=== PATIENT | female | born 1955 | race Caucasian/White ===

== ENCOUNTER 2017-05-15 15:29 | Emergency (ER) | payer BC, OTHER ==
[~2017-05-15] VITALS: Ht 160 cm; Wt 54.2 kg
[~2017-05-15 15:29] MED LIST: NAPR-1169
[2017-05-15 15:35] VITALS: TEMP 37.2; Ht 160 cm; Wt 54.2 kg
[2017-05-15] MEDS ORDERED: ONDANSETRON INJ 2 MG/ML 2 ML VIAL IV STA (15:54)
--- NOTE | 2017-05-15 16:17 | EMERGENCY ROOM VISIT NOTE ---
History Report prepared by Yusra: Raghavendra Tovar Under the Supervision of: Dr. Celso Agarwal M.D. First contact with patient: 15:47 Chief Complaint: ABDOMINAL PAIN Stated Complaint: STOMACH CRAMPS History of Present Illness The patient is a 61 year old female who presents to the Emergency Room with complaints of intermittent diffuse abdominal pain beginning a week ago. She describes her pain as a "cramping" sensation. She rates her pain as a 4/10 at worst when present. The patient has not noticed a correlation between her pain and eating. She denies any vaginal bleeding, urinary symptoms, diarrhea, vomiting, fevers, or chills. The patient was seen by her PCP today for her symptoms, and was found to have an elevated WBC count. She was referred to the ED for an abdominal CT. She notes that she had some mild RLQ pain to palpation in the office. The patient has no previous history of similar symptoms. She is scheduled for a colonoscopy next week. Source of History: patient Onset: A week ago Position: abdomen (diffuse) Symptom Intensity: 4/10 Quality: cramping Timing: intermittent Associated Symptoms: No fevers, No chills, No vomiting, No diarrhea, No urinary symptoms Note: The patient denies vaginal bleeding. Review of Systems See HPI for pertinent positives & negatives. A total of 10 systems reviewed and were otherwise negative. Past Medical & Surgical Medical Problems: (1) No Known Active Medical Problems (2) Pneumonia Surgical Problems: (1) Previous section Family History No pertinent family history stated. Social History Smoking Status: Current Every Day Smoker Marital Status: Housing Status: lives with family Current/Historical Medications Scheduled Amoxicillin & Pot Clavulanate (Augmentin 875-125 mg), 875 MG PO BID Allergies Coded Allergies: Caffeine (Verified Adverse Reaction, Intermediate, TACHYCARDIA, PALPITATIONS, 05/15/17) Uncoded Allergies: COLD MEDICATIONS (Allergy, Mild, rash, 05/15/17) Physical Exam Vital Signs Date Time Temp Pulse Resp B/P (MAP) Pulse Ox O2 Delivery O2 Flow Rate FiO2 05/15/17 19:02 75 20 120/64 95 Room Air 05/15/17 18:00 77 20 108/72 94 Room Air 05/15/17 17:30 68 20 142/77 97 Room Air 05/15/17 16:42 75 05/15/17 16:30 80 20 129/72 97 Room Air 05/15/17 15:35 37.2 93 20 137/91 98 Room Air Physical Exam GENERAL: Patient is in no acute distress. HEENT: No acute trauma, normocephalic atraumatic, mucous membranes moist, no nasal congestion, no scleral icterus. NECK: No stridor, no adenopathy, no meningismus, trachea is midline. LUNGS: Decreased breath sounds bilaterally, especially on the right. No wheezing or rhonchi. HEART: Without murmurs gallops or rubs, regular rate and rhythm. ABDOMEN: Soft, nontender, bowel sounds positive, no hernias, no peritonitis. EXTREMITIES: No cyanosis or edema, full range of motion of all the joints without pain or difficulty, no signs for acute trauma. NEUROLOGIC: Oriented x 3, no acute motor or sensory deficits, no focal weakness. SKIN: No rash, no jaundice, no diaphoresis. Medical Decision & Procedures ER Provider Diagnostic Interpretation: Radiology results as stated below per my review and radiologist interpretation: CT ABD/PELVIS IV AND ORAL CONT FINDINGS: Lower chest: There are by basilar atelectatic changes. Liver: The contrast-enhanced liver is normal in size, contour, and attenuation. There is no intrahepatic biliary ductal dilatation. The hepatic veins and portal veins are patent. Gallbladder: Contracted Spleen: Normal in size and attenuation. Pancreas: Unremarkable. Adrenal glands: Unremarkable. Kidneys: No solid renal masses are visualized. There is mild prominence of each renal pelvis. This remains unchanged 2007 is not felt to be of acute clinical significance Bowel: There are no transition zones indicate bowel obstruction. There is a thick walled dilated appendix with marked periappendiceal stranding. The findings are indicative of acute appendicitis. Given the extent of inflammatory changes, a gangrenous appendix cannot be excluded. There are no fluid collections to indicate a drainable abscess. There is no free intraperitoneal air. Peritoneum: There is no intraperitoneal free air or abdominal ascites. Vasculature: The abdominal aorta is normal in course and caliber. Adenopathy: None. Pelvic viscera: There is mild bladder wall thickening. This may in part be secondary to a nondistended bladder Skeletal structures: No destructive osseous lesions are seen. IMPRESSION: Thick-walled appendix with marked periappendiceal inflammatory change. The findings are indicative of acute appendicitis. Surgical consultation is recommended. Electronically signed by: Rodolfo Burrell M.D. 05/15/2017 7:03 PM CHEST ONE VIEW PORTABLE FINDINGS: Mild interstitial thickening at the lung bases. The upper lung zones are clear. No pleural effusions. No pneumothorax. The heart is normal in size. IMPRESSION: Mild interstitial thickening at the lung bases which is likely chronic. No acute process within the chest. Electronically signed by: Wallace Marte M.D. 05/15/2017 4:54 PM Laboratory Results 05/15/17 16:15 Red Blood Count 4.25, Mean Corpuscular Volume 87.1, Mean Corpuscular Hemoglobin 29.4, Mean Corpuscular Hemoglobin Concent 33.8, Mean Platelet Volume 9.6, Neutrophils (%) (Auto) 69.2, Lymphocytes (%) (Auto) 20.0, Monocytes (%) (Auto) 9.0, Eosinophils (%) (Auto) 1.1, Basophils (%) (Auto) 0.4, Neutrophils # (Auto) 6.74, Lymphocytes # (Auto) 1.95, Monocytes # (Auto) 0.88, Eosinophils # (Auto) 0.11, Basophils # (Auto) 0.04 05/15/17 16:15 Test 05/15/17 16:15 05/15/17 16:25 White Blood Count 9.75 K/uL (4.8-10.8) Red Blood Count 4.25 M/uL (4.2-5.4) Hemoglobin 12.5 g/dL (12.0-16.0) Hematocrit 37.0 % (37-47) Mean Corpuscular Volume 87.1 fL (80-100) Mean Corpuscular Hemoglobin 29.4 pg (25-34) Mean Corpuscular Hemoglobin Concent 33.8 g/dl (32-36) Platelet Count 333 K/uL (130-400) Mean Platelet Volume 9.6 fL (7.4-10.4) Neutrophils (%) (Auto) 69.2 % Lymphocytes (%) (Auto) 20.0 % Monocytes (%) (Auto) 9.0 % Eosinophils (%) (Auto) 1.1 % Basophils (%) (Auto) 0.4 % Neutrophils # (Auto) 6.74 K/uL (1.4-6.5) Lymphocytes # (Auto) 1.95 K/uL (1.2-3.4) Monocytes # (Auto) 0.88 K/uL (0.11-0.59) Eosinophils # (Auto) 0.11 K/uL (0-0.5) Basophils # (Auto) 0.04 K/uL (0-0.2) RDW Standard Deviation 42.3 fL (36.4-46.3) RDW Coefficient of Variation 13.2 % (11.5-14.5) Immature Granulocyte % (Auto) 0.3 % Immature Granulocyte # (Auto) 0.03 K/uL (0.00-0.02) Anion Gap 4.0 mmol/L (3-11) Est Creatinine Clear Calc Drug Dose 61.1 ml/min Estimated GFR () 93.0 Estimated GFR (Non- 80.2 BUN/Creatinine Ratio 18.1 (10-20) Calcium Level 9.1 mg/dl (8.5-10.1) Total Bilirubin 0.7 mg/dl (0.2-1) Aspartate Amino Transf (AST/SGOT) 10 U/L (15-37) Alanine Aminotransferase (ALT/SGPT) 14 U/L (12-78) Alkaline Phosphatase 78 U/L (45-117) Total Protein 8.8 gm/dl (6.4-8.2) Albumin 3.2 gm/dl (3.4-5.0) Globulin 5.6 gm/dl (2.5-4.0) Albumin/Globulin Ratio 0.6 (0.9-2) Lipase 193 U/L (73-393) Urine Color YELLOW Urine Appearance CLEAR (CLEAR) Urine pH 6.0 (4.5-7.5) Urine Specific [place] 1.019 (1.000-1.030) Urine Protein NEG (NEG) Urine Glucose (UA) NEG (NEG) Urine Ketones NEG (NEG) Urine Occult Blood NEG (NEG) Urine Nitrite NEG (NEG) Urine Bilirubin NEG (NEG) Urine Urobilinogen NEG (NEG) Urine Leukocyte Esterase TRACE (NEG) Urine WBC (Auto) 1-5 /hpf (0-5) Urine RBC (Auto) 0-4 /hpf (0-4) Urine Hyaline Casts (Auto) 1-5 /lpf (0-5) Urine Epithelial Cells (Auto) >30 /lpf (0-5) Urine Bacteria (Auto) NEG (NEG) Laboratory results reviewed by me. Medications Administered Medications (Trade) Dose Ordered Sig/López Route Start Time Stop Time Status Last Admin Dose Admin Ondansetron HCl (Zofran Inj) 4 mg NOW STAT IV 05/15/17 15:54 05/15/17 15:56 DC 05/15/17 16:23 4 MG ED Course 1548: The patient was evaluated in room B3B. A complete history and physical exam was performed. 1553: Ordered Zofran Inj 4 mg IV. 1914: I reassessed the patient. She has no pain to palpation of the abdomen. 1925: Reevaluated the patient. Medical Decision The patient is a 61 year old female who presents to the ED with complaints of intermittent abdominal cramping. Differential diagnoses considered include appendicitis, diverticulitis, intestinal colic, constipation, UTI, viral illness , dehydration, and anemia. There is no leukocytosis or concerning anemia. No significant electrolyte abnormality, kidney failure, hepatitis or pancreatitis. Urinalysis does not show evidence for infection. Chest x-ray does not show pneumonia, free air or CHF. Abdominal and pelvis CT suggests acute appendicitis, no free air. No bowel obstruction. The patient was given IV Zofran for nausea. She is doing well. She states that she has no pain. I talked with the surgeon on-call about the findings on CT. As the patient has no fever or white count, as the patient has no actual pain right now, the surgeon felt the patient could likely be discharged on antibiotics. Patient was given a dose of IV Unasyn. The patient will be seen by surgery, the plan for now is likely discharge, an overnight hospital stay for observation was also a possibility. Please see the surgical notes for further information. Medication Reconcilliation Current Medication List: was personally reviewed by me Blood Pressure Screening Patient's blood pressure: Normal blood pressure Blood pressure disposition: Did not require urgent referral Consults Time Called: 1915 Consulting Physician: Dr. Duarte -General Surgery Returned Call: 1920 Discussed the patient's case. Dr. Duarte recommends discharge on antibiotics with close outpatient follow-up. He does not feel that the patient is a surgical candidate due to lack of a white count and no pain. Impression Primary Impression: Appendicitis Scribe Attestation The scribe's documentation has been prepared under my direction and personally reviewed by me in its entirety. I confirm that the note above accurately reflects all work, treatment, procedures, and medical decision making performed by me. Departure Information Dispostion Still a Patient Prescriptions Amoxicillin & Pot Clavulanate (Augmentin 875-125 mg) 1 Tab Tab 875 MG PO BID for 7 Days, #14 TAB Prov: Celso Agarwal M.D. 05/15/17 Referrals No Doctor, Assigned (PCP) Forms Call Back Authorization, HOME CARE DOCUMENTATION FORM, IMPORTANT VISIT INFORMATION Patient Instructions My [facility] Additional Instructions augmentin 2x per day for 1 week return if worsening or if have more pain, or if have fever or vomiting see theresa md next week for a recheck bland diet for next 2 days you have appendicitis by CT scan but since you were feeling better, surgery felt you could go home on antibiotics to return if worsening Problem Qualifiers Primary Impression: Appendicitis Appendicitis type: acute appendicitis Acute appendicitis type: unspecified acute appendicitis type Qualified Codes: K35.80 - Unspecified acute appendicitis
[2017-05-15 16:30] LABS: BASO % 0.4 %; BASO ABS # 0.04 K/uL (0-0.2); COMPLETE YES; EOS % 1.1 %; IG% 0.3 %; LYMPH ABS # 1.95 K/uL (1.2-3.4); MEAN CELL VOLUME 87.1 fL (80-100); MEAN CORPUSCULAR HEMOGLOBIN 29.4 pg (25-34); MEAN CORPUSCULAR HGB CONC 33.8 g/dl (32-36); MEAN PLATELET VOLUME 9.6 fL (7.4-10.4); NEUT % 69.2 %; PLATELET COUNT 333 K/uL (130-400); RED BLOOD COUNT 4.25 M/uL (4.2-5.4); WHITE BLOOD COUNT 9.75 K/uL (4.8-10.8)
[2017-05-15 16:49] LABS: URINE APPEARANCE CLEAR (CLEAR); URINE BILIRUBIN NEG (NEG); URINE COLOR YELLOW; URINE EPITHELIAL CELL AUTO >30 /lpf (0-5); URINE NITRITE NEG (NEG); URINE SPECIFIC GRAVITY 1.019 (1.000-1.030); UROBILINOGEN NEG (NEG); ZZUR CULT IF INDIC CLEAN CATCH NO
[2017-05-15 16:50] LABS: MANUAL MICROSCOPIC REQUIRED? NO; REVIEW REQ? NO
[2017-05-15 16:52] LABS: BUN/CREATININE RATIO 18.1 (10-20); CALCIUM 9.1 mg/dl (8.5-10.1); CREATININE 0.79 mg/dl (0.60-1.20); POTASSIUM 3.4 mmol/L (3.5-5.1)
[2017-05-15 16:54] LABS: ALB/GLOB RATIO 0.6 (0.9-2)
--- NOTE | 2017-05-15 16:55 | DIAGNOSTIC IMAGING REPORT ---
CHEST ONE VIEW PORTABLE HISTORY: Generalized abdominal pain. COMPARISON: None. FINDINGS: Mild interstitial thickening at the lung bases. The upper lung zones are clear. No pleural effusions. No pneumothorax. The heart is normal in size. IMPRESSION: Mild interstitial thickening at the lung bases which is likely chronic. No acute process within the chest. Electronically signed by: Wallace Marte M.D. 05/15/2017 4:54 PM Dictated Date/Time: 05/15/2017 4:53 PM
[2017-05-15] MEDS ORDERED: OPTIRAY 320 IV PRN (19:00)
--- NOTE | 2017-05-15 19:04 | DIAGNOSTIC IMAGING REPORT ---
CT ABD/PELVIS IV AND ORAL CONT CLINICAL HISTORY: Abdominal pain. Possible acute appendicitis. COMPARISON STUDY: 08/01/2006 TECHNIQUE: Following the IV administration of 116 mL of Optiray-320, CT scan of the abdomen and pelvis was performed from the lung bases to the proximal femurs. Images are reviewed in the axial, sagittal, and coronal planes. IV contrast was administered without complication. A dose lowering technique was utilized adhering to the principles of ALARA. CT DOSE: 268.83 mGy.cm FINDINGS: Lower chest: There are by basilar atelectatic changes. Liver: The contrast-enhanced liver is normal in size, contour, and attenuation. There is no intrahepatic biliary ductal dilatation. The hepatic veins and portal veins are patent. Gallbladder: Contracted Spleen: Normal in size and attenuation. Pancreas: Unremarkable. Adrenal glands: Unremarkable. Kidneys: No solid renal masses are visualized. There is mild prominence of each renal pelvis. This remains unchanged 2007 is not felt to be of acute clinical significance Bowel: There are no transition zones indicate bowel obstruction. There is a thick walled dilated appendix with marked periappendiceal stranding. The findings are indicative of acute appendicitis. Given the extent of inflammatory changes, a gangrenous appendix cannot be excluded. There are no fluid collections to indicate a drainable abscess. There is no free intraperitoneal air. Peritoneum: There is no intraperitoneal free air or abdominal ascites. Vasculature: The abdominal aorta is normal in course and caliber. Adenopathy: None. Pelvic viscera: There is mild bladder wall thickening. This may in part be secondary to a nondistended bladder Skeletal structures: No destructive osseous lesions are seen. IMPRESSION: Thick-walled appendix with marked periappendiceal inflammatory change. The findings are indicative of acute appendicitis. Surgical consultation is recommended. Electronically signed by: Rodolfo Burrell M.D. 05/15/2017 7:03 PM Dictated Date/Time: 05/15/2017 6:59 PM
[2017-05-15] MEDS ORDERED: AMPICILLIN/SULBACTAM SOD INJ 3,000 MG in SODIUM CHLORIDE 0.9% 100ML 100 ML IV ONE (19:30)
[2017-05-15] MEDS ORDERED: AMOX875T PO (19:35)
--- NOTE | 2017-05-15 20:59 | EMERGENCY ROOM VISIT NOTE ---
ED Visit Note First contact with patient: 15:47 The patient was seen by surgery. The decision has been made to send the patient home, she has agreed to return if worsening.
[2017-05-15 21:01] VITALS: BP 132/78; PULSE 87; O2SAT 98
--- NOTE | 2017-05-15 21:11 | Medical Consult ---
Consultation Date of Consultation: May 15, 2017. Attending Physician: Reason for Consultation: Appendicitis History of Present Illness Patient presented to the ED this evening with a 1 week history of intermittent diffuse abdominal pain. She was seen by her PCP earlier today who noticed some RLQ tenderness on exam along with an elevated white count. Her PCP instructed her to go to the ED with these findings. She rates her pain at a 4/10 when she has these bouts of pain and denies any other areas of pain. Denies nausea, vomiting, fever or chills. She has been moving her bowels and urinating without trouble. She does not believe her symptoms are due to any foods she has been eating recently. Denies any past abdominal surgeries. Denies any similar symptoms in the past. At present she states she feels fine and would prefer not to stay the night. She is scheduled to have a colonoscopy this coming due to blood in her stool found on a cologuard test back in March. Past Medical/Surgical History Medical Problems: (1) Appendicitis Status: Acute Social History Smoking Status: Current Every Day Smoker Marital Status: Housing Status: lives with family Allergies Coded Allergies: Caffeine (Verified Adverse Reaction, Intermediate, TACHYCARDIA, PALPITATIONS, 05/15/17) Uncoded Allergies: COLD MEDICATIONS (Allergy, Mild, rash, 05/15/17) Current Inpatient Medications Current Inpatient Medications Medications (Trade) Dose Ordered Sig/López Route Start Time Stop Time Status Last Admin Dose Admin Ioversol (Optiray 320) 111 ml UD PRN IV 05/15/17 19:00 05/19/17 18:59 Review of Systems Constitutional: No fever, No chills, No sweats, No weakness Respiratory: No shortness of breath Cardiovascular: No chest pain Abdomen: + pain (None at present), No nausea, No vomiting, No diarrhea, No constipation Genitourinary - Female: No dysuria Integumentary: No rash, No color change Physical Exam Date Time Temp Pulse Resp B/P (MAP) Pulse Ox O2 Delivery O2 Flow Rate FiO2 05/15/17 20:14 75 20 136/78 95 Room Air 05/15/17 19:02 75 20 120/64 95 Room Air 05/15/17 18:00 77 20 108/72 94 Room Air 05/15/17 17:30 68 20 142/77 97 Room Air 05/15/17 16:42 75 05/15/17 16:30 80 20 129/72 97 Room Air 05/15/17 15:35 37.2 93 20 137/91 98 Room Air General Appearance: WD/WN, no apparent distress Head: normocephalic, atraumatic Eyes: sclerae normal Neck: trachea midline Respiratory/Chest: no respiratory distress, no accessory muscle use Abdomen/GI: normal bowel sounds, soft, no organomegaly, no pulsatile mass, + tenderness (Mild TTP RLQ), + pertinent finding ((-) psoas sign, (-) Obturator sign) Neurologic/Psych: alert, oriented x 3 Skin: normal color, warm/dry Laboratory Results Last 24 Hours Test 05/15/17 16:15 05/15/17 16:25 White Blood Count 9.75 K/uL Red Blood Count 4.25 M/uL Hemoglobin 12.5 g/dL Hematocrit 37.0 % Mean Corpuscular Volume 87.1 fL Mean Corpuscular Hemoglobin 29.4 pg Mean Corpuscular Hemoglobin Concent 33.8 g/dl Platelet Count 333 K/uL Mean Platelet Volume 9.6 fL Neutrophils (%) (Auto) 69.2 % Lymphocytes (%) (Auto) 20.0 % Monocytes (%) (Auto) 9.0 % Eosinophils (%) (Auto) 1.1 % Basophils (%) (Auto) 0.4 % Neutrophils # (Auto) 6.74 K/uL Lymphocytes # (Auto) 1.95 K/uL Monocytes # (Auto) 0.88 K/uL Eosinophils # (Auto) 0.11 K/uL Basophils # (Auto) 0.04 K/uL RDW Standard Deviation 42.3 fL RDW Coefficient of Variation 13.2 % Immature Granulocyte % (Auto) 0.3 % Immature Granulocyte # (Auto) 0.03 K/uL Sodium Level 132 mmol/L Potassium Level 3.4 mmol/L Chloride Level 102 mmol/L Carbon Dioxide Level 26 mmol/L Anion Gap 4.0 mmol/L Blood Urea Nitrogen 14 mg/dl Creatinine 0.79 mg/dl Est Creatinine Clear Calc Drug Dose 61.1 ml/min Estimated GFR () 93.0 Estimated GFR (Non- 80.2 BUN/Creatinine Ratio 18.1 Random Glucose 97 mg/dl Calcium Level 9.1 mg/dl Total Bilirubin 0.7 mg/dl Aspartate Amino Transf (AST/SGOT) 10 U/L Alanine Aminotransferase (ALT/SGPT) 14 U/L Alkaline Phosphatase 78 U/L Total Protein 8.8 gm/dl Albumin 3.2 gm/dl Globulin 5.6 gm/dl Albumin/Globulin Ratio 0.6 Lipase 193 U/L Urine Color YELLOW Urine Appearance CLEAR Urine pH 6.0 Urine Specific [place] 1.019 Urine Protein NEG Urine Glucose (UA) NEG Urine Ketones NEG Urine Occult Blood NEG Urine Nitrite NEG Urine Bilirubin NEG Urine Urobilinogen NEG Urine Leukocyte Esterase TRACE Urine WBC (Auto) 1-5 /hpf Urine RBC (Auto) 0-4 /hpf Urine Hyaline Casts (Auto) 1-5 /lpf Urine Epithelial Cells (Auto) >30 /lpf Urine Bacteria (Auto) NEG Assessment & Plan Abdominal pain - acute appendicitis on CT abd/pelvis 05/15/17 Patient seen and examined with Dr. Duarte. Minimal RLQ TTP on deep palpation, mild left shift, exam otherwise benign, feeling well. No Surgical intervention indicated at this time. Patient will be discharged from the ED on PO Antibiotics - instructed to return to the ED if her symptoms persist or worsen. Colonoscopy currently scheduled for with Dr. Lipscomb at [facility] due to blood in stool on cologuard test - will contact GI in the AM to discuss findings. Please contact with questions or concerns.
== END 2017-05-15 21:02 | disposition home or self-care (01) ==
LOC: C.EDB 15:30
DX: K37 Unspecified appendicitis (principal); F17.200 Nicotine dependence, unspecified, uncomplicated; Z91.018 Allergy to other foods

== ENCOUNTER 2017-06-05 05:15 | Observation (INO) | payer BC ==
[~2017-06-05] VITALS: Ht 160 cm; Wt 53.6 kg
[2017-06-05] VITALS (8 sets, daily range): BP systolic 132–148; BP diastolic 75–87; PULSE 54–74; TEMP 36.7–37.1; O2SAT 93–100; Ht 160 cm; Wt 53.6 kg
[2017-06-05] MEDS ORDERED: LACTATED RINGER'S 1000ML 1,000 ML IV SCH (06:00)
[2017-06-05] MEDS ORDERED: CEFOXITIN IV 2,000 MG in DEXTROSE 5% 50ML 50 ML IV SCH (06:00)
[2017-06-05] MEDS ORDERED: ONDANSETRON INJ 2 MG/ML 2 ML VIAL ONE (06:41)
[2017-06-05] MEDS ORDERED: ROCURONIUM BROMIDE 10 MG/ML 5 ML VIAL IV ONE (06:41)
[2017-06-05] MEDS ORDERED: DEXAMETHASONE SOD INJ 4 MG/ML VIAL ONE (06:41)
[2017-06-05] MEDS ORDERED: LIDOCAINE HCL 2% 2 ML VIAL (20MG/ML) ONE (06:41)
[2017-06-05] MEDS ORDERED: GLYCOPYRROLATE INJ 0.2 MG/ML VIAL ONE ×2 (06:41→08:06)
[2017-06-05] MEDS ORDERED: NEOSTIGMINE METHYLSULFATE 5 MG/5 ML SYR ONE (06:41)
[2017-06-05] MEDS ORDERED: MIDAZOLAM HCL 1 MG/ML 2ML VIAL ONE (06:41)
[2017-06-05] MEDS ORDERED: PROPOFOL IV EMULSION 10 MG/ML 20 ML VIAL IV ONE ×2 (06:41→07:58)
[2017-06-05] MEDS ORDERED: FENTANYL CITRATE INJ 50 MCG/1 ML 2 ML VIAL ONE ×2 (06:41→07:43)
[2017-06-05] MEDS ORDERED: LIDOCAINE HCL 1% 20 ML VIAL ONE (06:46)
[2017-06-05] MEDS ORDERED: BUPIVACAINE 0.5 % 5 MG/1 ML MPF 30ML VIAL ONE (06:47)
[2017-06-05] MEDS ORDERED: BACITRACIN OINT 15 GM TUBE ONE (06:47)
[2017-06-05] MEDS ORDERED: CEFOXITIN SOD 2 GM VIAL IV STA (07:12)
--- NOTE | 2017-06-05 07:12 | History & Physical Bridge Note ---
H&P Re-Evaluation Bridge Note: I have examined the patient, reviewed the History & Physical and in the interval since the performance of the History & Physical I have noted the following changes of clinical significance: No changes noted
[2017-06-05] MEDS ORDERED: KETOROLAC TROMETHAMINE 30 MG/ML VIAL ONE (07:54)
[2017-06-05] MEDS ORDERED: HYDROmorphone INJ 2 MG/ML SYR/VIAL IV PRN (08:00)
[2017-06-05] MEDS ORDERED: EpHEDrine SULFATE INJ 50 MG/ML AMP IV PRN (08:00)
[2017-06-05] MEDS ORDERED: PHENYLEPHRINE 100MCG/ML 5ML SYR IV PRN (08:00)
[2017-06-05] MEDS ORDERED: ONDANSETRON INJ 2 MG/ML 2 ML VIAL IV PRN ×2 (08:00→08:30)
[2017-06-05] MEDS ORDERED: ATROPINE SULFATE 0.1 MG/ML 5ML SYR IV PRN (08:00)
--- NOTE | 2017-06-05 08:27 | [facility] Post Operative Brief Note ---
Immediate Operative Summary Operative Date Jun 05, 2017. Pre-Operative Diagnosis Chronic Appendicitis Post-Operative Diagnosis Chronic Appendicitis Procedure(s) Performed Laparoscopi Appendectomy Surgeon Dr. Matamoros Card Feeder Surgeon(s) none Estimated Blood Loss 5 cc Findings chronic appendicitis Specimens A: appendix Drains none Anesthesia general Complication(s) None Disposition Recovery Room / PACU
[2017-06-05] MEDS ORDERED: HYDROmorphone INJ 1 MG/ML SYR IV PRN (08:30)
[2017-06-05] MEDS ORDERED: OXYCODONE/ACETAMINOPHEN 5-325 TAB PO PRN (08:30)
[2017-06-05] MEDS ORDERED: ACETAMINOPHEN 325 MG TAB PO PRN (08:30)
--- NOTE | 2017-06-05 08:59 | Anesthesiology Progress Note ---
Anesthesia Post Op Note Date & Time Jun 05, 2017 at 08:59 Vital Signs Pain Intensity: 0 Vital Signs Past 12 Hours Date Time Temp Pulse Resp B/P (MAP) Pulse Ox O2 Delivery O2 Flow Rate FiO2 06/05/17 08:55 136/73 06/05/17 08:52 56 13 06/05/17 08:52 56 13 99 06/05/17 08:51 128/67 06/05/17 08:47 61 18 99 06/05/17 08:47 59 18 06/05/17 08:46 56 17 100 06/05/17 08:46 56 17 06/05/17 08:45 137/71 06/05/17 08:41 57 21 06/05/17 08:41 57 21 100 06/05/17 08:40 125/70 06/05/17 08:37 128/69 06/05/17 08:36 59 14 06/05/17 08:36 59 14 73/64 99 06/05/17 08:31 60 11 06/05/17 08:31 36.6 60 16 122/75 (84) 99 Oxymask 10 06/05/17 08:31 60 11 122/75 97 06/05/17 05:43 37.1 74 20 132/75 (94) 98 Room Air Notes Mental Status: alert / awake / arousable, participated in evaluation Pt Amnestic to Procedure: Yes Nausea / Vomiting: adequately controlled Pain: adequately controlled Airway Patency, RR, SpO2: stable & adequate BP & HR: stable & adequate Hydration State: stable & adequate Anesthetic Complications: no major complications apparent
[2017-06-05] MEDS ORDERED: IV FLUIDS COMPLETED PRN (09:00)
--- NOTE | 2017-06-05 09:15 | OPERATIVE REPORT ---
DATE OF OPERATION: 06/05/2017 PREOPERATIVE DIAGNOSIS: Chronic appendicitis. POSTOPERATIVE DIAGNOSIS: Same. PROCEDURE: Laparoscopic appendectomy. SURGEON: Jose De Jesus Matamoros MD. ANESTHESIA: General. ESTIMATED BLOOD LOSS: About 5 mL. FINDINGS: Chronic appendicitis. COMPLICATIONS: None. INDICATIONS FOR THE PROCEDURE: This is a 61-year-old female who presented with right lower quadrant pain 2 weeks ago. The patient was diagnosed with acute appendicitis 2 weeks ago and patient had conservative treatment and patient still has some right inguinal pain. The patient will require to do laparoscopic appendectomy, possible open. I did talk to the patient about the benefit and risk, alternate procedure. I indicated the risks may include but not limited such as bleeding, infection, abscess, injury to the bowel. The patient understands. She signed informed consent and I answered all questions. DETAILS OF PROCEDURE: We brought the patient to the OR, put the patient in the supine position. The patient received SCD on bilateral legs to prevent DVT. Also, patient received 2 gram cefoxitin IV for prophylactic antibiotic. The patient received general anesthesia without difficulty. The abdomen was prepped and draped in routine sterile fashion. After a timeout, I injected local anesthesia by using 1% lidocaine mixed with 0.5% Marcaine just above the umbilicus. Then I made a small incision just above umbilicus, opened fascia and opened peritoneum under direct vision. I put a Fermin trocar in, connected to CO2 to create pneumoperitoneum. Flow rate at 6 liter per minute. Pressure not more than 14 mmHg. Once we got a nice pneumoperitoneum and then we put a camera in to look around the abdomen showing normal findings in the stomach, small bowel, large bowel and the liver; however, the appendix surely is enlarged, inflammation, confirmed chronic appendicitis. Then, we put another two 5 mm trocar on the left lower quadrant area. Then we mobilized the appendix, used harmonic to take down the appendiceal, rechecked, no active bleeding. Then we used the Endo-NAS staple for transection on the base of the appendix, rechecked no active bleeding, no leak. Then we removed the appendix through the catcher bag and then we reinserted Fermin trocar in, connected to CO2 to create pneumoperitoneum again, looked around the abdomen showing no active bleeding, no leak from bowel, no injury to the bowel. Then we removed all trocar under direct vision. No active bleeding from trocar sites. The pneumoperitoneum was released. Then I closed the umbilical incision and fascial layer by using #1 Vicryl [id number] x2, closed subcutaneous layer by using 2-0 Vicryl continuous running, closed the skin by using 4-0 Vicryl continuous running. Then we closed another two 5 mm trocar site skin only by using 4-0 Vicryl. We put the dressing on. The patient tolerated the procedure well and before the procedure, the patient had a Delvalle catheter inserted. After the procedure, we removed Delvalle catheter insertion. The patient transferred to recovery room in stable condition. After the procedure, I did talk to the patient's family member about the OR finding and procedure we did. The patient's understands. I attest to the content of the Intraoperative Record and any orders documented therein. Any exceptions are noted below. SHARMILA
[2017-06-05] MEDS ORDERED: D5W AND 1/2NSS + 20MEQ KCL 1,000 ML IV SCH (10:15)
--- NOTE | 2017-06-05 14:37 | Discharge Instructions ---
Discharge Instructions Date of Service Jun 05, 2017. Admission Reason for Admission: Appendicitis Discharge Discharge Diagnosis / Problem: same Discharge Goals Goal(s): Decrease discomfort, Improve function Activity Recommendations Activity Limitations: as noted below No heavy lifting over 20 pounds for 3-4 weeks No strenuous activity until cleared by surgeon No submerging incisions underwater for 2 weeks (no bathing, swimming, or hot tubs) No driving while taking narcotic pain medication or until you are pain free . Instructions / Follow-Up Instructions / Follow-Up You may shower in 4 days and then remove outer dressings and replace. You may wash hair and sponge bath in the meantime. Leave steri strips on incisions for 7 days and then remove. They may fall off on their own that is okay. Walking and light activity is encouraged to prevent blood clots from forming in your legs You will be given prescription for narcotic pain medication. Take this medication as prescribed only for moderate to severe pain. This medication may make you drowsy. You may take extra strength Tylenol or Ibuprofen as needed for mild pain. Follow-up in surgical office in 1-2 weeks, please call office at [phone] if you do not already have a follow up appointment made. Current Hospital Diet Patient's current hospital diet: Clear Liquid Diet Discharge Diet Recommended Diet: Regular Diet Procedures Procedures Performed: Laparoscopi Appendectomy Pending Studies Studies pending at discharge: yes List of pending studies: Appendix pathology will be reviewed at follow up visit Medical Emergencies . Who to Call and When: Medical Emergencies: If at any time you feel your situation is an emergency, please call 911 immediately. . Non-Emergent Contact Non-Emergency issues call your: Primary Care Provider, Surgeon Call Non-Emergent contact if: you have a fever, temperature is above 101, your pain is not controlled, your pain is worsening, your pain is unusual for you, wound has increased drainage, wound has increased redness, wound has increased pain . "Provider Documentation" section prepared by Maria Isabel Carroll. . VTE Core Measure Inpt VTE Proph given/why not?: SCD's [place] Drug Monitoring Program Search Results: patient reviewed within database, no issues identified
[2017-06-05] MEDS ORDERED: OXYC-57 PO (14:46)
--- NOTE | 2017-06-05 16:53 | Progress Note ---
Progress Note Date of Service Jun 05, 2017. Progress Note Patient evaluated at 4:30 pm Tolerated clear liquids, minimal pain has not had any pain medication since surgery urinating without difficulty ready to go home Plan: Discharge home this evening discharge instructions reviewed Rx for Percocet will be given as needed for pain F/u office as scheduled
[2017-06-05] MEDS ORDERED: CEFTRIAXONE SOD INJ 1 GM in DEXTROSE 5% ADD-VANTAGE 50ML 50 ML IV SCH (19:00)
--- NOTE | 2017-06-08 12:44 | DISCHARGE SUMMARY ---
ADMITTING DIAGNOSIS: Chronic appendicitis. DISCHARGE DIAGNOSIS: Same. OPERATION: Laparoscopic appendectomy. SURGEON: Jose De Jesus Matamoros MD DETAILS OF DISCHARGE SUMMARY: This is a 61 years old female who presented with right lower quadrant pain for 2 weeks. The patient had CT scan diagnosis with acute appendicitis. The patient tolerated the procedure well. After the procedure, the patient transported to regular floor and the patient is doing fine. PHYSICAL EXAMINATION: VITAL SIGNS: Temperature is 36.7, heart rate is 65, respiratory rate is 16, and blood pressure 128/65mmhg. HEENT: Within normal limitation. NECK: No JVD. CHEST: Bilateral lung sounds clear. HEART: Normal S1 and S2. No murmur. ABDOMEN: soft, No distend, slight tenderness at incision site, all dressing are intact Ext: no edema, Plan , pt wants to go home today. I gave pt post-op carea instruction, F/U 1 week, . MTDD
== END 2017-06-05 17:33 | disposition home or self-care (01) ==
LOC: C.ACU 05:15 → C.MSN 08:31 → ENRESERV 08:57
PROVIDERS: ADMIT Surgery; ATTEND Surgery
DX: K36 Other appendicitis (principal); F17.200 Nicotine dependence, unspecified, uncomplicated

== ENCOUNTER 2024-07-04 13:57 | Inpatient (IN) ==
[2024-07-04] MEDS: HYDROCODONE/ACETAMOPHEN 5/325MG TAB PO STA (14:36)
--- NOTE | 2024-07-04 14:37 | Emergency Department Note ---
Impression & Plan Pneumothorax on right, Rib pain on right side, Primary squamous cell carcinoma of supraglottis, Fall, Right rib fracture ED Provider Note NAME: ANAM ROLDAN AGE: 68 SEX: Female INFORMANT: Patient and ED PROVIDER(S): Michael Miranda MD CHIEF COMPLAINT: Rib pain PLAN: Disposition: Admitted Outpatient prescription management: none Referral: None MEDICAL DECISION MAKING: Patient presented because of a fall. She had pain and tenderness in the right ribs. Obtained her laboratory testing from the [facility] outpatient clinic. CT imaging was ordered after the patient received a dose of Ashley for pain control. Did discuss pain control with patient and . Patient was still having some discomfort on reassessment. CT imaging revealed the presence of a right ninth rib fracture. Patient also has a small pneumothorax. Her outpatient laboratory testing did not reveal any issues with her CBC or chemistry panel. Patient will benefit from admission for pain control, pulmonary toilet and monitoring. I did discuss her pneumothorax with Dr. Jarrett of pulmonary and he noted no pulmonary intervention was necessary unless she deteriorates. Consultation was made with the [facility] hospitalist service. Patient was evaluated in the ER and admitted for further management. I did order IV Dilaudid for additional symptom control. 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 Vital Signs: reviewed and remarkable for no significant abnormalities Additional History obtained from: Patient's regarding her outpatient treatment. Chronic Medical/Social Conditions affecting care: Throat cancer, chemotherapy/radiation therapy status Prior/ Outside/ External records reviewed: Outpatient laboratory testing from today reviewed as noted above. Differential Diagnosis: Fracture, subluxation, dislocation, contusion, pulmonary contusion, pneumothorax, intra-abdominal injury, as well as other pathologies. Diagnostics, independently interpreted by me: ECG: none Cardiac Monitoring: none Medical decision rules: none Imaging studies: HPI: 68 year old Female arrives for evaluation of right-sided rib pain. This started 2 days ago and is from an accidental fall. The patient also notes the following associated symptoms, pain with inspiration on the right side. Patient is undergoing treatment for throat cancer. She follows with [facility]. She notes having blood work done today. She was sent to the ER due to the rib pain and difficulty sleeping secondary to the pain. The patient has tried tramadol unsuccessfully for relieving factors. Current pain is rated as 8/10. Pt denies LOC, headache, visual changes, neck pain, left chest pain, breathing difficulties, nausea, vomiting, abdominal pain, back pain, extremity pain, numbness, weakness, open wounds, active bleeding, or other complaints. PAST MEDICAL HISTORY: See Below, throat cancer PAST SURGICAL HISTORY: See Below, Mediport SOCIAL HISTORY: See Below, HOME MEDICATIONS: See Below ALLERGIES: See Below VITALS: See Below PHYSICAL EXAMINATION: GENERAL: Awake, alert, caa-zsyrdlkybkf-yuhzdcloc, in no distress HENT: Normocephalic, atraumatic. Oropharynx unremarkable. Hoarse voice. EYES: Normal conjunctiva. Sclera non-icteric. NECK: Inspection normal. Non-tender. Supple. No nuchal rigidity. FROM. No masses. RESPIRATORY: Clear to auscultation. No wheezes. No rales. Normal respiratory effort. CARDIAC: Normal rate. Normal rhythm. No murmurs. No rubs. Extremities warm and well perfused. Pulses equal. No JVD. GI: Soft, non-distended. No tenderness to palpation. No rebound or guarding. No masses. RECTAL: Deferred. MUSCULOSKELETAL: Atraumatic. Chest examination reveals right lateral rib no tenderness. No joint edema. LOWER EXTREMITIES: Calves are equal size bilaterally and non-tender. No edema. No discoloration. NEURO: Normal sensorium. No sensory or motor deficits noted. SKIN: No rash or jaundice noted. PROCEDURES: none CRITICAL CARE: none OBSERVATION NOTE: none Past Med/Surg History Problem List (Updated 07/05/24 @ 00:51 by Michael Miranda MD) Cancer of right breast Hypoxia Dysphagia Pericardial effusion Pneumothorax on right (Acute) Severe malnutrition Aspiration pneumonitis Right rib fracture (Acute) Fall (Acute) Rib pain on right side (Acute) Cough Primary squamous cell carcinoma of supraglottis (Chronic) Malignant neoplasm of lower-outer quadrant of right breast of female, estrogen receptor negative (Chronic 03/21/24) History of appendectomy Appendicitis Medical History Laryngeal cancer Port-A-Cath in place Diverticulosis Surgical History Previous section History of cataract surgery Bilateral History of esophagogastroduodenoscopy History of laryngoscopy with biopsy by Dr. Klein on 03/04/24 Hx of colonoscopy Family History Mother No problems noted. Father , 82yo Fall Sister Breast cancer Thyroid disease Sister No problems noted. Son Twin Son Twin Daughter Lupus (systemic lupus erythematosus) Daughter No problems noted. 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 How many Children do You have: 4 Feels Safe at Home: Yes Safety Concerns: Feels Safe At This Time Diet: regular caffeine: No during the past year weight has: decreased > 10 lbs Assistive Devices: Glasses and Hearing Aid - Bilateral Allergies Allergies Allergy/AdvReac Type Severity Reaction Status Date / Time caffeine AdvReac Intermediate TACHYCARDIA Verified 06/20/24 11:09 ,PALPITATIO NS Unclassified Drugs Allergy Unknown ANY COLD Uncoded 06/20/24 11:09 REMEDY - RASH Percocet AdvReac Mild Flushing Uncoded 06/20/24 11:09 Home Meds Home Medications Medication Instructions Recorded Confirmed alendronate 70 mg tablet (Fosamax) 70 mg PO WK 04/05/24 07/04/24 famotidine 20 mg tablet (Pepcid) 20 mg PO BID 04/05/24 07/04/24 qnzrkvan-nbz-vszplp 5 mg-zeaxanth 1 cap PO DAILY 04/05/24 07/04/24 1 mg-bilberry 7.5 mg-herbal capsule ([employer] Formula) fluconazole 100 mg tablet 100 mg PO DAILY 07/04/24 07/04/24 fluoride (sodium) 1.1 % dental 1 applic dental DAILY 07/04/24 07/04/24 paste levothyroxine 88 mcg tablet 88 mcg PO QAM 07/04/24 07/04/24 lidocaine HCl 2 % mucosal solution 15 ml PO Q6H 07/04/24 07/04/24 (Lidocaine Viscous) potassium chloride 20 mEq 40 meq PO QAM 07/04/24 07/04/24 tablet,extended release(part/cryst) Previous Rx's Medication Instructions Recorded sucralfate 1 gram tablet (Carafate) 1 g PO Q6H #120 tabs 06/20/24 Results & Data (ED) Vital Signs Vital Signs - 24 hr 07/04/24 14:01 07/04/24 17:03 Temperature 36.8 C Temperature Source Temporal Artery Scan Pulse Rate 92 H Respiratory Rate 18 Respiratory Effort / Characteristics Non-Labored Spontaneous Respiratory Depth Normal Respiratory Pattern Regular Blood Pressure 125/66 Blood Pressure Mean 85 Pulse Oximetry 93 87 L Oxygen Delivery Method Room Air Nasal Cannula Oxygen Flow Rate 0 Sepsis Recent Fever Within 48 Hours No Sepsis New/Unexplained Change in Mental Status N/A Sepsis Action Taken by Nursing No Action Required Oxygen Flow Rate - Titration 2 Pulse Oximetry Post Tiitration 96 Administered Medications Famotidine (Famotidine 20 Mg Tab) 20 mg PO BID [facility] Stop: 08/03/24 20:59 Last Admin: 07/04/24 20:32 Dose: 20 mg Documented By: TEODORA Piperacillin Sod/Tazobactam Sod (Zosyn) 4.5 gm in 100 mls @ 200 mls/hr IV Q8H [facility]; Protocol Stop: 07/09/24 21:29 Last Infusion: 07/04/24 21:02 Dose: Infused Documented By: Admin: 07/04/24 20:32 Dose: 200 mls/hr Documented By: TEODORA Lidocaine (Lidocaine 5% 1 Patch) 1 patch TD QAM [facility] Stop: 08/03/24 18:59 Last Admin: 07/04/24 20:32 Dose: 1 patch Documented By: TEODORA Lidocaine HCl (Lidocaine Viscous 2% 15 Ml Udc) 15 ml PO Q6 [facility] Stop: 08/03/24 19:09 Last Admin: 07/05/24 00:27 Dose: 15 ml Documented By: Admin: 07/04/24 20:32 Dose: 15 ml Documented By: TEODORA Miscellaneous (Remove Lidoderm Patch) 1 each N/A DAILY@2100 [facility] Stop: 08/03/24 22:59 Last Admin: 07/04/24 20:32 Dose: 1 each Documented By: TEODORA Sucralfate (Sucralfate 1 Gm Tab) 1 gm PO Q6 [facility] Stop: 08/03/24 18:59 Last Admin: 07/05/24 00:27 Dose: 1 gm Documented By: Admin: 07/04/24 20:32 Dose: 1 gm Documented By: TEODORA Discontinued Medications Hydrocodone Bitart/Acetaminophen (Hydrocodone/Acetamophen 5/325mg Tab) 0.5 tab PO NOW STA Stop: 07/04/24 14:21 Last Admin: 07/04/24 14:36 Dose: 0.5 tab Documented By: CRISTIAN Piperacillin Sod/Tazobactam Sod (Zosyn) 4.5 gm in 100 mls @ 200 mls/hr IV NOW STA; Protocol Stop: 07/04/24 17:57 Last Infusion: 07/04/24 18:42 Dose: Infused Documented By: Admin: 07/04/24 17:53 Dose: 200 mls/hr Documented By: Ondansetron HCl (Ondansetron Inj 2 Mg/Ml 2 Ml Vial) 4 mg IV NOW STA Stop: 07/04/24 16:01 Last Admin: 07/04/24 16:23 Dose: 4 mg Documented By: CHANCE Imaging Data Radiologist's Impression: Chest CT 07/04/24 14:18 CT chest diagnostic wo con CT DOSE: 221.88 mGy.cm CLINICAL HISTORY: 68 years-old Female with fall,right lateral rib pain. Acute right-sided rib pain status post fall TECHNIQUE: Multiaxial CT images of the chest were performed without contrast. A dose lowering technique was utilized adhering to the principles of ALARA. COMPARISON: CT radiation of the neck 04/26/2024. FINDINGS: No thyroid nodule identified. Left subclavian catheter. Moderate sized cardiomegaly. There is a small pericardial effusion measuring 1.3 cm. No thoracic aortic aneurysm. Borderline enlarged mediastinal and hilar lymph nodes. Small right and trace left pleural effusions. There is a small right apical pneumothorax with pleural separation of approximately 1.5 cm. 10 mm pleural separation at the right lung base centrally. Mild to moderate pulmonary emphysema with bronchial wall thickening and mucous plugging. Left apical irregular consolidation measuring 4.4 x 3.2 cm is new from the prior study. Additional linear subpleural consolidation of the right lung apex measures up to 2.4 cm, also new from prior. Patchy reticulonodular densities are seen within the right lung base with prominent mucous plugging. No definitively suspicious pulmonary nodules. No acute upper abdominal abnormality. Soft tissues are within normal limits. Acute minimally displaced fracture of the lateral right ninth rib.. Small amount of air noted within the lateral intercostal space between the lateral seventh and eighth ribs. IMPRESSION: 1. Small right-sided pneumothorax. 2. Biapical irregular consolidative opacities are new from the 04/26/2024 radiation therapy scan and may be on a postradiation basis. Attention on follow- up recommended. 3. Right basilar predominant mucous plugging with tree-in-bud nodules and patchy opacities suspicious for aspiration pneumonitis. 4. Small right pleural effusion. 5. Pulmonary emphysema. 6. Acute and slightly displaced fracture of the lateral right ninth rib. ACT 112: Negative or not required by law. Electronically signed by: Donald Rodriguez M.D. 07/04/2024 3:23 PM Chest X-Ray 07/04/24 16:00 EXAM: Radiograph of the Chest 1 View INDICATION: Pneumothorax. Right rib fracture. TECHNIQUE: Frontal view of the chest. COMPARISON: 05/31/2024 FINDINGS: Lungs and pleural spaces: There is a small right apical pneumothorax measuring maximal thickness of 1.3 cm. Shallow inspiration with generalized increased interstitial markings with superimposed groundglass infiltrate in the medial right lower lung. Heart: Shape and configuration within normal limits allowing for technique. Mediastinum: Normal contour. Bones/joints: There is an acute anterolateral right ninth rib fracture. Soft tissues: No abnormality noted. No radiopaque foreign body noted. Tubes, lines and devices: Left subclavian central venous port catheter terminates in the mid SVC. Upper abdomen: No abnormality noted. IMPRESSION: 1. There is an acute anterolateral right ninth rib fracture. 2. Small right apical pneumothorax. 3. Increased interstitial markings and groundglass opacity in the right lung base. Consider aspiration or infectious pneumonitis. ACT 112: Negative or not required by law. Electronically signed by Michell Mueller 07-04-2024 4:41 PM Discharge Plan Visit Data Chief Complaint: Rib Injury/Pain Stated Complaint: RT RIB INJURY ED Provider: Michael Miranda Discharge Problem: Pneumothorax on right, Rib pain on right side, Primary squamous cell carcinoma of supraglottis, Fall, Right rib fracture Patient Disposition: Admitted As Inpatient Discharge Instructions Interventions: ED Discharge Assessment Last Done: 07/04/24 18:17 Discharge Problem: Fall Qualifiers: Encounter type: initial encounter Qualified Code(s): W19.XXXA - Unspecified fall, initial encounter
--- NOTE | 2024-07-04 15:24 | CT Scan Report ---
CT chest diagnostic wo con CT DOSE: 221.88 mGy.cm CLINICAL HISTORY: 68 years-old Female with fall,right lateral rib pain. Acute right-sided rib pain s tatus post fall TECHNIQUE: Multiaxial CT images of the chest were performed without contrast. A dose lowering techni que was utilized adhering to the principles of ALARA. COMPARISON: CT radiation of the neck 04/26/2024. FINDINGS: No thyroid nodule identified. Left subclavian catheter. Moderate sized cardiomegaly. There is a small pericardial effusion measuring 1.3 cm. No thoracic aortic aneurysm. Borderline enlarged me diastinal and hilar lymph nodes. Small right and trace left pleural effusions. There is a small right apical pneumothorax with pleural separation of approximately 1.5 cm. 10 mm pleural separation at the right lung base centrally. Mild to moderate pulmonary emphysema with bronchial wall thickening and m ucous plugging. Left apical irregular consolidation measuring 4.4 x 3.2 cm is new from the prior stud y. Additional linear subpleural consolidation of the right lung apex measures up to 2.4 cm, also new from prior. Patchy reticulonodular densities are seen within the right lung base with prominent mucou s plugging. No definitively suspicious pulmonary nodules. No acute upper abdominal abnormality. Soft tissues are within normal limits. Acute minimally displace d fracture of the lateral right ninth rib.. Small amount of air noted within the lateral intercostal space between the lateral seventh and eighth ribs. IMPRESSION: 1. Small right-sided pneumothorax. 2. Biapical irregular consolidative opacities are new from the 04/26/2024 radiation therapy scan and m ay be on a postradiation basis. Attention on follow-up recommended. 3. Right basilar predominant mucous plugging with tree-in-bud nodules and patchy opacities suspicious for aspiration pneumonitis. 4. Small right pleural effusion. 5. Pulmonary emphysema. 6. Acute and slightly displaced fracture of the lateral right ninth rib. ACT 112: Negative or not required by law. Electronically signed by: Donald Rodriguez M.D. 07/04/2024 3:23 PM
[2024-07-04] MEDS ORDERED: HYDROmorphone INJ 0.5 MG/0.5 ML SYR IV PRN (16:00)
[2024-07-04] MEDS: ONDANSETRON INJ 2 MG/ML 2 ML VIAL IV STA (16:23)
--- NOTE | 2024-07-04 16:36 | History & Physical Report ---
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 Right 9th Rib Fracture S/P Recent Fall ISO Age-Related Osteoporosis: CXR and chest CT notable for an acute anterolateral right 9th rib fracture s/p fall 2 days ago. Continue pain control with PRN IV morphine, topical lidocaine patches and ice/heat application PRN. Bowel regimen. Fall precautions. Right Pneumothorax: CXR and chest CT also reveal a small right apical pneumothorax. ED provider spoke with on-call ticker installer, Dr. Jarrett. No acute intervention required at this time, continue to observe. Repeat CXR tomorrow AM. Formal pulmonology consult. Avoid ISP and flutter valve. Pericardial Effusion: Chest CT notable for a small pericardial effusion measuring 1.3cm. Will check resting echocardiogram for further evaluation. Patient currently without any cardiac complaints. Check routine EKG. 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 Geronimo of [facility]. Most recently had visit with Dr. Geronimo on 06/29/24. She is currently only on Keytruda therapy; chemotherapy is on hold. Currently undergoing treatment with Keytruda for laryngeal squamous call carcinoma which was diagnosed in February 2024. Patient also previously diagnosed with triple-negative right breast cancer in December 2023. Staging PET scan done on 02/22/24 which revealed metabolic inferolateral right breast nodule with mildly metabolic right axillary lymph nodes consistent with known breast cancer with lymph node metastasis, right medial supraclavicular hypermetabolic lymph node favors metastatic disease, hypermetabolic laryngeal mass suspicious for primary malignancy or metastasis. FNA from the right supraclavicular lymph node was positive for metastatic adenocarcinoma consistent with metastatic adenocarcinoma of mammary origin. Patient has so far completed 4 cycles of combination treatment including combination of Keytruda plus carboplatin and Taxol. She also completed radiation therapy to the laryngeal cancer. Follow-up ultrasound of the breast and the axillary area showed good response. Ultrasound of the head and neck revealed prominent right supraclavicular lymph node and few additional prominent bilateral cervical lymph nodes which could represent reactive versus metastasis. Patient is scheduled for repeat PET scan on 08/08/24. Chest CT noted biapical irregular consolidative opacities which are new from her 05/13/24 radiation therapy scan. May be on a postradiation basis. Attention on follow-up recommended. Severe Malnutrition & Dysphagia ISO Laryngeal Cancer: BMI 16, weight 41kg on admission. Patient notably cachectic-appearing on exam. Previous documented weight was 41.8kg on 06/29/24. Appetite has been poor overall for many months since receiving treatment for her laryngeal cancer. Patient endorses difficulties with swallowing over the past 6 months. Notes she has been aspiration/choking whilst eating food during this time. Dietitian consult. Speech therapy consult. Will proceed with clear liquid diet for now until seen by speech therapy. Aspiration precautions. Acute Hypoxia ISO Aspiration Pneumonitis: Chest CT notable for right basilar predominant mucous plugging with tree-in-bud nodules and patchy opacities suspicious for infectious vs aspiration pneumonitis. Strong suspicion for aspiration 2/2 dysphagia issues for the past 6 months ISO laryngeal cancer as per above. Starting IV Zosyn. Check Respiratory BioFire panel. O2 sat down to 87% on RA whilst at rest in ED prior to admitting evaluation. Currently on 2L NC and saturating well. Wean O2 as tolerated. Tobacco Use Disorder: Smokes about 1/2 ppd x 26 years. Encourage smoking cessation. Patient denies need for nicotine patch at this time. Other Chronic Medical Conditions: Hypothyroidism - Continue levothyroxine, check TSH/T4 in AM. GERD - Continue Pepcid. DVT Prophylaxis: SCDs/TEDs for now ISO anemia. Code Status: DNR/DNI - As per direct discussion with the patient at bedside in the ED. PCP: Waldemar Borden, Disposition: Admit to PCU/Telemetry for further inpatient evaluation and management. Attempted to call the patient's , Tam, twice but unfortunately got his VM both times. I tried both phone numbers provided in the chart which are the [phone] and [phone]. Patient seen in collaboration with Dr. Go. Please see addendum. I spent a total of 60 minutes coordinating, documenting, and providing care for this patient excluding time spent in the performance of separately billed services or time spent by another provider/QHP. This included personally reviewing all current laboratories and imaging studies, medical reconciliation, outpatient chart review and discussion with specialists. This chart was completed in part utilizing Speech Voice Recognition Software. Grammatical errors, random word insertions, pronoun errors, and incomplete sentences are an occasional consequence of this system due to software limitations, ambient noise, and hardware issues. Any formal questions or concerns about the content, text, or information contained within the body of this dictation should be directly addressed to the provider for clarification. 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 History obtained from the patient and associated chart review. Patient seen at bedside with Dr. Go. Sustained a fall 2 days ago where she hit her right side against the toilet. Has been experiencing right-sided rib pain since the fall that has made it very difficult for her to sleep and perform ADLs. Denies any SOB or chest pain. 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 Follows with [facility] radiation oncology and Dr. Geronimo of [facility] hematology/oncology at [facility]. Patient was also previously diagnosed with triple-negative right breast cancer in December 2023. She had a staging PET scan done on 02/22/24 which revealed metabolic inferolateral right breast nodule with mildly metabolic right axillary lymph nodes consistent with known breast cancer with lymph node metastasis, right medial supraclavicular hypermetabolic lymph node favors metastatic disease, hypermetabolic laryngeal mass suspicious for primary malignancy or metastasis. FNA from the right supraclavicular lymph node was positive for metastatic adenocarcinoma consistent with metastatic adenocarcinoma of mammary origin. Patient has so far completed 4 cycles of combination treatment including combination of Keytruda plus carboplatin and Taxol. She also completed radiation therapy to the laryngeal cancer. Follow-up ultrasound of the breast and the axillary area showed good response. Ultrasound of the head and neck revealed prominent right supraclavicular lymph node and few additional prominent bilateral cervical lymph nodes which could represent reactive versus metastasis. Patient is scheduled for repeat PET scan on 08/08/24. Most recently had visit with Dr. Geronimo on 06/29/24. She is currently only on Keytruda therapy; chemotherapy is on hold. Imaging including CXR and chest CT in the ED were notable an acute anterolateral right ninth rib fracture. Imaging was also notable for the following: * Small right apical pneumothorax. * Increased interstitial markings and groundglass opacity in the right lung base c/f aspiration vs infectious pneumonitis. * Small pericardial effusion measuring 1.3cm. * Biapical irregular consolidative opacities which are new from her 05/13/24 radiation therapy scan. May be on a postradiation basis. Attention on follow- up recommended. * Small right and trace left pleural effusions. Mild to moderate pulmonary emphysema with bronchial wall thickening and mucous plugging. She endorses difficulties with swallowing over the past 6 months. Notes she has been aspiration/choking whilst eating food during this time. Appetite has been poor overall for many months since receiving treatment for her laryngeal cancer. Denies any recent fevers. Also denies any abdominal pain, diarrhea or urinary issues. Smokes about 1/2 ppd x 26 years. No recent alcohol use, last drink was approximately 3 months ago. No recreational drug use. O2 sat down to 87% on RA whilst in the ED. Currently on 2L NC and saturating around 97% SpO2 at rest. Otherwise VSS in the ED. Had lab work done earlier today available in her [facility] records - copies of these labs are provided in the "Laboratory Results" section of this note. Patient refused to have labs drawn in the ED. Allergies Allergy/AdvReac Type Severity Reaction Status Date / Time caffeine AdvReac Intermediate TACHYCARDIA Verified 06/20/24 11:09 ,PALPITATIO NS Unclassified Drugs Allergy Unknown ANY COLD Uncoded 06/20/24 11:09 REMEDY - RASH Percocet AdvReac Mild Flushing Uncoded 06/20/24 11:09 Home Medications Medication Instructions Recorded Confirmed Type alendronate 70 mg tablet (Fosamax) 70 mg PO WK 04/05/24 07/04/24 History famotidine 20 mg tablet (Pepcid) 20 mg PO BID 04/05/24 07/04/24 History apphplse-dkm-yvmwtd 5 mg-zeaxanth 1 cap PO DAILY 04/05/24 07/04/24 History 1 mg-bilberry 7.5 mg-herbal capsule ([employer] Formula) sucralfate 1 gram tablet (Carafate) 1 g PO Q6H #120 tabs 06/20/24 07/04/24 Rx fluconazole 100 mg tablet 100 mg PO DAILY 07/04/24 07/04/24 History fluoride (sodium) 1.1 % dental 1 applic dental DAILY 07/04/24 07/04/24 History paste levothyroxine 88 mcg tablet 88 mcg PO QAM 07/04/24 07/04/24 History lidocaine HCl 2 % mucosal solution 15 ml PO Q6H 07/04/24 07/04/24 History (Lidocaine Viscous) potassium chloride 20 mEq 40 meq PO QAM 07/04/24 07/04/24 History tablet,extended release(part/cryst) Past Med/Surg History Problem List (Updated 07/04/24 @ 18:52 by Kristyn Beaver PA-C) Cancer of right breast Hypoxia Dysphagia Pericardial effusion Pneumothorax on right Severe malnutrition Aspiration pneumonitis Right rib fracture Fall (Acute) Rib pain on right side (Acute) Cough Primary squamous cell carcinoma of supraglottis (Chronic) Malignant neoplasm of lower-outer quadrant of right breast of female, estrogen receptor negative (Chronic 03/21/24) History of appendectomy Appendicitis Medical History Laryngeal cancer Port-A-Cath in place Diverticulosis Surgical History Previous section History of cataract surgery Bilateral History of esophagogastroduodenoscopy History of laryngoscopy with biopsy by Dr. Klein on 03/04/24 Hx of colonoscopy Family History Mother No problems noted. Father , 82yo Fall Sister Breast cancer Thyroid disease Sister No problems noted. Son Twin Son Twin Daughter Lupus (systemic lupus erythematosus) Daughter No problems noted. 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 Physical Exam 2 Physical Exam: Please refer to Dr. Go's addendum for physical examination findings. Results & Data Results & Data Vital Signs (Past 12 Hours) Vital Signs Temp Pulse Resp BP Pulse Ox O2 Del Method 07/04/24 14:01 36.8 C 92 H 18 125/66 93 Room Air Laboratory Results Diagnostic Findings Chest CT 07/04/24 14:18 CT chest diagnostic wo con CT DOSE: 221.88 mGy.cm CLINICAL HISTORY: 68 years-old Female with fall,right lateral rib pain. Acute right-sided rib pain status post fall TECHNIQUE: Multiaxial CT images of the chest were performed without contrast. A dose lowering technique was utilized adhering to the principles of ALARA. COMPARISON: CT radiation of the neck 04/26/2024. FINDINGS: No thyroid nodule identified. Left subclavian catheter. Moderate sized cardiomegaly. There is a small pericardial effusion measuring 1.3 cm. No thoracic aortic aneurysm. Borderline enlarged mediastinal and hilar lymph nodes. Small right and trace left pleural effusions. There is a small right apical pneumothorax with pleural separation of approximately 1.5 cm. 10 mm pleural separation at the right lung base centrally. Mild to moderate pulmonary emphysema with bronchial wall thickening and mucous plugging. Left apical irregular consolidation measuring 4.4 x 3.2 cm is new from the prior study. Additional linear subpleural consolidation of the right lung apex measures up to 2.4 cm, also new from prior. Patchy reticulonodular densities are seen within the right lung base with prominent mucous plugging. No definitively suspicious pulmonary nodules. No acute upper abdominal abnormality. Soft tissues are within normal limits. Acute minimally displaced fracture of the lateral right ninth rib.. Small amount of air noted within the lateral intercostal space between the lateral seventh and eighth ribs. IMPRESSION: 1. Small right-sided pneumothorax. 2. Biapical irregular consolidative opacities are new from the 04/26/2024 radiation therapy scan and may be on a postradiation basis. Attention on follow- up recommended. 3. Right basilar predominant mucous plugging with tree-in-bud nodules and patchy opacities suspicious for aspiration pneumonitis. 4. Small right pleural effusion. 5. Pulmonary emphysema. 6. Acute and slightly displaced fracture of the lateral right ninth rib. ACT 112: Negative or not required by law. Electronically signed by: Donald Rodriguez M.D. 07/04/2024 3:23 PM Medications Administered Discontinued Medications Hydrocodone Bitart/Acetaminophen (Hydrocodone/Acetamophen 5/325mg Tab) 0.5 tab PO NOW STA Stop: 07/04/24 14:21 Last Admin: 07/04/24 14:36 Dose: 0.5 tab Documented By: CRISTIAN Ondansetron HCl (Ondansetron Inj 2 Mg/Ml 2 Ml Vial) 4 mg IV NOW STA Stop: 07/04/24 16:01 Last Admin: 07/04/24 16:23 Dose: 4 mg Documented By: CHANCE Code Status & VTE Plan Code Status DNR/DNI - No Resuscitation Supervising Physician Co-Signing Physician Notes 68y/o F with PMH of hypothyroidism due to Blayne's thyroiditis, COPD, pulmonary emphysema, laryngeal cancer, atherosclerosis of aorta, internal hemorrhoids, diverticulosis, age-related osteoporosis, cervical DDD, sensorineural hearing loss of both ears, 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 Curt Klein ] and tobacco use disorder presented w/ ongoing rt sided chest pain. She fell 2 days ago sustaining injury to right side. Pt reports aspirating/choking while eating food for about six months. She denies fever/chest pain/belly pain/pain or burn while passing urine. Reports appetite poor in general. Labs reviewed, CBC fairly wnl. RFT fairly wnl. LFT nl. TSH elevated w/ fT4 nl. UA neg for uti. Flu screen neg. CT Chest w/ small right pneumothorax, concern for right basilar pna, right night rib #. Rt pneumothorax: ER was in touch w/ pulm, continue to observe. CXR in AM to f/u on ptx. Pulm consult. AVOID incentive spirometer or flutter valve. Likely aspiration pna: zosyn, speech consult, clear diet until evaled by speech Severe malnutrition: pt cachectic iso 2 cancers. see above. acute dialysis nurse consult. Abnormal TFT: likely due to acute illness. c/w home levothyroxine, repeat TFT in 6 weeks. Rt 9th rib #: lidocaine patch, pain mx, c/w bowel regimen. On exam: GENERAL: Alert and oriented x3. NAD, on 2L NC O2. Appears ill/frail/weak/cachectic. HEENT: No pallor, no icterus. Pupils equal, round and reactive to light. Oral mucosa dry. NECK: No JVD, no neck masses. HEART: S1 and S2 heard. Regular rate and rhythm. No murmur, no gallop. Rt lower chest tender to palpate, no bruise noted. RESPIRATORY SYSTEM: Normal AP diameter. No accessory muscle use. No wheezing, rll crackles. ABDOMEN: Soft, bowel sounds present, nontender, no distention. scaphoid appearance. CENTRAL NERVOUS SYSTEM: No facial droop. Speech is clear/soft. Obeys simple commands. Moves extremities. EXTREMITIES: No edema, no erythema seen. I have seen and examined the patient and have discussed the case with the provider above. I agree with the assessment and plan as stated. Time spent: 30 min. (1) Fall Encounter type: initial encounter Qualified Code(s): W19.XXXA - Unspecified fall, initial encounter (2) Right rib fracture Encounter type: initial encounter Fracture type: closed Rib fracture type: s jody rib Qualified Code(s): S22.31XA - Fracture of one rib, right side, initial encounter for closed fracture (6) Cancer of right breast Breast location: unspecified site of breast Estrogen receptor status: u nspecified Patient sex: female Qualified Code(s): C50.911 - Malignant neoplasm of unspecified site of right female breast (8) Dysphagia Dysphagia type: unspecified Qualified Code(s): R13.10 - Dysphagia, unspecified
--- NOTE | 2024-07-04 16:42 | XRay Report ---
EXAM: Radiograph of the Chest 1 View INDICATION: Pneumothorax. Right rib fracture. TECHNIQUE: Frontal view of the chest. COMPARISON: 05/31/2024 FINDINGS: Lungs and pleural spaces: There is a small right apical pneumothorax measuring maximal thickness of 1.3 cm. Shallow inspiration with generalized increased interstitial markings with superimposed groundglass infiltrate in the medial right lower lung. Heart: Shape and configuration within normal limits allowing for technique. Mediastinum: Normal contour. Bones/joints: There is an acute anterolateral right ninth rib fracture. Soft tissues: No abnormality noted. No radiopaque foreign body noted. Tubes, lines and devices: Left subclavian central venous port catheter terminates in the mid SVC. Upper abdomen: No abnormality noted. IMPRESSION: 1. There is an acute anterolateral right ninth rib fracture. 2. Small right apical pneumothorax. 3. Increased interstitial markings and groundglass opacity in the right lung base. Consider aspiration or infectious pneumonitis. ACT 112: Negative or not required by law. Electronically signed by Michell Mueller 07-04-2024 4:41 PM
[2024-07-04] MEDS ORDERED: PIPERACILLIN/TAZOBACTAM 4.5 GM/100 ML BAG IV SCH ×2 (17:30)
[2024-07-04] MEDS: PIPERACILLIN/TAZOBACTAM 4.5 GM/100 ML BAG IV STA (17:53)
[2024-07-04 18:48] LABS: Adenovirus PCR Not Detected (NotDetected); Bordetella parapertussis PCR Not Detected (NotDetected); Bordetella pertussis PCR Not Detected (NotDetected); Chlamydia pneumoniae PCR Not Detected (NotDetected); Coronavirus 229E PCR Not Detected (NotDetected); Coronavirus CoV-2 (COVID19)PCR Not Detected (NotDetected); Coronavirus HKU1 PCR Not Detected (NotDetected); Coronavirus NL63 PCR Not Detected (NotDetected); Coronavirus OC43PCR Not Detected (NotDetected); Human Metapneumovirus PCR Not Detected (NotDetected); Influenza A PCR Not Detected (NotDetected); Influenza B PCR Not Detected (NotDetected); Mycoplasma pneumoniae PCR Not Detected (NotDetected); Parainfluenza Virus 1 PCR Not Detected (NotDetected); Parainfluenza Virus 2 PCR Not Detected (NotDetected); Parainfluenza Virus 3 PCR Not Detected (NotDetected); Parainfluenza Virus 4 PCR Not Detected (NotDetected); Respiratory Syncytial VirusPCR Not Detected (NotDetected); Rhinovirus/Enterovirus PCR Not Detected (NotDetected)
[2024-07-04] MEDS ORDERED: MAGNESIUM HYDROXIDE SUSP 30 ML UDC PO PRN (18:48)
[2024-07-04] MEDS ORDERED: ONDANSETRON INJ 2 MG/ML 2 ML VIAL IV PRN (18:48)
[2024-07-04] MEDS ORDERED: ALUMINUM/MAGNESIUM SUSP 30 ML UDC PO PRN (18:48)
[2024-07-04] MEDS ORDERED: POLYETHYLENE (MIRALAX) 17 GM PACK PO PRN (18:48)
[2024-07-04] MEDS: SUCRALFATE 1 GM TAB PO SCH (20:32)
[2024-07-04] MEDS: FAMOTIDINE 20 MG TAB PO SCH (20:32)
[2024-07-04] MEDS: PIPERACILLIN/TAZOBACTAM 4.5 GM/100 ML BAG IV SCH (20:32)
[2024-07-04] MEDS: LIDOCAINE 5% 1 PATCH TD SCH (20:32)
[2024-07-04] MEDS: LIDOCAINE VISCOUS 2% 15 ML UDC PO SCH (20:32)
--- OUTSIDE RECORDS SUMMARY | 2024-07-05 01:57 | External Medical Summary | Summary of Care ---
Author Name Unknown Organization [facility] Address [address] [place] [address] Phone [phone] Care Team Providers Care Wardrobe Technician Name Role Phone Waldemar Borden DO Primary Care Provider Reason for Visit * Reason Comments Chemotherapy Hold will/Cytoxan * Episode Based Medications (Routine) - Authorized Specialty Diagnoses / Procedures Referred By Roman bauer Referred To Contact Diagnoses Encounter for antineoplastic chemotherapy Malignant neoplasm of right breast in female, estrogen receptor negative, unspecified site of breast (HCC) Prevention of chemotherapy-induced neutropenia Regional lymph node staging category N1 (HCC) Procedures UT DOXORUBIC HCL 10 MG VL CHEMO UT PALONOSETRON HCL UT CARBOPLATIN INJECTION UT FOSAPREPITANT INJECTION UT INJ PEMBROLIZUMAB UT PACLITAXEL INJECTION UT INJ, CYCLOPHOSPHAMIDE, NOS UT INJ CYCLOPHOSPHAMD AUROMEDIC UT INJECTION, Myla Gonzalez MD Hematology/Oncology Treatment, [address] [place] [address] Phone: tel: fax: Referral ID Status Reason Start Date Expiration Date V isits Requested Visits Authorized [id number] Authorized 02/09/2024 08/09/2024 [id number] Encounter Details Date Type Department Care Team (Latest Contact Info) Description 06/29/2024 9:00 AM EST Hem/Onc Treatment Hematology/Oncolog y Treatment, [address] [place] [address] Maria Elena, Chair 6 Hem Onc [address] [place] [address] Encounter for antineoplastic chemotherapy*; Malignant neoplasm of right breast in female, estrogen receptor negative, unspecified site of breast (HCC); Prevention of chemotherapy-induced neutropenia; Regional lymph node staging category N1 ([facility]) Allergies Active Allergy Reactions Criticality Noted Date Comments Caffeine Other (Please comment) Medium 05/12/2017 Irregular heart rhythm Oxycodone-Acetamino phen Flushing Low 06/18/2017 06/05/2017 - after appendectomy documented as of this encounter (statuses as of 06/30/2024) Medications Multivitamins Oral Capsule Take 1 Capsule by mouth at bedtime. Active Calcium 500+D 500-200 MG-UNIT Oral Tablet (Calcium Carb-Cholecalcifer ol) Take by mouth at bedtime. Active Ventolin HFA 108 (90 Base) MCG/ACT Inhalation Aerosol SolutionIndication s:Acute bronchitis, antibiotics not indicated Inhale 2 Puffs by mouth 4 times a day as needed for Wheezing. 18 g 1 02/29/20 23 Active Additional Information Patient not taking.Informant: Patient, Reported on 03/04/2024 Fluticasone Propionate 50 MCG/ACT Nasal Suspension (Flonase)Indicatio ns:Nasal congestion Administer 1 [place] into each nostril in the morning and 1 [place] before bedtime. 15.8 mL 4 11/23/19 24 Active Additional Information Patient not taking.Informant: Patient, Reported on 03/04/2024 Famotidine 20 MG Oral Tablet (Pepcid)Indication s:Gastroesophageal reflux disease, unspecified whether esophagitis present Take 1 Tablet by mouth in the morning and 1 Tablet before bedtime. 60 Tablet 11 12/29/19 24 Active Additional Information Patient not taking.Informant: Patient, Reported on 06/29/2024 Tiotropium [place]kiff Monohydrate 2.5 MCG/ACT Inhalation Aerosol Solution (Spiriva Respimat)Indicatio ns:COPD, severity to be determined ([facility]) Inhale 2 Puffs by mouth in the morning. 4 g 3 12/29/19 24 Active Additional Information Patient not taking.Informant: Patient, Reported on 03/04/2024 Macular Health Formula Oral Capsule Take by mouth. 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 on an empty stomach.. 90 Tablet 3 01/28/20 24 Active Additional Information Patient taking differently: 88 mcgOral Daily(AM), on an empty stomach., Informant: Patient, Reported on 03/28/2024 Lidocaine-Prilocai ne 2.5-2.5 % External Cream (Emla)Indications: Malignant neoplasm of right breast in female, estrogen receptor negative, unspecified site of breast (HCC) APPLY TO SKIN OVER MEDIPORT & COVER 1HR PRIOR TO ACCESSING. 30 g 1 02/09/20 24 Active Additional Information Patient not taking.Informant: Patient, Reported on 03/04/2024 Prochlorperazine Maleate 10 MG Oral Tablet (Compazine)Indicat ions:Encounter for antineoplastic chemotherapy,Abdullahi cameron neoplasm of right breast in female, estrogen receptor negative, unspecified site of breast (HCC),Prevention of chemotherapy-induc ed neutropenia,Region al lymph node staging category N1 (HCC) Take 1 Tablet by mouth every 6 hours as needed for Nausea. 30 Tablet 5 02/10/20 24 Active Additional Information Patient not taking.Informant: Patient, Reported on 03/04/2024 OLANZapine 10 MG Oral Tablet (zyPREXA) Take 1 Tablet by mouth at bedtime. Active Alendronate Sodium 70 MG Oral Tablet (Fosamax) TAKE 1 TABLET BY MOUTH ONE TIME PER WEEK 12 Tablet 1 04/15/20 24 Active dexAMETHasone 4 MG Oral Tablet (Decadron)Indicati ons:Malignant neoplasm of right breast in female, estrogen receptor negative, unspecified site of breast (HCC) Take 2 Tablets by mouth in the morning for 3 days. With food on days 2, 3, and 4 of chemo and as directed 24 Tablet 1 04/19/20 24 Active levoFLOXacin 500 MG Oral Tablet (Levaquin)Indicati ons:Malignant neoplasm of right breast in female, estrogen receptor negative, unspecified site of breast (HCC) TAKE 1/2 TABLET BY MOUTH IN THE MORNING 14 Tablet 05/13/20 24 Active Additional Information Patient not taking.Reported on 06/29/2024 Klor-Con M20 20 MEQ Oral Tablet Extended Release (Potassium Chloride ER)Indications:Enc ounter for antineoplastic chemotherapy,Hypok alemia TAKE 2 TABLETS BY MOUTH EVERY MORNING 60 Tablet 1 05/16/20 Active Additional Information Patient not taking.Reported on 06/29/2024 documented as of this encounter (statuses as of 06/30/2024) Active Problems Problem Noted Date Diagnosed Date Laryngeal cancer 02/29/2024 Triple negative breast cancer 02/04/2024 Cancer Staging:Clinical stage from 01/20/2024:Stage IIIC(cT1, cN3(f), cM0, G3, ER-, UT-, HER2-) - Signed by Myla Ortega MD on 04/26/2024 Malignant neoplasm of right breast, estrogen receptor negative 02/04/2024 Regional lymph node staging category N1 02/04/20 Encounter for antineoplastic chemotherapy 2023 Prevention of chemotherapy-induced neutropenia 0 02/04/2024 Diverticulosis of large intestine without hemorr ana 06/04/2023 Internal hemorrhoids 06/04/2023 Atherosclerosis of aorta 06/04/2023 Pulmonary nodule 06/04/2023 Pulmonary emphysema 06/04/2023 DDD (degenerative disc disease), cervical 2023 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 Sensorineural hearing loss (SNHL) of both ears 1 06/25/2022 Age-related osteoporosis wit hout current pathological fracture 05/06/2021 COPD, mild 07/26/2019 Tobacco use disorder 10/19/2007 documented as of this encounter (statuses as of 06/30/2024) Resolved Problems Problem Noted Date Diagnosed Date Resolved Date COPD exacerbation 06/01/2019 12/16/2019 Hypothyroidism due to acquir ed atrophy of thyroid 06/01/2019 01/28/2024 Well adult exam 04/20/2018 12/16/2019 Viral URI 04/20/2018 04/25/2019 Tobacco use 10/02/2015 03/25/2017 Brachial neuritis 06/18/2010 12/16/2019 External hemorrhoids with other complication 0 12/16/2019 Need for prophylactic vaccin ation against single diseases 10/12/2007 12/16/2019 documented as of this encounter (statuses as of 06/30/2024) Immunizations Name Administration Dates Next Due COVID-19 mRNA, LNP-s, No Pre serve, 2-Dose Series (Zipnosis) 05/14/2021,09/06/2020,08/16/2020 COVID-19, MRNA-LNP, 24-25, P R, 30MCG/0.3ML, IM, 12YRS AND ABOVE ([facility]) 02/11/2024 COVID-19, MRNA-LNP, PF, 30 M CG/0.3 mL, 12 YRS AND ABOVE, IM ([employer] [employer]) 04/22/2023 Covid-19, Mrna, Lnp-s, Pf, B ivalent, 30 Mcg, IM, 12 yrs and above (Zipnosis) 03/06/2022 Pneumococcal Conjugate Vacc, 13 Valent (Prevnar) 12/16/2019 Pneumococcal Conjugate Vacci ne, 20-valent ([id number]) 01/28/2024 Pneumococcal Polysaccharide PPV23 (Pneumovax) 01/06/2012 Seasonal Influenza Vac., MDV , IM, 0.5 mL (Fluzone) 03/05/2015,02/08/2013,02/16/2010 Seasonal Influenza, High Dos e, Trivalent, PF, IM (Fluzone HD) 01/28/2024 Seasonal Influenza, PF, 6 M & above, IM , (FluLaval or Fluzone) 02/21/2020,03/28/2019,02/19/2018 Seasonal Influenza, Quadriva lent Hd (Fluzone Hd) 02/11/2023,02/24/2022,02/08/2021 Seasonal Influenza, Quadriva lent, No Preserve, IM 02/11/2017 TDAP (age 10 and older)(Boostrix) 03/25/2017 TDAP, Age 7 and older, IM (Adacel) 10/12/2007 Varicella Zoster Vaccine (Adult) 12/18/2014 Zoster Vaccine Recombinant (Shingrix) 08/01/2021 ,05/30/2021 documented as of this encounter Social History Tobacco Use Types Packs/Day Years Used Date Smoking Tobacco: Every Day Cigarettes 0.8 43 Smokeless Tobacco: Never Comments:started age 16 Alcohol Use Standard Drinks/Week Comments Yes 20 (1 standard drink = 0.6 oz pu re alcohol) 3 beer/day PHQ-2 Answer Date Recorded PHQ Adult Total Score 0 07/16/2023 Hunger Vital Sign Answer Date Recorded Worried About Running Out of Food in the Last Ye ar Never true 04/25/2019 Ran Out of Food in the Last Year Never true 04/25/2019 Comments No Sex and Gender Information Value Date Recorded Sex Assigned at Not on file Legal Sex Female 7:12 AM EST Gender Identity Not on file Sexual Orientation Not on file 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 Possible barriers to meeting goals: ambulating with IV pole Stability of the patient: Moderately stable - low risk of patient condition declining or worsening Summary regarding today's goals: Met: pt remained free of harm today Patient tolerated treatment well without any acute issues or problems. Patient left facility in stable condition and denied any further needs. * Deborah Ragsdale RN - 06/29/2024 4:02 PM EST Chair 4. Patient saw Dr. Geronimo today - see OV note for details. Patient will not receive Will or Cytoxan today - only Keytruda and will receive 1L NSS as well as 30 meq of Potassium today IV. Patient will have labs rechecked on Thursday to reassess. Will take PO Potassium starting today. Will reassess ability to receive chemo in 3 weeks. Chemotherapy/Immunotherapy agents: KEYTRUDA Consent for chemotherapy drug treatment complete, dated, and signed? yes, date - 02/04/2024 Treatment lab parameters met? Yes Has treatment weight changed > than 10%? No Treatment preauthorized? Yes VITALS There were no vitals filed for this visit. BP Readings from Last 2 Encounters: 06/29/24 127/76 05/30/24 121/76 Pulse Readings from Last 2 Encounters: 06/29/24 80 05/30/24 98 Resp Readings from Last 2 Encounters: 05/23/24 18 05/16/24 18 SpO2 Readings from Last 2 Encounters: 06/29/24 94% 05/30/24 89% Temp Readings from Last 2 Encounters: 06/29/24 36.9 C (98.5 F) (Tympanic) 05/30/24 37.5 C (99.5 F) (Tympanic) Urine protein: N/A Patient education completed for treatment? Yes Blood transfusion consent signed and complete? NA Return appointment scheduled? Yes Patient had provider visit today? Yes - Ok to release order and treat per provider Functional Status: Functional status at today's visit: Restricted in physically strenuous activity but ambulatory and able to carry out work on a light orsedentary nature, e.g. light house work, office work The drug name, dose, infusion volume, rate and route of administration, expiration date and time, appearance and physical integrity of the drug and rate set on the pump and sequencing of drug administration (as applicable) were verified by me and second sign-in RN. Patient was assessed for symptoms or adverse side effects during treatment. Patient Education: Patient instructed on use of heat and massage functions where applicable. Patient shown how to operate the heat function of the chair and to alert nursing staff if the chair feels too warm. Patient instructed on the risk of potential hathaway while using the heat function. Safety and Risk for Injury Patient will remain free from injury. Ensure appropriate safety devices are available. Provide and maintain safe environment. documented in this encounter Plan of Treatment Upcoming Encounters Date Type Department Care Team (Late st Contact Info) Description 07/04/2024 7:00 AM EST Laboratory Laboratory [address] [place] [phone] [place], Lab [facility] [address] [facility] [place] [address] 07/04/2024 8:00 AM EST Hem/Onc Treatment Hematology/Oncology Treatment, [place] [address] [facility] [place] [phone] Maria Elena, Chair 1 Hem Onc [facility] [address] [facility] [place] [address] 07/20/2024 10:50 AM EST Laboratory Laboratory [facility] [address] [place] [phone] Maria Elena, Lab [address] [facility] [place] [address] 07/20/2024 11:30 AM EST Office Visit Hematology/Oncology [facility] [place] [address] [place] [phone] Dorie Dietz [facility] [address] [facility] [address] 07/20/2024 12:00 PM EST Hem/Onc Treatment Hematology/Oncology Treatment, [place] [address] [place] [address] Maria Elena, Chair 7 Hem Onc [address] [place] [address] 08/08/2024 11:45 AM EDT Imaging Radiology [facility] [address] [place] [phone] 08/23/2024 1:30 PM EDT Office Visit Otolaryngology/Head & Neck/Facial Plastic Surgery [address] [place] [facility] [place] [address] Curt Klein MD [address] [place] [address] 10/06/2024 10:00 AM EDT Office Visit Rheumatology [facility] [address] [place] [phone] Robbie Hernandez CRNP [address] [facility] [place], [place] [address] 11/21/2024 9:00 AM EDT Office Visit Family Practice [facility] [address] [place] [address] Waldemar Borden, [address] [place] [address] 12/01/2024 8:20 AM EDT Office Visit Family Practice [facility] [address] [place] [address] Waldemar Borden, [address] [place] [address] Scheduled Procedures Name Priority Associated Diagnoses Date/Ti me COLONOSCOPY FLEXIBLE PROXIMAL DIAGNOSTIC Recall Hx of colonic polyps Health Maintenance Due Date Last Done Comments DISCUSS TOBACCO CESSATION (REFER TO SMARTSET #2853) 1955 Sigmoidoscopy 12/11/1999 Fecal Occult Blood Test 10/14/2015 10/13/2014 Cologuard 04/21/2020 04/21/2017 COVID-19 Vaccine ( season) 2024 02/11/2024, 04/22/2023, 03/06/2022, Additional history exists Adult Wellness Visit 06/04/2024 06/04/2023, 12/04/19 21 DXA Scan 06/04/2024 06/04/2022, 05/25, 05/23/2020 Depression Screening 07/16/2024 07/16/2023 O2 ASSESSMENT COMPLETED IN PAST YEAR FOR COPD 03/04/2025 03/04/2024 Mammogram 06/22/2025 06/22/2024, 12/24, 01/20/2024, Additional history exists TSH 06/29/2025 06/29/2024, 10/2024, 05/23/2024, Additional history exists Colonoscopy 11/13/2025 11/13/2020, 10/24, 07/21/2017, Additional history exists Colorectal Cancer Screening 11/13/2025 DTap/Tdap Vaccines (3 - Td or Tdap) 03/25/2027 03/25/2017, 10/12/2007 RETIRED - COLONOSCOPY-EVERY 5 YRS AGES 18-100 Discontinued 11/13/2020, 11/13/2020, 07/21/2017, Additional history exists Zoster Vaccines Completed 08/01/2021, 10/2021, 12/18/2014 Alpha-1 Antitrypsin Completed 05/12/2022 VITAMIN D LEVEL ONCE IN A LIFETIME-USE SMARTSET# [id number] Completed 06/23/2023, 09/20/2021, 08/01/2020 Influenza Vaccine (FLU shot) Completed 01/28/2024, 02/11/2023, 02/24/2022, Additional history exists Pneumococcal Vaccine: 50+ Years Completed 01/28/2024, 12/16/2019, 01/06/2012 HPV (Gardasil) Vaccine Aged Out No lo nger eligible based on patient's age to complete this topic Hepatitis B Vaccine Aged Out No longe r eligible based on patient's age to complete this topic MENINGOCOCCAL (MENACTRA/MENVEO) Aged Out No longer eligible based on patient's age to complete this topic documented as of this encounter Medical Devices Implanted Type Area Aircraft Powertrain Repairer Device Identifier Shelf Expiration Date Model / Serial / Lot Lens Li61ao 13.00mm 24.50 - [id number] - [id number] Implanted:Qty: 1 on 08/04/2023 by Juan Carlos Barba MD at OR [facility] Left: Eye [employer] 11/22/2027 [id number] / [id number] / [id number] Lens Li61ao 13.00mm 25.00 - [id number] - [id number] Implanted:Qty: 1 on 08/18/2023 by Juan Carlos Barba MD at OR [facility] Right: Eye [employer] 11/22/2027 [id number] / [id number] / [id number] Port Power Mri W8fr Cath - [id number] Implanted:Qty: 1 on 02/16/2024 by Dread Lackey MD at OR [facility] CR BARD : PERIPHERAL VASCULAR 08/22/2025 [id number] / / [id number] documented as of this encounter Visit Diagnoses Diagnosis Encounter for antineoplastic chemotherapy- Primary Malignant neoplasm of right breast in female, estrogen receptor negative, unspecified site of breast (HCC) Prevention of chemotherapy-induced neutropenia Regional lymph node staging category N1 (HCC) documented in this encounter Administered Medications Inactive Administered Medications - up to 3 most recent administrations Medication Order MAR Action Action Date Dose Rate Site NSS infusion Intravenous, at 50 mL/hr, PRN, Starting on Thu06/29/24 at 1115, Until Thu06/29/24 at 2014, Maintenance lineIndications:Encounter for antineoplastic chemotherapy,Malignant neoplasm of right breast in female, estrogen receptor negative, unspecified site of breast (HCC),Prevention of chemotherapy-induced neutropenia,Regional lymph node staging category N1 (HCC) Start Infusion 06/29/2024 10:21 AM EST 50 mL/hr NSS infusion 1,000 mL, Intravenous, at 500 mL/hr, CONTINUOUS, Starting on Thu06/29/24 at 1115, Until Thu06/29/24 at 1314Indications:Encounter for antineoplastic chemotherapy,Malignant neoplasm of right breast in female, estrogen receptor negative, unspecified site of breast (HCC),Prevention of chemotherapy-induced neutropenia,Regional lymph node staging category N1 (HCC) Start Infusion 06/29/2024 10:18 AM EST 1,000 mL 500 mL/hr Pembrolizumab (Keytruda) 200 mg in NSS 100 mL infusion 200 mg, IV Piggyback, ONCE, 1 dose, On Thu06/29/24 at 1145, Administer over 30 Minutes, Infuse through 0.2 micron filter.Indications:Encounte r for antineoplastic chemotherapy,Malignant neoplasm of right breast in female, estrogen receptor negative, unspecified site of breast (HCC),Prevention of chemotherapy-induced neutropenia,Regional lymph node staging category N1 (HCC) Start Infusion 06/29/2024 10:27 AM EST 200 mg 226 mL/hr potassium chloride 10 mEq in 100 mL ivpb LOCKED DOSE 10 mEq, Central IV, ONCE, 1 dose, On Thu06/29/24 at 1130, Administer over 30 Minutes, Standard infusion duration is 60 minutes.Indications:Encount er for antineoplastic chemotherapy,Malignant neoplasm of right breast in female, estrogen receptor negative, unspecified site of breast (HCC),Prevention of chemotherapy-induced neutropenia,Regional lymph node staging category N1 (HCC) Start Infusion 06/29/2024 12:34 PM EST 10 mEq 200 mL/hr potassium chloride 20 mEq in 50 mL ivpb LOCKED DOSE 20 mEq, Central IV, ONCE, 1 dose, On Thu06/29/24 at 1130, Administer over 60 Minutes, Standard infusion duration is 60 minutes.Indications:Encount er for antineoplastic chemotherapy,Malignant neoplasm of right breast in female, estrogen receptor negative, unspecified site of breast (HCC),Prevention of chemotherapy-induced neutropenia,Regional lymph node staging category N1 (HCC) Start Infusion 06/29/2024 11:30 AM EST 20 mEq 50 mL/hr sodium chloride 0.9 % flush/inj 20 mL 20 mL, IV Push, PRN IV Flush and Lock, Starting on Thu06/29/24 at 1011, Until Thu06/29/24 at 2014, Do not flush if lock, PICC, or central line not in place; IV infusing or unable to flush. For midlines and central lines. For IV Flush and Lock, IVAD is flushed with a total of 20 mL Normal Saline, 10 mL of Normal Saline Flush with 10 mL of Normal Saline acting as IV LOCK.Indications:Encounter for antineoplastic chemotherapy,Malignant neoplasm of right breast in female, estrogen receptor negative, unspecified site of breast (HCC),Prevention of chemotherapy-induced neutropenia,Regional lymph node staging category N1 (HCC) Given 06/29/2024 1:14 PM EST 20 mL documented in this encounter Advance Directives * Full Code (Latest Code Status on File) Date Activated Date Inactivated Comments 02/16/2024 7:33 AM 02/16/2024 1:54 PM This order r eflects the patients wishes and were consensually agreed upon. Question Answer Comments Discussion of Advance Directives occurred with: Patient * Full Code Date Activated Date Inactivated Comments 08/18/2023 8:59 AM 08/18/2023 2:52 PM This order r eflects the patients wishes and were consensually agreed upon. Question Answer Comments Discussion of Advance Directives occurred with: Patient Does the patient have a Living Will? No Does the patient have Health Care Power of Attor raffi? No * Full Code Date Activated Date Inactivated Comments 08/04/2023 10:23 AM 08/04/2023 4:15 PM This order reflects the patients wishes and were consensually agreed upon. Question Answer Comments Discussion of Advance Directives occurred with: Patient Does the patient have a Living Will? No Does the patient have Health Care Power of Attor raffi? No Care Teams Wardrobe Technician Relationship Specialty Start Date End Date Waldemar Borden DO [address] [place] [address] PCP - General Family Medicine 04/20/18 documented as of this encounter
--- OUTSIDE RECORDS SUMMARY | 2024-07-05 01:57 | External Medical Summary ---
Author Name Unknown Address Unknown Organization [id number]:[facility] [place] [address] Laboratory Report Ordering Provider Test Date Status MOUNIKA GO 07/04/2024 13:33:52 Final Observation Date Value Abnormality Reference (Units ) Status WBC, Total 07/04/2024 13:33:52 7.67 4.00-10.8 0 (K/uL) Final RBC 07/04/2024 13:33:52 3.30 3.85-5.15 (M/uL) Final Hemoglobin 07/04/2024 13:33:52 9.1 Below low normal 12 .0-15.3 (g/dL) Final HCT 07/04/2024 13:33:52 31.5 Below low normal 36. 0-45.2 (%) Final MCV 07/04/2024 13:33:52 95.5 81.5-97.5 (fL) Final MCH 07/04/2024 13:33:52 27.6 27.0-34.0 (pg) Final MCHC 07/04/2024 13:33:52 28.9 32.0-36.0 (g/dL) Final RDW 07/04/2024 13:33:52 16.4 11.5-15.5 (%) Final Platelets 07/04/2024 13:33:52 322 140-400 (K /uL) Final MPV 07/04/2024 13:33:52 9.1 6.6-11.1 ( fL) Final Performing Location [facility] [place] [address]
--- OUTSIDE RECORDS SUMMARY | 2024-07-05 01:57 | External Medical Summary ---
Author Name Unknown Address Unknown Organization [id number]:[facility] [place] [address] Laboratory Report Ordering Provider Test Date Status MOUNIKA GO 07/04/2024 13:33:52 Final Observation Date Value Abnormality Reference (Units ) Status SYNC LEUKOCYTES IN BLOOD BY AUTOMATED COUNT 07/04/2024 13:33:52 7.67 4.00-10.80 (K/uL) Final Segs 07/04/2024 13:33:52 73.5 40.0-75.0 (%) Final Lymphs % 07/04/2024 13:33:52 13.4 Below low normal 18.0-42.0 (%) Final Monos 07/04/2024 13:33:52 11.5 Above high normal 1.0-11.0 (%) Final Eosinophils 07/04/2024 13:33:52 1.2 0.0-6.0 (%) Final Basos 07/04/2024 13:33:52 0.4 0.0-2.0 (%) Final Absolute Segs 07/04/2024 13:33:52 5.64 1.80-7.70 (K/uL) Final Lymphs, absolute 07/04/2024 13:33:52 1.03 1.00-4.80 (K/ul) Final Monos, Abs 07/04/2024 13:33:52 0.88 0.00-1.10 (K/uL) Final Eos, Abs 07/04/2024 13:33:52 0.09 0.00-0.70 (K/uL) Final Basos, Abs 07/04/2024 13:33:52 0.03 0.00-0.20 (K/uL) Final Performing Location [facility] [place] [place] [address]
--- OUTSIDE RECORDS SUMMARY | 2024-07-05 01:57 | External Medical Summary | Summary of Care ---
Author Name Unknown Organization [facility] Address [address] [facility] [place] [address] Phone [phone] Care Team Providers Care Stationary Equipment Mechanic Name Role Phone Waldemar Borden DO Primary Care Provider Reason for Visit * Reason Comments Chemotherapy Chemo/recheck Encounter Details Date Type Department Care Team (Late st Contact Info) Description 06/29/2024 8:30 AM EST Office Visit Hematology/Oncology [facility] [place] [address] [place] [place] [phone] Yas Ribera MD [address] [facility] [place] [address] Laryngeal cancer (HCC)*; Triple negative breast cancer (HCC) Allergies Active Allergy Reactions Criticality Noted Date Comments Caffeine Other (Please comment) Medium 05/12/2017 Irregular heart rhythm Oxycodone-Acetamino phen Flushing Low 06/18/2017 06/05/2017 - after appendectomy documented as of this encounter (statuses as of 06/29/2024) Medications Multivitamins Oral Capsule Take 1 Capsule [...] Nasal Suspension (Flonase)Indicatio ns:Nasal congestion Administer 1 Arboles into each nostril in the morning and 1 Arboles before bedtime. 15.8 mL 4 11/23/19 24 Active Additional Information Patient not taking.Informant: Patient, Reported on 03/04/2024 Famotidine 20 MG Oral Tablet (Pepcid)Indication s:Gastroesophageal reflux disease, unspecified whether esophagitis present Take 1 Tablet by mouth in the morning and 1 Tablet before bedtime. 60 Tablet 11 12/29/19 24 Active Additional Information Patient not taking.Informant: Patient, Reported on 06/29/2024 Tiotropium Bethel Monohydrate 2.5 MCG/ACT Inhalation Aerosol Solution (Spiriva Respimat)Indicatio ns:COPD, severity to be determined (HCC) Inhale 2 Puffs by mouth in the [...] MOUTH EVERY MORNING 60 Tablet 1 05/16/20 24 Active Additional Information Patient not taking.Reported on 06/29/2024 Sucralfate 1 GM Oral Tablet (Carafate) Take 1 Tablet by mouth in the morning and 1 Tablet at noon and 1 Tablet in the evening and 1 Tablet before bedtime. Active Magic Swizzle (Lidocaine-Benadry l-Maalox) oral solution Swish and spit 15 mL in the morning and 15 mL before bedtime. Active documented as of this encounter (statuses as of 06/29/2024) Active Problems Problem Noted Date Diagnosed Date Laryngeal cancer 02/29/2024 Triple negative breast cancer 02/04/2024 Cancer Staging:Clinical stage from 01/20/2024:Stage IIIC(cT1, cN3(f), cM0, G3, ER-, IL-, HER2-) - Signed by Myla Ortega MD [...] as of this encounter (statuses as of 06/29/2024) Resolved Problems Problem Noted Date Diagnosed Date [...] as of this encounter (statuses as of 06/29/2024) Immunizations Name Administration Dates Next Due COVID-19 mRNA, LNP-s, No Pre serve, 2-Dose Series ([employer]) 05/14/2021,09/06/2020,08/16/2020 COVID-19, MRNA-LNP, 24-25, P R, 30MCG/0.3ML, IM, 12YRS AND ABOVE ([employer]) 02/11/2024 COVID-19, MRNA-LNP, PF, 30 M CG/0.3 mL, 12 YRS AND ABOVE, IM ([employer]) 04/22/2023 Covid-19, Mrna, Lnp-s, Pf, B ivalent, 30 Mcg, IM, 12 yrs and above ([employer]) 03/06/2022 Pneumococcal Conjugate Vacc, 13 Valent (Prevnar) 12/16/2019 Pneumococcal Conjugate Vacci ne, 20-valent ([id number]) 01/28/2024 Pneumococcal Polysaccharide PPV23 (Pneumovax) 01/06/2012 Seasonal [...] 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 Not on file Not on file Not on file documented as of this encounter Last Filed Vital Signs Vital Sign Reading Time Taken Comments Blood Pressure 127/76 06/29/2024 8:20 AM EST Pulse 80 06/29/2024 8:20 AM EST Temperature 36.9 C (98.5 F) 06/29/2024 8:20 AM ES T Respiratory Rate - - Oxygen Saturation 94% 06/29/2024 8:20 AM EST Inhaled Oxygen Concentration - - Weight 41.8 kg (92 lb 3.2 oz) 06/29/2024 8:20 AM EST Height - - Body Mass Index 16.86 03/04/2024 8:29 AM EDT documented in this encounter Progress Notes * Yas Ribera MD - 06/29/2024 8:36 AM EST Outpatient Consult Note Data Source: Patient, Epic record. Data Source: Patient, Epic record. 06/29/2024 8:36 AM Leslie Mickie [id number] 68 year old Patient Encounter: HEMATOLOGY/ONCOLOGY [facility] Cancer Diagnosis: Patient transfer from Dr. 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 -IL: Negative. -HER-2 oncoprotein expression: Negative. Biopsy of the right supraclavicular lymph node was performed by [facility] 03/03/2024 and showed metastatic adenocarcinoma of mammary origin, CK7+, OSBALDO 3+. Stage IIIC (cT1, cN3(f) Moderately differentiated laryngeal squamous cell carcinoma 03/04/24 Current Treatment: 03/07/2024: Started chemotherapy with Pembrolizumab + Carbo AUC 2 + Taxol 80 mg/m2 D 1,8,15 Q 21 C 1-4 to be followed by Pembrolizumab + AC Q 21 days C 5-8. 05/05/2024: Started radiation therapy for the laryngeal carcinoma. She completed radiation therapy on 06/24/2024 Previous Treatment: As above Oncologic History : 68-year-old female with a locally advanced triple negative breast cancer and laryngeal carcinoma which was found as incidental finding. She initially presented with a palpable lump in the right breast. Subsequently she had ultrasound and mammogram done which revealed 19 x 7 x 9 mm lobulated hypoechoic mass with hyperechoic foci suggestive of punctate microcalcifications at 7 o'clock 7 cm from nipple, Ultrasound of the right axilla demonstrates a lymph node with No definitive fatty hilum and cortex measuring up to 6 mm thick . She underwent ultrasound-guided biopsy and pathology was consistent with a high- grade triple negative invasive ductal carcinoma with ER/IL and HER2 Bethanie negative. See from the lymph node is also positive for metastatic breast cancer triple negative. She had a staging PET scan done on 02/22/2024 which revealed metabolic inferolateral right breast nodule with mildly metabolic right axillary lymph nodes consistent with known breast cancer with lymph node metastasis, right medial supraclavicular hypermetabolic lymph node favors metastatic disease, hypermetabolic laryngeal mass suspicious for primary malignancy or metastasis. FNA from the right supraclavicular lymph node was positive for metastatic adenocarcinoma consistentwith metastatic adenocarcinoma of mammary origin. Patient was also seen by Otolaryngology Dr. Klein and had biopsy from the laryngeal mass was done and it was consistent with moderately differentiated squamous cell carcinoma. Final Diagnosis Laryngeal surface of epiglottis, biopsy, moderately differentiated squamous cell carcinoma FINAL DIAGNOSIS "Lymph node", right supraclavicular region (fine needle aspiration): - Metastatic adenocarcinoma consistent with metastatic adenocarcinoma of mammary origin is seen. The malignant cells are negative for CK20, but they are diffusely and strongly positive for CK7 and GATA3. They are negative for mammoglobin. Thus, this patient has a metastatic adenocarcinoma at this site and it is clearly consistent with metastatic adenocarcinoma of mammary origin Final Diagnosis A. Breast, Right, 7:00 7 cm fn, core biopsy: - Invasive carcinoma, no special type (ductal), grade 3. B. Lymph Node, Right Axillary, core biopsy: - Positive for carcinoma with similar morphological features to specimen A. Estrogen Receptor (ER) protein expression is NEGATIVE Progesterone Receptor (IL) protein expression is NEGATIVE HER2 oncoprotein expression is NEGATIVE Patient was diagnosed of 2 malignancies including aggressive triple negative breast cancer and laryngeal carcinoma. Currently patient receiving chemotherapy including combination of pembrolizumab plus carboplatin and Taxol followed by pembrolizumab plus AC for the breast cancer and radiation therapy for the laryngeal carcinoma. Interval History: She is complaining of generalized weakness, fatigue and difficulty in swallowing. Her appetite is poor. She had lost about 15 lb since the start of the chemotherapy. LABS/IMAGING: Results for orders placed or performed in visit on 06/29/24 CBC Result Value Ref Range WBC 9.99 4.00 - 10.80 K/uL RBC 3.10 3.85 - 5.15 M/uL HGB 8.8 (L) 12.0 - 15.3 g/dL HCT 29.9 (L) 36.0 - 45.2 % MCV 96.5 81.5 - 97.5 fL MCH 28.4 27.0 - 34.0 pg MCHC 29.4 32.0 - 36.0 g/dL RDW 17.1 11.5 - 15.5 % PLT 281 140 - 400 K/uL MPV 8.5 6.6 - 11.1 fL DIFFERENTIAL, AUTOMATED Result Value Ref Range WBC 9.99 4.00 - 10.80 K/uL Neutrophils % 76.4 (H) 40.0 - 75.0 % Lymphocytes % 11.7 (L) 18.0 - 42.0 % Monocytes % 10.5 1.0 - 11.0 % Eosinophils % 1.2 0.0 - 6.0 % Basophils % 0.2 0.0 - 2.0 % Absolute Neutrophils 7.63 1.80 - 7.70 K/uL Absolute Lymphocytes 1.17 1.00 - 4.80 K/ul Absolute Monocytes 1.05 0.00 - 1.10 K/uL Absolute Eosinophils 0.12 0.00 - 0.70 K/uL Absolute Basophils 0.02 0.00 - 0.20 K/uL Potassium is 2.9 and the albumin level is 3.3 with the rest of the electrolytes and LFTs within acceptable range. REVIEW OF SYSTEMS: General: No Fever, chills, night sweats, she lost about 15 lb since the start chemotherapy in the radiation therapy. HEENT: No change in visual acuity, blurred or double vision. No epistaxis, facial pain, nasal discharge or change in hearing. Complaint of dysphagia, no muscosal ulceration, or sores noted. Cardiovascular: No chest pain, ZARAGOZA, or palpitations Respiratory: No shortness of breath, cough, hemoptysis, or pleuritic chest pain Gastrointestinal: No abdominal pain, nausea, vomiting, diarrhea, rectal pain or bleeding Genitourinary: Denies Hematuria or dysuria Musculoskeletal: No bone pain Psychiatric: No vegetative signs of depression Endocrine: No symptoms of hypothyroidism or hyperglycemia Hematologic: No bleeding or lymph nodes noted As mentioned above, all of the systems were reviewed in full and are unremarkable. Past Medical History: Diagnosis Date Tobacco use disorder 10/19/2007 Current Outpatient Medications Medication Sig Dispense Refill Sucralfate 1 GM Oral Tablet (Carafate) Take 1 Tablet by mouth in the morning and 1 Tablet at noon and 1 Tablet in the evening and 1 Tablet before bedtime. Magic Swizzle (Uhorsqang-Blhqhzio-Dwwqzd) oral solution Swish and spit 15 mL in the morning and 15 mL before bedtime. Multivitamins Oral Capsule Take 1 Capsule by mouth at bedtime. (Patient not taking: Reported on 02/16/2024) Calcium 500+D 500-200 MG-UNIT Oral Tablet (Calcium Carb-Cholecalciferol) Take by mouth at bedtime. Ventolin HFA 108 (90 Base) MCG/ACT Inhalation Aerosol Solution Inhale 2 Puffs by mouth 4 times a day as needed for Wheezing. (Patient not taking: Reported on 02/09/2024) 18 g 1 Fluticasone Propionate 50 MCG/ACT Nasal Suspension (Flonase) Administer 1 Arboles into each nostril in the morning and 1 Arboles before bedtime. (Patient not taking: Reported on 02/09/2024) 15.8 mL 4 Famotidine 20 MG Oral Tablet (Pepcid) Take 1 Tablet by mouth in the morning and 1 Tablet before bedtime. (Patient not taking: Reported on 06/29/2024) 60 Tablet 11 Tiotropium Bethel Monohydrate 2.5 MCG/ACT Inhalation Aerosol Solution (Spiriva Respimat) Inhale 2 Puffs by mouth in the morning. (Patient not taking: Reported on 02/09/2024) 4 g 3 Macular Health Formula Oral Capsule Take by mouth. Levothyroxine Sodium 100 MCG Oral Tablet (Levoxyl) Take 1 Tablet by mouth in the morning. on an empty stomach.. (Patient taking differently: Take 88 mcg by mouth in the morning. on an empty stomach..) 90 Tablet 3 Lidocaine-Prilocaine 2.5-2.5 % External Cream (Emla) APPLY TO SKIN OVER MEDIPORT & COVER 1HR PRIOR TO ACCESSING. (Patient not taking: Reported on 02/09/2024) 30 g 1 Prochlorperazine Maleate 10 MG Oral Tablet (Compazine) Take 1 Tablet by mouth every 6 hours as needed for Nausea. (Patient not taking: Reported on 02/16/2024) 30 Tablet 5 COVID-19 mRNA Vac-Sheryl([employer]) 30 MCG/0.3ML Intramuscular Suspension Prefilled Syringe (NowForce) Inject into a large muscle. 0.3 mL 0 OLANZapine 10 MG Oral Tablet (zyPREXA) Take 1 Tablet by mouth at bedtime. Alendronate Sodium 70 MG Oral Tablet (Fosamax) TAKE 1 TABLET BY MOUTH ONE TIME PER WEEK 12 Tablet 1 dexAMETHasone 4 MG Oral Tablet (Decadron) Take 2 Tablets by mouth in the morning for 3 days. With food on days 2, 3, and 4 of chemo and as directed 24 Tablet 1 levoFLOXacin 500 MG Oral Tablet (Levaquin) TAKE 1/2 TABLET BY MOUTH IN THE MORNING (Patient not taking: Reported on 06/29/2024) 14 Tablet 0 Klor-Con M20 20 MEQ Oral Tablet Extended Release (Potassium Chloride ER) TAKE 2 TABLETS BY MOUTH EVERY MORNING (Patient not taking: Reported on 06/29/2024) 60 Tablet 1 No current facility-administered medications for this visit. Social History Tobacco Use Smoking status: Every Day Current packs/day: 0.75 Average packs/day: 0.8 packs/day for 43.0 years (32.3 ttl pk-yrs) Types: Cigarettes Smokeless tobacco: Never Tobacco comments: started age 16 Vaping Use Vaping status: Never Used Substance Use Topics Alcohol use: Yes Alcohol/week: 20.0 standard drinks of alcohol Types: 24 12 oz of beer per week Comment: 3 beer/day Drug use: No Review of patient's allergies indicates: Allergen Reactions Caffeine Other (Please comment) Irregular heart rhythm Percocet [Oxycodone-Acetaminophen] Flushing 06/05/2017 - after appendectomy PHYSICAL EXAMINATION: General Appearance: Weak appearing patient in no acute distress BP 127/76 (BP Site: Left Arm, BP Position: Sitting, BP Cuff Size: Pediatric) | Pulse 80 | Temp 36.9C (98.5 F) (Tympanic) | Wt 41.8 kg (92 lb 3.2 oz) | SpO2 94% | BMI 16.86 kg/m | BSA 1.35 m Vitals reviewed. HEENT: No oral or pharyngeal masses, ulceration or thrush noted, no sinus tenderness. Neck is supple with no thyromegaly or JVD noted. Lymph Nodes: No lymphadenopathy noted in the occipital, pre and post auricular, cervical, supra andinfraclavicular, axillary, epitrochlear, inguinal, and popliteal region. Lungs/Thorax: Clear to auscultation, no accessory muscles of respiration being used. Heart: Regular rate and rhythm, normal S1, S2 Abdomen: Soft, nontender, bowel sounds present, no appreciable hepatosplenomegaly, no palpable masses Extremeties: Good pulses bilaterally, no peripheral edema. ASSESSMENT: 68-year-old female with a locally advanced triple negative breast cancer and laryngeal carcinoma which was found as incidental finding. Baseline PET scan done on 02/22/2024 revealed metabolically inferior lateral right breast nodule with a mildly metabolic right axillary lymph node consistent with the breast cancer with a lymph node metastasis and right medial supraclavicular hypermetabolic lymphnode and there was finding of hypermetabolic laryngeal mass. Patient had biopsy from the breast, right axillary lymph node and supraclavicular lymph node all were positive for metastatic breast cancer. ER/IL and HER2 Bethanie were negative. Biopsy from the laryngeal mass was positive for squamous cell carcinoma of the larynx. Patient has so far completed 4 cycles of combination treatment including combination of Keytruda plus carboplatin and Taxol. She also completed the radiation therapy to the laryngeal cancer. She is complaining of generalized weakness, fatigue and difficulty in swallowing. She had lost about 15 lb since the start of the chemotherapy. Follow-up ultrasound of the breast and the axillary area showed good response. Ultrasound of the head and neck revealed prominent right supraclavicular lymph node and few additional prominent bilateral cervical lymph nodes which could represent reactive versus metastasis. Patient is scheduled for the repeat PET scan on 08/08/2024. This is a complicated situation. At this point the best option is continue hold the chemotherapy and treat her only with single agent Keytruda. She also has low potassium. She will receive IV hydration with 30 mEq KCL today. I will re- evaluate her in 3 weeks to decide about continuation of the treatment. Discussed with the patient and in detail about diagnosis and reviewed all the available blood tests, pathology, PET scan, ultrasound and blood tests finding with them. After detailed discussion they agreed with the plan. PLAN: As above. Proceed with Keytruda single agent only. We will continue to hold the chemotherapy. She will also receive the IV hydration with KCl. She will return clinic for follow-up in 3 weeks for re-evaluation. The patient voiced understanding of all of the above. All questions and concerns were addressed in an apparently satisfactory manner. Yas Ribera MD (This note was completed using the dictation program Fluency Direct. As such, there may be misspellings, word substitutions, or other variations that should not change the essence of the clinical content of this encounter note. If there is need for further clarification, please direct questions to me.) documented in this encounter Nursing Notes * Maria Victoria Wilde CMA - 06/29/2024 8:27 AM EST Patient identifed by name and birthdate Do you have any concerns about pain management for today's visit? No Living Will or Advance Directive for Health Care as noted on the problem list. [facility] is a way you can talk to your provider on line through e-mail. Would you like to sign up? I can activate it for you? NO Filed Vitals: 06/29/24 0820 BP: 127/76 Pulse: 80 Temp: 36.9 C (98.5 F) TempSrc: Tympanic SpO2: 94% Weight: 41.8 kg (92 lb 3.2 oz) Patient was instructed to not get up on the exam table/exam chair until directed and assisted by their provider; patient is to remain seated in the chair/ wheelchair/ exam table/ exam chair for fall prevention and safety reasons. Patient is aware to have assistance to step down off exam table/exam chair with personnel. Patient voiced full comprehension of instructions. documented in this encounter Miscellaneous Notes * Addendum Note - Yas Ribera MD - 06/29/2024 10:01 AM ESTAddended by: YAS RIBERA on: 06/29/2024 10:01 AM Modules accepted: Orders documented in this encounter Plan of Treatment Upcoming Encounters Date Type Department Care Team (Late st Contact Info) Description 07/04/2024 7:00 AM EST Laboratory [facility] [place] [address] [place] [phone] Maria Elena, Lab Scenery [address] [facility] [place] [address] 07/04/2024 8:00 AM EST Hem/Onc Treatment Hematology/Oncology Treatment, [place] [address] [place], [place] [phone] Maria Elena, Chair 1 Hem Onc Scenery [address] [place] [address] 07/20/2024 10:50 AM EST Laboratory Laboratory [facility] Maria Elena [place] [address] [place] [phone] Maria Elena, Lab Scenery [address] [facility] [place] [address] 07/20/2024 11:30 AM EST Office Visit Hematology/Oncology [facility] [place] [address] [place] [phone] Dorie Dietz, [place] [address] [place] [address] 07/20/2024 12:00 PM EST Hem/Onc Treatment [facility]ology[facility] [place] [address] [facility] [phone] Maria Elena, Chair 7 Hem Onc Scenery [address] [place] [address] 08/08/2024 11:45 AM EDT Imaging [facility], [place] [address] [place] [phone] 08/23/2024 1:30 PM EDT Office Visit Otolaryngology/Head & Neck/Facial Plastic Surgery [address] [place] [address] Curt Klein MD [address] [facility] [place] [address] 10/06/2024 10:00 AM EDT Office Visit Rheumatology [facility] [address] [place] [phone] Robbie Hernandez CRNP [address] [place] [address] [place], [place] [address] 11/21/2024 9:00 AM EDT Office Visit Family Practice [facility] [address] [place] [address] Waldemar Borden, DO [address] [place] [address] 12/01/2024 8:20 AM EDT Office Visit [facility] [address] [place] [address] Waldemar Borden, DO [address] [place] [address] Scheduled Procedures Name Priority Associated Diagnoses Date/Ti me COLONOSCOPY FLEXIBLE PROXIMAL DIAGNOSTIC Recall Hx of colonic polyps Health Maintenance Due Date Last Done Comments DISCUSS TOBACCO CESSATION (REFER TO SMARTSET #5481) 1955 Sigmoidoscopy 12/11/1999 Fecal Occult Blood Test 10/14/2015 10/13/2014 Cologuard 04/21/2020 04/21/2017 COVID-19 Vaccine ( season) 2024 02/11/2024, 04/22/2023, 03/06/2022, Additional history exists Adult Wellness Visit 06/04/2024 06/04/2023, 12/04/19 21 DXA Scan 06/04/2024 06/04/2022, 05/25, 05/23/2020 Depression Screening 07/16/2024 07/16/2023 O2 ASSESSMENT COMPLETED IN PAST YEAR FOR COPD 03/04/2025 03/04/2024 TSH 05/30/2025 05/30/2024, 04/26, 05/16/2024, Additional history exists Mammogram 06/22/2025 06/22/2024, 12/24, 01/20/2024, Additional history exists Colonoscopy 11/13/2025 11/13/2020, 10/24, 07/21/2017, Additional history exists Colorectal Cancer Screening 11/13/2025 DTap/Tdap Vaccines (3 - Td or Tdap) 03/25/2027 03/25/2017, 10/12/2007 RETIRED - COLONOSCOPY-EVERY 5 YRS AGES 18-100 Discontinued 11/13/2020, 11/13/2020, 07/21/2017, Additional history exists Zoster Vaccines Completed 08/01/2021, 10/2021, 12/18/2014 Alpha-1 Antitrypsin Completed 05/12/2022 VITAMIN D LEVEL ONCE IN A LIFETIME-USE SMARTSET# 26701 Completed 06/23/2023, 09/20/2021, 08/01/2020 Influenza Vaccine (FLU [...] this encounter Medical Devices Implanted Type Area Hooker On Device Identifier Shelf Expiration Date Model / Serial / Lot Lens Li61ao 13.00mm 24.50 - [id number] - [id number] Implanted:Qty: 1 on 08/04/2023 by Juan Carlos Barba MD at OR [facility] Left: Eye [employer] 11/22/2027 [id number] / [id number] / [id number] Lens Li61ao 13.00mm 25.00 - [id number] - [id number] Implanted:Qty: 1 on 08/18/2023 by Juan Carlso Barba MD at OR [facility] Right: Eye [employer] 11/22/2027 [id number] / [id number] / [id number] Port Power Mri W8fr Cath - [id number] Implanted:Qty: 1 on 02/16/2024 by Dread Lackey MD at OR [facility] BARD : PERIPHERAL VASCULAR 08/22/2025 [id number] / / [id number] documented as of this encounter Visit Diagnoses Diagnosis Laryngeal cancer (HCC)- Primary Malignant neoplasm of larynx, unspecified site Triple negative breast cancer (HCC) documented in this encounter Advance Directives * [...] Power of Attor raffi? No Care Teams Stationary Equipment Mechanic Relationship Specialty Start Date End Date Waldemar Borden DO [address] [facility] [place] [address] PCP - General Family Medicine 04/20/18 documented as of this encounter
--- OUTSIDE RECORDS SUMMARY | 2024-07-05 01:57 | External Medical Summary | Summary of Care ---
Author Name Unknown Organization [facility] Address [address] [place] [address] Phone [phone] Care Team Providers Care Accident Examiner Name Role Phone Michi Waldemar De La Cruzadal Primary Care Provider Reason for Visit * Reason Onset Date Comments Advice 07/01/2024 Encounter Details Date Type Department Care Team (Late st Contact Info) Description 07/01/2024 Telephone Hematology/Oncology [facility] [address] [place] [address] Services, Scheduling [address] [place] [address] Advice Allergies Active Allergy Reactions Criticality Noted Date Comments Caffeine Other (Please comment) Medium 05/12/2017 Irregular heart rhythm Oxycodone-Acetamino phen Flushing Low 06/18/2017 06/05/2017 - after appendectomy documented as of this encounter (statuses as of 07/01/2024) Medications Multivitamins Oral Capsule Take 1 Capsule [...] Nasal Suspension (Flonase)Indicatio ns:Nasal congestion Administer 1 [place] into each nostril in the morning and 1 [place] before bedtime. 15.8 mL 4 11/23/19 24 Active Additional Information Patient not taking.Informant: Patient, Reported on 03/04/2024 Famotidine 20 MG Oral Tablet (Pepcid)Indication s:Gastroesophageal reflux disease, unspecified whether esophagitis present Take 1 Tablet by mouth in the morning and 1 Tablet before bedtime. 60 Tablet 11 12/29/19 24 Active Additional Information Patient not taking.Informant: Patient, Reported on 06/29/2024 Tiotropium [place] Monohydrate 2.5 MCG/ACT Inhalation Aerosol Solution (Spiriva Respimat)Indicatio ns:COPD, severity to be determined ([facility]) Inhale 2 Puffs by mouth in the [...] MOUTH IN THE MORNING 14 Tablet 05/13/20 Active Additional Information Patient not taking.Reported on [...] as of this encounter (statuses as of 07/01/2024) Active Problems Problem Noted Date Diagnosed Date Laryngeal cancer 02/29/2024 Triple negative breast cancer 02/04/2024 Cancer Staging:Clinical stage from 01/20/2024:Stage IIIC(cT1, cN3(f), cM0, G3, ER-, [place]-, HER2-) - Signed by Myla Ortega MD [...] as of this encounter (statuses as of 07/01/2024) Resolved Problems Problem Noted Date Diagnosed Date [...] as of this encounter (statuses as of 07/01/2024) Immunizations Name Administration Dates Next Due COVID-19 mRNA, LNP-s, No Pre serve, 2-Dose Series ([employer]) 05/14/2021,09/06/2020,08/16/2020 COVID-19, MRNA-LNP, 24-25, P R, 30MCG/0.3ML, IM, 12YRS AND ABOVE ([employer]-ComirnatPressBaby) 02/11/2024 COVID-19, MRNA-LNP, PF, 30 M CG/0.3 mL, 12 YRS AND ABOVE, IM (JoinMe@-Comirnaty) 04/22/2023 Covid-19, Mrna, Lnp-s, Pf, B ivalent, 30 Mcg, IM, 12 yrs and above (Pfizer) 03/06/2022 Pneumococcal Conjugate Vacc, 13 Valent (Prevnar) 12/16/2019 Pneumococcal Conjugate Vacci ne, 20-valent ([id number]) 01/28/2024 Pneumococcal Polysaccharide PPV23 (Pneumovax) 01/06/2012 Seasonal [...] 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 Called pt and changed to labs at 130 tx at 245 they are aware * Telephone Encounter - Diana Christian OSA - 07/01/2024 10:40 AM EST Ke of Silvina Penn [phone] needing to push the time back for her appointments on Thursday or even another day as he will not have a vehicle that early in the morning. documented in this encounter Plan of Treatment Upcoming Encounters Date Type Department Care Team (Late st Contact Info) Description 07/04/2024 1:30 PM EST Laboratory Laboratory [facility] [address] [place] [phone] [place] [address] [place] [address] 07/04/2024 2:45 PM EST Hem/Onc Treatment Hematology/Oncology Treatment, [place] [facility] [address] Maria Elena, Chair 4 Hem Onc Scenery [facility] [place] [address] 07/20/2024 10:50 AM EST Laboratory Laboratory [facility] [address] [place] [address] Maria Elena, Lab Scenery [address] [place], [place] [address] 07/20/2024 11:30 AM EST Office Visit Hematology/Oncology [facility] [address] [place] [phone] Dorie Dietz CRNP [address] [facility] [place] [phone] 07/20/2024 12:00 PM EST Hem/Onc Treatment Hematology/Oncology Treatment, [place] [facility] [address] Maria Elena, Chair 7 Hem Onc Scenery [address] [place] [address] 08/08/2024 11:45 AM EDT Imaging Radiology [facility] 1st [facility] [address] [place] [phone] 08/23/2024 1:30 PM EDT Office Visit Otolaryngology/Head & Neck/Facial Plastic Surgery [address] [place] [address] Curt Klein MD [address] [place] [address] 10/06/2024 10:00 AM EDT Office Visit Rheumatology [facility] [address] [place] [phone] Robbie Hernandez CRNP [facility] [place] [address] 11/21/2024 9:00 AM EDT Office Visit Family Practice [facility] [address] [place] [address] Waldemar Borden, [address] [place] [address] 12/01/2024 8:20 AM EDT Office Visit [facility] [address] [place] [address] Waldemar Borden, [address] [facility] [place] [address] Scheduled Procedures Name Priority Associated Diagnoses Date/Ti me COLONOSCOPY FLEXIBLE PROXIMAL DIAGNOSTIC Recall Hx of colonic polyps Health Maintenance Due Date Last Done Comments DISCUSS TOBACCO CESSATION (REFER TO SMARTSET #6926) 1955 Sigmoidoscopy 12/11/1999 Fecal Occult Blood Test [...] D LEVEL ONCE IN A LIFETIME-USE SMARTSET# 72307 Completed 06/23/2023, 09/20/2021, 08/01/2020 Influenza Vaccine (FLU [...] this encounter Medical Devices Implanted Type Area Dioramist Device Identifier Shelf Expiration Date Model / Serial / Lot Lens Li61ao 13.00mm 24.50 - [id number] - [id number] Implanted:Qty: 1 on 08/04/2023 by Juan [place] Barba MD at OR [facility] Left: Eye BAUSCH & LOMB 11/22/2027 [id number] / [id number] / [id number] Lens Li61ao 13.00mm 25.00 - [id number] - [id number] Implanted:Qty: 1 on 08/18/2023 by Juan [place] Barba MD at OR [facility] Right: Eye BAUSCH & LOMB 11/22/2027 [id number] / [id number] / [id number] Port Power Mri W8fr Cath - [id number] Implanted:Qty: 1 on 02/16/2024 by Dread Lackey MD at OR [facility] CR BARD : PERIPHERAL VASCULAR 08/22/2025 [id number] / / [id number] documented as of this encounter Advance Directives * Full Code [...] Power of Attor raffi? No Care Teams Accident Examiner Relationship Specialty Start Date End Date Waldemar Borden DO [address] [place] [address] PCP - General Family Medicine 04/20/18 documented as of this encounter
--- OUTSIDE RECORDS SUMMARY | 2024-07-05 01:57 | External Medical Summary | Summary of Care ---
Author Name Unknown Organization [facility] Address [address] [facility] [place] [address] Phone [phone] Care Team Providers Care Window Cleaner Name Role Phone Waldemar Bordenadal Primary Care Provider Encounter Details Date Type Department Care Team (Late st Contact Info) Description 06/29/2024 Orders Only Hematology/Oncology Phillip Arredondo [place] 200 [facility] [place] [address] Yas Geronimo MD [address] [place] [address] Allergies Active Allergy Reactions Criticality Noted Date [...] Nasal Suspension (Flonase)Indicatio ns:Nasal congestion Administer 1 [place] into each nostril in the morning and 1 [place] before bedtime. 15.8 mL 4 11/23/19 24 Active Additional Information Patient not taking.Informant: Patient, Reported on 03/04/2024 Famotidine 20 MG Oral Tablet (Pepcid)Indication s:Gastroesophageal reflux disease, unspecified whether esophagitis present Take 1 Tablet by mouth in the morning and 1 Tablet before bedtime. 60 Tablet 11 12/29/19 24 Active Additional Information Patient not taking.Informant: Patient, Reported on 06/29/2024 Tiotropium [place] Monohydrate 2.5 MCG/ACT Inhalation Aerosol Solution (Spiriva Respimat)Indicatio ns:COPD, severity to be determined (HCC) Inhale 2 Puffs by mouth in the morning. 4 g 3 12/29/19 24 Active Additional Information Patient not taking.Informant: Patient, Reported on 03/04/2024 Restorando Health Formula Oral Capsule Take by mouth. [...] from 01/20/2024:Stage IIIC(cT1, cN3(f), cM0, G3, ER-, [place]-, HER2-) - Signed by Myla Ortega MD [...] mRNA, LNP-s, No Pre serve, 2-Dose Series ([employer]) 05/14/2021,09/06/2020,08/16/2020 COVID-19, MRNA-LNP, 24-25, P R, 30MCG/0.3ML, IM, 12YRS AND ABOVE ([employer]-ComirnatiConnect CRM) 02/11/2024 COVID-19, MRNA-LNP, PF, 30 M CG/0.3 mL, 12 YRS AND ABOVE, IM ([address]-AzadiirnatiConnect CRM) 04/22/2023 Covid-19, Mrna, Lnp-s, Pf, B ivalent, 30 Mcg, IM, 12 yrs and above ([employer]) 03/06/2022 Pneumococcal Conjugate Vacc, 13 Valent (Prevnar) 12/16/2019 Pneumococcal Conjugate Vacci ne, 20-valent ([id number]) 01/28/2024 Pneumococcal Polysaccharide PPV23 (Pneumovax) 01/06/2012 Seasonal [...] 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 Not on file Not on file documented as of this encounter Plan of Treatment Upcoming Encounters Date Type Department Care Team (Late st Contact Info) Description 07/04/2024 7:00 AM EST Laboratory Laboratory Scenery Maria Elena [place] [address] [place] [phone] [place], Lab Scenery [address] [place], [place] [address] 07/04/2024 8:00 AM EST Hem/Onc Treatment Hematology/Oncology Treatment, [place] 200 [facility] [place], [place] [phone] Maria Elena, Chair 1 Hem Onc Scenery [address] [place] [address] 07/20/2024 10:50 AM EST Laboratory Laboratory [facility] [place] [address] [place] [phone] Maria Elena, Lab Scenery [address] [place], [place] [address] 07/20/2024 11:30 AM EST Office Visit Hematology/Oncology [facility] [place] [address] [place] [phone] Dorie Dietz CRNP [address] [place] [address] 07/20/2024 12:00 PM EST [facility] 200 [facility] Jennifer [place], [place] [phone] Maria Elena, Chair 7 Hem Onc Scenery 200 [facility] [place], [place] [address] 08/08/2024 11:45 AM EDT Imaging Radiology [facility] 1st [facility] [address] [place] [phone] 08/23/2024 1:30 PM EDT Office Visit Otolaryngology/Head & Neck/Facial Plastic [facility] [address] [facility] [address] Curt Klein MD 100 [address] [facility] [place] [address] 10/06/2024 10:00 AM EDT Office Visit Rheumatology [facility] [address] [place] [phone] Robbie Hernandez CRNP [address] [facility] [place] [address] 11/21/2024 9:00 AM EDT Office Visit [facility] [address] [place] [address] Waldemar Borden, DO [address] [place] [address] 12/01/2024 8:20 AM EDT Office Visit [facility] [address] [place] [address] Waldemar Borden, DO [address] [place] [address] Scheduled Procedures Name Priority Associated Diagnoses Date/Ti me COLONOSCOPY FLEXIBLE PROXIMAL DIAGNOSTIC Recall Hx of colonic polyps Health Maintenance Due Date Last Done Comments DISCUSS TOBACCO CESSATION (REFER TO SMARTSET #3291) 1955 Sigmoidoscopy 12/11/1999 Fecal Occult Blood Test [...] D LEVEL ONCE IN A LIFETIME-USE SMARTSET# 46853 Completed 06/23/2023, 09/20/2021, 08/01/2020 Influenza Vaccine (FLU [...] this encounter Medical Devices Implanted Type Area Commutator V Ring Assembler Device Identifier Shelf Expiration Date Model / Serial / Lot Lens Li61ao 13.00mm 24.50 - [id number] - [id number] Implanted:Qty: 1 on 08/04/2023 by Juan [place] Barba MD at OR [facility] Left: Eye BAUSCH & LOMB 11/22/2027 [id number] / [id number] / [id number] Lens Li61ao 13.00mm 25.00 - [id number] - [id number] Implanted:Qty: 1 on 08/18/2023 by Juan [place] Barba MD at OR [facility] Right: Eye BAUSCH & LOMB 11/22/2027 [id number] / [id number] / [id number] Port Power Mri W8fr Cath - [id number] Implanted:Qty: 1 on 02/16/2024 by Dread Lackey MD at OR [facility] BARD : PERIPHERAL VASCULAR 08/22/2025 [id number] / / [id number] documented as of this encounter Advance Directives [...] Power of Attor raffi? No Care Teams Window Cleaner Relationship Specialty Start Date End Date Waldemar Borden DO [address] [place] [address] PCP - General Family Medicine 04/20/18 documented as of this encounter
--- OUTSIDE RECORDS SUMMARY | 2024-07-05 01:58 | External Medical Summary ---
Author Name Unknown Address Unknown Organization K01:LABORATORY [facility] - [address] [place] [address] Laboratory Report Ordering Provider Test Date Status MOUNIKA GO 06/29/2024 08:08:15 Final Observation Date Value Abnormality Reference (Units ) Status T4, Free 06/29/2024 08:08:15 1.0 0.9-1.7 (n g/dL) Final Performing Location [facility] - [address] [place] [address]
--- OUTSIDE RECORDS SUMMARY | 2024-07-05 01:58 | External Medical Summary ---
Author Name Unknown Address Unknown Organization K01:LABORATORY [facility] - [address] [place] [address] Laboratory Report Ordering Provider Test Date Status MOUNIKA GO 06/29/2024 08:08:15 Final Observation Date Value Abnormality Reference (Units ) Status TSH 06/29/2024 08:08:15 10.50 Above high normal 0. 27-4.20 (uIU/mL) Final Performing Location LABORATORY [facility] - [address] [place] [address]
--- OUTSIDE RECORDS SUMMARY | 2024-07-05 01:58 | External Medical Summary | Summary of Care ---
Author Name Unknown Organization [facility] Address [address] [place] [address] Phone [phone] Care Team Providers Care Dry End Operator Name Role Phone Borden Waldemar De La Cruzadal Primary Care Provider Reason for Visit * Reason Onset Date Comments Referral 03/09/2024 Encounter Details Date Type Department Care Team ([facility] st Contact Info) Description 03/09/2024 Telephone Radiation Oncology, [facility] [address] [place], [place] [id number] Services, Scheduling [address] [place] [address] Referral Allergies Active Allergy Reactions Criticality Noted Date Comments Caffeine Other (Please comment) Medium 05/12/2017 Irregular heart rhythm Oxycodone-Acetamino phen Fl[place] Low 06/18/2017 06/05/2017 - after appendectomy documented as of this encounter (statuses as of 06/08/2024) Medications Multivitamins Oral Capsule Take 1 Capsule by mouth at bedtime. Active Calcium 500+D 500-200 MG-UNIT Oral Tablet (Calcium Carb-Cholecalcife rol) Take by mouth at bedtime. Active Ventolin HFA 108 (90 Base) MCG/ACT Inhalation Aerosol SolutionIndicatio ns:Acute bronchitis, antibiotics not indicated Inhale 2 Puffs by mouth 4 times a day as needed for Wheezing. 18 g 1 023 Active Additional Information Patient not taking.Informant: Patient, Reported on 03/04/2024 Fluticasone Propionate 50 MCG/ACT Nasal Suspension (Flonase)Indicati ons:Nasal congestion Administer 1 [place] into each nostril in the morning and 1 [place] before bedtime. 15.8 mL 4 024 Active Additional Information Patient not taking.Informant: Patient, Reported on 03/04/2024 Famotidine 20 MG Oral Tablet (Pepcid)Indicatio ns:Gastroesophage al reflux disease, unspecified whether esophagitis present Take 1 Tablet by mouth in the morning and 1 Tablet before bedtime. 60 Tablet 11 Active Tiotropium [place] Monohydrate 2.5 MCG/ACT Inhalation Aerosol Solution (Spiriva Respimat)Indicati ons:COPD, severity to be determined ([facility]) Inhale 2 Puffs by mouth in the morning. 4 g 3 024 Active Additional Information Patient not taking.Informant: Patient, Reported on 03/04/2024 Pyrolia Health Formula Oral Capsule Take by mouth. 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 on an empty stomach.. 90 Tablet 3 Active Additional Information Patient taking differently: 88 mcgOral Daily(AM), on an empty stomach., Informant: Patient, Reported on 03/28/2024 Lidocaine-Priloca ine 2.5-2.5 % External Cream (Emla)Indications :Malignant neoplasm of right breast in female, estrogen receptor negative, unspecified site of breast (HCC) APPLY TO SKIN OVER MEDIPORT & COVER 1HR PRIOR TO ACCESSING. 30 g 1 024 Active Additional Information Patient not taking.Informant: Patient, Reported on 03/04/2024 Prochlorperazine Maleate 10 MG Oral Tablet (Compazine)Indica tions:Encounter for antineoplastic chemotherapy,Adenike gnant neoplasm of right breast in female, estrogen receptor negative, unspecified site of breast (HCC),Prevention of chemotherapy-felisha padmini neutropenia,Regio nal lymph node staging category N1 (HCC) Take 1 Tablet by mouth every 6 hours as needed for Nausea. 30 Tablet 5 024 Active Additional Information Patient not taking.Informant: Patient, Reported on 03/04/2024 Alendronate Sodium 70 MG Oral Tablet (Fosamax) Take 1 Tablet by mouth once a week. 12 Tablet 3 023 2023 Discontinued levoFLOXacin 500 MG Oral TabletIndications :Malignant neoplasm of right breast in female, estrogen receptor negative, unspecified site of breast (HCC) Take 0.5 Tablets by mouth in the morning. 14 Tablet 024 2023 Discontinued documented as of this encounter (statuses as of 06/08/2024) Active Problems Problem Noted Date Diagnosed Date Laryngeal cancer 02/29/2024 Triple negative breast cancer 02/04/2024 Cancer Staging:Clinical stage from 01/20/2024:Stage IIIC(cT1, cN3(f), cM0, G3, ER-, [place]-, HER2-) - Signed by Myla Ortega MD [...] as of this encounter (statuses as of 06/08/2024) Resolved Problems Problem Noted Date Diagnosed Date [...] as of this encounter (statuses as of 06/08/2024) Immunizations Name Administration Dates Next Due COVID-19 mRNA, LNP-s, No Pre serve, 2-Dose Series ([employer]) 05/14/2021,09/06/2020,08/16/2020 COVID-19, MRNA-LNP, 24-25, P R, 30MCG/0.3ML, IM, 12YRS AND ABOVE (CellworksirPiCloud) 02/11/2024 COVID-19, MRNA-LNP, PF, 30 M CG/0.3 mL, 12 YRS AND ABOVE, IM (Swyft) 04/22/2023 Covid-19, Mrna, Lnp-s, Pf, B ivalent, 30 Mcg, IM, 12 yrs and above ([employer]) 03/06/2022 Pneumococcal Conjugate Vacc, 13 Valent (Prevnar) 12/16/2019 Pneumococcal Conjugate Vacci ne, 20-valent (Eljhgko10) 01/28/2024 Pneumococcal Polysaccharide PPV23 (Pneumovax) 01/06/2012 Seasonal [...] 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 I did reach out to her to schedule this appointment but our [email or web address] offices were at too much of adistance for her. She did ask for this referral to be sent to [facility] in [place] since their office is much closer. Please send this referral to [facility] at your earliest convenience. Thank you! documented in this encounter Plan of Treatment Upcoming Encounters Date Type Department Care Team (Late st Contact Info) Description 06/22/2024 12:00 PM EST Imaging Radiology [facility] [address] [place] [address] 06/22/2024 1:00 PM EST Imaging Radiology [facility] [address] [place] [address] 06/29/2024 8:00 AM EST Laboratory Laboratory [facility] [place] [address] [place] [address] Maria Elena, Lab Scenery [address] [facility] [place] [address] 06/29/2024 8:30 AM EST Office Visit Hematology/Oncology [facility] [address] [place], [place] [phone] Yas Geronimo MD [address] [place], [place] [address] 06/29/2024 9:00 AM EST Hem/Onc Treatment Hematology/Oncology Treatment, [place] [address] [place], [place] [phone] Maria Elena, Chair 2 Hem Onc Scenery [address] [place], [place] [address] 07/12/2024 10:00 AM EST Office Visit Hematology/Oncology [facility] [address] [place], [place] [phone] Yas Geronimo MD [address] [place], [place] [address] 08/08/2024 11:45 AM EDT Imaging [facility] [address] [place] [phone] 10/06/2024 10:00 AM EDT Office Visit Rheumatology [facility] [address] [place] [phone] Robbie Hernandez CRNP [address] [place] [address] [place], [place] [address] 11/21/2024 9:00 AM EDT Office Visit Family Practice [facility] [address] [place] [address] Waldemar Borden DO [address] [place] [address] 12/01/2024 8:20 AM EDT Office Visit [facility] [address] [place] [address] Waldemar Borden, [address] [place] [address] Scheduled Procedures Name Priority Associated Diagnoses Date/Ti me COLONOSCOPY FLEXIBLE PROXIMAL DIAGNOSTIC Recall Hx of colonic polyps Health Maintenance Due Date Last Done Comments DISCUSS TOBACCO CESSATION (REFER TO SMARTSET #9111) 1955 Sigmoidoscopy 12/11/1999 Fecal Occult Blood Test 10/14/2015 10/13/2014 Cologuard 04/21/2020 04/21/2017 COVID-19 Vaccine ( season) 2024 02/11/2024, 04/22/2023, 03/06/2022, Additional history exists Adult Wellness Visit 06/04/2024 06/04/2023, 12/04/19 21 DXA Scan 06/04/2024 06/04/2022, 05/25, 05/23/2020 Depression Screening 07/16/2024 07/16/2023 Mammogram 01/19/2025 01/20/2024, 12/24, 01/18/2024, Additional history exists O2 ASSESSMENT COMPLETED IN PAST YEAR FOR COPD 03/04/2025 03/04/2024 TSH 05/30/2025 05/30/2024, 04/26, 05/16/2024, Additional history exists Colonoscopy 11/13/2025 11/13/2020, 10/24, 07/21/2017, Additional history exists Colorectal Cancer Screening 11/13/2025 DTap/Tdap Vaccines (3 - Td or Tdap) 03/25/2027 03/25/2017, 10/12/2007 RETIRED - COLONOSCOPY-EVERY 5 YRS AGES 18-100 Discontinued 11/13/2020, 11/13/2020, 07/21/2017, Additional history exists Zoster Vaccines Completed 08/01/2021, 10/2021, 12/18/2014 Alpha-1 Antitrypsin Completed 05/12/2022 VITAMIN D LEVEL ONCE IN A LIFETIME-USE SMARTSET# 81942 Completed 06/23/2023, 09/20/2021, 08/01/2020 Influenza Vaccine (FLU [...] this encounter Medical Devices Implanted Type Area Computer Operations Technician Device Identifier Shelf Expiration Date Model / Serial / Lot Lens Li61ao 13.00mm 24.50 - [id number] - [id number] Implanted:Qty: 1 on 08/04/2023 by Juan Carlos Barba MD at OR [facility] Left: Eye BAUSCH & LOMB 11/22/2027 [id number] / [id number] / [id number] Lens Li61ao 13.00mm 25.00 - [id number] - [id number] Implanted:Qty: 1 on 08/18/2023 by Juan Carlos Barba MD at OR [facility] Right: Eye BAUSCH & LOMB 11/22/2027 [id number] / [id number] / [id number] Port Power Mri W8fr Cath - [id number] Implanted:Qty: 1 on 02/16/2024 by Dread Lackey MD at OR [facility] CR BARD : PERIPHERAL VASCULAR 08/22/2025 [id number] / / [id number] documented as of this encounter Advance Directives [...] Power of Attor raffi? No Care Teams Dry End Operator Relationship Specialty Start Date End Date Waldemar Borden DO [address] [place] [address] PCP - General Family Medicine 04/20/18 documented as of this encounter
--- OUTSIDE RECORDS SUMMARY | 2024-07-05 01:58 | External Medical Summary | Summary of Care ---
Author Name Unknown Organization [facility] Address [address] [facility] [place] [address] Phone [phone] Care Team Providers Care Natural Gas Treating Unit Operator Name Role Phone Waldemar Borden DO Primary Care Provider Reason for Visit * Reason Comments Chemotherapy Chemo/recheck Encounter Details Date Type Department Care Team (Late st Contact Info) Description 06/29/2024 8:30 AM EST Office Visit Hematology/Oncology Phillip Arredondo [place] [address] [place] [phone] Yas Ribera MD [address] [facility] [place] [address] Laryngeal cancer (HCC)*; Triple negative breast cancer [...] Nasal Suspension (Flonase)Indicatio ns:Nasal congestion Administer 1 [place] into each nostril in the morning and 1 [place] before bedtime. 15.8 mL 4 11/23/19 24 Active Additional Information Patient not taking.Informant: Patient, Reported on 03/04/2024 Famotidine 20 MG Oral Tablet (Pepcid)Indication s:Gastroesophageal reflux disease, unspecified whether esophagitis present Take 1 Tablet by mouth in the morning and 1 Tablet before bedtime. 60 Tablet 11 12/29/19 24 Active Additional Information Patient not taking.Informant: Patient, Reported on 06/29/2024 Tiotropium Lib[place] Monohydrate 2.5 MCG/ACT Inhalation Aerosol Solution (Spiriva [...] from 01/20/2024:Stage IIIC(cT1, cN3(f), cM0, G3, ER-, NV-, HER2-) - Signed by Myla Ortega MD [...] mRNA, LNP-s, No Pre serve, 2-Dose Series ([employer]) 05/14/2021,09/06/2020,08/16/2020 COVID-19, MRNA-LNP, 24-25, P R, 30MCG/0.3ML, IM, 12YRS AND ABOVE (cinvolveirManicube) 02/11/2024 COVID-19, MRNA-LNP, PF, 30 M CG/0.3 mL, 12 YRS AND ABOVE, IM (WiOfferirnatVibrant Corporation) 04/22/2023 Covid-19, Mrna, Lnp-s, Pf, B ivalent, 30 Mcg, IM, 12 yrs and above ([facility] [facility]) 03/06/2022 Pneumococcal Conjugate Vacc, 13 Valent (Prevnar) 12/16/2019 Pneumococcal Conjugate Vacci ne, 20-valent ([id number]) 01/28/2024 Pneumococcal Polysaccharide PPV23 (Pneumovax) 01/06/2012 Seasonal [...] 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 06/29/2024 8:36 AM Leslie Mickie [id number] 68 year old Patient Encounter: HEMATOLOGY/ONCOLOGY [facility] Cancer Diagnosis: Patient transfer from Dr. 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 -NV: Negative. -HER-2 oncoprotein expression: Negative. Biopsy of the right supraclavicular lymph node was performed by [facility] IR 03/03/2024 and showed metastatic adenocarcinoma of [...] grade triple negative invasive ductal carcinoma with ER/NV and HER2 Bethanie negative. See from the [...] (ER) protein expression is NEGATIVE Progesterone Receptor (NV) protein expression is NEGATIVE HER2 oncoprotein expression [...] and 1 Tablet before bedtime. Magic Swizzle (Eptyuanwi-Wvjijnlo-Ifovvb) oral solution Swish and spit 15 mL [...] 50 MCG/ACT Nasal Suspension (Flonase) Administer 1 [place] into each nostril in the morning and 1 [place] before bedtime. (Patient not taking: Reported on 02/09/2024) 15.8 mL 4 Famotidine 20 MG Oral Tablet (Pepcid) Take 1 Tablet by mouth in the morning and 1 Tablet before bedtime. (Patient not taking: Reported on 06/29/2024) 60 Tablet 11 Tiotropium Libby Monohydrate 2.5 MCG/ACT Inhalation Aerosol Solution (Spiriva [...] on 02/16/2024) 30 Tablet 5 COVID-19 mRNA Vac-Sheryl([facility]) 30 MCG/0.3ML Intramuscular Suspension Prefilled Syringe ([employer]) Inject into a large muscle. 0.3 mL [...] all were positive for metastatic breast cancer. ER/NV and HER2 Bethanie were negative. Biopsy from [...] Description 07/04/2024 7:00 AM EST Laboratory Laboratory [facility] Ar[place] [address] [place] [phone] Maria Elena, Lab Scenery [address] [facility] [place] [address] 07/04/2024 8:00 AM EST Hem/Onc Treatment Hematology/Oncology Treatment, [place] [address] [place], [place] [phone] Maria Elena, Chair 1 Hem Onc Scen[address] [place] [address] 07/20/2024 10:50 AM EST Laboratory Laboratory [facility] Maria Elena [place] [address] [place] [phone] Maria Elena, Lab Scenery [address] [facility] [place] [address] 07/20/2024 11:30 AM EST Office Visit Hematology/Oncology [facility] She[facility]on [place] [address] [place] [phone] Dorie Dietz, [place] [address] [place] [address] 07/20/2024 12:00 PM EST Hem/Onc Treatment [facility]ology[facility] [place] [address] [facility] [phone] Maria Elena, Chair 7 Hem Onc [place]en[place] [address] [place] [address] 08/08/2024 11:45 AM EDT Imaging Radiology [facility] 1st [facility], [place] [address] [place] [phone] 08/23/2024 1:30 PM EDT Office Visit Otolaryngology/Head & Neck/Facial Plastic Surgery [address] [place] [address] Curt Klein MD [address] [place] [facility] [place] [address] 10/06/2024 10:00 AM EDT Office Visit Rheumatology [facility] [address] [place] [phone] Robbie Hernandez CRNP [address] [place] [address] [place], [place] [address] 11/21/2024 9:00 AM EDT Office Visit Family Practice [facility] [address] [place] [address] Waldemar Borden, DO [address] [place] [address] 12/01/2024 8:20 AM EDT [facility] Visit [facility] [address] [place] [address] Waldemar Borden, DO [address] [place] [address] Scheduled Procedures Name Priority Associated Diagnoses Date/Ti me COLONOSCOPY FLEXIBLE PROXIMAL DIAGNOSTIC Recall Hx of colonic polyps Health Maintenance Due Date Last Done Comments DISCUSS TOBACCO CESSATION (REFER TO SMARTSET #5281) 1955 Sigmoidoscopy 12/11/1999 Fecal Occult Blood Test [...] D LEVEL ONCE IN A LIFETIME-USE SMARTSET# 65478 Completed 06/23/2023, 09/20/2021, 08/01/2020 Influenza Vaccine (FLU [...] this encounter Medical Devices Implanted Type Area Form Worker Device Identifier Shelf Expiration Date Model / Serial / Lot Lens Li61ao 13.00mm 24.50 - [id number] - [id number] Implanted:Qty: 1 on 08/04/2023 by Juan Carlos Barba MD at OR [facility] Left: Eye BAUSCH & LOMB 11/22/2027 [id number] / [id number] / [id number] Lens Li61ao 13.00mm 25.00 - [id number] - [id number] Implanted:Qty: 1 on 08/18/2023 by Juan Carlos Barba MD at OR [facility] Right: Eye BAUSCH & LOMB 11/22/2027 [id number] / [id number] / [id number] Port Power Mri W8fr Cath - [id number] Implanted:Qty: 1 on 02/16/2024 by Dread Lackey MD at OR [facility] BARD : PERIPHERAL VASCULAR 08/22/2025 [id number] / / [id number] documented as of this encounter Visit Diagnoses [...] Power of Attor raffi? No Care Teams Natural Gas Treating Unit Operator Relationship Specialty Start Date End Date Waldemar Borden DO [address] [facility] [place] [address] PCP - General Family Medicine 04/20/18 documented as of this encounter
--- OUTSIDE RECORDS SUMMARY | 2024-07-05 01:58 | External Medical Summary | Summary of Care ---
Author Name Unknown Organization [facility] Address 100 [facility] [place] [address] Phone [phone] Care Team Providers Care Pediatric Dental Hygienist Name Role Phone Borden Waldemar De La Cruzadal DO Primary Care Provider Reason for Visit * Reason Onset Date Comments Advice 06/13/2024 Plan of care. Encounter Details Date Type Department Care Team (Late st Contact Info) Description 06/13/2024 Telephone Hematology/Oncology [facility] Maria Elena [place] [address] [place] [phone] Yas Geronimo MD [address] [place] [address] Advice (Plan of care. ) Allergies Active Allergy Reactions Criticality Noted Date Comments Caffeine Other (Please comment) Medium 05/12/2017 Irregular heart rhythm Oxycodone-Acetamino phen Flushing Low 06/18/2017 06/05/2017 - after appendectomy documented as of this encounter (statuses as of 06/13/2024) Medications Multivitamins Oral Capsule Take 1 Capsule [...] Nasal Suspension (Flonase)Indicatio ns:Nasal congestion Administer 1 [place] into each nostril in the morning and 1 [place] before bedtime. 15.8 mL 4 11/23/19 24 Active Additional Information Patient not taking.Informant: Patient, Reported on 03/04/2024 Famotidine 20 MG Oral Tablet (Pepcid)Indication s:Gastroesophageal reflux disease, unspecified whether esophagitis present Take 1 Tablet by mouth in the morning and 1 Tablet before bedtime. 60 Tablet 11 12/29/19 24 Active Tiotropium [place] Monohydrate 2.5 MCG/ACT Inhalation Aerosol Solution (Spiriva [...] THE MORNING 14 Tablet 05/13/20 24 Active Klor-Con M20 20 MEQ Oral Tablet Extended Release (Potassium Chloride ER)Indications:Enc ounter for antineoplastic chemotherapy,Hypok alemia TAKE 2 TABLETS BY MOUTH EVERY MORNING 60 Tablet 1 05/16/20 24 Active documented as of this encounter (statuses as of 06/13/2024) Active Problems Problem Noted Date Diagnosed Date Laryngeal cancer 02/29/2024 Triple negative breast cancer 02/04/2024 Cancer Staging:Clinical stage from 01/20/2024:Stage IIIC(cT1, cN3(f), cM0, G3, ER-, [place]-, HER2-) - Signed by Myla Ortega MD on 04/26/2024 Malignant neoplasm of right breast, estrogen receptor negative 02/04/2024 Regional lymph node staging category N1 02/04/20 24 Encounter for antineoplastic chemotherapy 2023 Prevention of [...] as of this encounter (statuses as of 06/13/2024) Resolved Problems Problem Noted Date Diagnosed Date [...] as of this encounter (statuses as of 06/13/2024) Immunizations Name Administration Dates Next Due COVID-19 mRNA, LNP-s, No Pre serve, 2-Dose Series ([employer]) 05/14/2021,09/06/2020,08/16/2020 COVID-19, MRNA-LNP, 24-25, P R, 30MCG/0.3ML, IM, 12YRS AND ABOVE ([employer]ort GemsirRobotronica) 02/11/2024 COVID-19, MRNA-LNP, PF, 30 M CG/0.3 mL, 12 YRS AND ABOVE, IM (Picooc TechnologyirnatBergey's) 04/22/2023 Covid-19, Mrna, Lnp-s, Pf, B ivalent, 30 Mcg, IM, 12 yrs and above ([employer]) 03/06/2022 Pneumococcal Conjugate Vacc, 13 Valent (Prevnar) 12/16/2019 Pneumococcal Conjugate Vacci ne, 20-valent ([id number]) 01/28/2024 Pneumococcal Polysaccharide PPV23 (Pneumovax) 01/06/2012 Seasonal [...] 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 I called patients back. Spoke with him regarding the plan and upcoming appointments scheduled on 06/29 and lab work. He verbalized understanding and appreciated the phone call back. Scheduling- please cancel the follow up scheduled on 07/[address] Geronimo as patient is being seen by him on 06/29. Thank you. * Telephone Encounter - Wallace Osei RN - 06/13/2024 1:27 PM EST Received TT from [facility] Rad Onc requesting our office to call patients to discuss what plan of care is at this time. Per Rad Onc - patient is expected to complete treatment on 06/24. Per BROOKE Roche last office note " Reviewed case with Dr. Humphrey Hopkins: will hold AC until completion of radiation therapy which is tentatively 06/24/24. " Called patients , [employer]. No answer, LMOM with return #. documented in this encounter Plan of Treatment Upcoming Encounters Date Type Department Care Team (Late st Contact Info) Description 06/22/2024 12:00 PM EST Imaging Radiology [facility] [address] [place] [address] 06/22/2024 1:00 PM EST Imaging Radiology [facility] [address] [place] [address] 06/29/2024 8:00 AM EST Laboratory Laboratory [facility] [place] [address] [facility] [place] [phone] Maria Elena, Lab Scenery [address] [facility] [place] [address] 06/29/2024 8:30 AM EST Office Visit Hematology/Oncology [facility] [place] [address] [facility] [place] [phone] Yas Geronimo MD 200 [facility] [place] [address] 06/29/2024 9:00 AM EST Hem/Onc Treatment Hematology/Oncology Treatment, [place] [address] [place] [phone] Maria Elena, Chair 2 Hem Onc [facility] [address] [facility] [place] [address] 07/12/2024 10:00 AM EST Office Visit Hematology/Oncology [facility] [place] [address] [place] [address] Yas Geronimo MD [address] [place], [place] [address] 08/08/2024 11:45 AM EDT Imaging Radiology [facility] 1st [facility], [place] [address] [place] [phone] 10/06/2024 10:00 AM EDT Office Visit Rheumatology [facility] [address] [place] [phone] Robbie Hernandez CRNP [address] [place] [address] [place] [address] 11/21/2024 9:00 AM EDT Office Visit Family Practice [facility] 132 [facility] [place] [address] Waldemar Borden, DO [address] [place] [address] 12/01/2024 8:20 AM EDT [facility] [place] [address] Waldemar Borden, DO [address] [place] [address] Scheduled Procedures Name Priority Associated Diagnoses Date/Ti [...] D LEVEL ONCE IN A LIFETIME-USE SMARTSET# 28481 Completed 06/23/2023, 09/20/2021, 08/01/2020 Influenza Vaccine (FLU [...] this encounter Medical Devices Implanted Type Area Shader And Toner Device Identifier Shelf Expiration Date Model / Serial / Lot Lens Li61ao 13.00mm 24.50 - [id number] - [id number] Implanted:Qty: 1 on 08/04/2023 by Juan Carlos Barba MD at OR [facility] Left: Eye BAUSCH & LOMB 11/22/2027 [id number] / [id number] / [id number] Lens Li61ao 13.00mm 25.00 - [id number] - [id number] Implanted:Qty: 1 on 08/18/2023 by Juan Carlos Barba MD at OR [facility] Right: Eye BAUSCH & LOMB 11/22/2027 [id number] / [id number] / [id number] Port Power Mri W8fr Cath - [id number] Implanted:Qty: 1 on 02/16/2024 by Dread Lackey MD at OR [facility] CR BARD : PERIPHERAL VASCULAR 08/22/2025 [id number] / / [id number] documented as of this encounter Advance Directives [...] Power of Attor raffi? No Care Teams Pediatric Dental Hygienist Relationship Specialty Start Date End Date Waldemar Borden DO [address] [place] [address] PCP - General Family Medicine 04/20/18 documented as of this encounter
--- OUTSIDE RECORDS SUMMARY | 2024-07-05 01:58 | External Medical Summary | Summary of Care ---
Author Name Unknown Organization [facility] Address [address] [facility] [place] [address] Phone [phone] Care Team Providers Care Water Quality Technician Name Role Phone Waldemar Borden DO Primary Care Provider Reason for Visit * Reason Comments Outpatient Testing Encounter Details Date Type Department Care Team (Late st Contact Info) Description 06/29/2024 8:00 AM EST Laboratory Laboratory [facility] [place] [address] [place] [address] [facility] Lab Scenery [address] [place] [address] Malignant neoplasm of right breast in female, estrogen receptor negative, unspecified site of breast (HCC) Allergies Active Allergy Reactions Criticality Noted [...] Nasal Suspension (Flonase)Indicatio ns:Nasal congestion Administer 1 [place] into each nostril in the morning and 1 [place] before bedtime. 15.8 mL 4 11/23/19 24 Active Additional Information Patient not taking.Informant: Patient, Reported on 03/04/2024 Famotidine 20 MG Oral Tablet (Pepcid)Indication s:Gastroesophageal reflux disease, unspecified whether esophagitis present Take 1 Tablet by mouth in the morning and 1 Tablet before bedtime. 60 Tablet 11 12/29/19 24 Active Tiotropium [place] Monohydrate 2.5 MCG/ACT Inhalation Aerosol Solution (Spiriva [...] from 01/20/2024:Stage IIIC(cT1, cN3(f), cM0, G3, ER-, [place]-, HER2-) - Signed by Myla Ortega MD [...] mRNA, LNP-s, No Pre serve, 2-Dose Series ([employer]) 05/14/2021,09/06/2020,08/16/2020 COVID-19, MRNA-LNP, 24-25, P R, 30MCG/0.3ML, IM, 12YRS AND ABOVE (Twitter-DropShipirnatCertona) 02/11/2024 COVID-19, MRNA-LNP, PF, 30 M CG/0.3 mL, 12 YRS AND ABOVE, IM (MODASolutions CorporationirnatCertona) 04/22/2023 Covid-19, Mrna, Lnp-s, Pf, B ivalent, 30 Mcg, IM, 12 yrs and above (Twitter) 03/06/2022 Pneumococcal Conjugate Vacc, 13 Valent (Prevnar) 12/16/2019 Pneumococcal Conjugate Vacci ne, 20-valent ([id number]) 01/28/2024 Pneumococcal Polysaccharide PPV23 (Pneumovax) 01/06/2012 Seasonal [...] 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 Not on file Not on file documented as of this encounter Plan of Treatment Upcoming Encounters Date Type Department Care Team (Late st Contact Info) Description 08/08/2024 11:45 AM EDT Imaging Radiology [address] [place] [address] 08/23/2024 1:30 PM EDT Office Visit Otolaryngology/Head & Neck/Facial Plastic Surgery [address] [place] [address] Curt Klein MD [address] [place] [address] 10/06/2024 10:00 AM EDT Office Visit Rheumatology [facility] [address] [place] [phone] Robbie Hernandez, [place] [address] [facility] [place], [place] [address] 11/21/2024 9:00 AM EDT Office Visit [facility] [address] [place] [address] Waldemar Borden, DO [address] [place] [address] 12/01/2024 8:20 AM EDT Office Visit [facility] [address] [place] [address] Waldemar Borden, DO [address] [place] [address] Pending Results Name Type Priority Associated Diagnoses Date /Time TSH WITH FREE T4 IF INDICATED Lab STAT Malignant neoplasm of right breast in female, estrogen receptor negative, unspecified site of breast (HCC) 06/29/2024 8:08 AM EST Scheduled Procedures Name Priority Associated Diagnoses Date/Ti me COLONOSCOPY FLEXIBLE PROXIMAL DIAGNOSTIC Recall Hx of colonic polyps Health Maintenance Due Date Last Done Comments DISCUSS TOBACCO CESSATION (REFER TO SMARTSET #1145) 1955 Sigmoidoscopy 12/11/1999 Fecal Occult Blood Test [...] D LEVEL ONCE IN A LIFETIME-USE SMARTSET# 41377 Completed 06/23/2023, 09/20/2021, 08/01/2020 Influenza Vaccine (FLU [...] this encounter Medical Devices Implanted Type Area Securities Compliance Examiner Device Identifier Shelf Expiration Date Model / Serial / Lot Lens Li61ao 13.00mm 24.50 - [id number] - [id number] Implanted:Qty: 1 on 08/04/2023 by Juan Carlos Barba MD at OR [facility] Left: Eye BAUSCH & LOMB 11/22/2027 [id number] / [id number] / [id number] Lens Li61ao 13.00mm 25.00 - [id number] - [id number] Implanted:Qty: 1 on 08/18/2023 by Juan Carlos Barba MD at OR [facility] Right: Eye BAUSCH & LOMB 11/22/2027 [id number] / [id number] / [id number] Port Power Mri W8fr Cath - [id number] Implanted:Qty: 1 on 02/16/2024 by Dread Lackey MD at OR [facility] CR BARD : PERIPHERAL VASCULAR 08/22/2025 [id number] / / [id number] documented as of this encounter Procedures Procedure Name Priority Date/Time Associated Diagnosis Comments DIFFERENTIAL, AUTOMATED STAT 06/29/2024 8:08 AM EST Malignant neoplasm of right breast in female, estrogen receptor negative, unspecified site of breast (HCC) COMPREHENSIVE METABOLIC PANEL STAT 06/29/2024 8:08 AM EST Malignant neoplasm of right breast in female, estrogen receptor negative, unspecified site of breast (HCC) CBC STAT 06/29/2024 8:08 AM EST Malignant neoplasm of right breast in female, estrogen receptor negative, unspecified site of breast (HCC) CBC STAT 06/29/2024 8:08 AM EST Malignant neoplasm of right breast in female, estrogen receptor negative, unspecified site of breast (HCC) documented in this encounter Results * (ABNORMAL) DIFFERENTIAL, AUTOMATED (06/29/2024 8:08 AM EST) WBC 9.99 4.00 - 10.80 K/uL 06/29/2024 8:15 AM EST [facility] [place] 56-02 Neutrophils % 76.4(H) 40.0 - 75.0 % 06/29/2024 8:15 AM EST [facility] 56-02 Lymphocytes % 11.7(L) 18.0 - 42.0 % 06/29/2024 8:15 AM EST [facility] 56-02 Monocytes % 10.5 1.0 - 11.0 % 06/29/2024 8:15 AM EST [facility] 56-02 Eosinophils % 1.2 0.0 - 6.0 % 06/29/2024 8:15 AM EST [facility] [place] 56-02 Basophils % 0.2 0.0 - 2.0 % 06/29/2024 8:15 AM [facility] 56- Absolute Neutrophils 7.63 1.80 - 7.70 K/uL 06/29/2024 8:15 AM [facility] 56- Absolute Lymphocytes 1.17 1.00 - 4.80 K/ul 06/29/2024 8:15 AM [facility] 56- Absolute Monocytes 1.05 0.00 - 1.10 K/uL 06/29/2024 8:15 AM [facility] 56- Absolute Eosinophils 0.12 0.00 - 0.70 K/uL 06/29/2024 8:15 AM [facility] 56- Absolute Basophils 0.02 0.00 - 0.20 K/uL 06/29/2024 8:15 AM [facility] 56 Blood Venous blood specimen / Unknown Venipuncture / Unknown 06/29/2024 8:08 AM EST 06/29/2024 8:08 AM [facility] Yas Geronimo MD LAB BLOOD ORDERABLES Fin al Result [facility] [address]- [address] [place] [address] * (ABNORMAL) CBC (06/29/2024 8:08 AM [facility]) WBC 9.99 4.00 - 10.80 K/uL 06/29/2024 8:15 AM [facility] 56 RBC 3.10 3.85 - 5.15 M/uL 06/29/2024 8:15 AM [facility] 56 HGB 8.8(L) 12.0 - 15.3 g/dL 06/29/2024 8:15 AM [facility] 56 HCT 29.9(L) 36.0 - 45.2 % 06/29/2024 8:15 AM [facility] 56 MCV 96.5 81.5 - 97.5 fL 06/29/2024 8:15 AM [facility] 56 MCH 28.4 27.0 - 34.0 pg 06/29/2024 8:15 AM [facility] 56 MCHC 29.4 32.0 - 36.0 g/dL 06/29/2024 8:15 AM [facility] 56 RDW 17.1 11.5 - 15.5 % 06/29/2024 8:15 AM [facility] 56 PLT 281 140 - 400 K/uL 06/29/2024 8:15 AM [facility] 56 MPV 8.5 6.6 - 11.1 fL 06/29/2024 8:15 AM [facility] 56 Blood Venous blood specimen / Unknown Venipuncture / Unknown 06/29/2024 8:08 AM EST 06/29/2024 8:08 AM EST Yas Geronimo MD LAB BLOOD ORDERABLES Fin al Result [facility] [address] [place] [address] * (ABNORMAL) COMPREHENSIVE METABOLIC PANEL (06/29/2024 8:08 AM EST) BUN 16 6 - 20 mg/dL 06/29/2024 8:42 AM [facility] 56 CREATININE 1.0 0.5 - 1.0 mg/dL 06/29/2024 8:42 AM [facility] 56 EGFR 64 >=60 mL/min 06/29/2024 8:42 AM [facility] 56 Comment:eGFR is calculated b ased on the CKD-EPI 2020 equation. SODIUM 141 135 - 146 mmol/L 06/29/2024 8:42 AM [facility] 56 POTASSIUM 2.9(L) 3.5 - 5.1 mmol/L 06/29/2024 8:42 AM [facility] 56 CHLORIDE 108(H) 98 - 107 mmol/L 06/29/2024 8:42 AM [facility] 56 CO2 21(L) 22 - 32 mmol/L 06/29/2024 8:42 AM [facility] 56 ANION GAP 12 7 - 15 mmol/L 06/29/2024 8:42 AM [facility] 56- GLUCOSE 100 70 - 120 mg/dL 06/29/2024 8:42 AM [facility] 56- Albumin 3.3(L) 3.8 - 5.0 g/dL 06/29/2024 8:42 AM [facility] 56- AST 15 10 - 35 U/L 06/29/2024 8:42 AM [facility] 56- Alkaline Phosphatase 93 35 - 130 U/L 06/29/2024 8:42 AM [facility] 56- Bilirubin, Total 0.3 <=1.2 mg/dL 06/29/2024 8:42 AM [facility] 56- CALCIUM 9.0 8.4 - 10.2 mg/dL 06/29/2024 8:42 AM [facility] 56- Protein 7.3 6.0 - 8.3 g/dL 06/29/2024 8:42 AM [facility] 56- ALT 11 10 - 35 U/L 06/29/2024 8:42 AM [facility] 56- Blood Venous blood specimen / Unknown Venipuncture / Unknown 06/29/2024 8:08 AM EST 06/29/2024 8:08 AM EST Yas Geronimo MD LAB BLOOD ORDERABLES Fin al Result [facility] [address]- [address] [place] [address] documented in this encounter Visit Diagnoses Diagnosis Malignant neoplasm of right breast in female, estrogen receptor negative, unspecified site of breast (HCC) documented in this encounter Advance Directives [...] Power of Attor raffi? No Care Teams Water Quality Technician Relationship Specialty Start Date End Date Waldemar Borden DO [address] [place] [address] PCP - General Family Medicine 04/20/18 documented as of this encounter
--- OUTSIDE RECORDS SUMMARY | 2024-07-05 01:58 | External Medical Summary | Summary of Care ---
Author Name Unknown Organization [facility] Address [address] [facility] [place] [address] Phone [phone] Care Team Providers Care Iron Erector Name Role Phone Borden Waldemar De La Cruzadal DO Primary Care Provider Reason for Visit * Reason Onset Date Comments Advice 06/13/2024 Plan of care. Encounter Details Date Type Department Care Team (Late st Contact Info) Description 06/13/2024 Telephone Hematology/Oncology [facility] [place] [address] [place] [phone] Yas Geronimo MD [address] [place] [address] Advice (Plan of care. ) Allergies Active [...] Nasal Suspension (Flonase)Indicatio ns:Nasal congestion Administer 1 [place] into each nostril in the morning and 1 [place] before bedtime. 15.8 mL 4 11/23/19 24 Active Additional Information Patient not taking.Informant: Patient, Reported on 03/04/2024 Famotidine 20 MG Oral Tablet (Pepcid)Indication s:Gastroesophageal reflux disease, unspecified whether esophagitis present Take 1 Tablet by mouth in the morning and 1 Tablet before bedtime. 60 Tablet 11 12/29/19 24 Active Tiotropium [place] Monohydrate 2.5 MCG/ACT Inhalation Aerosol Solution (Spiriva [...] from 01/20/2024:Stage IIIC(cT1, cN3(f), cM0, G3, ER-, [place]-, HER2-) - Signed by Myla Ortega MD [...] mRNA, LNP-s, No Pre serve, 2-Dose Series (dotHIV) 05/14/2021,09/06/2020,08/16/2020 COVID-19, MRNA-LNP, 24-25, P R, 30MCG/0.3ML, IM, 12YRS AND ABOVE (PoseirMagiq) 02/11/2024 COVID-19, MRNA-LNP, PF, 30 M CG/0.3 mL, 12 YRS AND ABOVE, IM (QuizFortuneirnatThingWorx) 04/22/2023 Covid-19, Mrna, Lnp-s, Pf, B ivalent, 30 Mcg, IM, 12 yrs and above (dotHIV) 03/06/2022 Pneumococcal Conjugate Vacc, 13 Valent (Prevnar) 12/16/2019 Pneumococcal Conjugate Vacci ne, 20-valent ([id number]) 01/28/2024 Pneumococcal Polysaccharide PPV23 (Pneumovax) 01/06/2012 Seasonal [...] 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 Not on file Not on file Not on file documented as of this encounter Miscellaneous Notes * Telephone Encounter - Wallace Osei RN - 06/13/2024 1:27 PM EST Received TT from [facility] Rad Onc requesting our office to call [...] Description 06/22/2024 12:00 PM EST Imaging Radiology [facility] [address] [place] [address] 06/22/2024 1:00 PM EST Imaging Radiology [facility] [address] [place] [address] 06/29/2024 8:00 AM EST Laboratory Laboratory [facility] [place] [address] [place] [phone] Maria Elena, Lab Scenery [address] [facility] [place] [address] 06/29/2024 8:30 AM EST Office Visit Hematology/Oncology [facility] [place] [address] [place] [phone] Yas Geronimo MD [address] [place] [address] 06/29/2024 9:00 AM EST Hem[facility] [address] [place], [place] [phone] Maria Elena, Chair 2 Hem Onc [facility] [address] [place] [address] 07/12/2024 10:00 AM EST Office Visit Hematology/Oncology [facility] [place] [address] [place] [phone] Yas Geronimo MD [address] [place] [address] 08/08/2024 11:45 AM EDT Imaging [facility] [address] [place] [address] 10/06/2024 10:00 AM EDT Office Visit Rheumatology [facility] [address] [place] [address] Robbie Hernandez CRNP [address] [place] [address] 11/21/2024 9:00 AM EDT Office Visit [facility] [address] [place] [address] Waldemar Borden, DO [address] [place] [address] 12/01/2024 8:20 AM EDT Office Visit [facility] [address] [place] [address] Waldemar Borden, DO [address] [place] [address] Scheduled Procedures Name Priority Associated Diagnoses Date/Ti [...] D LEVEL ONCE IN A LIFETIME-USE SMARTSET# 96766 Completed 06/23/2023, 09/20/2021, 08/01/2020 Influenza Vaccine (FLU [...] this encounter Medical Devices Implanted Type Area In Flight Refueling Operator Device Identifier Shelf Expiration Date Model / Serial / Lot Lens Li61ao 13.00mm 24.50 - [id number] - [id number] Implanted:Qty: 1 on 08/04/2023 by Juan [place] Barba MD at OR [facility] Left: Eye [employer]OMB 11/22/2027 [id number] / [id number] / [id number] Lens Li61ao 13.00mm 25.00 - [id number] - [id number] Implanted:Qty: 1 on 08/18/2023 by Juan [place] Barba MD at OR [facility] Right: Eye BAUSCH [employer] LOMB 11/22/2027 [id number] / [id number] / [id number] Port Power Mri W8fr Cath - [id number] Implanted:Qty: 1 on 02/16/2024 by Dread Lackey MD at OR [facility] BARD : PERIPHERAL VASCULAR 08/22/2025 [id number] / / [id number] documented as of this encounter Advance Directives [...] Power of Attor raffi? No Care Teams Iron Erector Relationship Specialty Start Date End Date Waldemar Borden DO [address] [place] [address] PCP - General Family Medicine 04/20/18 documented as of this encounter
--- OUTSIDE RECORDS SUMMARY | 2024-07-05 01:58 | External Medical Summary ---
Author Name Unknown Address Unknown Organization K09:[facility] [address] [place] [address] Laboratory Report Ordering Provider Test Date Status MOUNIKA GO 06/29/2024 08:08:15 Final Observation Date Value Abnormality Reference (Units ) Status BUN 06/29/2024 08:08:15 16 6-20 (mg/dL) Final Creatinine 06/29/2024 08:08:15 1.0 0.5-1.0 (mg/dL) Final Glomerular filtration rate/1.73 sq M.predicted [Volume Rate/Area] in Serum, Plasma or Blood by Creatinine-based formula (CKD-EPI) 06/29/2024 08:08:15 64 >=60 (mL/min) Final eGFR is calculated based on the CKD-EPI 2020 equation. Sodium 06/29/2024 08:08:15 141 135-146 (m mol/L) Final Potassium 06/29/2024 08:08:15 2.9 Below low normal 3.5 -5.1 (mmol/L) Final Cl 06/29/2024 08:08:15 108 Above high normal 98 -107 (mmol/L) Final CO2 06/29/2024 08:08:15 21 Below low normal 22- 32 (mmol/L) Final Anion gap 06/29/2024 08:08:15 12 7-15 (mmol /L) Final Glucose 06/29/2024 08:08:15 100 70-120 (mg /dL) Final Albumin 06/29/2024 08:08:15 3.3 Below low normal 3.8 -5.0 (g/dL) Final AST (Aspartate aminotransferase) 06/29/2024 08:08:15 15 10-35 (U/L) Fin al Alk Phos 06/29/2024 08:08:15 93 35-130 (U/ L) Final Bilirubin, Total 06/29/2024 08:08:15 0.3 <=1 .2 (mg/dL) Final Calcium 06/29/2024 08:08:15 9.0 8.4-10.2 ( mg/dL) Final Protein 06/29/2024 08:08:15 7.3 6.0-8.3 (g /dL) Final ALT (Alanine aminotransferase) 06/29/2024 08:08:15 11 10-35 (U/L) Ilia dexter Performing Location [facility] [address] [place] [address]
--- OUTSIDE RECORDS SUMMARY | 2024-07-05 01:58 | External Medical Summary ---
Author Name Unknown Address Unknown Organization K[facility] [place] [address] Laboratory Report Ordering Provider Test Date Status MOUNIKA GO 06/29/2024 08:08:15 Final Observation Date Value Abnormality Reference (Units ) Status WBC, Total 06/29/2024 08:08:15 9.99 4.00-10.8 0 (K/uL) Final RBC 06/29/2024 08:08:15 3.10 3.85-5.15 (M/uL) Final Hemoglobin 06/29/2024 08:08:15 8.8 Below low normal 12 .0-15.3 (g/dL) Final HCT 06/29/2024 08:08:15 29.9 Below low normal 36. 0-45.2 (%) Final MCV 06/29/2024 08:08:15 96.5 81.5-97.5 (fL) Final MCH 06/29/2024 08:08:15 28.4 27.0-34.0 (pg) Final MCHC 06/29/2024 08:08:15 29.4 32.0-36.0 (g/dL) Final RDW 06/29/2024 08:08:15 17.1 11.5-15.5 (%) Final Platelets 06/29/2024 08:08:15 281 140-400 (K /uL) Final MPV 06/29/2024 08:08:15 8.5 6.6-11.1 ( fL) Final Performing Location [facility] [place] [address]
--- OUTSIDE RECORDS SUMMARY | 2024-07-05 01:58 | External Medical Summary | Summary of Care ---
Author Name Unknown Organization [facility] Address [address] [facility] [place] [address] Phone [phone] Care Team Providers Care Wrap Knitting Machine Operator Name Role Phone Waldemar Borden DO Primary Care Provider Reason for Visit * Reason Onset Date Comments Appointment 05/31/2024 Encounter Details Date Type Department Care Team (Late st Contact Info) Description 05/31/2024 Telephone Hematology/Oncology [facility] [place] [address] [place] [address] Lia Ramírez CRNP [address] [facility] [place] [address] Appointment Allergies Active Allergy Reactions Criticality Noted Date Comments Caffeine Other (Please comment) Medium 05/12/2017 Irregular heart rhythm Oxycodone-Acetamino phen [place] Low 06/18/2017 06/05/2017 - after appendectomy documented as of this encounter (statuses as of 06/14/2024) Medications Multivitamins Oral Capsule Take 1 Capsule [...] Nasal Suspension (Flonase)Indicatio ns:Nasal congestion Administer 1 [place] into each nostril in the morning and 1 [place] before bedtime. 15.8 mL 4 11/23/19 24 Active Additional Information Patient not taking.Informant: Patient, Reported on 03/04/2024 Famotidine 20 MG Oral Tablet (Pepcid)Indication s:Gastroesophageal reflux disease, unspecified whether esophagitis present Take 1 Tablet by mouth in the morning and 1 Tablet before bedtime. 60 Tablet 11 12/29/19 24 Active Tiotropium [place] Monohydrate 2.5 MCG/ACT Inhalation Aerosol Solution (Spiriva Respimat)Indicatio ns:COPD, severity to be determined ([facility]) Inhale 2 Puffs by mouth [...] as of this encounter (statuses as of 06/14/2024) Active Problems Problem Noted Date Diagnosed Date Laryngeal cancer 02/29/2024 Triple negative breast cancer 02/04/2024 Cancer Staging:Clinical stage from 01/20/2024:Stage IIIC(cT1, cN3(f), cM0, G3, ER-, [place]-, HER2-) - Signed by Myla Ortega MD on 04/26/2024 Malignant neoplasm of right breast, estrogen receptor negative 02/04/2024 Regional lymph node staging category N1 02/04/20 24 Encounter for antineoplastic chemotherapy 2023 Prevention of chemotherapy-induced neutropenia 0 02/04/2024 Diverticulosis of large intestine without hemorr aan 06/04/2023 Internal hemorrhoids 06/04/2023 Atherosclerosis of aorta 06/04/2023 Pulmonary nodule 06/04/2023 Pulmonary emphysema 06/04/2023 DDD (degenerative disc disease), cervical 2023 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 Sensorineural hearing loss (SNHL) of both ears 1 06/25/2022 Age-related osteoporosis wit hout current pathological fracture 05/06/2021 COPD, mild 07/26/2019 Tobacco use disorder 10/19/2007 documented as of this encounter (statuses as of 06/14/2024) Resolved Problems Problem Noted Date Diagnosed Date [...] as of this encounter (statuses as of 06/14/2024) Immunizations Name Administration Dates Next Due COVID-19 mRNA, LNP-s, No Pre serve, 2-Dose Series (Autonet Mobile) 05/14/2021,09/06/2020,08/16/2020 COVID-19, MRNA-LNP, 24-25, P R, 30MCG/0.3ML, IM, 12YRS AND ABOVE (Plaxica) 02/11/2024 COVID-19, MRNA-LNP, PF, 30 M CG/0.3 mL, 12 YRS AND ABOVE, IM (Understory) 04/22/2023 Covid-19, Mrna, Lnp-s, Pf, B ivalent, 30 Mcg, IM, 12 yrs and above (Autonet Mobile) 03/06/2022 Pneumococcal Conjugate Vacc, 13 Valent (Prevnar) 12/16/2019 Pneumococcal Conjugate Vacci ne, 20-valent ([id number]) 01/28/2024 Pneumococcal Polysaccharide PPV23 (Pneumovax) 01/06/2012 Seasonal [...] 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 Called patient to assist with scheduling a follow-up appointment/2nd opinion with Dr. Bliss. No answer, left voicemail to return call. Zeynep Medina PhD RN water quality manager Otolaryngology * Telephone Encounter - Johny Dominguez OSA - 06/01/2024 12:17 PM EST PET Scan moved and US scheduled as requested * Telephone Encounter - Kevin Borrero OSA - 06/01/2024 12:07 PM EST Patient Armani returned call Wr tsfr to Johny * Telephone Encounter - Johny Dominguez OSA - 06/01/2024 9:23 AM EST Left message to assist with scheduling * Telephone Encounter - Zeynep Medina RN - 05/31/2024 4:43 PM EST Will call patient and tomorrow to arrange an appointment with Dr. Bliss. Zeynep Medina PhD RN water quality manager Otolaryngology * Telephone Encounter - Lia Ramírez CRNP - 05/31/2024 3:55 PM EST Reviewed patient's case with Dr. Humphrey Hopkins. Unlikely patient can tolerate any further systemic chemotherapy. Would like to get repeat breast/axillary ultrasound including right supraclavicular node to evaluate disease response prior to f/u visit with Dr. Geronimo scheduled for 06/29/24. Would consider moving directly to surgery. Order placed. Please assist patient with scheduling. Also need to move out PET/CT currently scheduled for 07/04/24 to six weeks after completion of laryngeal radiation therapy which is tentatively 06/24/24. Patient will need f/u with ENT scheduled for after completion of PET/CT. Please assist patient withscheduling. Patient would prefer second opinion from different ENT provider. Previously seen by . Reviewed above with patient's . Verbalized understanding and agreeable to plan. documented in this encounter Plan of Treatment Upcoming Encounters Date Type Department Care Team (Nita Contact Info) Description 06/22/2024 12:00 PM EST Imaging Radiology [facility] [address] [place] [address] 06/22/2024 1:00 PM EST Imaging Radiology [facility] [address] [place] [address] 06/29/2024 8:00 AM EST Laboratory Laboratory [facility] [address] [place] [phone] Maria Elena, Lab Scenery [address] [facility] [place] [address] 06/29/2024 8:30 AM EST Office Visit Hematology/Oncology [facility] [address] [place] [phone] Yas Geronimo MD [address] [place] [address] 06/29/2024 9:00 AM EST Hem[facility] [address] [place] [phone] Maria Elena, Chair 2 Hem [facility]c [facility] [address] [place] [address] 08/08/2024 11:45 AM EDT Imaging Radiology [facility] 1st Floor, [place] [address] [place] [address] 10/06/2024 10:00 AM EDT Office Visit Rheumatology [facility] [address] [place] [address] Robbie Hernandez CRNP [address] [place] [address] [place] [address] 11/21/2024 9:00 AM EDT Office Visit Family Practice [facility] [address] [place] [address] Waldemar Borden, DO [address] [place] [address] 12/01/2024 8:20 AM EDT Office Visit Family [facility] [address] [place] [address] Waldemar Borden, DO [address] [place] [address] Scheduled Orders Name Type Priority Associated Diagnoses Orde r Schedule US BREAST AXILLA RIGHT Medical Imaging Routine Malignant neoplasm of right breast in female, estrogen receptor negative, unspecified site of breast (HCC) Regional lymph node staging category N1 (HCC) Expected: 06/20/2024 (Approximate), Expires: 11/28/2024 US HEAD AND NECK Medical Imaging Routine Malignant neoplasm of right breast in female, estrogen receptor negative, unspecified site of breast (HCC) Regional lymph node staging category N1 (HCC) Expected: 06/20/2024 (Approximate), Expires: 11/28/2024 Scheduled Procedures Name Priority Associated Diagnoses Date/Ti me COLONOSCOPY FLEXIBLE PROXIMAL DIAGNOSTIC Recall Hx of colonic polyps Health Maintenance Due Date Last Done Comments DISCUSS TOBACCO CESSATION (REFER TO SMARTSET #2025) 1955 Sigmoidoscopy 12/11/1999 Fecal Occult Blood Test 10/14/2015 10/13/2014 Cologuard 04/21/2020 04/21/2017 COVID-19 Vaccine ( season) 2024 02/11/2024, 04/22/2023, 03/06/2022, Additional history exists Adult Wellness Visit 06/04/2024 06/04/2023, 12/04/19 DXA Scan 06/04/2024 06/04/2022, 05/25, 05/23/2020 Depression [...] D LEVEL ONCE IN A LIFETIME-USE SMARTSET# 63072 Completed 06/23/2023, 09/20/2021, 08/01/2020 Influenza Vaccine (FLU [...] this encounter Medical Devices Implanted Type Area Slurry Tank Tender Device Identifier Shelf Expiration Date Model / Serial / Lot Lens Li61ao 13.00mm 24.50 - [id number] - [id number] Implanted:Qty: 1 on 08/04/2023 by Juan [place] Barba MD at OR [facility] Left: Eye BAUSCH [employer] LOMB 11/22/2027 [id number] / [id number] / [id number] Lens Li61ao 13.00mm 25.00 - [id number] - [id number] Implanted:Qty: 1 on 08/18/2023 by Juan [place] Barba MD at [facility] Right: Eye BAUSCH [employer] LOMB 11/22/2027 [id number] / [id number] / [id number] Port Power Mri W8fr Cath - [id number] Implanted:Qty: 1 on 02/16/2024 by Dread Lackey MD at [facility] CR BARD : PERIPHERAL VASCULAR 08/22/2025 [id number] / / [id number] documented as of this encounter Visit Diagnoses Diagnosis Malignant neoplasm of right breast in female, estrogen receptor negative, unspecified site of breast (HCC)- Primary Regional lymph node staging category N1 (HCC) documented in this encounter Advance Directives [...] Power of Attor raffi? No Care Teams Wrap Knitting Machine Operator Relationship Specialty Start Date End Date Waldemar Borden DO [address] [place] [address] PCP - General Family Medicine 04/20/18 documented as of this encounter
--- OUTSIDE RECORDS SUMMARY | 2024-07-05 01:58 | External Medical Summary | Summary of Care ---
Author Name Unknown Organization [facility] Address 100 [facility] [place] [address] Phone [phone] Care Team Providers Care Adult High School Instructor Name Role Phone Waldemar Borden Primary Care Provider Encounter Details Date Type Department Care Team (Late st Contact Info) Description 06/13/2024 Population Health External Data Unspecified Department Allergies Active Allergy Reactions Criticality Noted Date [...] Nasal Suspension (Flonase)Indicatio ns:Nasal congestion Administer 1 [place] into each nostril in the morning and 1 [place] before bedtime. 15.8 mL 4 11/23/19 24 Active Additional Information Patient not taking.Informant: Patient, Reported on 03/04/2024 Famotidine 20 MG Oral Tablet (Pepcid)Indication s:Gastroesophageal reflux disease, unspecified whether esophagitis present Take 1 Tablet by mouth in the morning and 1 Tablet before bedtime. 60 Tablet 11 12/29/19 24 Active Tiotropium [place] Monohydrate 2.5 MCG/ACT Inhalation Aerosol Solution (Spiriva Respimat)Indicatio ns:COPD, severity to be determined ([facility]) Inhale 2 Puffs by mouth [...] and as directed 24 Tablet 1 04/19/20 Active levoFLOXacin 500 MG Oral Tablet (Levaquin)Indicati ons:Malignant neoplasm of right breast in female, estrogen receptor negative, unspecified site of breast (HCC) TAKE 1/2 TABLET BY MOUTH IN THE MORNING 14 Tablet 05/13/20 Active Klor-Con M20 20 MEQ Oral Tablet [...] from 01/20/2024:Stage IIIC(cT1, cN3(f), cM0, G3, ER-, [place]-, HER2-) - Signed by Myla Ortega MD [...] mRNA, LNP-s, No Pre serve, 2-Dose Series (MedEncentive) 05/14/2021,09/06/2020,08/16/2020 COVID-19, MRNA-LNP, 24-25, P R, 30MCG/0.3ML, IM, 12YRS AND ABOVE (LifeBond Ltd.GuestDriven) 02/11/2024 COVID-19, MRNA-LNP, PF, 30 M CG/0.3 mL, 12 YRS AND ABOVE, IM (Growl Media) 04/22/2023 Covid-19, Mrna, Lnp-s, Pf, B ivalent, 30 Mcg, IM, 12 yrs and above (MedEncentive) 03/06/2022 Pneumococcal Conjugate Vacc, 13 Valent (Prevnar) 12/16/2019 Pneumococcal Conjugate Vacci ne, 20-valent ([id number]) 01/28/2024 Pneumococcal Polysaccharide PPV23 (Pneumovax) 01/06/2012 Seasonal [...] 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 Not on file Not on file documented as of this encounter Plan of Treatment Upcoming Encounters Date Type Department Care Team (Late st Contact Info) Description 06/22/2024 12:00 PM EST Imaging Radiology [facility] [address] [place] [address] 06/22/2024 1:00 PM EST Imaging Radiology [facility] [address] [place] [address] 06/29/2024 8:00 AM EST Laboratory Laboratory [facility] [place] [address] [place] [phone] Maria Elena Lab [facility] [address] [place] [address] 06/29/2024 8:30 AM EST Office Visit Hematology/Oncology [facility] [address] [place] [address] [phone] Yas Geronimo MD [address] [place] [address] 06/29/2024 9:00 AM EST Hem/Onc Treatment Hematology/Oncology Treatment, [place] [address] [place] [phone] [place], Chair 2 Hem Onc [place] [address] [place] [address] 07/12/2024 10:00 AM EST Office Visit Hematology/Oncology [facility] [place] [address] [place] [phone] Yas Geronimo MD [address] [place] [address] 08/08/2024 11:45 AM EDT Imaging Radiology [facility] 1st [facility] [address] [place] [address] 10/06/2024 10:00 AM EDT Office Visit Rheumatology [facility] [address] [place] [phone] Robbie Hernandez CRNP [address] [place] [address] [place] [address] 11/21/2024 9:00 AM EDT Office Visit Family Practice [facility] [address] [place] [address] Waldemar Borden, [address] [place] [address] 12/01/2024 8:20 AM EDT Office Visit Family Practice [facility] [address] [place] [address] Waldemar Borden, [address] [place] [address] Scheduled Procedures Name Priority Associated Diagnoses Date/Ti me COLONOSCOPY FLEXIBLE PROXIMAL DIAGNOSTIC Recall Hx of colonic polyps Health Maintenance Due Date Last Done Comments DISCUSS TOBACCO CESSATION (REFER TO SMARTSET #5420) 1954 Sigmoidoscopy 12/11/1999 Fecal Occult Blood Test [...] D LEVEL ONCE IN A LIFETIME-USE SMARTSET# 01965 Completed 06/23/2023, 09/20/2021, 08/01/2020 Influenza Vaccine (FLU [...] this encounter Medical Devices Implanted Type Area Administrative Asst Device Identifier Shelf Expiration Date Model / Serial / Lot Lens Li61ao 13.00mm 24.50 - [id number] - [id number] Implanted:Qty: 1 on 08/04/2023 by Juan [place] Barba MD at OR [facility] Left: Eye BAUSCH [employer] LOMB 11/22/2027 [id number] / [id number] / [id number] Lens Li61ao 13.00mm 25.00 - [id number] - [id number] Implanted:Qty: 1 on 08/18/2023 by Juan [place] Barba MD at OR [facility] Right: Eye BAUSCH & LOMB 11/22/2027 [id number] / [id number] / [id number] Port Power Mri W8fr Cath - [id number] Implanted:Qty: 1 on 02/16/2024 by Dread Lackey MD at OR [facility] CR BARD : PERIPHERAL VASCULAR 08/22/2025 [id number] / / [id number] documented as of this encounter Advance Directives [...] Power of Attor raffi? No Care Teams Adult High School Instructor Relationship Specialty Start Date End Date Waldemar Borden DO [address] [place] [address] PCP - General Family Medicine 04/20/18 documented as of this encounter
--- OUTSIDE RECORDS SUMMARY | 2024-07-05 01:58 | External Medical Summary ---
Author Name Unknown Address Unknown Organization K[facility] [place] [address] Laboratory Report Ordering Provider Test Date Status MOUNIKA GO 06/29/2024 08:08:15 Final Observation Date Value Abnormality Reference (Units ) Status SYNC LEUKOCYTES IN BLOOD BY AUTOMATED COUNT 06/29/2024 08:08:15 9.99 4.00-10.80 (K/uL) Final Segs 06/29/2024 08:08:15 76.4 Above high normal 40.0-75.0 (%) Final Lymphs % 06/29/2024 08:08:15 11.7 Below low normal 18.0-42.0 (%) Final Monos 06/29/2024 08:08:15 10.5 1.0-11.0 (%) Final Eosinophils 06/29/2024 08:08:15 1.2 0.0-6.0 (%) Final Basos 06/29/2024 08:08:15 0.2 0.0-2.0 (%) Final Absolute Segs 06/29/2024 08:08:15 7.63 1.80-7.70 (K/uL) Final Lymphs, absolute 06/29/2024 08:08:15 1.17 1.00-4.80 (K/ul) Final Monos, Abs 06/29/2024 08:08:15 1.05 0.00-1.10 (K/uL) Final Eos, Abs 06/29/2024 08:08:15 0.12 0.00-0.70 (K/uL) Final Basos, Abs 06/29/2024 08:08:15 0.02 0.00-0.20 (K/uL) Final Performing Location [facility] [place] [address]
--- OUTSIDE RECORDS SUMMARY | 2024-07-05 01:58 | External Medical Summary | Summary of Care ---
Author Name Unknown Organization [facility] Address [address] [place] [address] Phone [phone] Care Team Providers Care Invertebrate Paleontologist Name Role Phone Waldemar Borden DO Primary Care Provider Encounter Details Date Type Department Care Team (Late st Contact Info) Description 06/26/2024 Orders Only Hematology/Oncology, [facility] [address] [facility] [place] [address] Yas Geronimo MD [address] [place] [address] Allergies Active Allergy Reactions Criticality Noted Date Comments Caffeine Other (Please comment) Medium 05/12/2017 Irregular heart rhythm Oxycodone-Acetamino phen Flushing Low 06/18/2017 06/05/2017 - after appendectomy documented as of this encounter (statuses as of 06/26/2024) Medications Multivitamins Oral Capsule Take 1 Capsule [...] Nasal Suspension (Flonase)Indicatio ns:Nasal congestion Administer 1 [place] into each nostril in the morning and 1 [place] before bedtime. 15.8 mL 4 11/23/19 24 Active Additional Information Patient not taking.Informant: Patient, Reported on 03/04/2024 Famotidine 20 MG Oral Tablet (Pepcid)Indication s:Gastroesophageal reflux disease, unspecified whether esophagitis present Take 1 Tablet by mouth in the morning and 1 Tablet before bedtime. 60 Tablet 11 12/29/19 24 Active Tiotropium [place] Monohydrate 2.5 MCG/ACT Inhalation Aerosol Solution (Spiriva Respimat)Indicatio ns:COPD, severity to be determined ([facility]) Inhale 2 Puffs by mouth [...] Oral Tablet (Compazine)Indicat ions:Encounter for antineoplastic chemotherapy,Abdullahi camerno neoplasm of right breast in female, estrogen [...] as of this encounter (statuses as of 06/26/2024) Active Problems Problem Noted Date Diagnosed Date Laryngeal cancer 02/29/2024 Triple negative breast cancer 02/04/2024 Cancer Staging:Clinical stage from 01/20/2024:Stage IIIC(cT1, cN3(f), cM0, G3, ER-, DE-, HER2-) - Signed by Myla Ortega MD [...] as of this encounter (statuses as of 06/26/2024) Resolved Problems Problem Noted Date Diagnosed Date [...] as of this encounter (statuses as of 06/26/2024) Immunizations Name Administration Dates Next Due COVID-19 mRNA, LNP-s, No Pre serve, 2-Dose Series ([employer]) 05/14/2021,09/06/2020,08/16/2020 COVID-19, MRNA-LNP, 24-25, P R, 30MCG/0.3ML, IM, 12YRS AND ABOVE ([employer]-ComirnatIncentient) 02/11/2024 COVID-19, MRNA-LNP, PF, 30 M CG/0.3 mL, 12 YRS AND ABOVE, IM ([employer]-MyTimeirnatIncentient) 04/22/2023 Covid-19, Mrna, Lnp-s, Pf, B ivalent, 30 Mcg, IM, 12 yrs and above ([employer]) 03/06/2022 Pneumococcal Conjugate Vacc, 13 Valent (Prevnar) 12/16/2019 Pneumococcal Conjugate Vacci ne, 20-valent ([id number]) 01/28/2024 Pneumococcal Polysaccharide PPV23 (Pneumovax) 01/06/2012 Seasonal [...] 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 file Not on file Not on file documented as of this encounter Plan of Treatment Upcoming Encounters Date Type Department Care Team (Late st Contact Info) Description 06/29/2024 8:00 AM EST Laboratory Laboratory [facility] [place] [address] [place] [phone] [address] [facility] [place] [address] 06/29/2024 8:30 AM EST Office Visit Hematology/Oncology [facility] [place] [address] [phone] Yas Geronimo MD [address] [place] [address] 06/29/2024 9:00 AM EST Hem/Onc Treatment Hematology/Oncology Treatment, [place] [address] [place] [phone] Park, Chair 6 Hem Onc Scenery [address] [place] [address] 08/08/2024 11:45 AM EDT Imaging Radiology [facility] 1st [facility] [address] [place] [phone] 08/23/2024 1:30 PM EDT Office Visit Otolaryngology/Head & Neck/Facial Plastic Surgery [address] [place] [facility] [place] [address] Curt Klein MD [address] [place] [address] 10/06/2024 10:00 AM EDT Office Visit Rheumatology [facility] [address] [place] [phone] Robbie Hernandez CRNP [address] [place] [address] [place] [address] 11/21/2024 9:00 AM EDT Office Visit Family Practice [facility] [address] [place] [address] Waldemar Borden, [address] [place] [address] 12/01/2024 8:20 AM EDT Office Visit Family Practice [facility] [address] [place] [address] Waldemar Borden DO [address] [place] [address] Scheduled Procedures Name Priority Associated Diagnoses Date/Ti me COLONOSCOPY FLEXIBLE PROXIMAL DIAGNOSTIC Recall Hx of colonic polyps Health Maintenance Due Date Last Done Comments DISCUSS TOBACCO CESSATION (REFER TO SMARTSET #8842) 1955 Sigmoidoscopy 12/11/1999 Fecal Occult Blood Test [...] D LEVEL ONCE IN A LIFETIME-USE SMARTSET# 21461 Completed 06/23/2023, 09/20/2021, 08/01/2020 Influenza Vaccine (FLU [...] this encounter Medical Devices Implanted Type Area Special Officer Device Identifier Shelf Expiration Date Model / Serial / Lot Lens Li61ao 13.00mm 24.50 - [id number] - [id number] Implanted:Qty: 1 on 08/04/2023 by Juan Carlos Barba MD at OR [facility] Left: Eye [employer]OM[employer] 11/22/2027 [id number] / [id number] / [id number] Lens Li61ao 13.00mm 25.00 - [id number] - [id number] Implanted:Qty: 1 on 08/18/2023 by Juan Carlos Barba MD at OR [facility] Right: Eye [employer]CH [employer] LOMB 11/22/2027 [id number] / [id number] / [id number] Port Power Mri W8fr Cath - [id number] Implanted:Qty: 1 on 02/16/2024 by Dread Lackey MD at OR [facility] CR BARD : PERIPHERAL VASCULAR 08/22/2025 [id number] / / [id number] documented as of this encounter Advance Directives [...] Power of Attor raffi? No Care Teams Invertebrate Paleontologist Relationship Specialty Start Date End Date Waldemar Borden DO [address] [place] [address] PCP - General Family Medicine 04/20/18 documented as of this encounter
--- OUTSIDE RECORDS SUMMARY | 2024-07-05 01:59 | External Medical Summary | Summary of Care ---
Author Name Unknown Organization [facility] Address [address] [place] [address] Phone [phone] Care Team Providers Care Outpatient Dietitian Name Role Phone Waldemar Borden DO Primary Care Provider Reason for Visit * Reason Comments Chemotherapy C4 D1 Keytruda, Taxo l and Carbo * Episode Based Medications (Routine) - Authorized Specialty Diagnoses / Procedures Referred By Roman bauer Referred To Contact Diagnoses Encounter for antineoplastic chemotherapy Malignant neoplasm of right breast in female, estrogen receptor negative, unspecified site of breast (HCC) Prevention of chemotherapy-induced neutropenia Regional lymph node staging category N1 (HCC) Procedures DC DOXORUBIC HCL 10 MG VL CHEMO DC PALONOSETRON HCL DC CARBOPLATIN INJECTION DC FOSAPREPITANT INJECTION DC INJ PEMBROLIZUMAB DC PACLITAXEL INJECTION DC INJ, CYCLOPHOSPHAMIDE, NOS DC INJ CYCLOPHOSPHAMD AUROMEDIC DC INJECTION, JAQUILA Myla Ortega MD Hematology/Oncology Treatment, [address] [address] Phone: tel: fax: Referral ID Status Reason Start Date Expiration Date V isits Requested Visits Authorized [id number] Authorized 02/09/2024 08/09/2024 [id number] Encounter Details Date Type Department Care Team (Latest Contact Info) Description 05/09/2024 10:00 AM EST Hem/Onc Treatment Hematology/Oncolog y Treatment, [address] [place] [address] Maria Elena, Chair [address] On[address] [place] [address] Encounter for antineoplastic chemotherapy*; Malignant neoplasm of right breast in female, estrogen receptor negative, unspecified site of breast (HCC); Prevention of chemotherapy-induced neutropenia; Regional lymph node staging category N1 (HCC) Allergies Active Allergy Reactions Criticality Noted Date Comments Caffeine Other (Please comment) Medium 05/12/2017 Irregular heart rhythm Oxycodone-Acetamino phen Flushing Low 06/18/2017 06/05/2017 - after appendectomy documented as of this encounter (statuses as of 06/03/2024) Medications Multivitamins Oral Capsule Take 1 Capsule [...] Nasal Suspension (Flonase)Indicati ons:Nasal congestion Administer 1 [place] into each nostril in the morning and 1 [place] before bedtime. 15.8 mL 4 024 Active Additional Information Patient not taking.Informant: Patient, Reported on 03/04/2024 Famotidine 20 MG Oral Tablet (Pepcid)Indicatio ns:Gastroesophage al reflux disease, unspecified whether esophagitis present Take 1 Tablet by mouth in the morning and 1 Tablet before bedtime. 60 Tablet 11 024 Active Tiotropium [place] Monohydrate 2.5 MCG/ACT Inhalation Aerosol Solution (Spiriva Respimat)Indicati ons:COPD, severity to be determined ([facility]) Inhale 2 Puffs by mouth in the morning. 4 g 3 024 Active Additional Information Patient not taking.Informant: Patient, Reported on 03/04/2024 Macular Health Formula Oral Capsule Take by mouth. 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 on an empty stomach.. 90 Tablet 3 024 Active Additional Information Patient taking differently: 88 [...] ONE TIME PER WEEK 12 Tablet 1 024 Active dexAMETHasone 4 MG Oral Tablet (Decadron)Indicat ions:Malignant neoplasm of right breast in female, estrogen receptor negative, unspecified site of breast (HCC) Take 2 Tablets by mouth in the morning for 3 days. With food on days 2, 3, and 4 of chemo and as directed 24 Tablet 1 024 Active levoFLOXacin 500 MG Oral TabletIndications :Malignant neoplasm of right breast in female, estrogen receptor negative, unspecified site of breast (HCC) Take 0.5 Tablets by mouth in the morning. 14 Tablet 024 2023 Discontinued Potassium Chloride Kathy ER 20 MEQ Oral Tablet Extended ReleaseIndication s:Encounter for antineoplastic chemotherapy,Hypo kalemia Take 2 Tablets by mouth in the morning. 60 Tablet 1 024 2023 Discontinued documented as of this encounter (statuses as of 06/03/2024) Active Problems Problem Noted Date Diagnosed Date Laryngeal cancer 02/29/2024 Triple negative breast cancer 02/04/2024 Cancer Staging:Clinical stage from 01/20/2024:Stage IIIC(cT1, cN3(f), cM0, G3, ER-, DC-, HER2-) - Signed by Myla Ortega MD [...] as of this encounter (statuses as of 06/03/2024) Resolved Problems Problem Noted Date Diagnosed Date [...] as of this encounter (statuses as of 06/03/2024) Immunizations Name Administration Dates Next Due COVID-19 mRNA, LNP-s, No Pre serve, 2-Dose Series ([employer]) 05/14/2021,09/06/2020,08/16/2020 COVID-19, MRNA-LNP, 24-25, P R, 30MCG/0.3ML, IM, 12YRS AND ABOVE ([facility]) 02/11/2024 COVID-19, MRNA-LNP, PF, 30 M CG/0.3 mL, 12 YRS AND ABOVE, IM ([employer]-Comirnaty) 04/22/2023 Covid-19, Mrna, Lnp-s, Pf, B ivalent, 30 Mcg, IM, 12 yrs and above (Pfizer) 03/06/2022 Pneumococcal Conjugate Vacc, 13 Valent (Prevnar) 12/16/2019 Pneumococcal Conjugate Vacci ne, 20-valent ([id number]) 01/28/2024 Pneumococcal Polysaccharide PPV23 (Pneumovax) 01/06/2012 Seasonal [...] in the Last Year Never true 04/25/2019 Utilities Answer Date Recorded Do you have trouble paying y our heating, water, or electric bill? (Adult - for ages 18 years and over) Not on file 11/10/2023 Is your family able to pay t he heat, water, or electric bill? (Household - for ages 0-17 years) Not on file 11/10/2023 Does your family have access to good internet? (Household - for ages 0-17 years) Not on file 11/10/2023 Social Connections Answer Date Recorded How often do you feel lonely or isolated from those around you? 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 VAD flushed with 10 ml NSS and Heparin 5 ml (100 units/ml). Paris needle removed intact. Goals: Patient will remain free from injury Possible barriers to meeting goals: Ambulating with IV pole Stability of the patient: Moderately stable - low risk of patient condition declining or worsening Summary regarding today's goals: Met: Patient remained free from harm. .dc * Jennifer Spencer RN - 05/09/2024 12:28 PM EST Chair 9 Patient here for treatment after appt with Dr. Rodriguez Patient denies complaints. Port accessed with brisk blood return Chemotherapy/Immunotherapy agents: CARBOPLATIN, KEYTRUDA, and TAXOL Consent for chemotherapy drug treatment complete, dated, and signed? yes, date - 02/04/24 Treatment lab parameters met? Yes Has treatment weight changed > than 10%? No Treatment preauthorized? Yes VITALS Filed Vitals: BP Readings from Last 2 Encounters: 05/09/24 124/76 05/02/24 105/74 Pulse Readings from Last 2 Encounters: 05/09/24 83 05/02/24 80 Resp Readings from Last 2 Encounters: 05/02/24 16 04/25/24 16 SpO2 Readings from Last 2 Encounters: 05/09/24 96% 05/02/24 93% Temp Readings from Last 2 Encounters: 05/09/24 36.8 C (98.3 F) (Tympanic) 05/02/24 36.8 C (98.2 F) Urine protein: N/A Patient education completed for treatment? Yes Blood transfusion consent signed and complete? NA Return appointment scheduled? Yes Patient had provider visit today? Yes - Ok to release order and treat per provider Functional Status: Functional status at today's visit: Fully active, able to carry on all pre-disease performance without restriction The drug name, dose, infusion volume, rate [...] Description 06/22/2024 12:00 PM EST Imaging Radiology [facility] [address] [facility] [place] [address] 06/22/2024 1:00 PM EST [facility] [address] [place] [address] 06/29/2024 8:00 AM EST Laboratory Laboratory [facility] [place] [facility] [phone] Maria Elena, Lab Scenery [address] [place], [place] [address] 06/29/2024 8:30 AM EST Office Visit Hematology/Oncology [facility] [address] [place] [phone] Yas Geronimo MD [address] [place] [address] 06/29/2024 9:00 AM EST Hem/Onc Treatment Hematology/Oncology Treatment, [place] [address] [place], [place] [phone] Maria Elena, Chair 2 Hem Onc [facility] [address] [place] [address] 07/12/2024 10:00 AM EST Office Visit Hematology/Oncology [facility] [address] [place], [place] [phone] Yas Geronimo MD [address] [place], [place] [address] 08/08/2024 11:45 AM EDT Imaging Radiology [facility] 1st [facility] [address] [facility] [place] [address] 10/06/2024 10:00 AM EDT Office Visit Rheumatology [facility] [address] [facility] [place] [phone] Robbie Hernandez CRNP [address] [facility] [place], [place] [address] 11/21/2024 9:00 AM EDT Office Visit Family Practice [facility] [address] [place] [address] Waldemar Borden DO [address] [place] [address] 12/01/2024 8:20 AM EDT Office Visit [facility] [address] [place] [address] Waldemar Borden, [address] [place] [address] Scheduled Procedures Name Priority Associated Diagnoses Date/Ti me COLONOSCOPY FLEXIBLE PROXIMAL DIAGNOSTIC Recall Hx of colonic polyps Health Maintenance Due Date Last Done Comments DISCUSS TOBACCO CESSATION (REFER TO SMARTSET #1520) 1955 Sigmoidoscopy 12/11/1999 Fecal Occult Blood Test [...] D LEVEL ONCE IN A LIFETIME-USE SMARTSET# 71558 Completed 06/23/2023, 09/20/2021, 08/01/2020 Influenza Vaccine (FLU [...] this encounter Medical Devices Implanted Type Area Leather Lacer Device Identifier Shelf Expiration Date Model / Serial / Lot Lens Li61ao 13.00mm 24.50 - [id number] - [id number] Implanted:Qty: 1 on 08/04/2023 by Juan Carlos Barba MD at OR [facility] Left: Eye [employer]OMB 11/22/2027 [id number] / [id number] / [id number] Lens Li61ao 13.00mm 25.00 - [id number] - [id number] Implanted:Qty: 1 on 08/18/2023 by Juan Carlos Barba MD at OR [facility] Right: Eye BA[employer]CH [employer] LOMB 11/22/2027 [id number] / [id number] / [id number] Port Power Mri W8fr Cath - [id number] Implanted:Qty: 1 on 02/16/2024 by Dread Lackey MD at OR [facility] CR BARD : PERIPHERAL VASCULAR 08/22/2025 [id number] / / [id number] documented as of this encounter Visit Diagnoses [...] MAR Action Action Date Dose Rate Site CARBOplatin (Paraplatin) 105 mg in D5W 250 mL infusion 105 mg (rounded from 105.3 mg, Target AUC = 1.5), IV Piggyback, at 510 mL/hr Administer over 30 Minutes, PROTECT FROM LIGHT, ONCE, 1 dose, On Thu05/09/24 at 1330Indications:Encounter for antineoplastic chemotherapy,Malignant neoplasm of right breast in female, estrogen receptor negative, unspecified site of breast (HCC),Prevention of chemotherapy-induced neutropenia,Regional lymph node staging category N1 (HCC) Start Infusion 05/09/2024 12:38 PM EST 105 mg 510 mL/hr dexAMETHasone (Decadron) tab 12 mg 12 mg, Oral, ONCE, On Thu05/09/24 at 1100, For 1 doseIndications:Encounter for antineoplastic chemotherapy,Malignant neoplasm of right breast in female, estrogen receptor negative, unspecified site of breast (HCC),Prevention of chemotherapy-induced neutropenia,Regional lymph node staging category N1 (HCC) Given 05/09/2024 10:46 AM EST 12 mg diphenhydrAMINE (Benadryl) inj 25 mg 25 mg, IV Push, ONCE, On Thu05/09/24 at 1100, For 1 doseIndications:Encounter for antineoplastic chemotherapy,Malignant neoplasm of right breast in female, estrogen receptor negative, unspecified site of breast (HCC),Prevention of chemotherapy-induced neutropenia,Regional lymph node staging category N1 (HCC) Given 05/09/2024 10:48 AM EST 25 mg Famotidine (Pepcid) tab 20 mg 20 mg, Oral, ONCE, On Thu05/09/24 at 1130, For 1 doseIndications:Encounter for antineoplastic chemotherapy,Malignant neoplasm of right breast in female, estrogen receptor negative, unspecified site of breast (HCC),Prevention of chemotherapy-induced neutropenia,Regional lymph node staging category N1 (HCC) Given 05/09/2024 10:46 AM EST 20 mg hEParin 100 UNIT/ML Lock Flush inj 500 Units 500 Units (5 mL), IV Lock, PRN Other, IV Flush, Starting on Thu05/09/24 at 1026, Until Thu05/09/24 at 1745, For 24 hours, Do not flush if lock, PICC, or central line not in place; IV infusing or unable to flush.Indications:Encounter for antineoplastic chemotherapy,Malignant neoplasm of right breast in female, estrogen receptor negative, unspecified site of breast (HCC),Prevention of chemotherapy-induced neutropenia,Regional lymph node staging category N1 (HCC) Given 05/09/2024 1:13 PM EST 500 Units NSS infusion Intravenous, at 50 mL/hr, PRN, Starting on Thu05/09/24 at 1130, Until Thu05/09/24 at 1745, Maintenance lineIndications:Encounter for antineoplastic chemotherapy,Malignant neoplasm of right breast in female, estrogen receptor negative, unspecified site of breast (HCC),Prevention of chemotherapy-induced neutropenia,Regional lymph node staging category N1 (HCC) Start Infusion 05/09/2024 10:45 AM EST 50 mL/hr PACLitaxel (Taxol) 88 mg in NSS 250 mL infusion 88 mg (rounded from 88.2 mg = 60 mg/m2 1.47 m2 Treatment Plan BSA from Recorded weight), IV Piggyback, ONCE, 1 dose, On Thu05/09/24 at 1230, Administer over 60 Minutes, Administer through 0.22 micron low protein binding filter!Indications:Encounte r for antineoplastic chemotherapy,Malignant neoplasm of right breast in female, estrogen receptor negative, unspecified site of breast (HCC),Prevention of chemotherapy-induced neutropenia,Regional lymph node staging category N1 (HCC) Start Infusion 05/09/2024 11:33 AM EST 88 mg 255 mL/hr Palonosetron (Aloxi) inj SOLN 0.25 mg 0.25 mg, IV Push, ONCE, On Thu05/09/24 at 1100, For 1 dose, Restricted per [facility] antiemetic guidelinesIndications:Encou nter for antineoplastic chemotherapy,Malignant neoplasm of right breast in female, estrogen receptor negative, unspecified site of breast (HCC),Prevention of chemotherapy-induced neutropenia,Regional lymph node staging category N1 (HCC) Given 05/09/2024 10:47 AM EST 0.25 mg Pembrolizumab (Keytruda) 200 mg in NSS 100 mL infusion 200 mg, IV Piggyback, ONCE, 1 dose, On Thu05/09/24 at 1200, Administer over 30 Minutes, Infuse through 0.2 micron filter.Indications:Encounte r for antineoplastic chemotherapy,Malignant neoplasm of right breast in female, estrogen receptor negative, unspecified site of breast (HCC),Prevention of chemotherapy-induced neutropenia,Regional lymph node staging category N1 (HCC) Start Infusion 05/09/2024 10:51 AM EST 200 mg 226 mL/hr sodium chloride 0.9 % flush central line 10 mL 10 mL, IV Push, PRN Other, IV Flush, Starting on Thu05/09/24 at 1026, Until Thu05/09/24 at 1745, For 24 hours, Do not flush if lock, PICC, or central line not in place; IV infusing or unable to flush.Indications:Encounter for antineoplastic chemotherapy,Malignant neoplasm of right breast in female, estrogen receptor negative, unspecified site of breast (HCC),Prevention of chemotherapy-induced neutropenia,Regional lymph node staging category N1 (HCC) Given 05/09/2024 1:13 PM EST 10 mL documented in this encounter Advance Directives [...] Power of Attor raffi? No Care Teams Outpatient Dietitian Relationship Specialty Start Date End Date Waldemar Borden DO [address] [place] [address] PCP - General Family Medicine 04/20/18 documented as of this encounter
--- OUTSIDE RECORDS SUMMARY | 2024-07-05 01:59 | External Medical Summary | Summary of Care ---
Author Name Unknown Organization [facility] Address [address] [place] [address] Phone [phone] Care Team Providers Care Morale Officer Name Role Phone Waldemar Borden DO Primary Care Provider Reason for Visit * Reason Comments Chemotherapy C4 D8 Taxol, Carbo * Episode Based Medications (Routine) - Authorized Specialty Diagnoses / Procedures Referred By Roman bauer Referred To Contact Diagnoses Encounter for antineoplastic chemotherapy Malignant neoplasm of right breast in female, estrogen receptor negative, unspecified site of breast (HCC) Prevention of chemotherapy-induced neutropenia Regional lymph node staging category N1 (HCC) Procedures WV DOXORUBIC HCL 10 MG VL CHEMO WV PALONOSETRON HCL WV CARBOPLATIN INJECTION WV FOSAPREPITANT INJECTION WV INJ PEMBROLIZUMAB WV PACLITAXEL INJECTION WV INJ, CYCLOPHOSPHAMIDE, NOS WV INJ CYCLOPHOSPHAMD AUROMEDIC WV INJECTION, Myla Gonzalez MD Hematology/Oncology Treatment, [address] [place] [address] Phone: tel: fax: Referral ID Status Reason Start Date Expiration Date V isits Requested Visits Authorized [id number] Authorized 02/09/2024 08/09/2024 [id number] Encounter Details Date Type Department Care Team (Latest Contact Info) Description 05/16/2024 9:45 AM EST Hem/Onc Treatment Hematology/Oncolog y Treatment, [address] [place] [address] Maria Elena, Chair 7 Hem Onc [address] [place] [address] Encounter for antineoplastic chemotherapy*; Malignant neoplasm [...] as of this encounter (statuses as of 06/01/2024) Medications Multivitamins Oral Capsule Take 1 Capsule [...] Nasal Suspension (Flonase)Indicati ons:Nasal congestion Administer 1 [place] into each nostril in the morning and 1 [place] before bedtime. 15.8 mL 4 024 Active Additional Information Patient not taking.Informant: Patient, Reported on 03/04/2024 Famotidine 20 MG Oral Tablet (Pepcid)Indicatio ns:Gastroesophage al reflux disease, unspecified whether esophagitis present Take 1 Tablet by mouth in the morning and 1 Tablet before bedtime. 60 Tablet 11 024 Active Tiotropium [place] Monohydrate 2.5 MCG/ACT Inhalation Aerosol Solution (Spiriva Respimat)Indicati ons:COPD, severity to be determined ([facility]) Inhale 2 Puffs by mouth in the [...] 1 024 Active levoFLOXacin 500 MG Oral Tablet (Levaquin)Indicat ions:Malignant neoplasm of right breast in female, estrogen receptor negative, unspecified site of breast (HCC) TAKE 1/2 TABLET BY MOUTH IN THE MORNING 14 Tablet 024 Active Potassium Chloride Kathy ER 20 MEQ Oral Tablet Extended ReleaseIndication s:Encounter for antineoplastic chemotherapy,Hypo kalemia Take 2 Tablets by mouth in the morning. 60 Tablet 1 024 2023 Discontinued documented as of this encounter (statuses as of 06/01/2024) Active Problems Problem Noted Date Diagnosed Date [...] as of this encounter (statuses as of 06/01/2024) Resolved Problems Problem Noted Date Diagnosed Date [...] as of this encounter (statuses as of 06/01/2024) Immunizations Name Administration Dates Next Due COVID-19 mRNA, LNP-s, No Pre serve, 2-Dose Series ([employer]) 05/14/2021,09/06/2020,08/16/2020 COVID-19, MRNA-LNP, 24-25, P R, 30MCG/0.3ML, IM, 12YRS AND ABOVE ([employer]-Comirnat) 02/11/2024 COVID-19, MRNA-LNP, PF, 30 M CG/0.3 mL, 12 YRS AND ABOVE, IM (PFIZER-Comirnaty) 04/22/2023 Covid-19, Mrna, Lnp-s, Pf, B ivalent, 30 Mcg, IM, 12 yrs and above (Pfizer) 03/06/2022 Pneumococcal Conjugate Vacc, 13 Valent (Prevnar) 12/16/2019 Pneumococcal Conjugate Vacci ne, 20-valent ([id number]) 01/28/2024 Pneumococcal Polysaccharide PPV23 (Pneumovax) 01/06/2012 Seasonal [...] 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 file Not on file Not on file documented as of this encounter Last Filed Vital Signs Vital Sign Reading Time Taken Comments Blood Pressure 108/69 05/16/2024 9:35 AM EST Pulse 76 05/16/2024 9:35 AM EST Temperature 37.1 C (98.8 F) 05/16/2024 9:35 AM ES T Respiratory Rate 18 05/16/2024 9:35 AM EST Oxygen Saturation 98% 05/16/2024 9:35 AM EST Inhaled Oxygen Concentration - - Weight 44.2 kg (97 lb 6.4 oz) 05/16/2024 9:35 AM EST Height - - Body Mass Index 17.81 03/04/2024 8:29 AM EDT documented in this encounter Nursing Notes * Jennifer Spencer, MORENA - 05/16/2024 12:58 PM EST Patient tolerated treatment without issue. VAD flushed with 10 ml NSS and Heparin 5 ml (100 units/ml). Paris needle removed intact. Goals: Patient will remain free from injury. Possible barriers to meeting goals: Ambulating with IV pole Stability of the patient: Moderately stable - low risk of patient condition declining or worsening Summary regarding today's goals: Met: Patient remained free from harm. Pt discharged in stable condition. * Jennifer Spencer, RN - 05/16/2024 10:14 AM EST Chair 7 Patient here for treatment. Port accessed with brisk blood return. Chemotherapy/Immunotherapy agents: CARBOPLATIN and TAXOL Consent for chemotherapy drug treatment complete, dated, and signed? yes, date - 02/04/24 Treatment lab parameters met? Yes Has treatment weight changed > than 10%? No Treatment preauthorized? Yes VITALS Filed Vitals: 05/16/24 0935 BP: 108/69 Pulse: 76 Resp: 18 Temp: 37.1 C (98.8 F) SpO2: 98% Weight: 44.2 kg (97 lb 6.4 oz) BP Readings from Last 2 Encounters: 05/16/24 108/69 05/09/24 124/76 Pulse Readings from Last 2 Encounters: 05/16/24 76 05/09/24 83 Resp Readings from Last 2 Encounters: 05/16/24 18 05/02/24 16 SpO2 Readings from Last 2 Encounters: 05/16/24 98% 05/09/24 96% Temp Readings from Last 2 Encounters: 05/16/24 37.1 C (98.8 F) 05/09/24 36.8 C (98.3 F) (Tympanic) Urine protein: N/A Patient education completed for treatment? Yes Blood transfusion consent signed and complete? NA Return appointment scheduled? Yes Patient had provider visit today? No - If no provider visit must complete Pretreatment Assessment Functional Status: Functional status at today's visit: [...] of potential hathaway while using the heat function.' PRE-TREATMENT ASSESSMENT: NEURO: denies symptoms CV/RESP: denies symptoms GI/: diarrhea: Patient stated she is having 2-3 bouts of diarrhea daily. She states she is taking immodium. OTHER: denies any additional symptoms PAIN: 0 Safety and Risk for Injury Patient will remain free from injury. Ensure appropriate safety devices are available. Provide and maintain safe environment. documented in this encounter Plan of Treatment Upcoming Encounters Date Type Department Care Team (Late st Contact Info) Description 06/22/2024 12:00 PM EST Imaging Radiology [facility] [address] [facility] [place] [address] 06/22/2024 1:00 PM EST Imaging Radiology [facility] [address] [facility] [place] [address] 06/29/2024 8:00 AM EST Laboratory Laboratory [facility] [address] [place] [phone] Maria Elena, Lab [facility] [address] [facility] [place] [address] 06/29/2024 8:30 AM EST Office Visit Hematology/Oncology [facility] [place] [address] [place] [phone] Yas Geronimo MD [address] [place] [address] 06/29/2024 9:00 AM EST Hem/Onc Treatment Hematology/Oncology Treatment, [place] [address] [place] [phone] Maria Elena, Chair 2 Hem Onc [facility] [address] [place] [address] 07/12/2024 10:00 AM EST Office Visit Hematology/Oncology [facility] [place] [address] [place] [phone] Yas Geronimo MD [address] [place] [address] 08/08/2024 11:45 AM EDT Imaging Radiology [address] [place] [address] 10/06/2024 10:00 AM EDT Office Visit Rheumatology [facility] [address] [facility] [place] [address] Robbie Hernandez CRNP [address] [facility] [place] [address] 11/21/2024 9:00 AM EDT Office Visit Family [facility] [address] [place] [address] Waldemar Borden, DO [address] [place] [address] 12/01/2024 8:20 AM EDT Office Visit Family [facility] [address] [place] [address] Waldemar Borden, DO [address] [place] [address] Scheduled Procedures Name Priority Associated Diagnoses Date/Ti [...] D LEVEL ONCE IN A LIFETIME-USE SMARTSET# 87459 Completed 06/23/2023, 09/20/2021, 08/01/2020 Influenza Vaccine (FLU [...] this encounter Medical Devices Implanted Type Area Supervisor Stone Device Identifier Shelf Expiration Date Model / Serial / Lot Lens Li61ao 13.00mm 24.50 - [id number] - [id number] Implanted:Qty: 1 on 08/04/2023 by Juan Carlos Barba MD at OR [facility] Left: Eye [employer] 11/22/2027 [id number] / [id number] / [id number] Lens Li61ao 13.00mm 25.00 - [id number] - [id number] Implanted:Qty: 1 on 08/18/2023 by Juan Carlos Barba MD at OR [facility] Right: Eye [employer]OMB 11/22/2027 [id number] / [id number] / [id number] Port Power Mri W8fr Cath - [id number] Implanted:Qty: 1 on 02/16/2024 by Dread Lackey MD at OR [facility] CR BARD : PERIPHERAL VASCULAR 08/22/2025 [id number] / / [id number] documented as of this encounter Visit Diagnoses [...] Action Date Dose Rate Site CARBOplatin (Paraplatin) 99 mg in D5W 250 mL infusion 99 mg (rounded from 98.55 mg, Target AUC = 1.5), IV Piggyback, at 510 mL/hr Administer over 30 Minutes, PROTECT FROM LIGHT, ONCE, 1 dose, On Thu05/16/24 at 1200Indications:Encounter for antineoplastic chemotherapy,Malignant neoplasm of right breast in female, estrogen receptor negative, unspecified site of breast (HCC),Prevention of chemotherapy-induced neutropenia,Regional lymph node staging category N1 (HCC) Start Infusion 05/16/2024 11:57 AM EST 99 mg 510 mL/hr dexAMETHasone (Decadron) tab 12 mg 12 mg, Oral, ONCE, On Thu05/16/24 at 1000, For 1 doseIndications:Encounter for antineoplastic chemotherapy,Malignant neoplasm of right breast in female, estrogen receptor negative, unspecified site of breast (HCC),Prevention of chemotherapy-induced neutropenia,Regional lymph node staging category N1 (HCC) Given 05/16/2024 10:02 AM EST 12 mg diphenhydrAMINE (Benadryl) inj 25 mg 25 mg, IV Push, ONCE, On Thu05/16/24 at 1000, For 1 doseIndications:Encounter for antineoplastic chemotherapy,Malignant neoplasm of right breast in female, estrogen receptor negative, unspecified site of breast (HCC),Prevention of chemotherapy-induced neutropenia,Regional lymph node staging category N1 (HCC) Given 05/16/2024 10:03 AM EST 25 mg Famotidine (Pepcid) tab 20 mg 20 mg, Oral, ONCE, On Thu05/16/24 at 1000, For 1 doseIndications:Encounter for antineoplastic chemotherapy,Malignant neoplasm of right breast in female, estrogen receptor negative, unspecified site of breast (HCC),Prevention of chemotherapy-induced neutropenia,Regional lymph node staging category N1 (HCC) Given 05/16/2024 10:02 AM EST 20 mg hEParin 100 UNIT/ML Lock Flush inj 500 Units 500 Units (5 mL), IV Lock, PRN Other, IV Flush, Starting on Thu05/16/24 at 0946, Until Thu05/16/24 at 1702, For 24 hours, Do not flush if lock, PICC, or central line not in place; IV infusing or unable to flush.Indications:Encounter for antineoplastic chemotherapy,Malignant neoplasm of right breast in female, estrogen receptor negative, unspecified site of breast (HCC),Prevention of chemotherapy-induced neutropenia,Regional lymph node staging category N1 (HCC) Given 05/16/2024 12:31 PM EST 500 Units NSS infusion Intravenous, at 50 mL/hr, PRN, Starting on Thu05/16/24 at 1100, Until Thu05/16/24 at 1702, Maintenance lineIndications:Encounter for antineoplastic chemotherapy,Malignant neoplasm of right breast in female, estrogen receptor negative, unspecified site of breast (HCC),Prevention of chemotherapy-induced neutropenia,Regional lymph node staging category N1 (HCC) Start Infusion 05/16/2024 9:58 AM EST 50 mL/hr PACLitaxel (Taxol) 88 mg in NSS 250 mL infusion 88 mg (rounded from 88.2 mg = 60 mg/m2 1.47 m2 Treatment Plan BSA from Recorded weight), IV Piggyback, ONCE, 1 dose, On Thu05/16/24 at 1130, Administer over 60 Minutes, Administer through 0.22 micron low protein binding filter!Indications:Encounte r for antineoplastic chemotherapy,Malignant neoplasm of right breast in female, estrogen receptor negative, unspecified site of breast (HCC),Prevention of chemotherapy-induced neutropenia,Regional lymph node staging category N1 (HCC) Start Infusion 05/16/2024 10:28 AM EST 88 mg 255 mL/hr Palonosetron (Aloxi) inj SOLN 0.25 mg 0.25 mg, IV Push, ONCE, On Thu05/16/24 at 1000, For 1 dose, Restricted per S antiemetic guidelinesIndications:Encou nter for antineoplastic chemotherapy,Malignant neoplasm of right breast in female, estrogen receptor negative, unspecified site of breast (HCC),Prevention of chemotherapy-induced neutropenia,Regional lymph node staging category N1 (HCC) Given 05/16/2024 10:05 AM EST 0.25 mg sodium chloride 0.9 % flush central line 10 mL 10 mL, IV Push, PRN Other, IV Flush, Starting on Thu05/16/24 at 0946, Until Thu05/16/24 at 1702, For 24 hours, Do not flush if lock, PICC, or central line not in place; IV infusing or unable to flush.Indications:Encounter for antineoplastic chemotherapy,Malignant neoplasm of right breast in female, estrogen receptor negative, unspecified site of breast (HCC),Prevention of chemotherapy-induced neutropenia,Regional lymph node staging category N1 (HCC) Given 05/16/2024 12:31 PM EST 10 mL documented in this [...] Power of Attor raffi? No Care Teams Morale Officer Relationship Specialty Start Date End Date Waldemar Borden DO [address] [place] [address] PCP - General Family Medicine 04/20/18 documented as of this encounter
--- OUTSIDE RECORDS SUMMARY | 2024-07-05 01:59 | External Medical Summary | Summary of Care ---
Author Name Unknown Organization [facility] Address [address] [place] [address] Phone [phone] Care Team Providers Care Greenhouse Superintendent Name Role Phone Waldemar Borden DO Primary [...] lymph node staging category N1 (HCC) Procedures MD DOXORUBIC HCL 10 MG VL CHEMO MD PALONOSETRON HCL MD CARBOPLATIN INJECTION MD FOSAPREPITANT INJECTION MD INJ PEMBROLIZUMAB MD PACLITAXEL INJECTION MD INJ, CYCLOPHOSPHAMIDE, NOS MD INJ CYCLOPHOSPHAMD AUROMEDIC MD INJECTION, JAQUILA Myla Ortega MD Hematology/Oncology Treatment, [address] [address] Phone: tel: fax: Referral ID Status Reason Start Date Expiration Date V isits Requested Visits Authorized [id number] Authorized 02/09/2024 08/09/2024 [id number] Encounter Details Date Type Department Care Team (Latest Contact Info) Description 05/09/2024 10:00 AM EST Hem/Onc Treatment Hematology/Oncolog y Treatment, [address] [place] [address] Maria Elena, Chair 3 Hem Onc [address] [place] [address] Encounter for antineoplastic chemotherapy*; Malignant neoplasm [...] Nasal Suspension (Flonase)Indicati ons:Nasal congestion Administer 1 [place] into each nostril in the morning and 1 [place] before bedtime. 15.8 mL 4 024 Active Additional Information Patient not taking.Informant: Patient, Reported on 03/04/2024 Famotidine 20 MG Oral Tablet (Pepcid)Indicatio ns:Gastroesophage al reflux disease, unspecified whether esophagitis present Take 1 Tablet by mouth in the morning and 1 Tablet before bedtime. 60 Tablet 11 024 Active Tiotropium [place] Monohydrate 2.5 MCG/ACT Inhalation Aerosol Solution (Spiriva Respimat)Indicati ons:COPD, severity to be determined ([facility]) Inhale 2 Puffs by mouth in [...] from 01/20/2024:Stage IIIC(cT1, cN3(f), cM0, G3, ER-, MD-, HER2-) - Signed by Myla Ortega MD [...] mRNA, LNP-s, No Pre serve, 2-Dose Series ([facility]) 05/14/2021,09/06/2020,08/16/2020 COVID-19, MRNA-LNP, 24-25, P R, 30MCG/0.3ML, IM, 12YRS AND ABOVE ([facility]) 02/11/2024 COVID-19, MRNA-LNP, PF, 30 M CG/0.3 mL, 12 YRS AND ABOVE, IM (PFIZER-Comirnaty) 04/22/2023 Covid-19, Mrna, Lnp-s, Pf, B ivalent, 30 Mcg, IM, 12 yrs and above (Pfizer) 03/06/2022 Pneumococcal Conjugate Vacc, 13 Valent (Prevnar) 12/16/2019 Pneumococcal Conjugate Vacci ne, 20-valent ([id number]) 01/28/2024 Pneumococcal Polysaccharide PPV23 (Pneumovax) 01/06/2012 Seasonal [...] 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 on file Not [...] Description 06/22/2024 12:00 PM EST Imaging Radiology [facility] [address] [facility] [place] [address] 06/22/2024 1:00 PM EST Imaging Radiology [facility] [address] [place] [address] 06/29/2024 8:00 AM EST Laboratory Laboratory [facility] [place] [facility] [phone] Maria Elena, Lab [address] [place], [place] [address] 06/29/2024 8:30 AM EST Office Visit Hematology/Oncology [facility] [address] [place] [phone] Yas Geronimo MD [address] [place] [address] 06/29/2024 9:00 AM EST Hem/Onc Treatment Hematology/Oncology Treatment, [place] [address] [place], [place] [phone] Maria Elena, Chair 2 Hem [facility] [address] [place] [address] 07/12/2024 10:00 AM EST Office Visit Hematology/Oncology [facility] [address] [place], [place] [phone] Yas Geronimo MD [address] [place], [place] [address] 08/08/2024 11:45 AM EDT Imaging Radiology [facility]st [facility] [address] [facility] [place] [address] 10/06/2024 10:00 AM EDT Office Visit Rheumatology [facility] [address] [facility] [place] [phone] Robbie Hernandez CRNP [address] [facility] [place], [place] [address] 11/21/2024 9:00 AM EDT Office Visit Family Practice [facility] [address] [place] [address] Waldemar Borden DO [address] [place] [address] 12/01/2024 8:20 AM EDT Office Visit Family [facility] [address] [place] [address] Waldemar Borden, [address] [place] [address] Scheduled Procedures Name Priority Associated Diagnoses Date/Ti me COLONOSCOPY FLEXIBLE PROXIMAL DIAGNOSTIC Recall Hx of colonic polyps Health Maintenance Due Date Last Done Comments DISCUSS TOBACCO CESSATION (REFER TO SMARTSET #7289) 1955 Sigmoidoscopy 12/11/1999 Fecal Occult Blood Test [...] D LEVEL ONCE IN A LIFETIME-USE SMARTSET# 90442 Completed 06/23/2023, 09/20/2021, 08/01/2020 Influenza Vaccine (FLU [...] this encounter Medical Devices Implanted Type Area Forest Technology Professor Device Identifier Shelf Expiration Date Model / Serial / Lot Lens Li61ao 13.00mm 24.50 - [id number] - [id number] Implanted:Qty: 1 on 08/04/2023 by Juan Carlos Babra MD at OR [facility] Left: Eye [employer] 11/22/2027 [id number] / [id number] / [id number] Lens Li61ao 13.00mm 25.00 - [id number] - [id number] Implanted:Qty: 1 on 08/18/2023 by Juan Carlos Barba MD at OR [facility] Right: Eye [employer]OMB 11/22/2027 [id number] / [id number] / [id number] Port Power Mri W8fr Cath - [id number] Implanted:Qty: 1 on 02/16/2024 by Dread Lackey MD at OR [facility] CR BARD : PERIPHERAL VASCULAR 08/22/2025 [id number] / / [id number] documented as of this encounter Visit Diagnoses [...] at 1100, For 1 dose, Restricted per [facility] antiemetic guidelinesIndications:Encou nter for antineoplastic [...] Power of Attor raffi? No Care Teams Greenhouse Superintendent Relationship Specialty Start Date End Date Waldemar Borden DO [address] [place] [address] PCP - General Family Medicine 04/20/18 documented as of this encounter
--- OUTSIDE RECORDS SUMMARY | 2024-07-05 01:59 | External Medical Summary | Summary of Care ---
Author Name Unknown Organization [facility] Address [address] [place] [address] Phone [phone] Care Team Providers Care Mill Laborer Name Role Phone Waldemar Borden DO Primary [...] lymph node staging category N1 (HCC) Procedures CA DOXORUBIC HCL 10 MG VL CHEMO CA PALONOSETRON HCL CA CARBOPLATIN INJECTION CA FOSAPREPITANT INJECTION CA INJ PEMBROLIZUMAB CA PACLITAXEL INJECTION CA INJ, CYCLOPHOSPHAMIDE, NOS CA INJ CYCLOPHOSPHAMD AUROMEDIC CA INJECTION, Myla Gonzalez MD Hematology/Oncology Treatment, [address] [place] [address] Phone: tel: fax: Referral ID Status Reason Start Date Expiration Date V isits Requested Visits Authorized [id number] Authorized 02/09/2024 08/09/2024 [id number] Encounter Details Date Type Department Care Team (Latest Contact Info) Description 05/16/2024 9:45 AM EST Hem/Onc Treatment Hematology/Oncolog y Treatment, [address] [place] [address] Maria Elena, Chair [address] Hem [place] [place] [address] Encounter for antineoplastic chemotherapy*; Malignant neoplasm [...] Nasal Suspension (Flonase)Indicati ons:Nasal congestion Administer 1 [place] into each nostril in the morning and 1 [place] before bedtime. 15.8 mL 4 024 Active Additional Information Patient not taking.Informant: Patient, Reported on 03/04/2024 Famotidine 20 MG Oral Tablet (Pepcid)Indicatio ns:Gastroesophage al reflux disease, unspecified whether esophagitis present Take 1 Tablet by mouth in the morning and 1 Tablet before bedtime. 60 Tablet 11 024 Active Tiotropium [place] Monohydrate 2.5 MCG/ACT Inhalation Aerosol Solution (Spiriva Respimat)Indicati ons:COPD, severity to be determined ([facility]) Inhale 2 Puffs by [...] mRNA, LNP-s, No Pre serve, 2-Dose Series ([employer]) 05/14/2021,09/06/2020,08/16/2020 COVID-19, MRNA-LNP, 24-25, P R, 30MCG/0.3ML, IM, 12YRS AND ABOVE ([employer]-Comirnat) 02/11/2024 COVID-19, MRNA-LNP, PF, 30 M CG/0.3 mL, 12 YRS AND ABOVE, IM (PFIZER-Comirnaty) 04/22/2023 Covid-19, Mrna, Lnp-s, Pf, B ivalent, 30 Mcg, IM, 12 yrs and above (Pfizer) 03/06/2022 Pneumococcal Conjugate Vacc, 13 Valent (Prevnar) 12/16/2019 Pneumococcal Conjugate Vacci ne, 20-valent ([id number]) 01/28/2024 Pneumococcal Polysaccharide PPV23 (Pneumovax) 01/06/2012 Seasonal [...] 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 Not on file Not [...] Description 06/22/2024 12:00 PM EST Imaging Radiology [facility] [address] [facility] [place] [address] 06/22/2024 1:00 PM EST Imaging Radiology [facility] [place] [address] 06/29/2024 8:00 AM EST Laboratory Laboratory [facility] [address] [place] [phone] Maria Elena, Lab [facility] [address] [facility] [place] [address] 06/29/2024 8:30 AM EST Office Visit Hematology/Oncology [facility] [place] [address] [place] [phone] Yas Geronimo MD [address] [place] [address] 06/29/2024 9:00 AM EST Hem/Onc Treatment Hematology/Oncology Treatment, [place] [address] [place] [phone] Maria Elena, Chair 2 Hem Onc [facility] [address] [place] [address] 07/12/2024 10:00 AM EST Office Visit Hematology/Oncology [facility] [place] [address] [place] [phone] Yas Geronimo MD [address] [place] [address] 08/08/2024 11:45 AM EDT Imaging Radiology [address] [place] [address] 10/06/2024 10:00 AM EDT Office Visit Rheumatology [facility] [address] [facility] [place] [address] Robbie Hernandez CRNP [address] [facility] [place] [address] 11/21/2024 9:00 AM EDT Office Visit Family [facility] [address] [place] [address] Waldemar Borden, DO [address] [place] [address] 12/01/2024 8:20 AM EDT Office Visit Family [facility] [address] [place] [address] Waldemar Borden, DO [address] [place] [address] Scheduled Procedures Name Priority Associated Diagnoses Date/Ti [...] D LEVEL ONCE IN A LIFETIME-USE SMARTSET# 90652 Completed 06/23/2023, 09/20/2021, 08/01/2020 Influenza Vaccine (FLU [...] this encounter Medical Devices Implanted Type Area Certified Dental Assistant Device Identifier Shelf Expiration Date Model / Serial / Lot Lens Li61ao 13.00mm 24.50 - [id number] - [id number] Implanted:Qty: 1 on 08/04/2023 by Juan Carlos Barba MD at OR [facility] Left: Eye [employer]OM[employer] 11/22/2027 [id number] / [id number] / [id number] Lens Li61ao 13.00mm 25.00 - [id number] - [id number] Implanted:Qty: 1 on 08/18/2023 by Juan Carlos Barba MD at OR [facility] Right: Eye [employer]CH [employer] LOMB 11/22/2027 [id number] / [id number] / [id number] Port Power Mri W8fr Cath - [id number] Implanted:Qty: 1 on 02/16/2024 by Dread Lackey MD at OR [facility] CR BARD : PERIPHERAL VASCULAR 08/22/2025 [id number] / / [id number] documented as of this encounter Visit Diagnoses [...] Power of Attor raffi? No Care Teams Mill Laborer Relationship Specialty Start Date End Date Waldemar Borden DO [address] [place] [address] PCP - General Family Medicine 04/20/18 documented as of this encounter
--- OUTSIDE RECORDS SUMMARY | 2024-07-05 01:59 | External Medical Summary | Summary of Care ---
Author Name Unknown Organization [facility] Address [address] [place] [address] Phone [phone] Care Team Providers Care Licensed Certified Orthotist Name Role Phone Waldemar Borden DO Primary [...] lymph node staging category N1 (HCC) Procedures [place] DOXORUBIC HCL 10 MG VL CHEMO [place] PALONOSETRON HCL NH CARBOPLATIN INJECTION NH FOSAPREPITANT INJECTION NH INJ PEMBROLIZUMAB NH PACLITAXEL INJECTION NH INJ, CYCLOPHOSPHAMIDE, NOS [place] INJ CYCLOPHOSPHAMD AUROMEDIC [place] INJECTION, Myla Gonzalez MD Hematology/Oncology Treatment, [address] [place] [address] Phone: tel: fax: Referral ID Status Reason Start Date Expiration Date V isits Requested Visits Authorized [id number] Authorized 02/09/2024 08/09/2024 [id number] Encounter Details Date Type Department Care Team (Latest Contact Info) Description 05/16/2024 9:45 AM EST Hem/Onc Treatment Hematology/Oncolog y Treatment, [address] [place] [address] Maria Elena, Chair [address] [place] [address] Encounter for antineoplastic chemotherapy*; [...] Nasal Suspension (Flonase)Indicati ons:Nasal congestion Administer 1 [place] into each nostril in the morning and 1 [place] before bedtime. 15.8 mL 4 024 Active Additional Information Patient not taking.Informant: Patient, Reported on 03/04/2024 Famotidine 20 MG Oral Tablet (Pepcid)Indicatio ns:Gastroesophage al reflux disease, unspecified whether esophagitis present Take 1 Tablet by mouth in the morning and 1 Tablet before bedtime. 60 Tablet 11 024 Active Tiotropium [place] Monohydrate 2.5 MCG/ACT Inhalation Aerosol Solution (Spiriva Respimat)Indicati ons:COPD, severity to be determined ([facility]) Inhale 2 Puffs by mouth in [...] from 01/20/2024:Stage IIIC(cT1, cN3(f), cM0, G3, ER-, [place]-, HER2-) - Signed by Myla Ortega MD [...] mRNA, LNP-s, No Pre serve, 2-Dose Series ([employer] 05/14/2021,09/06/2020,08/16/2020 COVID-19, MRNA-LNP, 24-25, P R, 30MCG/0.3ML, IM, 12YRS AND ABOVE ([employer]Comirnat) 02/11/2024 COVID-19, MRNA-LNP, PF, 30 M CG/0.3 mL, 12 YRS AND ABOVE, IM (PFIZER-Comirnaty) 04/22/2023 Covid-19, Mrna, Lnp-s, Pf, B ivalent, 30 Mcg, IM, 12 yrs and above (Pfizer) 03/06/2022 Pneumococcal Conjugate Vacc, 13 Valent (Prevnar) 12/16/2019 Pneumococcal Conjugate Vacci ne, 20-valent ([id number]) 01/28/2024 Pneumococcal Polysaccharide PPV23 (Pneumovax) 01/06/2012 Seasonal [...] 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 file Not on file Not [...] Description 06/22/2024 12:00 PM EST Imaging Radiology [facility] [address] [facility] [place] [address] 06/22/2024 1:00 PM EST Imaging Radiology [facility] [address] [facility] [place] [address] 06/29/2024 8:00 AM EST Laboratory Laboratory [facility] [address] [place] [phone] Maria Elena, Lab [facility] 200 [facility] [place] [address] 06/29/2024 8:30 AM EST Office Visit Hematology/Oncology [facility] [place] [address] [place] [phone] Yas Geronimo MD [address] [place] [address] 06/29/2024 9:00 AM EST Hem/Onc Treatment Hematology/Oncology Treatment, [place] [address] [place] [phone] Maria Elena, Chair 2 Hem Onc [facility] [address] [place] [address] 07/12/2024 10:00 AM EST Office Visit Hematology/Oncology [facility] [place] [address] [place] [phone] Yas Geronimo MD [address] [place] [address] 08/08/2024 11:45 AM EDT Imaging Radiology [address] [place] [address] 10/06/2024 10:00 AM EDT Office Visit Rheumatology [facility] [address] [facility] [place] [address] Robbie Hernandez CRNP [address] [facility] [place] [address] 11/21/2024 9:00 AM EDT Office Visit Family [facility] [address] [place] [address] Waldemar Borden, DO [address] [place] [address] 12/01/2024 8:20 AM EDT Office Visit Family [facility] [address] [place] [address] Waldemar Borden, DO [address] [place] [address] Scheduled Procedures Name Priority Associated Diagnoses Date/Ti [...] D LEVEL ONCE IN A LIFETIME-USE SMARTSET# 74786 Completed 06/23/2023, 09/20/2021, 08/01/2020 Influenza Vaccine (FLU [...] this encounter Medical Devices Implanted Type Area Heat Treater Head Device Identifier Shelf Expiration Date Model / Serial / Lot Lens Li61ao 13.00mm 24.50 - [id number] - [id number] Implanted:Qty: 1 on 08/04/2023 by Juan Carlos Barba MD at OR [facility] Left: Eye [employer]OMB 11/22/2027 [id number] / [id number] / [id number] Lens Li61ao 13.00mm 25.00 - [id number] - [id number] Implanted:Qty: 1 on 08/18/2023 by Juan Carlos Barba MD at OR [facility] Right: Eye [employer]CH [employer] LOMB 11/22/2027 [id number] / [id number] / [id number] Port Power Mri W8fr Cath - [id number] Implanted:Qty: 1 on 02/16/2024 by Dread Lackey MD at OR [facility] CR BARD : PERIPHERAL VASCULAR 08/22/2025 [id number] / / [id number] documented as of this encounter Visit Diagnoses [...] Power of Attor raffi? No Care Teams Licensed Certified Orthotist Relationship Specialty Start Date End Date Waldemar Borden DO [address] [place] [address] PCP - General Family Medicine 04/20/18 documented as of this encounter
--- OUTSIDE RECORDS SUMMARY | 2024-07-05 02:00 | External Medical Summary | Summary of Care ---
Author Name Unknown Organization [facility] Address [address] [facility] [place] [address] Phone [phone] Care Team Providers Care Nurse Clinical Name Role Phone Waldemar Borden DO Primary Care Provider Reason for Visit * Reason Onset Date Comments Appointment 05/31/2024 Encounter Details Date Type Department Care Team (Late st Contact Info) Description 05/31/2024 Telephone Hematology/Oncology [facility] [place] [address] [place] [address] Lia Ramírez CRNP [address] [facility] [place] [address] Appointment Allergies Active [...] Nasal Suspension (Flonase)Indicatio ns:Nasal congestion Administer 1 [place] into each nostril in the morning and 1 [place] before bedtime. 15.8 mL 4 11/23/19 24 Active Additional Information Patient not taking.Informant: Patient, Reported on 03/04/2024 Famotidine 20 MG Oral Tablet (Pepcid)Indication s:Gastroesophageal reflux disease, unspecified whether esophagitis present Take 1 Tablet by mouth in the morning and 1 Tablet before bedtime. 60 Tablet 11 12/29/19 24 Active Tiotropium [place] Monohydrate 2.5 MCG/ACT Inhalation Aerosol Solution (Spiriva Respimat)Indicatio ns:COPD, severity to be determined ([facility]) Inhale 2 Puffs by mouth in the [...] from 01/20/2024:Stage IIIC(cT1, cN3(f), cM0, G3, ER-, [place]-, HER2-) - Signed by Myla Ortega MD [...] mRNA, LNP-s, No Pre serve, 2-Dose Series ([employer]) 05/14/2021,09/06/2020,08/16/2020 COVID-19, MRNA-LNP, 24-25, P R, 30MCG/0.3ML, IM, 12YRS AND ABOVE ([employer]) 02/11/2024 COVID-19, MRNA-LNP, PF, 30 M CG/0.3 mL, 12 YRS AND ABOVE, IM ([employer]) 04/22/2023 Covid-19, Mrna, Lnp-s, Pf, B ivalent, 30 Mcg, IM, 12 yrs and above ([employer]) 03/06/2022 Pneumococcal Conjugate Vacc, 13 Valent (Prevnar) 12/16/2019 Pneumococcal Conjugate Vacci ne, 20-valent ([id number]) 01/28/2024 Pneumococcal Polysaccharide PPV23 (Pneumovax) 01/06/2012 Seasonal [...] 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 Bliss. Zeynep Medina PhD RN [facility] Otol[facility] * Telephone Encounter - Lia Ramírez [...] Description 06/22/2024 12:00 PM EST Imaging Radiology [address] [place] [address] 06/22/2024 1:00 PM EST Imaging Radiology [address] [place] [address] 06/29/2024 8:00 AM EST Laboratory Laboratory [facility] [place] [address] [place] [phone] Maria Elena, Lab [address] [place] [address] 06/29/2024 8:30 AM EST Office Visit Hematology/Oncology [facility] [place] [address] [place] [phone] Yas Geronimo MD [address] [place] [address] 06/29/2024 9:00 AM EST Hem/Onc Treatment Hematology/Oncology Treatment, [place] [address] [place] [phone] Maria Elena, Chair 2 Hem Onc [facility] [address] [place] [address] 07/12/2024 10:00 AM EST Office Visit Hematology/Oncology [facility] [place] [address] [place] [phone] Yas Geronimo MD [address] [place] [address] 08/08/2024 11:45 AM EDT Imaging Rad[facility] [address] [place] [address] 10/06/2024 10:00 AM EDT Office Visit Rheumatology [address] [place] [address] Robbie Hernandez, PASSPORT SUPPORT ASSOCIATE 25[address] [facility] [place], [place] [address] 11/21/2024 9:00 AM EDT Office Visit [facility] [address] [facility] [place] [address] Waldemar Borden, DO [address] [facility] [place] [address] 12/01/2024 8:20 AM EDT Office Visit [facility] [address] [place] [address] Waldemar Borden, DO [address] [facility] [place] [address] Scheduled Orders Name Type Priority Associated Diagnoses [...] Comments DISCUSS TOBACCO CESSATION (REFER TO SMARTSET #6467) 1955 Sigmoidoscopy 12/11/1999 Fecal Occult Blood Test [...] D LEVEL ONCE IN A LIFETIME-USE SMARTSET# 70054 Completed 06/23/2023, 09/20/2021, 08/01/2020 Influenza Vaccine (FLU [...] this encounter Medical Devices Implanted Type Area Executive Compensation Analyst Device Identifier Shelf Expiration Date Model / Serial / Lot Lens Li61ao 13.00mm 24.50 - [id number] - [id number] Implanted:Qty: 1 on 08/04/2023 by Juan Carlos Barba MD at OR [facility] Left: Eye [employer]OM[employer] 11/22/2027 [id number] / [id number] / [id number] Lens Li61ao 13.00mm 25.00 - [id number] - [id number] Implanted:Qty: 1 on 08/18/2023 by Juan Carlos Barba MD at OR [facility] Right: Eye [employer] LOMB 11/22/2027 [id number] / [id number] / [id number] Port Power Mri W8fr Cath - [id number] Implanted:Qty: 1 on 02/16/2024 by Dread Lackey MD at OR [facility] CR BARD : PERIPHERAL VASCULAR 08/22/2025 [id number] / / [id number] documented as of this encounter Visit Diagnoses [...] Power of Attor raffi? No Care Teams Nurse Clinical Relationship Specialty Start Date End Date Waldemar Borden DO [address] [place] [address] PCP - General Family Medicine 04/20/18 documented as of this encounter
--- OUTSIDE RECORDS SUMMARY | 2024-07-05 02:00 | External Medical Summary | Summary of Care ---
Author Name Unknown Organization [facility] Address [address] [place] [address] Phone [phone] Care Team Providers Care Maintenance Mechanic Name Role Phone Waldemar Borden DO [...] lymph node staging category N1 (HCC) Procedures CT DOXORUBIC HCL [address]ONOS[address] HCL [address] CARBOPLATIN INJECTION CT FOSAPREPITANT INJECTION CT INJ PEMBROLIZUMAB CT PACLITAXEL INJECTION CT INJ, CYCLOPHOSPHAMIDE, NOS CT INJ CYCLOPHOSPHAMD AUROMEDIC CT INJECTION, Myla Gonzalez MD Hematology/Oncology Treatment, [address] [place] [address] Phone: tel: fax: Referral ID Status Reason Start Date Expiration Date V isits Requested Visits Authorized [id number] Authorized 02/09/2024 08/09/2024 [id number] Encounter Details Date Type Department Care Team (Latest Contact Info) Description 05/16/2024 9:45 AM EST Hem/Onc Treatment Hematology/Oncolog y Treatment, [address] [place] [address] Maria Elena, Chair 7 Hem [place] [place] [address] Encounter for antineoplastic chemotherapy*; Malignant neoplasm [...] Nasal Suspension (Flonase)Indicati ons:Nasal congestion Administer 1 [place] into each nostril in the morning and 1 [place] before bedtime. 15.8 mL 4 024 Active Additional Information Patient not taking.Informant: Patient, Reported on 03/04/2024 Famotidine 20 MG Oral Tablet (Pepcid)Indicatio ns:Gastroesophage al reflux disease, unspecified whether esophagitis present Take 1 Tablet by mouth in the morning and 1 Tablet before bedtime. 60 Tablet 11 024 Active Tiotropium [place] Monohydrate 2.5 MCG/ACT Inhalation Aerosol Solution (Spiriva Respimat)Indicati ons:COPD, severity to be determined ([facility]) Inhale 2 Puffs by mouth in [...] from 01/20/2024:Stage IIIC(cT1, cN3(f), cM0, G3, ER-, [place]-, HER2-) - Signed by Myla Ortega MD [...] mRNA, LNP-s, No Pre serve, 2-Dose Series ([employer]) 05/14/2021,09/06/2020,08/16/2020 COVID-19, MRNA-LNP, 24-25, P R, 30MCG/0.3ML, IM, 12YRS AND ABOVE ([employer]-Comirnat) 02/11/2024 COVID-19, MRNA-LNP, PF, 30 M CG/0.3 mL, 12 YRS AND ABOVE, IM (PFIZER-Comirnaty) 04/22/2023 Covid-19, Mrna, Lnp-s, Pf, B ivalent, 30 Mcg, IM, 12 yrs and above (Pfizer) 03/06/2022 Pneumococcal Conjugate Vacc, 13 Valent (Prevnar) 12/16/2019 Pneumococcal Conjugate Vacci ne, 20-valent ([id number]) 01/28/2024 Pneumococcal Polysaccharide PPV23 (Pneumovax) 01/06/2012 Seasonal [...] 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 [place] [address] [place] [phone] Yas Geronimo MD [address] [place] [address] 06/29/2024 9:00 AM EST Hem/Onc Treatment Hematology/Oncology Treatment, [place] [address] [place] [phone] Maria Elena, Chair 2 Hem Onc [facility] [address] [place] [address] 07/12/2024 10:00 AM EST Office Visit Hematology/Oncology [facility] [place] [address] [place] [phone] Yas Geronimo MD [address] [place] [address] 08/08/2024 11:45 AM EDT Imaging Radiology [address] [place] [address] 10/06/2024 10:00 AM EDT Office Visit Rheumatology [facility] [address] [facility] [place] [address] Robbie Hernandez CRNP 25[address] [facility] [place] [address] 11/21/2024 9:00 AM EDT Office Visit Family [facility] [address] [place] [address] Waldemar Borden, DO [address] [place] [address] 12/01/2024 8:20 AM EDT Office Visit Family [facility] [address] [place] [address] Waldemar Borden, DO [address] [place] [address] Scheduled Procedures Name Priority Associated Diagnoses Date/Ti [...] D LEVEL ONCE IN A LIFETIME-USE SMARTSET# 39339 Completed 06/23/2023, 09/20/2021, 08/01/2020 Influenza Vaccine (FLU [...] this encounter Medical Devices Implanted Type Area Product Applications Scientist Device Identifier Shelf Expiration Date Model / Serial / Lot Lens Li61ao 13.00mm 24.50 - [id number] - [id number] Implanted:Qty: 1 on 08/04/2023 by Juan Carlos Barba MD at OR [facility] Left: Eye [employer]CH [employer] LOMB 11/22/2027 [id number] / [id number] / [id number] Lens Li61ao 13.00mm 25.00 - [id number] - [id number] Implanted:Qty: 1 on 08/18/2023 by Juan Carlos Barba MD at OR [facility] Right: Eye [employer]CH [employer] LOMB 11/22/2027 [id number] / [id number] / [id number] Port Power Mri W8fr Cath - [id number] Implanted:Qty: 1 on 02/16/2024 by Dread Lackey MD at OR [facility] CR BARD : PERIPHERAL VASCULAR 08/22/2025 [id number] / / [id number] documented as of this encounter Visit Diagnoses [...] Power of Attor raffi? No Care Teams Maintenance Mechanic Relationship Specialty Start Date End Date Waldemar Borden DO [address] [place] [address] PCP - General Family Medicine 04/20/18 documented as of this encounter
--- OUTSIDE RECORDS SUMMARY | 2024-07-05 02:00 | External Medical Summary | Summary of Care ---
Author Name Unknown Organization [facility] Address [address] [facility] [place] [address] Phone [phone] Care Team Providers Care Technical Operator Name Role Phone Waldemar Borden DO Primary Care Provider Reason for Visit * Reason Onset Date Comments Appointment 05/31/2024 Encounter Details Date Type Department Care Team (Late st Contact Info) Description 05/31/2024 Telephone Hematology/Oncology [facility] [place] [address] [place] [address] Lia Ramírez CRNP [address] [facility] [place] [address] Appointment Allergies Active [...] Nasal Suspension (Flonase)Indicatio ns:Nasal congestion Administer 1 [place] into each nostril in the morning and 1 [place] before bedtime. 15.8 mL 4 11/23/19 24 Active Additional Information Patient not taking.Informant: Patient, Reported on 03/04/2024 Famotidine 20 MG Oral Tablet (Pepcid)Indication s:Gastroesophageal reflux disease, unspecified whether esophagitis present Take 1 Tablet by mouth in the morning and 1 Tablet before bedtime. 60 Tablet 11 12/29/19 24 Active Tiotropium [place] Monohydrate 2.5 MCG/ACT Inhalation Aerosol Solution (Spiriva Respimat)Indicatio ns:COPD, severity to be determined ([facility]) Inhale 2 Puffs by mouth in [...] from 01/20/2024:Stage IIIC(cT1, cN3(f), cM0, G3, ER-, VT-, HER2-) - Signed by Myla Ortega MD [...] mRNA, LNP-s, No Pre serve, 2-Dose Series (Diagnoplex) 05/14/2021,09/06/2020,08/16/2020 COVID-19, MRNA-LNP, 24-25, P R, 30MCG/0.3ML, IM, 12YRS AND ABOVE (Greenbox) 02/11/2024 COVID-19, MRNA-LNP, PF, 30 M CG/0.3 mL, 12 YRS AND ABOVE, IM ([employer] Solutions) 04/22/2023 Covid-19, Mrna, Lnp-s, Pf, B ivalent, 30 Mcg, IM, 12 yrs and above (Diagnoplex) 03/06/2022 Pneumococcal Conjugate Vacc, 13 Valent (Prevnar) 12/16/2019 Pneumococcal Conjugate Vacci ne, 20-valent ([id number]) 01/28/2024 Pneumococcal Polysaccharide PPV23 (Pneumovax) 01/06/2012 Seasonal [...] 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 Bliss. Zeynep Medina PhD RN bioinformatics research technician Otolaryngology * Telephone Encounter - Lia Ramírez [...] 06/29/2024 8:00 AM EST Laboratory Laboratory [facility] [place] [address] [place] [phone] [facility] Sc[address] [place], [place] [address] 06/29/2024 8:30 AM EST Office Visit Hematology/Oncology [facility] [address] [place], [place] [phone] Yas Geronimo MD [address] [place] [address] 06/29/2024 9:00 AM EST Hem/Onc Treatment Hematology/Oncology Treatment, [place] [address] [place], [place] [phone] Maria Elena, Chair 2 Hem Onc [facility] [address] [place], [place] [address] 07/04/2024 9:45 AM EST Imaging [facility] [address] [facility] [place] [address] 07/12/2024 10:00 AM EST Office Visit Hematology/Oncology [facility] [address] [place], [place] [phone] Yas Geronimo MD [address] [place], [place] [address] 10/06/2024 10:00 AM EDT Office Visit Rheumatology [place] [address] [facility] [place], [place] [address] Robbie Hernandez CRNP [facility] [place], [place] [address] 11/21/2024 9:00 AM EDT Office Visit Family Practice [facility] [address] [facility] [place] [address] Waldemar Borden DO [address] [facility] [place] [address] 12/01/2024 8:20 AM EDT Office Visit Family Practice [facility] [address] [place] [address] Waldemar Borden, [address] [place] [address] Scheduled Orders Name Type Priority Associated Diagnoses [...] D LEVEL ONCE IN A LIFETIME-USE SMARTSET# 01651 Completed 06/23/2023, 09/20/2021, 08/01/2020 Influenza Vaccine (FLU [...] this encounter Medical Devices Implanted Type Area Title One Reading Teacher Device Identifier Shelf Expiration Date Model / Serial / Lot Lens Li61ao 13.00mm 24.50 - [id number] - [id number] Implanted:Qty: 1 on 08/04/2023 by Juan Carlos Barba MD at OR [facility] Left: Eye [employer] LOMB 11/22/2027 [id number] / [id number] / [id number] Lens Li61ao 13.00mm 25.00 - [id number] - [id number] Implanted:Qty: 1 on 08/18/2023 by Juan Carlos Barba MD at OR [facility] Right: Eye [employer]CH [employer] LOMB 11/22/2027 [id number] / [id number] / [id number] Port Power Mri W8fr Cath - [id number] Implanted:Qty: 1 on 02/16/2024 by Dread Lackey MD at [facility] BARD : PERIPHERAL VASCULAR 08/22/2025 [id number] / / [id number] documented as of this encounter Visit Diagnoses [...] Power of Attor raffi? No Care Teams Technical Operator Relationship Specialty Start Date End Date Waldemar Borden DO [address] [place] [address] PCP - General Family Medicine 04/20/18 documented as of this encounter
--- OUTSIDE RECORDS SUMMARY | 2024-07-05 02:00 | External Medical Summary | Summary of Care ---
Author Name Unknown Organization [facility] Address [address] [place] [address] Phone [phone] Care Team Providers Care Welfare Service Aide Name Role Phone Waldemar Borden DO Primary [...] lymph node staging category N1 (HCC) Procedures IA DOXORUBIC HCL 10 MG VL CHEMO IA PALONOSETRON HCL IA CARBOPLATIN INJECTION IA FOSAPREPITANT INJECTION IA INJ PEMBROLIZUMAB IA PACLITAXEL INJECTION IA INJ, CYCLOPHOSPHAMIDE, NOS IA INJ CYCLOPHOSPHAMD AUROMEDIC IA INJECTION, Myla Gonzalez MD Hematology/Oncology Treatment, [address] [place] [address] Phone: tel: fax: Referral ID Status Reason Start Date Expiration Date V isits Requested Visits Authorized [id number] Authorized 02/09/2024 08/09/2024 [id number] Encounter Details Date Type Department Care Team (Latest Contact Info) Description 05/16/2024 9:45 AM EST Hem/Onc Treatment Hematology/Oncolog y Treatment, [address] [place] [address] Maria Elena, Chair 7 Hem Onc [address] [place] [address] Encounter for antineoplastic chemotherapy*; Malignant neoplasm [...] Nasal Suspension (Flonase)Indicati ons:Nasal congestion Administer 1 [place] into each nostril in the morning and 1 [place] before bedtime. 15.8 mL 4 024 Active Additional Information Patient not taking.Informant: Patient, Reported on 03/04/2024 Famotidine 20 MG Oral Tablet (Pepcid)Indicatio ns:Gastroesophage al reflux disease, unspecified whether esophagitis present Take 1 Tablet by mouth in the morning and 1 Tablet before bedtime. 60 Tablet 11 024 Active Tiotropium [place] Monohydrate 2.5 MCG/ACT Inhalation Aerosol Solution (Spiriva Respimat)Indicati ons:COPD, severity to be determined ([facility]) Inhale 2 Puffs by mouth in [...] from 01/20/2024:Stage IIIC(cT1, cN3(f), cM0, G3, ER-, IA-, HER2-) - Signed by Myla Ortega MD [...] mRNA, LNP-s, No Pre serve, 2-Dose Series (Prisync) 05/14/2021,09/06/2020,08/16/2020 COVID-19, MRNA-LNP, 24-25, P R, 30MCG/0.3ML, IM, 12YRS AND ABOVE (Prisync-Comirnat) 02/11/2024 COVID-19, MRNA-LNP, PF, 30 M CG/0.3 mL, 12 YRS AND ABOVE, IM (PFIZER-Comirnaty) 04/22/2023 Covid-19, Mrna, Lnp-s, Pf, B ivalent, 30 Mcg, IM, 12 yrs and above (Pfizer) 03/06/2022 Pneumococcal Conjugate Vacc, 13 Valent (Prevnar) 12/16/2019 Pneumococcal Conjugate Vacci ne, 20-valent ([id number]) 01/28/2024 Pneumococcal Polysaccharide PPV23 (Pneumovax) 01/06/2012 Seasonal [...] 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 [address] [place] [phone] Maria Elena, Lab [facility] [address] [facility] [place] [address] 06/29/2024 8:30 AM EST Office Visit Hematology/Oncology [facility] [place] [address] [place] [phone] Yas Geronimo MD [address] [place] [address] 06/29/2024 9:00 AM EST Hem/Onc Treatment Hematology/Oncology Treatment, [place] [address] [place] [phone] Maria Elena, Chair 2 Hem Onc [facility] [address] [place] [address] 07/12/2024 10:00 AM EST Office Visit Hematology/Oncology [facility] [place] [address] [place] [phone] Yas Geronimo MD [address] [place] [address] 08/08/2024 11:45 AM EDT Imaging Radiology [address] [place] [address] 10/06/2024 10:00 AM EDT Office Visit Rheumatology [facility] [address] [facility] [place] [address] Robbie Hernandez CRNP [address] [facility] [place] [address] 11/21/2024 9:00 AM EDT Office Visit Family [facility] [address] [place] [address] Waldemar Borden, DO [address] [place] [address] 12/01/2024 8:20 AM EDT Office Visit Family [facility] [address] [place] [address] Waldemar Borden, DO [address] [place] [address] Scheduled Procedures Name Priority Associated Diagnoses Date/Ti [...] D LEVEL ONCE IN A LIFETIME-USE SMARTSET# 26700 Completed 06/23/2023, 09/20/2021, 08/01/2020 Influenza Vaccine (FLU [...] this encounter Medical Devices Implanted Type Area Naphtha Washing System Operator Device Identifier Shelf Expiration Date Model / Serial / Lot Lens Li61ao 13.00mm 24.50 - [id number] - [id number] Implanted:Qty: 1 on 08/04/2023 by Juan [place] Barba MD at OR [facility] Left: Eye [employer] LOMB 11/22/2027 [id number] / [id number] / [id number] Lens Li61ao 13.00mm 25.00 - [id number] - [id number] Implanted:Qty: 1 on 08/18/2023 by Juna [place] Barba MD at OR [facility] Right: Eye BAUSCH & LOMB 11/22/2027 [id number] / [id number] / [id number] Port Power Mri W8fr Cath - [id number] Implanted:Qty: 1 on 02/16/2024 by Dread Lackey MD at OR [facility] CR BARD : PERIPHERAL VASCULAR 08/22/2025 [id number] / / [id number] documented as of this encounter Visit Diagnoses [...] Power of Attor raffi? No Care Teams Welfare Service Aide Relationship Specialty Start Date End Date Waldemar Borden DO [address] [place] [address] PCP - General Family Medicine 04/20/18 documented as of this encounter
--- OUTSIDE RECORDS SUMMARY | 2024-07-05 02:00 | External Medical Summary | Summary of Care ---
Author Name Unknown Organization [facility] Address [address] [place] [address] Phone [phone] Care Team Providers Care Manager Reading Name Role Phone Waldemar Borden DO Primary [...] lymph node staging category N1 (HCC) Procedures [place] DOXORUBIC HCL 10 MG VL CHEMO [place] PALONOSETRON HCL FL CARBOPLATIN INJECTION FL FOSAPREPITANT INJECTION FL INJ PEMBROLIZUMAB FL PACLITAXEL INJECTION FL INJ, CYCLOPHOSPHAMIDE, NOS [place] INJ CYCLOPHOSPHAMD AUROMEDIC FL INJECTION, Myla Gonzalez MD Hematology/Oncology Treatment, [address] [place] [address] Phone: tel: fax: Referral ID Status Reason Start Date Expiration Date V isits Requested Visits Authorized [id number] Authorized 02/09/2024 08/09/2024 [id number] Encounter Details Date Type Department Care Team (Latest Contact Info) Description 05/16/2024 9:45 AM EST Hem/Onc Treatment Hematology/Oncolog y Treatment, [address] [place] [address] Maria Elena, Chair 7 Hem On[address] [place] [address] Encounter for antineoplastic chemotherapy*; Malignant neoplasm [...] Nasal Suspension (Flonase)Indicati ons:Nasal congestion Administer 1 [place] into each nostril in the morning and 1 [place] before bedtime. 15.8 mL 4 024 Active Additional Information Patient not taking.Informant: Patient, Reported on 03/04/2024 Famotidine 20 MG Oral Tablet (Pepcid)Indicatio ns:Gastroesophage al reflux disease, unspecified whether esophagitis present Take 1 Tablet by mouth in the morning and 1 Tablet before bedtime. 60 Tablet 11 024 Active Tiotropium [place] Monohydrate 2.5 MCG/ACT Inhalation Aerosol Solution (Spiriva Respimat)Indicati ons:COPD, severity to be determined ([facility] [...] mRNA, LNP-s, No Pre serve, 2-Dose Series ([employer]) 05/14/2021,09/06/2020,08/16/2020 COVID-19, MRNA-LNP, 24-25, P R, 30MCG/0.3ML, IM, 12YRS AND ABOVE ([employer]-Comirnat) 02/11/2024 COVID-19, MRNA-LNP, PF, 30 M CG/0.3 mL, 12 YRS AND ABOVE, IM (PFIZER-Comirnaty) 04/22/2023 Covid-19, Mrna, Lnp-s, Pf, B ivalent, 30 Mcg, IM, 12 yrs and above (Pfizer) 03/06/2022 Pneumococcal Conjugate Vacc, 13 Valent (Prevnar) 12/16/2019 Pneumococcal Conjugate Vacci ne, 20-valent ([id number]) 01/28/2024 Pneumococcal Polysaccharide PPV23 (Pneumovax) 01/06/2012 Seasonal [...] 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 [address] [facility] [place] [address] 06/29/2024 8:30 AM EST Office Visit Hematology/Oncology [facility] [place] [address] [place] [phone] Yas Geronimo MD [address] [place] [address] 06/29/2024 9:00 AM EST Hem/Onc Treatment Hematology/Oncology Treatment, [place] [address] [place] [phone] Maria Elena, Chair 2 Hem On[address] [facility] [address] [place] [address] 07/12/2024 10:00 AM EST Office Visit Hematology/Oncology [facility] [place] [address] [place] [phone] Yas Geronimo MD [address] [place] [address] 08/08/2024 11:45 AM EDT Imaging Radiology [address] [place] [address] 10/06/2024 10:00 AM EDT Office Visit Rheumatology [facility] [address] [facility] [place] [address] Robbie Hernandez CRNP [address] [facility] [place] [address] 11/21/2024 9:00 AM EDT Office Visit Family [facility] [address] [place] [address] Waldemar Borden, DO [address] [place] [address] 12/01/2024 8:20 AM EDT Office Visit Family [facility] [address] [place] [address] Waldemar Borden, DO [address] [place] [address] Scheduled Procedures Name Priority Associated Diagnoses Date/Ti [...] D LEVEL ONCE IN A LIFETIME-USE SMARTSET# 38789 Completed 06/23/2023, 09/20/2021, 08/01/2020 Influenza Vaccine (FLU [...] this encounter Medical Devices Implanted Type Area Pediatric Dental Hygienist Device Identifier Shelf Expiration Date Model / Serial / Lot Lens Li61ao 13.00mm 24.50 - [id number] - [id number] Implanted:Qty: 1 on 08/04/2023 by Juan Carlos Barba MD at OR [facility] Left: Eye [employer]CH [employer] LOMB 11/22/2027 [id number] / [id number] / [id number] Lens Li61ao 13.00mm 25.00 - [id number] - [id number] Implanted:Qty: 1 on 08/18/2023 by Juan Carlos Barba MD at OR [facility] Right: Eye BAUSCH & LOMB 11/22/2027 [id number] / [id number] / [id number] Port Power Mri W8fr Cath - [id number] Implanted:Qty: 1 on 02/16/2024 by Dread Lackey MD at OR [facility] CR BARD : PERIPHERAL VASCULAR 08/22/2025 [id number] / / [id number] documented as of this encounter Visit Diagnoses [...] Power of Attor raffi? No Care Teams Manager Reading Relationship Specialty Start Date End Date Waldemar Borden DO [address] [place] [address] PCP - General Family Medicine 04/20/18 documented as of this encounter
--- OUTSIDE RECORDS SUMMARY | 2024-07-05 02:01 | External Medical Summary | Summary of Care ---
Author Name Unknown Organization [facility] Address [address] [place] [address] Phone [phone] Care Team Providers Care Street And Building Decorator Name Role Phone Waldemar Borden DO Primary Care Provider Reason for Visit * Reason Comments Chemotherapy C5 D1 Keytruda * Episode Based Medications (Routine) - Pending Review Specialty Diagnoses / Procedures Referred By Roman bauer Referred To Contact Diagnoses Encounter for antineoplastic chemotherapy Malignant neoplasm of right breast in female, estrogen receptor negative, unspecified site of breast (HCC) Prevention of chemotherapy-induced neutropenia Regional lymph node staging category N1 (HCC) Procedures SC DOXORUBIC HCL 10 MG VL CHEMO SC PALONOSETRON HCL SC CARBOPLATIN INJECTION SC FOSAPREPITANT INJECTION SC INJ PEMBROLIZUMAB SC PACLITAXEL INJECTION SC INJ, CYCLOPHOSPHAMIDE, NOS SC INJ CYCLOPHOSPHAMD AUROMEDIC SC INJECTION, Myla Gonzalez MD Hematology/Oncology Treatment, [address] [place] [address] Phone: tel: fax: Referral ID Status Reason Start Date Expiration Date V isits Requested Visits Authorized [id number] Pending Review 02/09/2024 08/09/[phone] Encounter Details Date Type Department Care Team (Latest Contact Info) Description 05/30/2024 8:30 AM EST Hem/Onc Treatment Hematology/Oncolog y Treatment, [address] [place] [address] Maria Elena Chair 9 Hem Onc [address] [address] Encounter for antineoplastic chemotherapy*; Malignant neoplasm [...] as of this encounter (statuses as of 05/31/2024) Medications Multivitamins Oral Capsule Take 1 Capsule [...] Nasal Suspension (Flonase)Indicatio ns:Nasal congestion Administer 1 [place] into each nostril in the morning and 1 [place] before bedtime. 15.8 mL 4 11/23/19 24 Active Additional Information Patient not taking.Informant: Patient, Reported on 03/04/2024 Famotidine 20 MG Oral Tablet (Pepcid)Indication s:Gastroesophageal reflux disease, unspecified whether esophagitis present Take 1 Tablet by mouth in the morning and 1 Tablet before bedtime. 60 Tablet 11 12/29/19 24 Active Tiotropium [place] Monohydrate 2.5 MCG/ACT Inhalation Aerosol Solution (Spiriva Respimat)Indicatio ns:COPD, severity to be determined ([facility]) Inhale 2 Puffs by mouth in the [...] as of this encounter (statuses as of 05/31/2024) Active Problems Problem Noted Date Diagnosed Date Laryngeal cancer 02/29/2024 Triple negative breast cancer 02/04/2024 Cancer Staging:Clinical stage from 01/20/2024:Stage IIIC(cT1, cN3(f), cM0, G3, ER-, SC-, HER2-) - Signed by Myla Ortega MD [...] as of this encounter (statuses as of 05/31/2024) Resolved Problems Problem Noted Date Diagnosed Date [...] as of this encounter (statuses as of 05/31/2024) Immunizations Name Administration Dates Next Due COVID-19 mRNA, LNP-s, No Pre serve, 2-Dose Series ([employer]) 05/14/2021,09/06/2020,08/16/2020 COVID-19, MRNA-LNP, 24-25, P R, 30MCG/0.3ML, IM, 12YRS AND ABOVE ([employer]-Comirnat) 02/11/2024 COVID-19, MRNA-LNP, PF, 30 M CG/0.3 mL, 12 YRS AND ABOVE, IM (Didi-Dache-Comirnaty) 04/22/2023 Covid-19, Mrna, Lnp-s, Pf, B ivalent, 30 Mcg, IM, 12 yrs and above ([employer]) 03/06/2022 Pneumococcal Conjugate Vacc, 13 Valent (Prevnar) 12/16/2019 Pneumococcal Conjugate Vacci ne, 20-valent ([id number]) 01/28/2024 Pneumococcal Polysaccharide PPV23 (Pneumovax) 01/06/2012 Seasonal [...] 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 [...] Pt discharged in stable condition. * Jennifer Spencer RN - 05/30/2024 1:57 PM EST Chair 8 Patient here for treatment after appointment with Lia. During appt decision was made to hold Doxorubicin and Cytoxan while patient is receiving radiation. Per Lia, Lilitruda only to be administered today. Chemotherapy/Immunotherapy agents: KEYTRUDA Consent for chemotherapy drug treatment complete, dated, and signed? yes, date - 02/04/24 Treatment lab parameters met? Yes Has treatment weight changed > than 10%? No Treatment preauthorized? Yes VITALS Filed Vitals: BP Readings from Last 2 Encounters: 05/30/24 121/76 05/23/24 110/65 Pulse Readings from Last 2 Encounters: 05/30/24 98 05/23/24 90 Resp Readings from Last 2 Encounters: 05/23/24 18 05/16/24 18 SpO2 Readings from Last 2 Encounters: 05/30/24 89% 05/23/24 90% Temp Readings from Last 2 Encounters: 05/30/24 37.5 C (99.5 F) (Tympanic) 05/23/24 37.1 C (98.7 F) (Tympanic) Urine protein: N/A Patient education [...] potential hathaway while using the heat function. Patient instructed on use of heat in chair. Patient shown how to operate the heat [...] Description 06/29/2024 8:00 AM EST Laboratory Laboratory [facility] [address] [place] [phone] [place], [facility] [address] [place] [address] 06/29/2024 8:30 AM EST Office Visit Hematology/Oncology [facility] [place] [address] [place], [place] [phone] Yas Geronimo MD [address] [place], [place] [address] 06/29/2024 9:00 AM EST Hem/Onc Treatment Hematology/Oncology Treatment, [place] [address] [place], [place] [phone] Maria Elena, Chair 2 Hem Onc Scenery [address] [place], [place] [address] 07/04/2024 9:45 AM EST Imaging Radiology [facility] 1st Floor, [place] [address] [facility] [place] [address] 07/12/2024 10:00 AM EST Office Visit Hematology/Oncology [facility] [place] [address] [place] [phone] Yas Geronimo MD [address] [place], [place] [address] 10/06/2024 10:00 AM EDT Office Visit Rheumatology [place] [phone] [facility] [place] [address] Robbie Hernandez CRNP [facility] [place], [place] [address] 11/21/2024 9:00 AM EDT Office Visit Family Practice [facility] [address] [facility] [place] [address] Waldemar Borden, DO [address] [place] [address] 12/01/2024 8:20 AM EDT Office Visit [facility] [address] [facility] [place] [address] Waldemar Borden, DO [address] [place] [address] Scheduled Procedures Name Priority Associated Diagnoses Date/Ti me COLONOSCOPY FLEXIBLE PROXIMAL DIAGNOSTIC Recall Hx of colonic polyps Health Maintenance Due Date Last Done Comments DISCUSS TOBACCO CESSATION (REFER TO SMARTSET #5731) 1955 Sigmoidoscopy 12/11/1999 Fecal Occult Blood Test [...] D LEVEL ONCE IN A LIFETIME-USE SMARTSET# 90343 Completed 06/23/2023, 09/20/2021, 08/01/2020 Influenza Vaccine (FLU [...] this encounter Medical Devices Implanted Type Area Hot Saw Helper Device Identifier Shelf Expiration Date Model / Serial / Lot Lens Li61ao 13.00mm 24.50 - [id number] - [id number] Implanted:Qty: 1 on 08/04/2023 by Juan Carlos Barba MD at OR [facility] Left: Eye [employer]OMB 11/22/2027 [id number] / [id number] / [id number] Lens Li61ao 13.00mm 25.00 - [id number] - [id number] Implanted:Qty: 1 on 08/18/2023 by Juan Carlos Barba MD at OR [facility] Right: Eye [employer]USCH [employer] LOMB 11/22/2027 [id number] / [id number] / [id number] Port Power Mri W8fr Cath - [id number] Implanted:Qty: 1 on 02/16/2024 by Dread Lackey MD at OR [facility] CR BARD : PERIPHERAL VASCULAR 08/22/2025 [id number] / / [id number] documented as of this encounter Visit Diagnoses [...] MAR Action Action Date Dose Rate Site hEParin 100 UNIT/ML Lock Flush inj 500 Units 500 Units (5 mL), IV Lock, PRN Other, IV Flush, Starting on 05/30/24 at 0923, Until Thu05/30/24 at 1811, For 24 hours, Do not flush if lock, PICC, or central line not in place; IV infusing or unable to flush.Indications:Encounter for antineoplastic chemotherapy,Malignant neoplasm of right breast in female, estrogen receptor negative, unspecified site of breast (HCC),Prevention of chemotherapy-induced neutropenia,Regional lymph node staging category N1 (HCC) Given 05/30/2024 10:19 AM EST 500 Units NSS infusion Intravenous, at 50 mL/hr, PRN, Starting on Thu05/30/24 at 1030, Until Thu05/30/24 at 1811, Maintenance lineIndications:Encounter for antineoplastic chemotherapy,Malignant neoplasm of right breast in female, estrogen receptor negative, unspecified site of breast (HCC),Prevention of chemotherapy-induced neutropenia,Regional lymph node staging category N1 (HCC) Start Infusion 05/30/2024 9:24 AM EST 50 mL/hr Pembrolizumab (Keytruda) 200 mg in NSS 100 mL infusion 200 mg, IV Piggyback, ONCE, 1 dose, On Thu05/30/24 at 1100, Administer over 30 Minutes, Infuse through 0.2 micron filter.Indications:Encounte r for antineoplastic chemotherapy,Malignant neoplasm of right breast in female, estrogen receptor negative, unspecified site of breast (HCC),Prevention of chemotherapy-induced neutropenia,Regional lymph node staging category N1 (HCC) Start Infusion 05/30/2024 9:43 AM EST 200 mg 226 mL/hr sodium chloride 0.9 % flush central line 10 mL 10 mL, IV Push, PRN Other, IV Flush, Starting on Thu05/30/24 at 0923, Until Thu05/30/24 at 1811, For 24 hours, Do not flush if lock, PICC, or central line not in place; IV infusing or unable to flush.Indications:Encounter for antineoplastic chemotherapy,Malignant neoplasm of right breast in female, estrogen receptor negative, unspecified site of breast (HCC),Prevention of chemotherapy-induced neutropenia,Regional lymph node staging category N1 (HCC) Given 05/30/2024 10:19 AM EST 10 mL documented in this encounter [...] Power of Attor raffi? No Care Teams Street And Building Decorator Relationship Specialty Start Date End Date Waldemar Borden DO [address] [place] [address] PCP - General Family Medicine 04/20/18 documented as of this encounter
--- OUTSIDE RECORDS SUMMARY | 2024-07-05 02:01 | External Medical Summary | Summary of Care ---
Author Name Unknown Organization [facility] Address [address] [place] [address] Phone [phone] Care Team Providers Care Signals Intelligence Analysis Manager Name Role Phone Michi Waldemar De La Cruzadal Primary Care Provider Encounter Details Date Type Department Care Team (Late st Contact Info) Description 05/31/2024 Telephone Hematology/Oncology [facility] [address] [facility] [address] Lia Ramírez CRNP [address] [facility] [address] Allergies Active Allergy Reactions Criticality Noted Date [...] Nasal Suspension (Flonase)Indicatio ns:Nasal congestion Administer 1 [place] into each nostril in the morning and 1 [place] before bedtime. 15.8 mL 4 11/23/19 24 Active Additional Information Patient not taking.Informant: Patient, Reported on 03/04/2024 Famotidine 20 MG Oral Tablet (Pepcid)Indication s:Gastroesophageal reflux disease, unspecified whether esophagitis present Take 1 Tablet by mouth in the morning and 1 Tablet before bedtime. 60 Tablet 11 12/29/19 24 Active Tiotropium [place] Monohydrate 2.5 MCG/ACT Inhalation Aerosol Solution (Spiriva Respimat)Indicatio ns:COPD, severity to be determined ([facility]) Inhale 2 Puffs by mouth in the [...] from 01/20/2024:Stage IIIC(cT1, cN3(f), cM0, G3, ER-, [place]-, HER2-) - Signed by Myla Ortega MD [...] mRNA, LNP-s, No Pre serve, 2-Dose Series (If You Can) 05/14/2021,09/06/2020,08/16/2020 COVID-19, MRNA-LNP, 24-25, P R, 30MCG/0.3ML, IM, 12YRS AND ABOVE ([employer]) 02/11/2024 COVID-19, MRNA-LNP, PF, 30 M CG/0.3 mL, 12 YRS AND ABOVE, IM ([employer]) 04/22/2023 Covid-19, Mrna, Lnp-s, Pf, B ivalent, 30 Mcg, IM, 12 yrs and above (If You Can) 03/06/2022 Pneumococcal Conjugate Vacc, 13 Valent (Prevnar) 12/16/2019 Pneumococcal Conjugate Vacci ne, 20-valent ([id number]) 01/28/2024 Pneumococcal Polysaccharide PPV23 (Pneumovax) 01/06/2012 Seasonal [...] 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 Bliss. Zeynep Medina PhD RN dynamicist Otolaryngology * Telephone Encounter - Lia Ramírez [...] Description 06/29/2024 8:00 AM EST Laboratory Laboratory [facility] [address] [place] [phone] [place], Lab [facility] [address] [facility] [place] [address] 06/29/2024 8:30 AM EST Office Visit Hematology/Oncology [facility] [place] [address] [place] [address] Yas Geronimo MD [address] [place] [address] 06/29/2024 9:00 AM EST Hem/Onc Treatment Hematology/Oncology Treatment, [place] [address] [place] [phone] Maria Elena, Chair 2 Hem Onc [place] [address] [place] [address] 07/04/2024 9:45 AM EST Imaging Radiology [facility] [address] [place] [address] 07/12/2024 10:00 AM EST Office Visit Hematology/Oncology [facility] [address] [place] [phone] Yas Geronimo MD [address] [place] [address] 10/06/2024 10:00 AM EDT Office Visit Rheumatology [facility] [address] [place] [address] Robbie Hernandez CRNP [address] [place] [address] 11/21/2024 9:00 AM EDT Office Visit Family Practice [facility] [address] [place] [address] Waldemar Bordne, [address] [place] [address] 12/01/2024 8:20 AM EDT Office Visit [facility] [address] [place] [address] Waldemar Borden, 132 [facility] [place] [address] Scheduled Orders Name Type Priority Associated Diagnoses [...] Comments DISCUSS TOBACCO CESSATION (REFER TO SMARTSET #8035) 1955 Sigmoidoscopy 12/11/1999 Fecal Occult Blood Test [...] D LEVEL ONCE IN A LIFETIME-USE SMARTSET# 73053 Completed 06/23/2023, 09/20/2021, 08/01/2020 Influenza Vaccine (FLU [...] this encounter Medical Devices Implanted Type Area Lead Vulcanizing Operator Device Identifier Shelf Expiration Date Model / Serial / Lot Lens Li61ao 13.00mm 24.50 - [id number] - [id number] Implanted:Qty: 1 on 08/04/2023 by Juan Carlos Barba MD at OR [facility] Left: Eye [employer]OMB 11/22/2027 [id number] / [id number] / [id number] Lens Li61ao 13.00mm 25.00 - [id number] - [id number] Implanted:Qty: 1 on 08/18/2023 by Juan Carlos Barba MD at OR [facility] Right: Eye BAUSCH [employer] LOMB 11/22/2027 [id number] / [id number] / [id number] Port Power Mri W8fr Cath - [id number] Implanted:Qty: 1 on 02/16/2024 by Dread Lackey MD at OR [facility] CR BARD : PERIPHERAL VASCULAR 08/22/2025 [id number] / / [id number] documented as of this encounter Visit Diagnoses [...] Power of Attor raffi? No Care Teams Signals Intelligence Analysis Manager Relationship Specialty Start Date End Date Waldemar Borden DO [address] [facility] [place] [address] PCP - General Family Medicine 04/20/18 documented as of this encounter
--- OUTSIDE RECORDS SUMMARY | 2024-07-05 02:01 | External Medical Summary | Summary of Care ---
Author Name Unknown Organization [facility] Address [address] [facility] [place] [address] Phone [phone] Care Team Providers Care Dye House Vat Worker Name Role Phone Waldemar Borden DO Primary Care Provider Reason for Visit * Reason Onset Date Comments Appointment 05/31/2024 Encounter Details Date Type Department Care Team (Late st Contact Info) Description 05/31/2024 Telephone Hematology/Oncology [facility] [place] [address] [place] [address] Lia Ramírez CRNP [address] [facility] [place] [address] Appointment Allergies Active [...] Nasal Suspension (Flonase)Indicatio ns:Nasal congestion Administer 1 [place] into each nostril in the morning and 1 [place] before bedtime. 15.8 mL 4 11/23/19 24 Active Additional Information Patient not taking.Informant: Patient, Reported on 03/04/2024 Famotidine 20 MG Oral Tablet (Pepcid)Indication s:Gastroesophageal reflux disease, unspecified whether esophagitis present Take 1 Tablet by mouth in the morning and 1 Tablet before bedtime. 60 Tablet 11 12/29/19 24 Active Tiotropium [place] Monohydrate 2.5 MCG/ACT Inhalation Aerosol Solution (Spiriva Respimat)Indicatio ns:COPD, severity to be determined ([facility]) Inhale 2 Puffs by mouth in the [...] mRNA, LNP-s, No Pre serve, 2-Dose Series ([employer]) 05/14/2021,09/06/2020,08/16/2020 COVID-19, MRNA-LNP, 24-25, P R, 30MCG/0.3ML, IM, 12YRS AND ABOVE (Ravti) 02/11/2024 COVID-19, MRNA-LNP, PF, 30 M CG/0.3 mL, 12 YRS AND ABOVE, IM ([employer]) 04/22/2023 Covid-19, Mrna, Lnp-s, Pf, B ivalent, 30 Mcg, IM, 12 yrs and above ([employer]) 03/06/2022 Pneumococcal Conjugate Vacc, 13 Valent (Prevnar) 12/16/2019 Pneumococcal Conjugate Vacci ne, 20-valent ([id number]) 01/28/2024 Pneumococcal Polysaccharide PPV23 (Pneumovax) 01/06/2012 Seasonal [...] 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 Bliss. Zeynep Median PhD RN vocal artist Otolaryngology * Telephone Encounter - Lia Ramírez [...] Description 06/29/2024 8:00 AM EST Laboratory Laboratory [facility] Jayden Arredondo [address] [place] [phone] Uvaldo Arredondo [facility] [address] [facility] [place] [address] 06/29/2024 8:30 AM EST Office Visit Hematology/Oncology [facility] Jayden Arredondo [address] [place] [phone] Yas Geronimo MD [address] [place], [place] [address] 06/29/2024 9:00 AM EST Hem/Onc Treatment Hematology/Oncology Treatment, [place] [address] [place] [phone] Maria Elena, Chair 2 Hem Onc Scenery [address] [place] [address] 07/04/2024 9:45 AM EST Imaging [facility] [address] [place] [address] 07/12/2024 10:00 AM EST Office Visit Hematology/Oncology [facility] Maria Elena [place] [address] [place] [phone] Yas Geronimo MD [address] [place] [address] 10/06/2024 10:00 AM EDT Office Visit Rheumatology [place] [address] [facility] [place], [place] [address] Robbie Hernandez CRNP [address] [place] [address] [place] [address] 11/21/2024 9:00 AM EDT Office Visit Family [facility] [address] [place] [address] Waldemar Borden, DO [address] [place] [address] 12/01/2024 8:20 AM EDT Office Visit [facility] [address] [place] [address] Waldemar Borden, DO [address] [place] [address] Scheduled Orders Name Type Priority Associated Diagnoses [...] Comments DISCUSS TOBACCO CESSATION (REFER TO SMARTSET #9721) 1955 Sigmoidoscopy 12/11/1999 Fecal Occult Blood Test [...] D LEVEL ONCE IN A LIFETIME-USE SMARTSET# [id number] Completed 06/23/2023, 09/20/2021, 08/01/2020 Influenza Vaccine (FLU [...] this encounter Medical Devices Implanted Type Area Coffee Weigher Device Identifier Shelf Expiration Date Model / Serial / Lot Lens Li61ao 13.00mm 24.50 - [id number] - [id number] Implanted:Qty: 1 on 08/04/2023 by Juan Carlos Barba MD at OR [facility] Left: Eye [employer] LOMB 11/22/2027 [id number] / [id number] / [id number] Lens Li61ao 13.00mm 25.00 - [id number] - [id number] Implanted:Qty: 1 on 08/18/2023 by Juan Carlos Barba MD at OR [facility] Right: Eye [employer]CH [employer] LOMB 11/22/2027 [id number] / [id number] / [id number] Port [employer] Mri W8fr Cath - [id number] Implanted:Qty: 1 on 02/16/2024 by Dread Lackey MD at OR [facility] CR BARD : PERIPHERAL VASCULAR 08/22/2025 [id number] / / [id number] documented as of this encounter Visit Diagnoses [...] Power of Attor raffi? No Care Teams Dye House Vat Worker Relationship Specialty Start Date End Date Waldemar Borden DO [address] [place] [address] PCP - General Family Medicine 04/20/18 documented as of this encounter
--- OUTSIDE RECORDS SUMMARY | 2024-07-05 02:01 | External Medical Summary | Summary of Care ---
Author Name Unknown Organization [facility] Address [address] [facility] [place] [address] Phone [phone] Care Team Providers Care Building Construction Superintendent Name Role Phone Michi Waldemar De La Cruzadal Primary Care Provider Encounter Details Date Type Department Care Team (Late st Contact Info) Description 05/31/2024 Telephone Hematology/Oncology [facility] [address] [facility] [address] Lia Ramírez CRNP [address] [place] [address] Allergies Active Allergy Reactions Criticality Noted [...] Nasal Suspension (Flonase)Indicatio ns:Nasal congestion Administer 1 [place] into each nostril in the morning and 1 [place] before bedtime. 15.8 mL 4 11/23/19 24 Active Additional Information Patient not taking.Informant: Patient, Reported on 03/04/2024 Famotidine 20 MG Oral Tablet (Pepcid)Indication s:Gastroesophageal reflux disease, unspecified whether esophagitis present Take 1 Tablet by mouth in the morning and 1 Tablet before bedtime. 60 Tablet 11 12/29/19 24 Active Tiotropium [place] Monohydrate 2.5 MCG/ACT Inhalation Aerosol Solution (Spiriva Respimat)Indicatio ns:COPD, severity to be determined ([facility]) Inhale 2 Puffs by mouth in the [...] from 01/20/2024:Stage IIIC(cT1, cN3(f), cM0, G3, ER-, AL-, HER2-) - Signed by Myal Ortega MD on 04/26/2024 Malignant neoplasm of [...] mRNA, LNP-s, No Pre serve, 2-Dose Series ([employer]) 05/14/2021,09/06/2020,08/16/2020 COVID-19, MRNA-LNP, 24-25, P R, 30MCG/0.3ML, IM, 12YRS AND ABOVE ([employer]) 02/11/2024 COVID-19, MRNA-LNP, PF, 30 M CG/0.3 mL, 12 YRS AND ABOVE, IM (Weavly) 04/22/2023 Covid-19, Mrna, Lnp-s, Pf, B ivalent, 30 Mcg, IM, 12 yrs and above ([employer]) 03/06/2022 Pneumococcal Conjugate Vacc, 13 Valent (Prevnar) 12/16/2019 Pneumococcal Conjugate Vacci ne, 20-valent ([id number]) 01/28/2024 Pneumococcal Polysaccharide PPV23 (Pneumovax) 01/06/2012 Seasonal [...] 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 Bliss. Zeynep Medina PhD RN model engine mechanic Otolaryngology * Telephone Encounter - Lia Ramírez [...] Description 06/29/2024 8:00 AM EST Laboratory Laboratory [facility] [address] [place] [id number] [place], Lab [facility] [address] [facility] [place] [address] 06/29/2024 8:30 AM EST Office Visit Hematology/Oncology [facility] [place] [address] [place] [address] Yas Geronimo MD [address] [place] [address] 06/29/2024 9:00 AM EST Hem/Onc Treatment Hematology/Oncology Treatment, [place] [address] [place] [phone] Maria Elena, Chair 2 Hem Onc Scene [address] [place] [address] 07/04/2024 9:45 AM EST Imaging Radiology [facility] [address] [facility] [address] [place] [address] 07/12/2024 10:00 AM EST Office Visit Hematology/Oncology [facility] [address] [place] [phone] Yas Geronimo MD [address] [place] [address] 10/06/2024 10:00 AM EDT Office Visit Rheumatology [facility] [address] [place] [address] Robbie Hernandez CRNP [address] [place] [address] 11/21/2024 9:00 AM EDT Office Visit Family Practice [facility] [address] [place] [address] Waldemar Borden, [address] [place] [address] 12/01/2024 8:20 AM EDT Office Visit [facility] [address] [place] [address] Waldemar Borden, [address] [facility] [place] [address] Scheduled Orders Name Type Priority Associated Diagnoses [...] Comments DISCUSS TOBACCO CESSATION (REFER TO SMARTSET #[id number]) 1955 Sigmoidoscopy 12/11/1999 Fecal Occult Blood Test [...] D LEVEL ONCE IN A LIFETIME-USE SMARTSET# [id number] Completed 06/23/2023, 09/20/2021, 08/01/2020 Influenza Vaccine (FLU [...] this encounter Medical Devices Implanted Type Area Periodicals Library Assistant Device Identifier Shelf Expiration Date Model / Serial / Lot Lens Li61ao 13.00mm 24.50 - [id number] - [id number] Implanted:Qty: 1 on 08/04/2023 by Juan Carlos Barba MD at OR [facility] Left: Eye [employer] 11/22/2027 [id number] / [id number] / [id number] Lens Li61ao 13.00mm 25.00 - [id number] - [id number] Implanted:Qty: 1 on 08/18/2023 by Juan [place] Barba MD at OR [facility] Right: Eye [employer]OM[employer] 11/22/2027 [id number] / [id number] / [id number] Port Power Mri W8fr Cath - [id number] Implanted:Qty: 1 on 02/16/2024 by Dread Lackey MD at OR [facility] CR BARD : PERIPHERAL VASCULAR 08/22/2025 [id number] / / [id number] documented as of this encounter Visit Diagnoses [...] Power of Attor raffi? No Care Teams Building Construction Superintendent Relationship Specialty Start Date End Date Waldemar Borden DO [address] [facility] [place] [address] PCP - General Family Medicine 04/20/18 documented as of this encounter
[2024-07-05] MEDS: LEVOTHYROXINE SODIUM 88 MCG TABLET PO SCH (05:58)
[2024-07-05 06:41] LABS: Hematocrit (blood only) 27.3 % (37.0-47.0); Hemoglobin 8.2 g/dl (12.0-16.0); Mean Corpuscular Volume 93.2 fL (80.0-100.0); Mean Platelet Volume 9.2 fL (9.4-12.4); Platelet Count 249 K/uL (130-400); RDW Coefficient of Variation 16.1 % (11.5-14.5); RDW Standard Deviation 54.9 fL (36.4-46.3); Red Blood Count 2.93 M/uL (4.20-5.40); White Blood Count 4.61 K/ul (4.8-10.8)
[2024-07-05 07:00] LABS: Albumin Globulin Ratio 0.9 (0.9-2); BUN Creatinine Ratio 13.8 (10-20); Bilirubin,Total 0.4 mg/dl (0.2-1.0); Calcium 9.2 mg/dl (8.6-10.3); Creatinine Clr Calc Pharmacy 37.3 ml/min; Globulin 3.5 gm/dl (2.5-4.0); Magnesium 1.6 mg/dl (1.7-2.4); Phosphorus 3.8 mg/dl (2.5-4.9); Potassium 3.7 mmol/L (3.5-5.1); Total Protein 6.5 gm/dl (6.0-8.3)
[2024-07-05 07:14] LABS: Thyroid Stimulating Hormone 15.76 uIu/ml (0.300-4.500)
[2024-07-05 07:49] LABS: T4 Free Thyroxine 0.93 ng/dl (0.61-1.60)
--- NOTE | 2024-07-05 07:51 | Pulmonary Consultation ---
Date of Consultation July 05, 2024 Assessment & Plan (1) Pneumothorax on right: (2) Right rib fracture: Plan Impression: 68-year-old female with history of tobacco abuse, breast cancer, and head neck cancer status post radiation therapy now with fall with posterior right rib fracture and associated somewhat loculated pneumothorax. This is a delayed presentation. Recommendations: 1. Pneumothorax: Delayed presentation. Stable to decreased on chest x-ray today. No intervention required 2. Rib fracture: Management per primary service. Recommend pain management consult. Incentive spirometry recommended even with a delayed pneumothorax as she is at a higher risk of developing pneumonia and failure to clear secretions. 3. Patient has evidence of mucoid secretions in the airways. Flutter valve is required with hypertonic saline to assist in pulmonary clearance. Pain management is davis to effective cough. I do not see evidence of infection and it is not clear that the patient requires Zosyn at this point in time. From a pulmonary perspective, would recommend discontinuation of antibiotics. Patient should be up to chair is much as possible. Ambulation would also be beneficial. Will follow with you. Feel free to contact us with questions or concerns History of Present Illness Attending Physician: Garcia Lemons MD History of Present Illness Asked by hospitalist to assist in evaluation management this patient with rib fracture and pneumothorax. History is obtained from discussion with the patient as well as review the electronic medical record. The case was discussed extensively with the ER at the time of admission. Patient is a 68-year-old female with a history of head neck cancer as well as breast cancer and COPD. She had a fall 2 days ago and had pain. Due to pain issues she was seen at the emergency room. A CT scan was performed which revealed a small loculated apical pneumothorax with a rib fracture. Trivial pleural effusions were identified. She was admitted to the hospitalist service and pulmonary is consulted for additional management. The patient has a weak cough today secondary to pain. She states she is not having any breathing issues currently. Allergies Allergy/AdvReac Type Severity Reaction Status Date / Time caffeine AdvReac Intermediate TACHYCARDIA Verified 06/20/24 11:09 ,PALPITATIO NS Unclassified Drugs Allergy Unknown ANY COLD Uncoded 06/20/24 11:09 REMEDY - RASH Percocet AdvReac Mild Flushing Uncoded 06/20/24 11:09 Home Medications Medication Instructions Recorded Confirmed Type alendronate 70 mg tablet (Fosamax) 70 mg PO WK 04/05/24 07/04/24 History famotidine 20 mg tablet (Pepcid) 20 mg PO BID 04/05/24 07/04/24 History gzntvakw-ghf-uhjzgl 5 mg-zeaxanth 1 cap PO DAILY 04/05/24 07/04/24 History 1 mg-bilberry 7.5 mg-herbal capsule ([employer] Formula) sucralfate 1 gram tablet (Carafate) 1 g PO Q6H #120 tabs 06/20/24 07/04/24 Rx fluconazole 100 mg tablet 100 mg PO DAILY 07/04/24 07/04/24 History fluoride (sodium) 1.1 % dental 1 applic dental DAILY 07/04/24 07/04/24 History paste levothyroxine 88 mcg tablet 88 mcg PO QAM 07/04/24 07/04/24 History lidocaine HCl 2 % mucosal solution 15 ml PO Q6H 07/04/24 07/04/24 History (Lidocaine Viscous) potassium chloride 20 mEq 40 meq PO QAM 07/04/24 07/04/24 History tablet,extended release(part/cryst) Patient History Medical History Laryngeal cancer Port-A-Cath in place Diverticulosis Surgical History Previous section History of cataract surgery Bilateral History of esophagogastroduodenoscopy History of laryngoscopy with biopsy by Dr. Klein on 03/04/24 Hx of colonoscopy Family History Mother No problems noted. Father , 82yo Fall Sister Breast cancer Thyroid disease Sister No problems noted. Son Twin Son Twin Daughter Lupus (systemic lupus erythematosus) Daughter No problems noted. 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 How many Children do You have: 4 Feels Safe at Home: Yes Safety Concerns: Feels Safe At This Time Diet: regular caffeine: No during the past year weight has: decreased > 10 lbs Assistive Devices: Glasses and Hearing Aid - Bilateral Review of Systems Review of Systems: Please refer to admission H&P Physical Exam Constitutional: + cachectic and + frail appearing Neck: trachea midline, no thyromegaly Chronic hoarseness Respiratory: no respiratory distress and no labored breathing Weak cough Cardiovascular: RRR, no murmur, no edema Gastrointestinal (Abdomen): normal bowel sounds, soft, nontender, no hepatosplenomegaly Musculoskeletal: Extremities: extremities normal to inspection Skin: no rashes, warm and dry Neurologic: Nonfocal exam Lymphatic: no cervical lymphadenopathy Results & Data Results & Data Vital Signs (Past 12 Hours) Vital Signs Temp Pulse Pulse Resp BP Pulse Ox O2 Del Method 07/05/24 07:13 36.3 C L 67 19 132/71 93 Nasal Cannula 07/05/24 02:35 36.6 C 65 17 116/70 91 Room Air 07/05/24 01:23 96 H 07/04/24 22:50 36.7 C 69 16 109/66 91 Room Air 07/04/24 20:58 Room Air O2 Flow Rate 07/05/24 07:13 2 07/05/24 02:35 07/05/24 01:23 07/04/24 22:50 07/04/24 20:58 Critical Care Results & Data Vital Signs (Past 12 Hours) Vital Signs Temp Pulse Pulse Resp BP Pulse Ox O2 Del Method 07/05/24 07:13 36.3 C L 67 19 132/71 93 Nasal Cannula 07/05/24 02:35 36.6 C 65 17 116/70 91 Room Air 07/05/24 01:23 96 H 07/04/24 22:50 36.7 C 69 16 109/66 91 Room Air 07/04/24 20:58 Room Air O2 Flow Rate 07/05/24 07:13 2 07/05/24 02:35 07/05/24 01:23 07/04/24 22:50 07/04/24 20:58 Lab & Micro Results (Past 24 Hours) RBC 2.93 M/uL (4.20-5.40) L 07/05/24 WBC 4.61 K/ul (4.8-10.8) L 07/05/24 Hgb 8.2 g/dl (12.0-16.0) L 07/05/24 Hct 27.3 % (37.0-47.0) L 07/05/24 MCV 93.2 fL (80.0-100.0) 07/05/24 MCH 28.0 pg (25.0-34.0) 07/05/24 MCHC 30.0 g/dL (32.0-36.0) L 07/05/24 RDW Standard Deviation 54.9 fL (36.4-46.3) H 07/05/24 RDW Coefficient of Variation 16.1 % (11.5-14.5) H 07/05/24 Plt Count 249 K/uL (130-400) 07/05/24 MPV 9.2 fL (9.4-12.4) L 07/05/24 Na 138 mmol/L (136-145) 07/05/24 K 3.7 mmol/L (3.5-5.1) 07/05/24 Cl 111 mmol/L (98-107) H 07/05/24 CO2 21 mmol/L (21-32) 07/05/24 Anion Gap 6 (3-11) 07/05/24 BUN 13 mg/dl (6-23) 07/05/24 Creatinine 0.94 mg/dl (0.6-1.2) 07/05/24 BUN/Creatinine Ratio 13.8 (10-20) 07/05/24 Glu 94 mg/dl (70-99(Fasting)) 07/05/24 Ca 9.2 mg/dl (8.6-10.3) 07/05/24 Phosphorus Level 3.8 mg/dl (2.5-4.9) 07/05/24 Total Bilirubin 0.4 mg/dl (0.2-1.0) 07/05/24 AST 9 U/L (13-39) L 07/05/24 ALT 8 U/L (7-52) 07/05/24 Alkaline Phosphatase 59 U/L (34-104) 07/05/24 TP 6.5 gm/dl (6.0-8.3) 07/05/24 Albumin 3.0 gm/dl (3.4-5.0) L 07/05/24 Globulin 3.5 gm/dl (2.5-4.0) 07/05/24 Albumin/Globulin Ratio 0.9 (0.9-2) 07/05/24 Mg 1.6 mg/dl (1.7-2.4) L 07/05/24 05:52 Calcium Level 9.2 mg/dl (8.6-10.3) 07/05/24 05:52 Diagnostic Findings (Past 24 Hours) Chest CT 07/04/24 14:18 CT chest diagnostic wo con CT DOSE: 221.88 mGy.cm CLINICAL HISTORY: 68 years-old Female with fall,right lateral rib pain. Acute right-sided rib pain status post fall TECHNIQUE: Multiaxial CT images of the chest were performed without contrast. A dose lowering technique was utilized adhering to the principles of ALARA. COMPARISON: CT radiation of the neck 04/26/2024. FINDINGS: No thyroid nodule identified. Left subclavian catheter. Moderate sized cardiomegaly. There is a small pericardial effusion measuring 1.[address] acic aortic aneurysm. Borderline enlarged mediastinal and hilar lymph nodes. Small right and trace left pleural effusions. There is a small right apical pneumothorax with pleural separation of approximately 1.5 cm. 10 mm pleural separation at the right lung base centrally. Mild to moderate pulmonary emphysema with bronchial wall thickening and mucous plugging. Left apical irregular consolidation measuring 4.4 x 3.2 cm is new from the prior study. Additional linear subpleural consolidation of the right lung apex measures up to 2.4 cm, also new from prior. Patchy reticulonodular densities are seen within the right lung base with prominent mucous plugging. No definitively suspicious pulmonary nodules. No acute upper abdominal abnormality. Soft tissues are within normal limits. Acute minimally displaced fracture of the lateral right ninth rib.. Small amount of air noted within the lateral intercostal space between the lateral seventh and eighth ribs. IMPRESSION: 1. Small right-sided pneumothorax. 2. Biapical irregular consolidative opacities are new from the 04/26/2024 radiation therapy scan and may be on a postradiation basis. Attention on follow- up recommended. 3. Right basilar predominant mucous plugging with tree-in-bud nodules and patchy opacities suspicious for aspiration pneumonitis. 4. Small right pleural effusion. 5. Pulmonary emphysema. 6. Acute and slightly displaced fracture of the lateral right ninth rib. ACT 112: Negative or not required by law. Electronically signed by: Donald Rodriguez M.D. 07/04/2024 3:23 PM Chest X-Ray 07/04/24 16:00 EXAM: Radiograph of the Chest 1 View INDICATION: Pneumothorax. Right rib fracture. TECHNIQUE: Frontal view of the chest. COMPARISON: 05/31/2024 FINDINGS: Lungs and pleural spaces: There is a small right apical pneumothorax measuring maximal thickness of 1.3 cm. Shallow inspiration with generalized increased interstitial markings with superimposed groundglass infiltrate in the medial right lower lung. Heart: Shape and configuration within normal limits allowing for technique. Mediastinum: Normal contour. Bones/joints: There is an acute anterolateral right ninth rib fracture. Soft tissues: No abnormality noted. No radiopaque foreign body noted. Tubes, lines and devices: Left subclavian central venous port catheter terminates in the mid SVC. Upper abdomen: No abnormality noted. IMPRESSION: 1. There is an acute anterolateral right ninth rib fracture. 2. Small right apical pneumothorax. 3. Increased interstitial markings and groundglass opacity in the right lung base. Consider aspiration or infectious pneumonitis. ACT 112: Negative or not required by law. Electronically signed by Michell Mueller 07-04-2024 4:41 PM I & O Totals 24 Hours 07/04/24 07/05/24 07/06/24 06:59 06:59 06:59 Intake Total 520 / 520 Balance 520 / 520 Cumulative 07/04/24 13:57 thru 07/05/24 06:29 Intake Total 520 Balance 520 RT Ventilator Mngmt (Last Documented) Ventilator Ordered Settings Respiratory Rate 19 07/05/24 07:13 Ventilator - PT Measurements Respiratory Rate 19 PG Care Time/CCT Total # of Minutes Spent Total Time Spent with Patient: Total time spent is greater than 50% in coordination of care (as documented) at patient's floor/unit and/or counseling patient: Coding Level of Care Code 80703 INT INP/OBS CARE 3/75MIN Diagnoses Pneumothorax on right J93.9 Closed fracture of one rib of right side, initial encounter S22.31XA
[2024-07-05] MEDS: MAGNESIUM SULFATE / D5W 1 GM/100 ML BAG IV ONE (08:08)
[2024-07-05] MEDS: FLUCONAZOLE 100 MG TAB PO SCH (08:09)
[2024-07-05] MEDS: ACETAMINOPHEN 325 MG TAB PO PRN (08:39)
[2024-07-05] MEDS: guaiFENesin 600 MG TABCR PO SCH (08:41)
--- OUTSIDE RECORDS SUMMARY | 2024-07-05 08:47 | External Medical Summary ---
Author Name Unknown Address Unknown Organization K09:[facility] [address] [place] [address] Laboratory Report Ordering Provider Test Date Status MOUNIKA GO 07/04/2024 13:33:52 Final Observation Date Value Abnormality Reference (Units ) Status BUN 07/04/2024 13:33:52 15 6-20 (mg/dL) Final Creatinine 07/04/2024 13:33:52 1.0 0.5-1.0 (mg/dL) Final Glomerular filtration rate/1.73 sq M.predicted [Volume Rate/Area] in Serum, Plasma or Blood by Creatinine-based formula (CKD-EPI) 07/04/2024 13:33:52 62 >=60 (mL/min) Final eGFR is calculated based on the CKD-EPI 2020 equation. Sodium 07/04/2024 13:33:52 138 135-146 (m mol/L) Final Potassium 07/04/2024 13:33:52 4.7 3.5-5.1 (m mol/L) Final Cl 07/04/2024 13:33:52 108 Above high normal 98 -107 (mmol/L) Final CO2 07/04/2024 13:33:52 20 Below low normal 22- 32 (mmol/L) Final Anion gap 07/04/2024 13:33:52 10 7-15 (mmol /L) Final Glucose 07/04/2024 13:33:52 117 70-120 (mg /dL) Final Albumin 07/04/2024 13:33:52 3.6 Below low normal 3.8 -5.0 (g/dL) Final AST (Aspartate aminotransferase) 07/04/2024 13:33:52 14 10-35 (U/L) Fin al Alk Phos 07/04/2024 13:33:52 86 35-130 (U/ L) Final Bilirubin, Total 07/04/2024 13:33:52 0.3 <=1 .2 (mg/dL) Final Calcium 07/04/2024 13:33:52 10.0 8.4-10.2 ( mg/dL) Final Protein 07/04/2024 13:33:52 7.5 6.0-8.3 (g /dL) Final ALT (Alanine aminotransferase) 07/04/2024 13:33:52 9 Below low normal 10-35 (U/L) Final Performing Location [facility] [address] [place] [address]
--- NOTE | 2024-07-05 08:55 | XRay Report ---
XR chest 1V portable CLINICAL HISTORY: Monitor pneumothorax COMPARISON STUDY: Chest CT and chest radiograph July 04, 2024. FINDINGS: A small right pneumothorax with superior pleural separation of 1.2 cm is similar to prior c hest radiograph. A small basilar component is present. A small right pleural effusion is unchanged. R ight basilar opacity has slightly increased. There is mild interstitial thickening. Biapical opacitie s are better depicted on CT. Cardiomediastinal silhouette is stable. Left subclavian Azdfpj-c-Tdar is in place. Acute mildly displaced right ninth rib fracture is again noted. IMPRESSION: 1. No significant change in a small right pneumothorax. Stable small right pleural effusion. 2. Slight increase in right basilar opacity. This could reflect atelectasis, pneumonia or aspiration pneumonitis. 3. Pulmonary vascular congestion. ACT 112: Negative or not required by law. Electronically signed by: Maximilian Yeboah M.D. 07/05/2024 8:54 AM
[2024-07-05] MEDS ORDERED: NON-FORMULARY MEDICATION (Fluoride (Sodium) 1.1 % paste) DT SCH (09:00)
--- NOTE | 2024-07-05 09:29 | Pain Management Consultation ---
Date of Consultation July 05, 2024 Assessment & Plan (1) Right rib fracture: (2) Fall: Encounter type: initial encounter Qualified Code(s): W19.XXXA - Unspecified fall, initial encounter (3) Pneumothorax on right: (4) Primary squamous cell carcinoma of supraglottis: (5) Malignant neoplasm of lower-outer quadrant of right breast of female, estrogen receptor negative: (6) Severe malnutrition: Plan 1. Tylenol for pain relief. 2. If Tylenol is not effective I have added Hydrocodone 5/325mg q4 hrs. Consider the addition of Miralax or Colace should she develop constipation. 3. Keep IV Morphine if needed for breakthrough pain. 4. At this time I would not pursue an intercostal nerve block given her current pneumothorax. If pneumothorax improves and pain persists, could consider. 5. Continue Lidocaine patches. 6. Thank you for the consultation. Please contact with any questions or concerns. History of Present Illness Attending Physician: Garcia Lemons MD History of Present Illness This is a 60-year-old female with a significant history of COPD, laryngeal cancer, triple negative breast cancer, tobacco use disorder. She fell 3 days ago and sustained a right ninth rib fracture with a small apical pneumothorax. She is describing a deep aching pain along the left anterior chest wall and an intermittent sharp pain along the left mid axillary line. Pain is aggravated with taking a deep breath as well as twisting. She rates her pain a 6/10 currently. She did just take a Tylenol to see if her pain will improve or if she progresses to the use of IV morphine. Patient does have a listed allergy to Percocet which caused flushing. She denies any back pain, flank pain, nausea, vomiting, abdominal pain. Case discussed with Dr. Maria Victoria Edmonds Allergies Allergy/AdvReac Type Severity Reaction Status Date / Time caffeine AdvReac Intermediate TACHYCARDIA Verified 06/20/24 11:09 ,PALPITATIO NS Unclassified Drugs Allergy Unknown ANY COLD Uncoded 06/20/24 11:09 REMEDY - RASH Percocet AdvReac Mild Flushing Uncoded 06/20/24 11:09 Home Medications Medication Instructions Recorded Confirmed Type alendronate 70 mg tablet (Fosamax) 70 mg PO WK 04/05/24 07/04/24 History famotidine 20 mg tablet (Pepcid) 20 mg PO BID 04/05/24 07/04/24 History cnwlxizp-svr-lsumdc 5 mg-zeaxanth 1 cap PO DAILY 04/05/24 07/04/24 History 1 mg-bilberry 7.5 mg-herbal capsule ([facility] Formula) sucralfate 1 gram tablet (Carafate) 1 g PO Q6H #120 tabs 06/20/24 07/04/24 Rx fluconazole 100 mg tablet 100 mg PO DAILY 07/04/24 07/04/24 History fluoride (sodium) 1.1 % dental 1 applic dental DAILY 07/04/24 07/04/24 History paste levothyroxine 88 mcg tablet 88 mcg PO QAM 07/04/24 07/04/24 History lidocaine HCl 2 % mucosal solution 15 ml PO Q6H 07/04/24 07/04/24 History (Lidocaine Viscous) potassium chloride 20 mEq 40 meq PO QAM 07/04/24 07/04/24 History tablet,extended release(part/cryst) Patient History Medical History Laryngeal cancer Port-A-Cath in place Diverticulosis Surgical History Previous section History of cataract surgery Bilateral History of esophagogastroduodenoscopy History of laryngoscopy with biopsy by Dr. Klein on 03/04/24 Hx of colonoscopy Family History Mother No problems noted. Father , 82yo Fall Sister Breast cancer Thyroid disease Sister No problems noted. Son Twin Son Twin Daughter Lupus (systemic lupus erythematosus) Daughter No problems noted. 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 Laying comfortably in the hospital bed. HEAD/FACE: Normocephalic and atraumatic. EYES: No drainage or conjunctival injection. ENT: Nose without bleeding or discharge. Oral mucosa moist. NECK: Voice is diminished. RESPIRATORY: Patient with unlabored breathing. No signs of respiratory distress. CHEST/AXILLA: There is mild tenderness along the right lateral 9th rib. She also points to a discomfort along the left anterior chest wall but pain is not reproducible. ABDOMEN/GI: No distension SKIN: [place], warm and dry. No rash noted. MS/EXTREMITY: No swelling, no deformities. Moving extremities appropriately. NEURO: Alert and appears oriented. Speech is fluent. Cranial Nerves are grossly intact. PSYCH: Alert, pleasant, affect is calm
--- NOTE | 2024-07-05 14:43 | Hospitalist Progress Note ---
Date of Service July 05, 2024 Assessment & Plan (1) Fall: (2) Right rib fracture: (3) Pneumothorax on right: (4) Pericardial effusion: (5) Laryngeal cancer: (6) Cancer of right breast: (7) Severe malnutrition: (8) Dysphagia: (9) Hypoxia: (10) Aspiration pneumonitis: Plan Leslie Corado is a 68y/o F with PMHx significant for hypothyroidism due to Blayne's thyroiditis, COPD, pulmonary emphysema, laryngeal cancer, atherosclerosis of aorta, internal hemorrhoids, diverticulosis, age-related osteoporosis, cervical DDD, sensorineural hearing loss of both ears, triple negative right breast cancer and tobacco use disorder who presented to the ED with c/o right-sided rib pain after sustaining a fall 2 days ago. Right Pneumothorax: --CT Chest:Small right-sided pneumothorax. Biapical irregular consolidative opacities are new from the 04/26/2024 radiation therapy scan and may be on a postradiation basis. Attention on follow-up recommended. Right basilar predominant mucous plugging with tree-in-bud nodules and patchy opacities suspicious for aspiration pneumonitis. Small right pleural effusion. Pulmonary emphysema. Acute and slightly displaced fracture of the lateral right ninth rib. No acute intervention required at this time, continue to observe. Repeat CXR tomorrow AM. Formal pulmonology consult. Avoid ISP and flutter valve. -- Appreciate pulmonology input: No intervention needed -- Continue supplemental oxygen --Will repeat chest x-ray tomorrow Right 9th Rib Fracture S/P Recent Fall ISO Age-Related Osteoporosis: --CXR and chest CT notable for an acute anterolateral right 9th rib fracture s/p fall 2 days ago. -- Pain control Fall precautions PT OT as able Incentive spirometry Pericardial Effusion: Chest CT notable for a small pericardial effusion measuring 1.3cm. --ECHO: Small to moderate pericardial effusion with focal moderate fluid collection adjacent to the posterior left ventricular vessel and right atrium and right ventricular lateral free wall. Tamponade is absent. EF 60 to 65%. No prior study for comparison --Denies any chest pain --Will need cardiology follow-up as outpatient Laryngeal Squamous Cell Carcinoma Triple-Negative Right Breast Cancer: Follows with [facility] Rad[facility] Oncology and Dr. Geronimo of [facility] Hematology/Oncology. Most recently had visit with Dr. Geronimo on 06/29/24. She is currently only on Keytruda therapy; chemotherapy is on hold. 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 Patient also previously diagnosed with triple-negative right breast cancer in December 2023. --Staging PET scan done on 02/22/24 which revealed metabolic inferolateral right breast nodule with mildly metabolic right axillary lymph nodes consistent with known breast cancer with lymph node metastasis, right medial supraclavicular hypermetabolic lymph node favors metastatic disease, hypermetabolic laryngeal mass suspicious for primary malignancy or metastasis. FNA from the right supraclavicular lymph node was positive for metastatic adenocarcinoma consistent with metastatic adenocarcinoma of mammary origin. --Patient has so far completed 4 cycles of combination treatment including combination of Keytruda plus carboplatin and Taxol. She also completed radiation therapy to the laryngeal cancer. Follow-up ultrasound of the breast and the axillary area showed good response. Ultrasound of the head and neck revealed prominent right supraclavicular lymph node and few additional prominent bilateral cervical lymph nodes which could represent reactive versus metastasis. Patient is scheduled for repeat PET scan on 08/08/24. Abnormal CT chest Possible aspiration pneumonitis Hypoxia --Chest CT noted biapical irregular consolidative opacities which are new from her 05/13/24 radiation therapy scan. May be on a postradiation basis. Attention on follow-up recommended. -BioFire negative -- Empirically on antibiotics --Check procalcitonin --Incentive spirometer Severe Malnutrition & Dysphagia ISO Laryngeal Cancer: BMI 16, weight 41kg on admission. Appetite has been poor overall for many months since receiving treatment for her laryngeal cancer. Patient endorses difficulties with swallowing over the past 6 months. Notes she has been aspiration/choking whilst eating food during this time. Dietitian consulted Speech therapy consulted as well Plan for video swallow study tomorrow Aspiration precautions Tobacco Use Disorder: Smokes about 1/2 ppd x 26 years. Encourage smoking cessation. Anemia of chronic disease Denies any acute bleeding issues Anemia workup ordered Other Chronic Medical Conditions: Hypothyroidism - Continue levothyroxine GERD - Continue Pepcid. DVT Px: SCDs/TEDs for now Code Status: DNR/DNI Disposition: To be determined Admission and Anticipated Discharge Date Admission Date: July 04, 2024 Subjective Patient is seen and examined at bedside States having right-sided rib pain Admits to have some dyspnea on exertion Minimal cough No other complaints Review of Systems Review of Systems: All systems reviewed & are unremarkable except as noted in Subjective Physical Exam Physical Exam: Physical Exam: Vitals signs as noted above General Appearance: Thin, frail, ill-appearing, no apparent distress Head: normocephalic, Atraumatic Eyes: normal inspection, EOMI, + hoarseness Neck: supple, Trachea midline Respiratory/Chest: Decreased breath sounds, CTA, No accessory muscle use Cardiovascular: S1, S2, No murmur Abdomen/GI:Soft, Non tender, Bowel sounds present Extremities/Musculoskeletal:normal inspection, no edema Neurologic/Psych:AAOX3, grossly no focal neurological deficits Skin: normal color, warm Results & Data Results & Data Vital Signs (Past 12 Hours) Vital Signs Temp Pulse Resp BP Pulse Ox O2 Del Method O2 Flow Rate 07/05/24 11:33 Nasal Cannula 2 07/05/24 11:20 36.7 C 58 L 19 125/67 94 Room Air 07/05/24 07:13 36.3 C L 67 19 132/71 93 Nasal Cannula 2 Laboratory Results Short CBC 07/05/24 Range/Units 05:52 WBC 4.61 L (4.8-10.8) K/ul Hgb 8.2 L (12.0-16.0) g/dl Hct 27.3 L (37.0-47.0) % Plt Count 249 (130-400) K/uL BMP 07/05/24 05:52 Sodium 138 Potassium 3.7 Chloride 111 H Carbon Dioxide 21 BUN 13 Creatinine 0.94 Glucose 94 Calcium 9.2 Liver Function 07/05/24 Range/Units 05:52 Total Bilirubin 0.4 (0.2-1.0) mg/dl AST 9 L (13-39) U/L ALT 8 (7-52) U/L Alkaline Phosphatase 59 (34-104) U/L Albumin 3.0 L (3.4-5.0) gm/dl (1) Fall Encounter type: initial encounter Qualified Code(s): W19.XXXA - Unspecified fall, initial encounter (6) Cancer of right breast Breast location: unspecified site of breast Estrogen receptor status: unspecified Patient sex: female Qualified Code(s): C50.911 - Malignant neoplasm of unspecified site of right female breast (8) Dysphagia Dysphagia type: unspecified Qualified Code(s): R13.10 - Dysphagia, unspecified
[2024-07-05] MEDS: SODIUM CHLOR 7% 4 ML NEB NEB SCH (19:53)
--- NOTE | 2024-07-06 08:01 | XRay Report ---
EXAM: XR chest 1V portable CLINICAL HISTORY: Pneumothorax. TECHNIQUE: An X-ray image of the chest is obtained in AP projection. COMPARISON: CR dated 07/04/2024. FINDINGS: Pulmonary Parenchyma: Left Port-A-Cath was incidentally noted at the superior vena cava Blunting of the right costophrenic angle suggesting small effusion with underlying atelectasis Reduced amount of right-sided small apical pneumothorax now involving less than 10% of the right hemithorax Heaziness noted at the right lower lung zone paracardiac region may indicate a small infiltrate No pulmonary nodules are identified. No evidence of left pleural effusion or pleural thickening. Heart and Mediastinum: Heart size and shape are normal. No mediastinal widening or masses. No hilar or mediastinal lymphadenopathy. Bony Thorax: The bony thorax appears intact without fractures or deformities. Soft Tissues: Soft tissues overlying the chest wall are unremarkable. IMPRESSION: 1. Reduced amount of right-sided small apical pneumothorax now involving less than 10% of the right hemithorax . 2. Right small effusion with underlying atelectasis, New. 3. Possible right lower lung zone paracardiac region small infiltrates, New. Electronically signed by Curt St 07-06-2024 08:00 AM
[2024-07-06 08:09] LABS: Hematocrit (blood only) 28.4 % (37.0-47.0); Hemoglobin 8.7 g/dl (12.0-16.0); Mean Corpuscular Hgb Conc 30.6 g/dL (32.0-36.0); Mean Corpuscular Volume 91.3 fL (80.0-100.0); Mean Platelet Volume 8.9 fL (9.4-12.4); Platelet Count 238 K/uL (130-400); RDW Coefficient of Variation 15.9 % (11.5-14.5); RDW Standard Deviation 53.4 fL (36.4-46.3); Red Blood Count 3.11 M/uL (4.20-5.40); White Blood Count 5.63 K/ul (4.8-10.8)
[2024-07-06 08:28] LABS: BUN Creatinine Ratio 15.7 (10-20); Calcium 8.9 mg/dl (8.6-10.3); Potassium 3.9 mmol/L (3.5-5.1)
[2024-07-06 08:47] LABS: Ferritin 898.9 ng/ml (8-388)
[2024-07-06 08:49] LABS: Folate (Folic Acid),Ser orPlas 16.05 ng/ml (>5.38)
--- NOTE | 2024-07-06 10:45 | Pulmonology Progress Note ---
Date of Service July 06, 2024 Assessment & Plan (1) Pneumothorax on right: (2) Right rib fracture: Plan Impression: 68-year-old female with history of tobacco abuse, breast cancer, and head neck cancer status post radiation therapy now with fall with posterior right rib fracture and associated somewhat loculated pneumothorax. She has evidence of mucous plugging on her CT scan and is in need of pulmonary toilet. The chest x-ray today demonstrates decreasing size of the pneumothorax. Recommendations: 1. Pneumothorax: Delayed presentation. Stable to decreased on chest x-ray today. No additional imaging required in the absence of clinical symptoms during her hospitalization. A follow-up chest x-ray in 2 to 4 weeks in the outpatient setting with her primary care provider would be reasonable 2. Rib fracture: Management per primary service. Appreciate pain management consult. Continue incentive spirometry. Recommend out of bed to chair and ambulate as tolerated 3. Mucous plugging: Continue hypertonic saline, flutter valve, incentive spirometry, Mucinex. Out of bed to chair and ambulate as tolerated. Patient appears to be improving. Disposition is deferred to the patient's primary admitting service. Given her underlying malignancies, palliative care consultation may be appropriate. Pulmonary will sign off at this point in time. Feel free to contact us with questions or concerns Admission and Anticipated Discharge Date Admission Date: July 04, 2024 Subjective Patient seen and examined. EMR reviewed. The patient reports that she feels she is breathing better. Her cough is stronger as her pain control is better. She is expectorating some phlegm. Her oxygen requirement is resolved. Her chest x-rays demonstrated no significant progression of the pneumothorax. Review of Systems 2 Review of Systems: All systems reviewed & are unremarkable except as noted in Subjective Physical Exam 2 Constitutional: + cachectic and + frail appearing Neck: trachea midline, no thyromegaly Respiratory: no respiratory distress and no labored breathing Cardiovascular: RRR, no murmur, no edema Gastrointestinal (Abdomen): normal bowel sounds, soft, nontender, no hepatosplenomegaly Musculoskeletal: Extremities: extremities normal to inspection Skin: no rashes, warm and dry Lymphatic: no cervical lymphadenopathy Results & Data Results & Data Vital Signs (Past 12 Hours) Vital Signs Temp Pulse Resp BP Pulse Ox O2 Del Method 07/06/24 08:03 37.2 C 70 15 112/66 95 Room Air 07/06/24 07:40 Room Air 07/06/24 07:03 67 18 96 Room Air 07/06/24 04:21 36.6 C 57 L 16 143/77 H 99 Room Air 07/05/24 23:16 36.7 C 60 17 118/73 93 Room Air Laboratory Results 07/06/24 07:38 07/06/24 07:38 Diagnostic Findings Chest x-ray from today was independently reviewed. Lungs are better aerated. The right apical pneumothorax is quite trivial at this point in time. PG Care Time/CCT Total # of Minutes Spent Total Time Spent with Patient: Total time spent is greater than 50% in coordination of care (as documented) at patient's floor/unit and/or counseling patient: Coding Level of Care Code 59888 SUB INP/OBS CARE 2/35MIN Diagnoses Pneumothorax on right J93.9 Closed fracture of one rib of right side, initial encounter S22.31XA
--- NOTE | 2024-07-06 11:58 | Fluoroscopy Report ---
FL video swallow CLINICAL HISTORY: 68 years-old Female with r/o aspiration. Dysphagia TECHNIQUE: Video fluoroscopic evaluation of swallowing was performed in the AP and lateral projection s by the speech pathology staff. The patient is fed varying consistencies of barium. FLUOROSCOPY TIME: 59 seconds. 1706 images. 4.04 mGy. COMPARISON STUDY: None. FINDINGS: There is abnormal hyoid excursion and epiglottic deflection. Silent aspiration with thin li quid barium and nectar consistencies. IMPRESSION: 1. Aspiration as above 2. Please see the speech pathologist report for detailed findings and recommendations. ACT 112: Negative or not required by law. Electronically signed by: Donald Rodriguez M.D. 07/06/2024 11:55 AM
--- NOTE | 2024-07-06 12:22 | Hospitalist Progress Note ---
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 Biapical irregular consolidative opacities are new from the 04/26/2024 radiation therapy scan and may be on a postradiation basis. Attention on follow-up recommended. Right basilar predominant mucous plugging with tree-in-bud nodules and patchy opacities suspicious for aspiration pneumonitis. Small right pleural effusion. Pulmonary emphysema. Acute and slightly displaced fracture of the lateral right ninth rib. Pulm eval and recs noted CXR today show stable to improvement in pneumothorax Patient on room air Right 9th Rib Fracture S/P Recent Fall ISO Age-Related Osteoporosis: --CXR and chest CT notable for an acute anterolateral right 9th rib fracture Pain control Fall precautions PT OT eval noted Incentive spirometry Pericardial Effusion: Chest CT notable for a small pericardial effusion measuring 1.3cm. --ECHO: Small to moderate pericardial effusion with focal moderate fluid collection adjacent to the posterior left ventricular vessel and right atrium and right ventricular lateral free wall. Tamponade is absent. EF 60 to 65%. 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 Geronimo of [facility] Hematology/Oncology. Most recently had visit with Dr. Geronimo on 06/29/24. She is currently only on Keytruda therapy; chemotherapy is on hold. 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 Patient also previously diagnosed with triple-negative right breast cancer in December 2023. --Staging PET scan done on 02/22/24 which revealed metabolic inferolateral right breast nodule with mildly metabolic right axillary lymph nodes consistent with known breast cancer with lymph node metastasis, right medial supraclavicular hy permetabolic lymph node favors metastatic disease, hypermetabolic laryngeal mass suspicious for primary malignancy or metastasis. FNA from the right supraclavicular lymph node was positive for metastatic adenocarcinoma consistent with metastatic adenocarcinoma of mammary origin. --Patient has so far completed 4 cycles of combination treatment including combination of Keytruda plus carboplatin and Taxol. She also completed radiation therapy to the laryngeal cancer. Follow-up ultrasound of the breast and the axillary area showed good response. Ultrasound of the head and neck revealed prominent right supraclavicular lymph node and few additional prominent bilateral cervical lymph nodes which could represent reactive versus metastasis. Patient is scheduled for repeat PET scan on 08/08/24. Abnormal CT chest Aspiration pneumonitis --Chest CT noted biapical irregular consolidative opacities which are new from her 05/13/24 radiation therapy scan. May be on a postradiation basis. Attention on follow-up recommended. 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 Continue with pureed Aspiration precautions Severe Malnutrition & Dysphagia ISO Laryngeal Cancer: BMI 16, weight 41kg on admission. Appetite has been poor overall for many months since receiving treatment for her laryngeal cancer. Nutrition recs noted Boost ordered Tobacco Use Disorder: Smokes about 1/2 ppd x 26 years. Encourage smoking cessation. Anemia of chronic disease Denies any acute bleeding issues Other Chronic Medical Conditions: Hypothyroidism - Continue levothyroxine GERD - Continue Pepcid. Palliative consulted for GOC DVT Px: SCDs/TEDs for now Code Status: DNR/DNI I spent a total of 55 minutes coordinating, documenting and providing care for this patient excluding time spent in performance of separately billed services Admission and Anticipated Discharge Date Admission Date: July 04, 2024 Subjective Patient seen and examined Reports she wants to walk around Reports minimal cough. Denied SOB at rest Reports right rib pain is improved Denied odynophagia No new complaints on ROS Physical Exam Constitutional: + well hydrated, + thin and + malnourish ed; no acute distress Eyes: PERRL, conjunctivae normal, anicteric sclerae Respiratory: normal respiratory effort, lungs clear to auscultation Cardiovascular: Rate/Rhythm: regular rate and regular rhythm Gastrointestinal (Abdomen): normal bowel sounds, soft, nontender, no hepatosplenomegaly Musculoskeletal: No pedal edema Neurologic: PERRL, EOMI, accommodation nl, no face palsy, no dysarthria Psychiatric: A+Ox3, euthymic affect Results & Data Results & Data Vital Signs (Past 12 Hours) Vital Signs Temp Pulse Resp BP Pulse Ox O2 Del Method 07/06/24 10:52 36.5 C 62 16 107/68 Room Air 07/06/24 08:03 37.2 C 70 15 112/66 95 Room Air 07/06/24 07:40 Room Air 07/06/24 07:03 67 18 96 Room Air 07/06/24 04:21 36.6 C 57 L 16 143/77 H 99 Room Air Laboratory Results Abnormal lab results 07/06/24 Range/Units 07:38 RBC 3.11 L (4.20-5.40) M/uL Hgb 8.7 L (12.0-16.0) g/dl Hct 28.4 L (37.0-47.0) % MCHC 30.6 L (32.0-36.0) g/dL RDW Std Deviation 53.4 H (36.4-46.3) fL RDW Coeff of Vikram 15.9 H (11.5-14.5) % MPV 8.9 L (9.4-12.4) fL Sodium 135 L (136-145) mmol/L Transferrin 153 L (200-360) mg/dl Ferritin 898.9 H (8-388) ng/ml Diagnostic Findings FL video swallow CLINICAL HISTORY: 68 years-old Female with r/o aspiration. Dysphagia TECHNIQUE: Video fluoroscopic evaluation of swallowing was performed in the AP and lateral projections by the speech pathology staff. The patient is fed varying consistencies of barium. FLUOROSCOPY TIME: 59 seconds. 1706 images. 4.04 mGy. COMPARISON STUDY: None. FINDINGS: There is abnormal hyoid excursion and epiglottic deflection. Silent aspiration with thin liquid barium and nectar consistencies. IMPRESSION: 1. Aspiration as above 2. Please see the speech pathologist report for detailed findings and recommendations. CXR 07/06/24 1. Reduced amount of right-sided small apical pneumothorax now involving less than 10% of the right hemithorax . 2. Right small effusion with underlying atelectasis, New. 3. Possible right lower lung zone paracardiac region small infiltrates, New. (1) Fall Encounter type: initial encounter Qualified Code(s): W19.XXXA - Unspecified fall, initial encounter (6) Cancer of right breast Breast location: unspecified site of breast Estrogen receptor status: unspecified Patient sex: female Qualified Code(s): C50.911 - Malignant neoplasm of unspecified site of right female breast (8) Dysphagia Dysphagia type: unspecified Qualified Code(s): R13.10 - Dysphagia, unspecified
[2024-07-06] MEDS: guaiFENesin SUGAR FREE 200 MG/10 ML UDC PO PRN (23:39)
[2024-07-07] MEDS: HEPARIN 100 UNIT/ML 5ML FLUSH FLUSH PRN (06:38)
[2024-07-07 06:58] LABS: Hematocrit (blood only) 28.7 % (37.0-47.0); Hemoglobin 8.7 g/dl (12.0-16.0); Mean Corpuscular Hemoglobin 27.5 pg (25.0-34.0); Mean Corpuscular Hgb Conc 30.3 g/dL (32.0-36.0); Mean Corpuscular Volume 90.8 fL (80.0-100.0); Mean Platelet Volume 9.4 fL (9.4-12.4); Platelet Count 250 K/uL (130-400); RDW Coefficient of Variation 15.7 % (11.5-14.5); Red Blood Count 3.16 M/uL (4.20-5.40); White Blood Count 5.06 K/ul (4.8-10.8)
[2024-07-07 07:31] LABS: Albumin Globulin Ratio 0.9 (0.9-2); Albumin Level 3.1 gm/dl (3.4-5.0); BUN Creatinine Ratio 19.4 (10-20); Bilirubin,Total 0.3 mg/dl (0.2-1.0); Calcium 9.2 mg/dl (8.6-10.3); Creatinine Clr Calc Pharmacy 37.7 ml/min; Globulin 3.4 gm/dl (2.5-4.0); Phosphorus 3.2 mg/dl (2.5-4.9); Potassium 3.5 mmol/L (3.5-5.1); Total Protein 6.5 gm/dl (6.0-8.3)
--- NOTE | 2024-07-07 10:07 | Palliative Care Consultation ---
Date of Consultation July 07, 2024 Assessment & Plan (1) Palliative care by specialist: Met with pt at bedside, no visitors present. Introduced Palliative Medicine and explained our role in advanced care planning, symptom management and navigation through the progression of life limiting disease. Patient and/or family were receptive to palliative services for goals of care discussions. Reviewed we are different from hospice, a home health nurse visiting service. (2) Counseling regarding advanced directives and goals of care: Patient does currently possess decisional capacity based on the ability to convey understanding of personal PMHx, current medical condition, treatment options as well as the risks / benefits of those options, and lack of ability to make decisions based on such knowledge. Hospital does not have written documentation of patient wishes concerning her chosen proxy for medical decisions. Per PA [id number], in absence of written documentation of patient wishes, pt's proxy for medical decisions would be her spouse. Pt does not require a proxy for medical decisions. Pt reports that she does have a completed LW/AD. I encouraged that she have her bring it to hospital to be uploaded to EMR. (3) Advanced directives, counseling/discussion: Met with pt to discuss ACP from 12:00 - 12:40 Pt shared that she has been recieving chemotherapy and radiation and does not feel that it is making her any better. She shared concern that she is not going to cure her cancer and she just continues to get weaker as she "withers away". She fears that she has little time left and that she does not want to spend any more time pursuing cancer treatments. She feels that it is doing more harm than good. She shared that she has little to no appetite and has lose a lot of weight over last several months. She shared that she has had a mostly sedentary life since her cancer diagnosis, and even going from bed to bathroom is a strain. She shared desire to not prolong life and that she is "done with all of it" and ready to let go. She reconfirmed desire for DNR/DNI status and said she would like to spend what time she has left at home with family. (4) Encounter for hospice care discussion: Discussed hospice benefit: an interdisciplinary program offered by nurses, nurses aides, social workers, chaplains and a manager medical writing for patients with a terminal condition and a life expectancy of less than 6 months. This is covered by Medicare at 100%/no out of pocket expense to patient and all meds/supplies needed by patient for the reason they are on hospice are paid for/covered by hospice. The goal is assure quality of life of the patient in their home setting (home, assisted, inpatient hospice setting) by providing symptoms management, psychosocial and spiritual support. However, they cannot offer 24 hours care and if the family is unable to provide that care, they will have to consider personal care with out of pocket cost vs. assisted placement. We discussed the goals of hospice as a patient service and the goals of care; we discussed EOL trajectories and transitions delma the emotional impact of realizing mortality as a concrete reality from prior abstract considerations. Pt was reassured that no matter where they are along this trajectory, they are not alone - their medical team will remain by their side through their journey. Discussed the pros/cons of accepting help when especially weakened and distressed by pain-which would also help provide relief/decrease caregiver burden/strain. Pt expressed desire to pursue comfort directed care, stating that she would like to go home with hospice care. She shared that she first would like to discuss this with her spouse in person when he comes to visit tomorrow. 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 Follows with [facility] radiation oncology and Dr. Geronimo of [facility] hematology/oncology at [facility]. Patient was also previously diagnosed with triple-negative right breast cancer in December 2023. She had a staging PET scan done on 02/22/24 which revealed metabolic inferolateral right breast nodule with mildly metabolic right axillary lymph nodes consistent with known breast cancer with lymph node metastasis, right medial supraclavicular hypermetabolic lymph node favors metastatic disease, hypermetabolic laryngeal mass suspicious for primary malignancy or metastasis. F NA from the right supraclavicular lymph node was positive for metastatic adenocarcinoma consistent with metastatic adenocarcinoma of mammary origin. Patient has so far completed 4 cycles of combination treatment including combination of Keytruda plus carboplatin and Taxol. She also completed radiation therapy to the laryngeal cancer. Follow-up ultrasound of the breast and the axillary area showed good response. Ultrasound of the head and neck revealed prominent right supraclavicular lymph node and few additional prominent bilateral cervical lymph nodes which could represent reactive versus metastasis. Patient is scheduled for repeat PET scan on 08/08/24. Allergies Allergy/AdvReac Type Severity Reaction Status Date / Time caffeine AdvReac Intermediate TACHYCARDIA Verified 06/20/24 11:09 ,PALPITATIO NS Unclassified Drugs Allergy Unknown ANY COLD Uncoded 06/20/24 11:09 REMEDY - RASH Percocet AdvReac Mild Flushing Uncoded 06/20/24 11:09 Home Medications Medication Instructions Recorded Confirmed Type alendronate 70 mg tablet (Fosamax) 70 mg PO WK 04/05/24 07/04/24 History famotidine 20 mg tablet (Pepcid) 20 mg PO BID 04/05/24 07/04/24 History ayxmoqsr-kua-pzjjxb 5 mg-zeaxanth 1 cap PO DAILY 04/05/24 07/04/24 History 1 mg-bilberry 7.5 mg-herbal capsule (IPX Health Formula) sucralfate 1 gram tablet (Carafate) 1 g PO Q6H #120 tabs 06/20/24 07/04/24 Rx fluconazole 100 mg tablet 100 mg PO DAILY 07/04/24 07/04/24 History fluoride (sodium) 1.1 % dental 1 applic dental DAILY 07/04/24 07/04/24 History paste levothyroxine 88 mcg tablet 88 mcg PO QAM 07/04/24 07/04/24 History lidocaine HCl 2 % mucosal solution 15 ml PO Q6H 07/04/24 07/04/24 History (Lidocaine Viscous) potassium chloride 20 mEq 40 meq PO QAM 07/04/24 07/04/24 History tablet,extended release(part/cryst) Patient History Medical History Laryngeal cancer Port-A-Cath in place Diverticulosis Surgical History Previous section History of cataract surgery Bilateral History of esophagogastroduodenoscopy History of laryngoscopy with biopsy by Dr. Klein on 03/04/24 Hx of colonoscopy Family History Mother No problems noted. Father , 82yo Fall Sister Breast cancer Thyroid disease Sister No problems noted. Son Twin Son Twin Daughter Lupus (systemic lupus erythematosus) Daughter No problems noted. 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 How many Children do You have: 4 Feels Safe at Home: Yes Safety Concerns: Feels Safe At This Time Diet: regular caffeine: No during the past year weight has: decreased > 10 lbs Assistive Devices: None Review of Systems Review of Systems: All systems reviewed & are unremarkable except as noted in Subjective Constitutional: + malaise, + weakness, + anorexia and + weight loss Ear, Nose, Mouth, Throat: + change in voice and + hoarseness Physical Exam Constitutional: + ill appearing, + cachectic, + frail ap pearing and + malnourished Eyes: PERRL, conjunctivae normal, anicteric sclerae ENMT: external ear and nose normal, oropharynx normal Neck: trachea midline, no thyromegaly Respiratory: normal respiratory effort, lungs clear to auscultation Cardiovascular: RRR, no murmur, no edema Gastrointestinal (Abdomen): normal bowel sounds, soft, nontender, no hepatosplenomegaly Musculoskeletal: Extremities: + muscle atrophy generalized weakness Skin: + turgor decreased, + dry skin and + pal verito Neurologic: PERRL, EOMI, accommodation nl, no face palsy, no dysarthria Results & Data Vital Signs (Past 12 Hours) Vital Signs Temp Pulse Pulse Resp BP Pulse Ox O2 Del Method 07/07/24 08:09 36.8 C 71 18 116/64 94 Room Air 07/07/24 07:00 74 07/07/24 07:00 69 18 92 Room Air 07/07/24 03:33 36.7 C 68 18 132/73 92 Room Air 07/06/24 22:56 65 07/06/24 22:13 36.8 C 65 18 144/75 H 92 Room Air Laboratory Results Abnormal lab results 07/07/24 Range/Units 06:29 RBC 3.16 L (4.20-5.40) M/uL Hgb 8.7 L (12.0-16.0) g/dl Hct 28.7 L (37.0-47.0) % MCHC 30.3 L (32.0-36.0) g/dL RDW Std Deviation 52.0 H (36.4-46.3) fL RDW Coeff of Vikram 15.7 H (11.5-14.5) % Chloride 109 H (98-107) mmol/L AST 11 L (13-39) U/L Albumin 3.1 L (3.4-5.0) gm/dl Diagnostic Findings Chest CT 07/04/24 14:18 CT chest diagnostic wo con CT DOSE: 221.88 mGy.cm CLINICAL HISTORY: 68 years-old Female with fall,right lateral rib pain. Acute right-sided rib pain status post fall TECHNIQUE: Multiaxial CT images of the chest were performed without contrast. A dose lowering technique was utilized adhering to the principles of ALARA. COMPARISON: CT radiation of the neck 04/26/2024. FINDINGS: No thyroid nodule identified. Left subclavian catheter. Moderate sized cardiomegaly. There is a small pericardial effusion measuring 1.3 cm. No thoracic aortic aneurysm. Borderline enlarged mediastinal and hilar lymph nodes. Small right and trace left pleural effusions. There is a small right apical pneumothorax with pleural separation of approximately 1.5 cm. 10 mm pleural separation at the right lung base centrally. Mild to moderate pulmonary emphysema with bronchial wall thickening and mucous plugging. Left apical irregular consolidation measuring 4.4 x 3.2 cm is new from the prior study. Additional linear subpleural consolidation of the right lung apex measures up to 2.4 cm, also new from prior. Patchy reticulonodular densities are seen within the right lung base with prominent mucous plugging. No definitively suspicious pulmonary nodules. No acute upper abdominal abnormality. Soft tissues are within normal limits. Acute minimally displaced fracture of the lateral right ninth rib.. Small amount of air noted within the lateral intercostal space between the lateral seventh and eighth ribs. IMPRESSION: 1. Small right-sided pneumothorax. 2. Biapical irregular consolidative opacities are new from the 04/26/2024 radiation therapy scan and may be on a postradiation basis. Attention on follow-up recommended. 3. Right basilar predominant mucous plugging with tree-in-bud nodules and patchy opacities suspicious for aspiration pneumonitis. 4. Small right pleural effusion. 5. Pulmonary emphysema. 6. Acute and slightly displaced fracture of the lateral right ninth rib. ACT 112: Negative or not required by law. Electronically signed by: Donald Rodriguez M.D. 07/04/2024 3:23 PM Chest X-Ray 07/06/24 07:00 EXAM: XR chest 1V portable CLINICAL HISTORY: Pneumothorax. TECHNIQUE: An X-ray image of the chest is obtained in AP projection. COMPARISON: CR dated 07/04/2024. FINDINGS: Pulmonary Parenchyma: Left Port-A-Cath was incidentally noted at the superior vena cava Blunting of the right costophrenic angle suggesting small effusion with underlying atelectasis Reduced amount of right-sided small apical pneumothorax now involving less than 10% of the right hemithorax Heaziness noted at the right lower lung zone paracardiac region may indicate a small infiltrate No pulmonary nodules are identified. No evidence of left pleural effusion or pleural thickening. Heart and Mediastinum: Heart size and shape are normal. No mediastinal widening or masses. No hilar or mediastinal lymphadenopathy. Bony Thorax: The bony thorax appears intact without fractures or deformities. Soft Tissues: Soft tissues overlying the chest wall are unremarkable. IMPRESSION: 1. Reduced amount of right-sided small apical pneumothorax now involving less than 10% of the right hemithorax . 2. Right small effusion with underlying atelectasis, New. 3. Possible right lower lung zone paracardiac region small infiltrates, New. Electronically signed by Curt St 07-06-2024 08:00 AM Videofluoroscopic Swallow 07/06/24 10:00 FL video swallow CLINICAL HISTORY: 68 years-old Female with r/o aspiration. Dysphagia TECHNIQUE: Video fluoroscopic evaluation of swallowing was performed in the AP and lateral projections by the speech pathology staff. The patient is fed varying consistencies of barium. FLUOROSCOPY TIME: 59 seconds. 1706 images. 4.04 mGy. COMPARISON STUDY: None. FINDINGS: There is abnormal hyoid excursion and epiglottic deflection. Silent aspiration with thin liquid barium and nectar consistencies. IMPRESSION: 1. Aspiration as above 2. Please see the speech pathologist report for detailed findings and recommendations. ACT 112: Negative or not required by law. Electronically signed by: Donald Rodriguez M.D. 07/06/2024 11:55 AM Medications Administered Current Inpatient Medications Acetaminophen (Acetaminophen 325 Mg Tab) 650 mg PO Q4H PRN PRN Reason: Mild Pain (1-5) or Fever Stop: 08/03/24 18:47 Last Admin: 07/06/24 06:49 Dose: 650 mg Hydrocodone Bitart/Acetaminophen (Hydrocodone/Acetamophen 5/325mg Tab) 1 tab PO Q4 PRN PRN Reason: Moderate/Severe Pain (6-10) Stop: 07/19/24 09:18 Al Hydrox/Mg Hydrox/Simethicone (Aluminum/Magnesium Susp 30 Ml Udc) 15 ml PO Q4H PRN PRN Reason: Dyspepsia Stop: 08/03/24 18:47 Famotidine (Famotidine 20 Mg Tab) 20 mg PO BID [facility] Stop: 08/03/24 20:59 Last Admin: 07/07/24 08:17 Dose: 20 mg Fluconazole (Fluconazole 100 Mg Tab) 100 mg PO DAILY [facility] Stop: 08/04/24 08:59 Last Admin: 07/07/24 08:17 Dose: 100 mg Guaifenesin (Guaifenesin Sugar Free 200 Mg/10 Ml Udc) 200 mg PO Q6H PRN PRN Reason: Cough Stop: 08/05/24 20:44 Last Admin: 07/06/24 23:39 Dose: 200 mg Heparin Sodium (Porcine) (Heparin 100 Unit/Ml 5ml Flush) 5 ml FLUSH PRN PRN PRN Reason: Flush Stop: 08/05/24 08:33 Last Admin: 07/07/24 06:38 Dose: 5 ml Levothyroxine Sodium (Levothyroxine Sodium 88 Mcg Tablet) 88 mcg PO DAILYBB [facility] Stop: 08/04/24 06:29 Last Admin: 07/07/24 06:38 Dose: 88 mcg Lidocaine (Lidocaine 5% 1 Patch) 1 patch TD QAM [facility] Stop: 08/03/24 18:59 Last Admin: 07/07/24 08:17 Dose: 1 patch Lidocaine HCl (Lidocaine Viscous 2% 15 Ml Udc) 15 ml PO Q6 [facility] Stop: 08/03/24 19:09 Last Admin: 07/07/24 06:38 Dose: 15 ml Magnesium Hydroxide (Magnesium Hydroxide Susp 30 Ml Udc) 30 ml PO Q12H PRN PRN Reason: Constipation Stop: 08/03/24 18:47 Miscellaneous (Remove Lidoderm Patch) 1 each N/A DAILY@2100 [facility] Stop: 08/03/24 22:59 Last Admin: 07/06/24 20:52 Dose: 1 each Morphine Sulfate (Morphine Sulfate 2 Mg/Ml Carp) 2 mg IV Q4H PRN PRN Reason: Mod-Sev Pain (Scale 4-10) Stop: 07/18/24 18:47 Ondansetron HCl (Ondansetron Inj 2 Mg/Ml 2 Ml Vial) 4 mg IV Q6H PRN PRN Reason: Nausea Stop: 08/03/24 18:47 Polyethylene Glycol (Polyethylene (Miralax) 17 Gm Pack) 17 gm PO DAILY PRN PRN Reason: Constipation Stop: 08/03/24 18:47 Sodium Chloride (Sodium Chlor 7% 4 Ml Neb) 4 ml NEB BIDR [facility] Stop: 08/04/24 18:59 Last Admin: 07/07/24 06:59 Dose: 4 ml Sucralfate (Sucralfate 1 Gm Tab) 1 gm PO Q6 [facility] Stop: 08/03/24 18:59 Last Admin: 07/07/24 06:38 Dose: 1 gm PG Care Time/CCT Total # of Minutes Spent Total Time Spent with Patient: Total time spent is greater than 50% in coordination of care (as documented) at patient's floor/unit and/or counseling patient: Advanced Care Planning 89354 Advanced Care Planning 30 [place] [address] IN/OBS CONSULT LVL 3,45M Patient Type New History Problem Focused Exam Problem Focused Medical Decision Making Moderate Complexity Diagnoses Palliative care by specialist Z51.5 Counseling regarding advanced directives and goals of care Z71.89 Advanced directives, counseling/discussion Z71.89 Encounter for hospice care discussion Z71.89 Additional Codes Advanced Care Planning - 60784 Advanced Care Planning 30 Min: 61357 Advanced Care Planning 30 Min ([id number])
--- NOTE | 2024-07-07 10:39 | Hospitalist Progress Note ---
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 Biapical irregular consolidative opacities are new from the 04/26/2024 radiation therapy scan and may be on a postradiation basis. Attention on follow-up recommended. Right basilar predominant mucous plugging with tree-in-bud nodules and patchy opacities suspicious for aspiration pneumonitis. Small right pleural effusion. Pulmonary emphysema. Acute and slightly displaced fracture of the lateral right ninth rib. Pulm eval and recs noted CXR today show stable to improvement in pneumothorax Patient on room air Right 9th Rib Fracture S/P Recent Fall ISO Age-Related Osteoporosis: --CXR and chest CT notable for an acute anterolateral right 9th rib fracture Pain control Fall precautions PT OT eval noted Pericardial Effusion: Chest CT notable for a small pericardial effusion measuring 1.3cm. --ECHO: Small to moderate pericardial effusion with focal moderate fluid collection adjacent to the posterior left ventricular vessel and right atrium and right ventricular lateral free wall. Tamponade is absent. EF 60 to 65%. No prior study for comparison Denies any chest pain Laryngeal Squamous Cell Carcinoma Triple-Negative Right Breast Cancer: Follows with [facility] Radiation Oncology and Dr. Geronimo of [facility] Hematology/Oncology. Most recently had visit with Dr. Geronimo on 06/29/24. She is currently only on Keytruda therapy; chemotherapy is on hold. 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 Patient also previously diagnosed with triple-negative right breast cancer in December 2023. --Staging PET scan done on 02/22/24 which revealed metabolic inferolateral right breast nodule with mildly metabolic right axillary lymph nodes consistent with known breast cancer with lymph node metastasis, right medial supraclavicular hypermetabolic lymph node favors metastatic disease, hypermetabolic laryngeal mass suspicious for primary malignancy or metastasis. FNA from the right supraclavicular lymph node was positive for metastatic adenocarcinoma consistent with metastatic adenocarcinoma of mammary origin. --Patient has so far completed 4 cycles of combination treatment including combination of Keytruda plus carboplatin and Taxol. She also completed radiation therapy to the laryngeal cancer. Follow-up ultrasound of the breast and the axillary area showed good response. Ultrasound of the head and neck revealed prominent right supraclavicular lymph node and few additional prominent bilateral cervical lymph nodes which could represent reactive versus metastasis. Patient is scheduled for repeat PET scan on 08/08/24. Abnormal CT chest Aspiration pneumonitis --Chest CT noted biapical irregular consolidative opacities which are new from her 05/13/24 radiation therapy scan. May be on a postradiation basis. Attention on follow-up recommended. --BioFire negative --Videoswallow study show silent aspiration with thin and nectar consistencies Continue with pureed Aspiration precautions Severe Malnutrition & Dysphagia ISO Laryngeal Cancer: BMI 16, weight 41kg on admission. Appetite has been poor overall for many months since receiving treatment for her laryngeal cancer. Nutrition recs noted Boost ordered Tobacco Use Disorder: Smokes about 1/2 ppd x 26 years. Encourage smoking cessation. Anemia of chronic disease Denies any acute bleeding issues Other Chronic Medical Conditions: Hypothyroidism - Continue levothyroxine GERD - Continue Pepcid. Palliative consulted for GOC DVT Px: SCDs/TEDs for now Code Status: DNR/DNI I updated at bedside. I went over all the findings during this admission We also discussed her aspiration and risks with that. I expressed that her prognosis gets worse with all the comorbodities found this admission. I told him about Palliative being consulted. He is open to discussing with them I spent a total of 50 minutes coordinating, documenting and providing care for this patient excluding time spent in performance of separately billed services Admission and Anticipated Discharge Date Admission Date: July 04, 2024 Subjective Patient seen and examined Reports mild right rib pain is controlled Has poor appetite No new complaints on ROS Physical Exam Constitutional: + well hydrated, + thin and + malnourish ed; no acute distress Eyes: PERRL, conjunctivae normal, anicteric sclerae Respiratory: normal respiratory effort, lungs clear to auscultation Cardiovascular: Rate/Rhythm: regular rate and regular rhythm Gastrointestinal (Abdomen): normal bowel sounds, soft, nontender, no hepatosplenomegaly Musculoskeletal: No pedal edema Neurologic: PERRL, EOMI, accommodation nl, no face palsy, no dysarthria Psychiatric: A+Ox3, euthymic affect Results & Data Results & Data Vital Signs (Past 12 Hours) Vital Signs Temp Pulse Pulse Resp BP Pulse Ox O2 Del Method 07/07/24 08:09 36.8 C 71 18 116/64 94 Room Air 07/07/24 07:00 74 07/07/24 07:00 69 18 92 Room Air 07/07/24 03:33 36.7 C 68 18 132/73 92 Room Air 07/06/24 22:56 65 Laboratory Results Abnormal lab results 07/07/24 Range/Units 06:29 RBC 3.16 L (4.20-5.40) M/uL Hgb 8.7 L (12.0-16.0) g/dl Hct 28.7 L (37.0-47.0) % MCHC 30.3 L (32.0-36.0) g/dL RDW Std Deviation 52.0 H (36.4-46.3) fL RDW Coeff of Vikram 15.7 H (11.5-14.5) % Chloride 109 H (98-107) mmol/L AST 11 L (13-39) U/L Albumin 3.1 L (3.4-5.0) gm/dl (1) Fall Encounter type: initial encounter Qualified Code(s): W19.XXXA - Unspecified fall, initial encounter (6) Cancer of right breast Breast location: unspecified site of breast Estrogen receptor status: unspecified Patient sex: female Qualified Code(s): C50.911 - Malignant neoplasm of unspecified site of right female breast (8) Dysphagia Dysphagia type: unspecified Qualified Code(s): R13.10 - Dysphagia, unspecified
[2024-07-07] MEDS: MoRPHine SULFATE 2 MG/ML CARP IV PRN (21:54)
[2024-07-08 07:11] LABS: BUN Creatinine Ratio 21.1 (10-20); Creatinine Clr Calc Pharmacy 38.8 ml/min; Magnesium 2.1 mg/dl (1.7-2.4); Phosphorus 3.8 mg/dl (2.5-4.9); Potassium 3.5 mmol/L (3.5-5.1)
--- NOTE | 2024-07-08 10:30 | Palliative Care Progress Note ---
Date of Service July 08, 2024 Assessment & Plan (1) Advanced directives, counseling/discussion: Plan: A 75 min face to face ACP meeting was held this morning with Leslie, her and her younger sister. Sister had very strong expressed opinions that Leslie "must go to rehab, get stronger, eat more and keep fighting." now stating he feels this is reasonable plan bc it is what her sisters and their children want even though yesterday he was in agreement with pt for a return home and asking for hospice. We discussed her overall frailty, declining PS and cachexia/anorexia. She is not feeling much hunger, trouble swallowing, food not always staying down or she swallows wrong. She does NOT want SHIRA or PEG. She finds refusing her family to be draining emotionally and physically. I contacted her oncology physician Dr Geronimo and reviewed her case. He notes while she is not a current candidate for chemo, if she were to improve/feel better/get stronger, he would welcome the chance to see her in clinic and revisit options. I told her this is a very fair and reasonable approach. After listening to the wishes and preferences of her and sister, I asked Leslie directly what she wanted for herself. She replied "I want to go home. I want to be home. I don't want to go anywhere or [facility]." We discussed adding hospice to her care at home, noting that sometimes, when the focus of care transitions to that of QOL and comfort, we can see patients thriving with the nurturing of this kind of care and they get better, sometimes so much better that they "graduate" from hospice and can have a follow up with specialists such as oncology. I told Leslie we can ask hospice to provide some gentle in home PT and can assist with PT on days PT is not in house. We spoke about hospice: I provided education about the hospice benefit: an interdisciplinary program offered by nurses, nurses aides, social workers, chaplains and a medical research assistant for patients with a terminal condition and a life expectancy of less than 6 months. This is covered by Medicare at 100%/no out of pocket expense to patient and all meds/supplies needed by patient for the reason they are on hospice are paid for/covered by hospice. The goal is assure quality of life of the patient in their home setting (home, fdc, inpatient hospice setting) by providing symptoms management, psychosocial and spiritual support. However, they cannot offer 24 hours care and if the family is unable to provide that care, they will have to consider personal care with out of pocket cost vs. fdc placement. We discussed the goals of hospice as a patient service and the goals of care; we discussed EOL trajectories and transitions delma the emotional impact of realizing mortality as a concrete reality from prior abstract considerations. Pt was reassured that no matter where they are along this trajectory, they are not alone - their medical team will remain by their side through their journey. Discussed the pros/cons of accepting help when especially weakened and distressed by pain-which would also help provide relief/decrease caregiver burden/strain. She would like home with hospice with the [facility] and early next week is a reasonable dc goal. Leslie shared that she is tired of being poked and prodded, of pursuing interventions that are not delivering a benefit she is finding meaningful. She is feeling weaker and sicker in spite of therapies. She feels her time may be short and she wants to be home and with her family through this time. She does not want to in a hospital, fdc or such place. She recognizes her family is scared of her dying and we spoke about how sometimes an response to grief can be to defer accepting it by focusing of "aggressive care" as the "cure" vs accepting a patient's situation. Advised Leslie her medical team wants to honor her wishes/desires/preferences and we want to be sure we are not doing things to her that may not be doing anything FOR her. After this conversation, her sister and were willing to support her choice. seemed relieved, sister is still anxious and continued asking if ongoing oncology visit, labs etc will be happening. Another review of hospice guidelines and philosophy was reviewed, and she was more accepting. Leslie stayed firm on wanting to go home. When asked if she wanted to try [facility] she said no, i want to go home. i want to be home. She is willing to try in home PT and does not want to pursue anything aggressive for now. She is willing to follow back up in OP oncology office if she feels stronger in a few weeks and I offered/she accepted a telemed visit with me in 2 weeks post dc to check in and assess her response to hospice care. (2) Counseling regarding advanced directives and goals of care: (3) Encounter for hospice care discussion: (4) Palliative care by specialist: (5) Primary squamous cell carcinoma of supraglottis: (6) Malignant neoplasm of lower-outer quadrant of right breast of female, estrogen receptor negative: Plan Palliative Prognostic Score (PaP) = 13.5 points/ Interpretation:30-day survival probability <30% Palliative Prognostic Index Score (PPI) = 6.5 points ? If the PPI is greater than 6.0, survival is less than three weeks (Sensitivity - 80%; Specificity - 85%). Lengthy d/wpt and family as noted above Refer for dc home with [facility] No chemo/keytruda at this time, will see how she is doing after a few weeks on hospice Thank you for allowing us to participate in the ongoing care of this patient. Please page with any additional concerns. Michael Rubalcava 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 -TN: Negative. -HER-2 oncoprotein expression: Negative. Biopsy of the right supraclavicular lymph node was performed by [facility] 03/03/2024 and showed metastatic adenocarcinoma of mammary origin, CK7+, OSBALDO 3+. Moderately differentiated laryngeal squamous cell carcinoma 03/04/24 Cancer Staging Triple negative breast cancer (HCC) Staging form: Breast, AJCC 8th Edition - Clinical stage from 01/20/2024: Stage IIIC (cT1, cN3(f), cM0, G3, ER-, TN-, HER2-) - Signed by Myla Ortega MD on 04/26/2024 CURRENT TREATMENT: 03/07/2024: Started chemotherapy with Pembrolizumab + Carbo AUC 2 + Taxol 80 mg/m2 D 1,8,15 Q 21 C 1-4 to be followed by Pembrolizumab + AC Q 21 days C 5-8. 05/05/2024: Started radiation therapy for the laryngeal carcinoma. ONCOLOGY HISTORY: She was also found to have a Laryngeal mass and right supraclav LN on staging PET scan. Biopsy of the right supraclavicular lymph node was performed by [facility] 03/03/2024 and showed metastatic adenocarcinoma of mammary origin, CK7+, OSBALDO 3+. Seen by ENT on 02/29/2024, underwent laryngoscopy on 03/04/2024 that showed an exophytic and friable lesion involving the supraglottis (laryngeal surface of the epiglottis, right AE fold, false vocal folds), without involvement of the true vocal folds. Biopsy of this laryngeal mass performed on 03/04/2024: Moderately differentiated squamous cell carcinoma Laryngeal surface of epiglottis, biopsy on 03/04/2024 showed Moderately differentiated squamous cell carcinoma 02/09/2024: Echocardiogram LVEF 60% 02/16/2024: Mediport placement 02/22/2024: PET scan images and report was reviewed in detail with the patient and showed the following abnormal findings: 2.1 x 1.6 cm right paracentral anterior hypermetabolic laryngeal mass at the level of the vocal cords, SUV 20.5. 2.1 x 1.0 cm right medial supraclavicular lymph node, SUV 4.1 Inferolateral right breast round 9 mm nodule, SUV 3.5. Sub-centimeter right axillary mildly metabolic lymph nodes, SUV 3.1 IMPRESSION 1. Mildly metabolic inferolateral right breast nodule with mildly metabolic right axillary lymph nodes consistent with known breast cancer with lymph node metastasis. 2. Right medial supraclavicular hypermetabolic lymph node favors metastatic disease. 3. Hypermetabolic laryngeal mass suspicious for primary malignancy or metastasis. Recommend direct visualization. Results & Data Vital Signs (Past 12 Hours) Vital Signs Temp Pulse Pulse Resp BP Pulse Ox O2 Del Method 07/08/24 07:55 36.8 C 79 18 139/65 91 Room Air 07/08/24 07:34 60 18 94 Room Air 07/08/24 07:00 60 07/08/24 02:27 36.9 C 62 20 117/61 94 Room Air 07/08/24 00:52 66 07/07/24 22:36 37.0 C 59 L 18 125/72 98 Nasal Cannula O2 Flow Rate 07/08/24 07:55 07/08/24 07:34 07/08/24 07:00 07/08/24 02:27 07/08/24 00:52 07/07/24 22:36 1 PG Care Time/CCT Total # of Minutes Spent Total Time Spent with Patient: Total time spent is greater than 50% in coordination of care (as documented) at patient's floor/unit and/or counseling patient: I spent 140 minutes overall addressing this case: 30 min in medical data review/discussion with referring provider(s) and/or preparation for the visit inc OSH data review, d/wOSH oncology team 20 min in direct interaction with the patient/exam 60 min in Advance Care Planning/Goals of Care discussions as detailed above in note (must be >16min) 10 min in subsequent review and synthesis of assessment and plan 20 min communicating with other providers regarding the patient's case: nursing, oncology, primary team, care mgt Prolonged Care Time Prolonged Care Time: Yes Total Prolonged Care Time: 30 Advanced Care Planning 49414 Advanced Care Planning 30 Min 49929 Advanced Care Planning Additional 30 Min [place] [address] SUB INP/OBS CARE 3/50MIN (25 - SIGNIFICANT, SEPARATELY IDENTIFIABLE ) Patient Type Established History Comprehensive Exam Comprehensive Medical Decision Making High Complexity Diagnoses Advanced directives, counseling/discussion Z71.89 Counseling regarding advanced directives and goals of care Z71.89 Encounter for hospice care discussion Z71.89 Palliative care by specialist Z51.5 Primary squamous cell carcinoma of supraglottis C32.1 Malignant neoplasm of lower-outer quadrant of right breast of female, estrogen receptor negative C50.511; Z17.1 Additional Codes Advanced Care Planning - 95518 Advanced Care Planning 30 Min: 26136 Advanced Care Planning 30 Min ([id number]) Advanced Care Planning - 74276 Advanced Care Planning Additional 30 Min: 08252 Advanced Care Planning Additional 30 Min ([id number]) Prolonged Care Time - Prolonged Care Time: Yes ([id number])
--- NOTE | 2024-07-08 12:19 | Hospitalist Progress Note ---
Date of Service July 08, 2024 Assessment & Plan (1) Fall: (2) Right rib fracture: (3) Pneumothorax on right: (4) Pericardial effusion: (5) Laryngeal cancer: (6) Cancer of right breast: (7) Severe malnutrition: (8) Dysphagia: (9) Hypoxia: (10) Aspiration pneumonitis: Plan 68y/o F with PMHx significant for hypothyroidism due to Blayne's thyroiditis, COPD, pulmonary emphysema, laryngeal cancer, atherosclerosis of aorta, internal hemorrhoids, diverticulosis, age-related osteoporosis, cervical DDD, sensorineural hearing loss of both ears, 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 Biapical irregular consolidative opacities are new from the 04/26/2024 radiation therapy scan and may be on a postradiation basis. Attention on follow-up recommended. Right basilar predominant mucous plugging with tree-in-bud nodules and patchy opacities suspicious for aspiration pneumonitis. Small right pleural effusion. Pulmonary emphysema. Acute and slightly displaced fracture of the lateral right ninth rib. Right 9th Rib Fracture S/P Recent Fall ISO Age-Related Osteoporosis: --CXR and chest CT notable for an acute anterolateral right 9th rib fracture Pain control Fall precautions Currently on room air Pericardial Effusion: Chest CT notable for a small pericardial effusion measuring 1.3cm. --ECHO: Small to moderate pericardial effusion with focal moderate fluid collection adjacent to the posterior left ventricular vessel and right atrium and right ventricular lateral free wall. Tamponade is absent. EF 60 to 65%. No prior study for comparison Laryngeal Squamous Cell Carcinoma Triple-Negative Right Breast Cancer: Follows with [facility] Radiation Oncology and Dr. Geronimo of [facility] Hematology/Oncology. Most recently had visit with Dr. Geronimo on 06/29/24. She is currently only on Keytruda therapy; chemotherapy is on hold. 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 Patient also previously diagnosed with triple-negative right breast cancer in December 2023. --Staging PET scan done on 02/22/24 which revealed metabolic inferolateral right breast nodule with mildly metabolic right axillary lymph nodes consistent with known breast cancer with lymph node metastasis, right medial supraclavicular hypermetabolic lymph node favors metastatic disease, hypermetabolic laryngeal mass suspicious for primary malignancy or metastasis. FNA from the right supraclavicular lymph node was positive for metastatic adenocarcinoma consistent with metastatic adenocarcinoma of mammary origin. --Patient has so far completed 4 cycles of combination treatment including combination of Keytruda plus carboplatin and Taxol. She also completed radiation therapy to the laryngeal cancer. Follow-up ultrasound of the breast and the axillary area showed good response. Ultrasound of the head and neck revealed prominent right supraclavicular lymph node and few additional prominent bilateral cervical lymph nodes which could represent reactive versus metastasis. Patient is scheduled for repeat PET scan on 08/08/24. Abnormal CT chest Aspiration pneumonitis --Chest CT noted biapical irregular consolidative opacities which are new from her 05/13/24 radiation therapy scan. May be on a postradiation basis. Attention on follow-up recommended. --BioFire negative --Videoswallow study showed silent aspiration with thin and nectar consistencies Continue with pureed Aspiration precautions Severe Malnutrition & Dysphagia ISO Laryngeal Cancer: BMI 16, weight 41kg on admission. Appetite has been poor overall for many months since receiving treatment for her laryngeal cancer. Nutrition recs noted Boost ordered Other Chronic Medical Conditions: Anemia of chronic disease Hypothyroidism - Continue levothyroxine GERD - Continue Pepcid. Code Status: DNR/DNI Patient, and sister had a [facility] meeting with Palliative care team today Notified by Sary Rubalcava that they agreed to home with home hospice discharge on thursday or with [facility] and will need a hospital bed, shower chair and other assistive device; continue current level of care,no escalation. Palliative notified Dr Geronimo and patient will follow up with him I spent a total of 55 minutes coordinating, documenting and providing care for this patient excluding time spent in performance of separately billed services Admission and Anticipated Discharge Date Admission Date: July 04, 2024 Subjective Patient seen and examined No new complaints Reports right rib pain is well controlled Physical Exam Constitutional: + well hydrated, + thin and + malnourish ed; no acute distress Eyes: PERRL, conjunctivae normal, anicteric sclerae Respiratory: normal respiratory effort, lungs clear to auscultation Cardiovascular: Rate/Rhythm: regular rate and regular rhythm Gastrointestinal (Abdomen): normal bowel sounds, soft, nontender, no hepatosplenomegaly Musculoskeletal: No pedal edema Neurologic: PERRL, EOMI, accommodation nl, no face palsy, no dysarthria Psychiatric: A+Ox3, euthymic affect Results & Data Results & Data Vital Signs (Past 12 Hours) Vital Signs Temp Pulse Pulse Resp BP Pulse Ox O2 Del Method 07/08/24 11:54 36.5 C 74 19 127/63 97 Room Air 07/08/24 09:00 Room Air 07/08/24 07:55 36.8 C 79 18 139/65 91 Room Air 07/08/24 07:34 60 18 94 Room Air 07/08/24 07:00 60 07/08/24 02:27 36.9 C 62 20 117/61 94 Room Air 07/08/24 00:52 66 Laboratory Results Abnormal lab results 07/08/24 Range/Units 06:20 Chloride 109 H (98-107) mmol/L BUN/Creatinine Ratio 21.1 H (10-20) (1) Fall Encounter type: initial encounter Qualified Code(s): W19.XXXA - Unspecified fall, initial encounter (6) Cancer of right breast Breast location: unspecified site of breast Estrogen receptor status: unspecified Patient sex: female Qualified Code(s): C50.911 - Malignant neoplasm of unspecified site of right female breast (8) Dysphagia Dysphagia type: unspecified Qualified Code(s): R13.10 - Dysphagia, unspecified
[2024-07-08] MEDS: HYDROCODONE/ACETAMOPHEN 5/325MG TAB PO PRN (17:20)
--- NOTE | 2024-07-09 13:15 | Hospitalist Progress Note ---
Date of Service July 09, 2024 Assessment & Plan (1) Fall: (2) Right rib fracture: (3) Pneumothorax on right: (4) Pericardial effusion: (5) Laryngeal cancer: (6) Cancer of right breast: (7) Severe malnutrition: (8) Dysphagia: (9) Hypoxia: (10) Aspiration pneumonitis: Plan 68y/o F with PMHx significant for hypothyroidism due to Blayne's thyroiditis, COPD, pulmonary emphysema, laryngeal cancer, atherosclerosis of aorta, internal hemorrhoids, diverticulosis, age-related osteoporosis, cervical DDD, sensorineural hearing loss of both ears, 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 Biapical irregular consolidative opacities are new from the 04/26/2024 radiation therapy scan and may be on a postradiation basis. Attention on follow-up recommended. Right basilar predominant mucous plugging with tree-in-bud nodules and patchy opacities suspicious for aspiration pneumonitis. Small right pleural effusion. Pulmonary emphysema. Acute and slightly displaced fracture of the lateral right ninth rib. Right 9th Rib Fracture S/P Recent Fall ISO Age-Related Osteoporosis: --CXR and chest CT notable for an acute anterolateral right 9th rib fracture Pain control Fall precautions Currently on room air Pericardial Effusion: Chest CT notable for a small pericardial effusion measuring 1.3cm. --ECHO: Small to moderate pericardial effusion with focal moderate fluid collection adjacent to the posterior left ventricular vessel and right atrium and right ventricular lateral free wall. Tamponade is absent. EF 60 to 65%. No prior study for comparison Laryngeal Squamous Cell Carcinoma Triple-Negative Right Breast Cancer: Follows with [facility] Radiation Oncology and Dr. Geronimo of [facility] Hematology/Oncology. Most recently had visit with Dr. Geronimo on 06/29/24. She is currently only on Keytruda therapy; chemotherapy is on hold. 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 Patient also previously diagnosed with triple-negative right breast cancer in December 2023. --Staging PET scan done on 02/22/24 which revealed metabolic inferolateral right breast nodule with mildly metabolic right axillary lymph nodes consistent with known breast cancer with lymph node metastasis, right medial supraclavicular hypermetabolic lymph node favors metastatic disease, hypermetabolic laryngeal mass suspicious for primary malignancy or metastasis. FNA from the right supraclavicular lymph node was positive for metastatic adenocarcinoma consistent with metastatic adenocarcinoma of mammary origin. --Patient has so far completed 4 cycles of combination treatment including combination of Keytruda plus carboplatin and Taxol. She also completed radiation therapy to the laryngeal cancer. Follow-up ultrasound of the breast and the axillary area showed good response. Ultrasound of the head and neck revealed prominent right supraclavicular lymph node and few additional prominent bilateral cervical lymph nodes which could represent reactive versus metastasis. Patient is scheduled for repeat PET scan on 08/08/24. Abnormal CT chest Aspiration pneumonitis --Chest CT noted biapical irregular consolidative opacities which are new from her 05/13/24 radiation therapy scan. May be on a postradiation basis. Attention on follow-up recommended. --BioFire negative --Videoswallow study showed silent aspiration with thin and nectar consistencies Continue with pureed Aspiration precautions Severe Malnutrition & Dysphagia ISO Laryngeal Cancer: BMI 16, weight 41kg on admission. Appetite has been poor overall for many months since receiving treatment for her laryngeal cancer. Nutrition recs noted Boost ordered Other Chronic Medical Conditions: Anemia of chronic disease Hypothyroidism - Continue levothyroxine GERD - Continue Pepcid. Code Status: DNR/DNI Per [facility] on 07/08/24; Planned for discharge on to home hospice after devices are delivered on Thursday I spent a total of 35 minutes coordinating, documenting and providing care for this patient excluding time spent in performance of separately billed services Admission and Anticipated Discharge Date Admission Date: July 04, 2024 Subjective Patient seen and examined No new complaints Had a good breakfast per Reports right rib pain is well controlled Physical Exam Constitutional: + well hydrated, + thin and + malnourish ed; no acute distress Eyes: PERRL, conjunctivae normal, anicteric sclerae Respiratory: normal respiratory effort, lungs clear to auscultation Cardiovascular: Rate/Rhythm: regular rate and regular rhythm Gastrointestinal (Abdomen): normal bowel sounds, soft, nontender, no hepatosplenomegaly Musculoskeletal: No pedal edema Neurologic: PERRL, EOMI, accommodation nl, no face palsy, no dysarthria Psychiatric: A+Ox3, euthymic affect Results & Data Results & Data Vital Signs (Past 12 Hours) Vital Signs Temp Pulse Pulse Resp BP Pulse Ox O2 Del Method 07/09/24 11:31 36.8 C 73 16 98/61 L 96 Room Air 07/09/24 08:00 79 07/09/24 08:00 Room Air 07/09/24 07:47 76 14 90 Room Air 07/09/24 07:13 36.8 C 58 L 17 111/65 91 Room Air 07/09/24 03:44 36.7 C 56 L 18 103/63 96 Room Air 07/09/24 02:05 57 L (1) Fall Encounter type: initial encounter Qualified Code(s): W19.XXXA - Unspecified fall, initial encounter (6) Cancer of right breast Breast location: unspecified site of breast Estrogen receptor status: unspecified Patient sex: female Qualified Code(s): C50.911 - Malignant neoplasm of unspecified site of right female breast (8) Dysphagia Dysphagia type: unspecified Qualified Code(s): R13.10 - Dysphagia, unspecified
--- NOTE | 2024-07-10 09:59 | Hospitalist Progress Note ---
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 Biapical irregular consolidative opacities are new from the 04/26/2024 radiation therapy scan and may be on a postradiation basis. Attention on follow-up recommended. Right basilar predominant mucous plugging with tree-in-bud nodules and patchy opacities suspicious for aspiration pneumonitis. Small right pleural effusion. Pulmonary emphysema. Acute and slightly displaced fracture of the lateral right ninth rib. Right 9th Rib Fracture S/P Recent Fall ISO Age-Related Osteoporosis: --CXR and chest CT notable for an acute anterolateral right 9th rib fracture Pain control Fall precautions Currently on room air Pericardial Effusion: Chest CT notable for a small pericardial effusion measuring 1.3cm. --ECHO: Small to moderate pericardial effusion with focal moderate fluid collection adjacent to the posterior left ventricular vessel and right atrium and right ventricular lateral free wall. Tamponade is absent. EF 60 to 65%. 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 Geronimo of [facility] Hematology/Oncology. Most recently had visit with Dr. Geronimo on 06/29/24. She is currently only on Keytruda therapy; chemotherapy is on hold. 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 Patient also previously diagnosed with triple-negative right breast cancer in December 2023. --Staging PET scan done on 02/22/24 which revealed metabolic inferolateral right breast nodule with mildly metabolic right axillary lymph nodes consistent with known breast cancer with lymph node metastasis, right medial supraclavicular hypermetabolic lymph node favors metastatic disease, hypermetabolic laryngeal mass suspicious for primary malignancy or metastasis. FNA from the right supraclavicular lymph node was positive for metastatic adenocarcinoma consistent with metastatic adenocarcinoma of mammary origin. --Patient has so far completed 4 cycles of combination treatment including combination of Keytruda plus carboplatin and Taxol. She also completed radiation therapy to the laryngeal cancer. Follow-up ultrasound of the breast and the axillary area showed good response. Ultrasound of the head and neck revealed prominent right supraclavicular lymph node and few additional prominent bilateral cervical lymph nodes which could represent reactive versus metastasis. Patient is scheduled for repeat PET scan on 08/08/24. Abnormal CT chest Aspiration pneumonitis --Chest CT noted biapical irregular consolidative opacities which are new from her 05/13/24 radiation therapy scan. May be on a postradiation basis. Attention on follow-up recommended. --BioFire negative --Videoswallow study showed silent aspiration with thin and nectar consistencies Continue with pureed Aspiration precautions Severe Malnutrition & Dysphagia ISO Laryngeal Cancer: BMI 16, weight 41kg on admission. Appetite has been poor overall for many months since receiving treatment for her laryngeal cancer. Nutrition recs noted Boost ordered Other Chronic Medical Conditions: Anemia of chronic disease Hypothyroidism - Continue levothyroxine GERD - Continue Pepcid. Code Status: DNR/DNI Had GOC with Palliative team on 07/08/24; Planned for discharge on to home hospice after devices are delivered on Thursday I spent a total of 35 minutes coordinating, documenting and providing care for this patient excluding time spent in performance of separately billed services Admission and Anticipated Discharge Date Admission Date: July 04, 2024 Subjective Patient seen and examined Reports right rib pain is well controlled No new complaints Physical Exam Constitutional: + well hydrated, + thin and + malnourish ed; no acute distress Eyes: PERRL, conjunctivae normal, anicteric sclerae Respiratory: normal respiratory effort, lungs clear to auscultation Cardiovascular: Rate/Rhythm: regular rate and regular rhythm Gastrointestinal (Abdomen): normal bowel sounds, soft, nontender, no hepatosplenomegaly Musculoskeletal: No pedal edema Neurologic: PERRL, EOMI, accommodation nl, no face palsy, no dysarthria Psychiatric: A+Ox3, euthymic affect Results & Data Results & Data Vital Signs (Past 12 Hours) Vital Signs Temp Pulse Resp BP Pulse Ox O2 Del Method 07/10/24 07:56 36.6 C 66 16 136/70 98 Nebulizer 07/10/24 07:19 68 18 94 Room Air 07/10/24 01:36 Room Air (1) Fall Encounter type: initial encounter Qualified Code(s): W19.XXXA - Unspecified fall, initial encounter (6) Cancer of right breast Breast location: unspecified site of breast Estrogen receptor status: unspecified Patient sex: female Qualified Code(s): C50.911 - Malignant jesse plasm of unspecified site of right female breast (8) Dysphagia Dysphagia type: unspecified Qualified Code(s): R13.10 - Dysphagia, unspecified
--- NOTE | 2024-07-11 12:00 | Palliative Care Progress Note ---
Date of Service July 11, 2024 Assessment & Plan (1) Palliative care by specialist: Plan: Palliaitve care will continue to follow for ongoing symptom mgmt and emotional support. Pt to be DC to home with hospice tomorrow (2) Rib pain on right side: Plan: Pt has had minimal PRN opiate analgesia. States pain well managed today. Last prn opiate given on 07/09 00:54, pt denies pain today. (3) Need for comfort care: Plan: Pt transitioned to [facility] on 07/08/24 with plan for DC to home with hospice tomorrow. Plan as above Admission and Anticipated Discharge Date Admission Date: July 04, 2024 Subjective Assessed pt at bedside, she was transitioned to [facility] on 07/08/2024 Pt is awake alert and oriented x4. She appears comfortable,in NAD. Respiratory rate/effort normal. No visitors at bedside. Review of Systems Review of Systems: All systems reviewed & are unremarkable except as noted in Subjective Constitutional: + malaise, + weakness, + anorexia and + weight loss Ear, Nose, Mouth, Throat: + change in voice and + hoarseness Physical Exam Constitutional: + ill appearing, + cachectic, + frail ap pearing and + malnou rished Eyes: PERRL, conjunctivae normal, anicteric sclerae ENMT: external ear and nose normal, oropharynx normal Neck: trachea midline, no thyromegaly Respiratory: normal respiratory effort, lungs clear to auscultation Cardiovascular: RRR, no murmur, no edema Gastrointestinal (Abdomen): normal bowel sounds, soft, nontender, no hepatosplenomegaly Musculoskeletal: Extremities: + muscle atrophy generalized weakness Skin: + turgor decreased, + dry skin and + pal verito Neurologic: PERRL, EOMI, accommodation nl, no face palsy, no dysarthria Results & Data Vital Signs (Past 12 Hours) Vital Signs Temp Pulse Resp BP Pulse Ox O2 Del Method 07/11/24 08:10 Room Air 07/11/24 07:32 72 16 90 Room Air 07/11/24 07:24 36.8 C 70 16 116/72 93 Room Air Laboratory Results No further labs or diagnostics in concert with comfort directed care. Diagnostic Findings No further labs or diagnostics in concert with comfort directed care. Medications Administered Current Inpatient Medications Acetaminophen (Acetaminophen 325 Mg Tab) 650 mg PO Q4H PRN PRN Reason: Mild Pain (1-5) or Fever Stop: 08/03/24 18:47 Last Admin: 07/10/24 20:24 Dose: 650 mg Hydrocodone Bitart/Acetaminophen (Hydrocodone/Acetamophen 5/325mg Tab) 1 tab PO Q4 PRN PRN Reason: Moderate/Severe Pain (6-10) Stop: 07/19/24 09:18 Last Admin: 07/09/24 21:51 Dose: 1 tab Al Hydrox/Mg Hydrox/Simethicone (Aluminum/Magnesium Susp 30 Ml Udc) 15 ml PO Q4H PRN PRN Reason: Dyspepsia Stop: 08/03/24 18:47 Famotidine (Famotidine 20 Mg Tab) 20 mg PO BID [facility] Stop: 08/03/24 20:59 Last Admin: 07/11/24 08:04 Dose: 20 mg Fluconazole (Fluconazole 100 Mg Tab) 100 mg PO DAILY [facility] Stop: 08/04/24 08:59 Last Admin: 07/11/24 08:05 Dose: 100 mg Guaifenesin (Guaifenesin Sugar Free 200 Mg/10 Ml Udc) 200 mg PO Q6H PRN PRN Reason: Cough Stop: 08/05/24 20:44 Last Admin: 07/09/24 23:21 Dose: 200 mg Heparin Sodium (Porcine) (Heparin 100 Unit/Ml 5ml Flush) 5 ml FLUSH PRN PRN PRN Reason: Flush Stop: 08/05/24 08:33 Last Admin: 07/09/24 00:54 Dose: 5 ml Levothyroxine Sodium (Levothyroxine Sodium 88 Mcg Tablet) 88 mcg PO DAILYBB [facility] Stop: 08/04/24 06:29 Last Admin: 07/11/24 05:20 Dose: 88 mcg Lidocaine (Lidocaine 5% 1 Patch) 1 patch TD QAM [facility] Stop: 08/03/24 18:59 Last Admin: 07/11/24 08:04 Dose: 1 patch Lidocaine HCl (Lidocaine Viscous 2% 15 Ml Udc) 15 ml PO Q6 [facility] Stop: 08/03/24 19:09 Last Admin: 07/11/24 11:31 Dose: 15 ml Magnesium Hydroxide (Magnesium Hydroxide Susp 30 Ml Udc) 30 ml PO Q12H PRN PRN Reason: Constipation Stop: 08/03/24 18:47 Miscellaneous (Remove Lidoderm Patch) 1 each N/A DAILY@2100 [facility] Stop: 08/03/24 22:59 Last Admin: 07/10/24 20:28 Dose: 1 each Morphine Sulfate (Morphine Sulfate 2 Mg/Ml Carp) 2 mg IV Q4H PRN PRN Reason: Mod-Sev Pain (Scale 4-10) Stop: 07/18/24 18:47 Last Admin: 07/09/24 00:54 Dose: 2 mg Ondansetron HCl (Ondansetron Inj 2 Mg/Ml 2 Ml Vial) 4 mg IV Q6H PRN PRN Reason: Nausea Stop: 08/03/24 18:47 Polyethylene Glycol (Polyethylene (Miralax) 17 Gm Pack) 17 gm PO DAILY PRN PRN Reason: Constipation Stop: 08/03/24 18:47 Sodium Chloride (Sodium Chlor 7% 4 Ml Neb) 4 ml NEB BIDR [facility] Stop: 08/04/24 18:59 Last Admin: 07/11/24 07:30 Dose: 4 ml Sucralfate (Sucralfate 1 Gm Tab) 1 gm PO Q6 [facility] Stop: 08/03/24 18:59 Last Admin: 07/11/24 11:31 Dose: 1 gm PG Care Time/CCT Total # of Minutes Spent Total Time Spent with Patient: Total time spent is greater than 50% in coordination of care (as documented) at patient's floor/unit and/or counseling patient: Coding [place] [address] SUB INP/OBS CARE 1/25MIN Patient Type Established History Problem Focused Exam Problem Focused Medical Decision Making Straight Forward Diagnoses Palliative care by specialist Z51.5 Rib pain on right side R07.81 Need for comfort care
--- NOTE | 2024-07-11 12:04 | Hospitalist Progress Note ---
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 Biapical irregular consolidative opacities are new from the 04/26/2024 radiation therapy scan and may be on a postradiation basis. Attention on follow-up recommended. Right basilar predominant mucous plugging with tree-in-bud nodules and patchy opacities suspicious for aspiration pneumonitis. Small right pleural effusion. Pulmonary emphysema. Acute and slightly displaced fracture of the lateral right ninth rib. Right 9th Rib Fracture S/P Recent Fall ISO Age-Related Osteoporosis: --CXR and chest CT notable for an acute anterolateral right 9th rib fracture Pain control Fall precautions Currently on room air Pericardial Effusion: Chest CT notable for a small pericardial effusion measuring 1.3cm. --ECHO: Small to moderate pericardial effusion with focal moderate fluid collection adjacent to the posterior left ventricular vessel and right atrium and right ventricular lateral free wall. Tamponade is absent. EF 60 to 65%. No prior study for comparison Laryngeal Squamous Cell Carcinoma Triple-Negative Right Breast Cancer: Follows with [facility] Radiation Oncology and Dr. Geronimo of [facility] Hematology/Oncology. Most recently had visit with Dr. Geronimo on 06/29/24. She is currently only on Keytruda therapy; chemotherapy is on hold. 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 Patient also previously diagnosed with triple-negative right breast cancer in December 2023. --Staging PET scan done on 02/22/24 which revealed metabolic inferolateral right breast nodule with mildly metabolic right axillary lymph nodes consistent with known breast cancer with lymph node metastasis, right medial supraclavicular hypermetabolic lymph node favors metastatic disease, hypermetabolic laryngeal mass suspicious for primary malignancy or metastasis. FNA from the right supraclavicular lymph node was positive for metastatic adenocarcinoma consistent with metastatic adenocarcinoma of mammary origin. --Patient has so far completed 4 cycles of combination treatment including combination of Keytruda plus carboplatin and Taxol. She also completed radiation therapy to the laryngeal cancer. Follow-up ultrasound of the breast and the axillary area showed good response. Ultrasound of the head and neck revealed prominent right supraclavicular lymph node and few additional prominent bilateral cervical lymph nodes which could represent reactive versus metastasis. Patient is scheduled for repeat PET scan on 08/08/24. Abnormal CT chest Aspiration pneumonitis --Chest CT noted biapical irregular consolidative opacities which are new from her 05/13/24 radiation therapy scan. May be on a postradiation basis. Attention on follow-up recommended. --BioFire negative --Videoswallow study showed silent aspiration with thin and nectar consistencies Continue with pureed Aspiration precautions Severe Malnutrition & Dysphagia ISO Laryngeal Cancer: BMI 16, weight 41kg on admission. Appetite has been poor overall for many months since receiving treatment for her laryngeal cancer. Nutrition recs noted Boost ordered Other Chronic Medical Conditions: Anemia of chronic disease Hypothyroidism - Continue levothyroxine GERD - Continue Pepcid. Code Status: DNR/DNI Had GOC with Palliative team on 07/08/24; Planned for discharge on tomorrow to home hospice after devices are delivered today I spent a total of 35 minutes coordinating, documenting and providing care for this patient excluding time spent in performance of separately billed services Admission and Anticipated Discharge Date Admission Date: July 04, 2024 Subjective Patient seen and examined No new complaints Physical Exam Constitutional: + well hydrated, + thin and + malnourish ed; no acute distress Eyes: PERRL, conjunctivae normal, anicteric sclerae Respiratory: normal respiratory effort, lungs clear to auscultation Cardiovascular: Rate/Rhythm: regular rate and regular rhythm Gastrointestinal (Abdomen): normal bowel sounds, soft, nontender, no hepatosplenomegaly Musculoskeletal: No pedal edema Neurologic: PERRL, EOMI, accommodation nl, no face palsy, no dysarthria Psychiatric: A+Ox3, euthymic affect Results & Data Results & Data Vital Signs (Past 12 Hours) Vital Signs Temp Pulse Resp BP Pulse Ox O2 Del Method 07/11/24 08:10 Room Air 07/11/24 07:32 72 16 90 Room Air 07/11/24 07:24 36.8 C 70 16 116/72 93 Room Air (1) Fall Encounter type: initial encounter Qualified Code(s): W19.XXXA - Unspecified fall, initial encounter (6) Cancer of right breast Breast location: unspecified site of breast Estrogen receptor status: unspecified Patient sex: female Qualified Code(s): C50.911 - Malignant neoplasm of unspecified site of right female breast (8) Dysphagia Dysphagia type: unspecified Qualified Code(s): R13.10 - Dysphagia, unspecified
[2024-07-11 20:11] VITALS: RESP 16
[2024-07-12 07:05] VITALS: BP 126/72; TEMP 98.2
[2024-07-12 07:37] VITALS: PULSE 70; O2SAT 97
--- NOTE | 2024-07-12 09:40 | Discharge Summary ---
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 History obtained from the patient and associated chart review. Patient seen at bedside with Dr. Go. Sustained a fall 2 days ago where she hit her right side against the toilet. Has been experiencing right-sided rib pain since the fall that has made it very difficult for her to sleep and perform ADLs. Denies any SOB or chest pain. 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 Follows with [facility] radiation oncology and Dr. Geronimo of [facility] hematology/oncology at [facility]. Patient was also previously diagnosed with triple-negative right breast cancer in December 2023. She had a staging PET scan done on 02/22/24 which revealed metabolic inferolateral right breast nodule with mildly metabolic right axillary lymph nodes consistent with known breast cancer with lymph node metastasis, right medial supraclavicular hypermetabolic lymph node favors metastatic disease, hypermetabolic laryngeal mass suspicious for primary malignancy or metastasis. FNA from the right supraclavicular lymph node was positive for metastatic adenocarcinoma consistent with metastatic adenocarcinoma of mammary origin. Patient has so far completed 4 cycles of combination treatment including combination of Keytruda plus carboplatin and Taxol. She also completed radiation therapy to the laryngeal cancer. Follow-up ultrasound of the breast and the axillary area showed good response. Ultrasound of the head and neck revealed prominent right supraclavicular lymph node and few additional prominent bilateral cervical lymph nodes which could represent reactive versus metastasis. Patient is scheduled for repeat PET scan on 08/08/24. Most recently had visit with Dr. Geronimo on 06/29/24. She is currently only on Keytruda therapy; chemotherapy is on hold. Imaging including CXR and chest CT in the ED were notable an acute anterolateral right ninth rib fracture. Imaging was also notable for the following: * Small right apical pneumothorax. * Increased interstitial markings and groundglass opacity in the right lung base c/f aspiration vs infectious pneumonitis. * Small pericardial effusion measuring 1.3cm. * Biapical irregular consolidative opacities which are new from her 05/13/24 radiation therapy scan. May be on a postradiation basis. Attention on follow- up recommended. * Small right and trace left pleural effusions. Mild to moderate pulmonary emphysema with bronchial wall thickening and mucous plugging. She endorses difficulties with swallowing over the past 6 months. Notes she has been aspiration/choking whilst eating food during this time. Appetite has been poor overall for many months since receiving treatment for her laryngeal cancer. Denies any recent fevers. Also denies any abdominal pain, diarrhea or urinary issues. Smokes about 1/2 ppd x 26 years. No recent alcohol use, last drink was approxim ately 3 months ago. No recreational drug use. O2 sat down to 87% on RA whilst in the ED. Currently on 2L NC and saturating around 97% SpO2 at rest. Otherwise VSS in the ED. Had lab work done earlier today available in her [place] records - copies of these labs are provided in the "Laboratory Results" section of this note. Patient refused to have labs drawn in the ED. Admission Exam Per Admitting Provider GENERAL: Alert and oriented x3. NAD, on 2L NC O2. Appears ill/frail/weak/cachectic. HEENT: No pallor, no icterus. Pupils equal, round and reactive to light. Oral mucosa dry. NECK: No JVD, no neck masses. HEART: S1 and S2 heard. Regular rate and rhythm. No murmur, no gallop. Rt lower chest tender to palpate, no bruise noted. RESPIRATORY SYSTEM: Normal AP diameter. No accessory muscle use. No wheezing, rll crackles. ABDOMEN: Soft, bowel sounds present, nontender, no distention. scaphoid appearance. CENTRAL NERVOUS SYSTEM: No facial droop. Speech is clear/soft. Obeys simple commands. Moves extremities. EXTREMITIES: No edema, no erythema seen. Principal Diagnosis Fall Right rib fracture Pneumothorax Severe malnutrition Pericardial effusion Aspiration Discharge Exam Constitutional + well hydrated, + thin and + malnourished; no acute distress Eyes PERRL, conjunctivae normal, anicteric sclerae Respiratory normal respiratory effort, lungs clear to auscultation Cardiovascular Rate/Rhythm: regular rate and regular rhythm Gastrointestinal (Abdomen) normal bowel sounds, soft, nontender, no hepatosplenomegaly Musculoskeletal No pedal edema Neurologic PERRL, EOMI, accommodation nl, no face palsy, no dysarthria Psychiatric A+Ox3, euthymic affect Discharge Data Allergies Allergy/AdvReac Type Severity Reaction Status Date / Time caffeine AdvReac Intermediate TACHYCARDIA Verified 06/20/24 11:09 ,PALPITATIO NS Unclassified Drugs Allergy Unknown ANY COLD Uncoded 06/20/24 11:09 REMEDY - RASH Percocet AdvReac Mild Flushing Uncoded 06/20/24 11:09 Consultations 07/04/24 16:26 ED Decision to Admit Stat 07/04/24 18:48 Consult Pulmonology Routine 07/05/24 07:50 Consult Pain Management Routine 07/06/24 10:52 Consult Palliative Care Routine Ordered Studies 07/04/24 14:18 CT chest diagnostic wo con Stat 07/06/24 10:00 Fluoro video [FL video swallow] Routine Hospital Course (1) Fall: (2) Right rib fracture: (3) Pneumothorax on right: (4) Pericardial effusion: (5) Laryngeal cancer: (6) Cancer of right breast: (7) Severe malnutrition: (8) Dysphagia: (9) Hypoxia: (10) Aspiration pneumonitis: Plan 68y/o F with PMHx significant for hypothyroidism due to Blayne's thyroiditis, COPD, pulmonary emphysema, laryngeal cancer, atherosclerosis of aorta, internal hemorrhoids, diverticulosis, age-related osteoporosis, cervical DDD, sensorineural hearing loss of both ears, 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 Biapical irregular consolidative opacities are new from the 04/26/2024 radiation therapy scan and may be on a postradiation basis. Attention on follow-up recommended. Right basilar predom inant mucous plugging with tree-in-bud nodules and patchy opacities suspicious for aspiration pneumonitis. Small right pleural effusion. Pulmonary emphysema. Acute and slightly displaced fracture of the lateral right ninth rib. Right 9th Rib Fracture S/P Recent Fall ISO Age-Related Osteoporosis: --CXR and chest CT notable for an acute anterolateral right 9th rib fracture Pain resolved Did not require chest tube for management of pneumothorax Pericardial Effusion: Chest CT notable for a small pericardial effusion measuring 1.3cm. --ECHO: Small to moderate pericardial effusion with focal moderate fluid collection adjacent to the posterior left ventricular vessel and right atrium and right ventricular lateral free wall. Tamponade is absent. EF 60 to 65%. No prior study for comparison Laryngeal Squamous Cell Carcinoma Triple-Negative Right Breast Cancer: Follows with [facility] Radiation Oncology and Dr. Geronimo of [facility] Hematology/Oncology. Most recently had visit with Dr. Geronimo on 06/29/24. She is currently only on Keytruda therapy; chemotherapy is on hold. 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 Patient also previously diagnosed with triple-negative right breast cancer in December 2023. --Staging PET scan done on 02/22/24 which revealed metabolic inferolateral right breast nodule with mildly metabolic right axillary lymph nodes consistent with known breast cancer with lymph node metastasis, right medial supraclavicular hypermetabolic lymph node favors metastatic disease, hypermetabolic laryngeal mass suspicious for primary malignancy or metastasis. FNA from the right supraclavicular lymph node was positive for metastatic adenocarcinoma consistent with metastatic adenocarcinoma of mammary origin. --Patient has so far completed 4 cycles of combination treatment including combination of Keytruda plus carboplatin and Taxol. She also completed radiation therapy to the laryngeal cancer. Follow-up ultrasound of the breast and the axillary area showed good response. Ultrasound of the head and neck revealed prominent right supraclavicular lymph node and few additional prominent bilateral cervical lymph nodes which could represent reactive versus metastasis. Patient is scheduled for repeat PET scan on 08/08/24. Aspiration pneumonitis --Chest CT noted biapical irregular consolidative opacities which are new from her 05/13/24 radiation therapy scan. May be on a postradiation basis. Attention on follow-up recommended. --BioFire negative --Videoswallow study showed silent aspiration with thin and nectar consistencies Continue with pureed Aspiration precautions Severe Malnutrition & Dysphagia ISO Laryngeal Cancer: BMI 16, weight 41kg on admission. Goals of Care Had GOC with Palliative team on 07/08/24; Patient discharged home on home hospice today per patient's wishes Total Time Total Time Spent Total Time Spent (In Minutes): 40 Total Time Includes: Examination of the Patient, Discharge Planning and Medication Reconciliation Discharge Plan Discharge Items Patient Disposition: Hospice - Home Reason For Visit: R RIB FX S/P FALL, R LUNG PNEUMONITIS Discharge Diagnosis: Fall Right rib fracture Pneumothorax Severe malnutrition Pericardial effusion Aspiration Activity: Resume your previous activity Non-emergency contact: Primary Care Provider Call non-emergency contact if: you have any medication questions Follow-up/Referrals: Waldemar Borden, [Primary Care Provider] - Diet: Regular Diet Texture: Pureed (blended smooth) Addtl Attending Provider Instructions: Mrs Blanton You were hospitalized and managed for the above listed diagnoses. You are being discharged home on home hospice. Please follow up with your Home Hospice agency for your needs It was a pleasure taking care of you Pending Studies at Discharge: No Stand-Alone Forms: My [facility] Medications and DC Order Prescriptions: Continued alendronate [Fosamax] 70 mg tablet 70 mg PO WK famotidine [Pepcid] 20 mg tablet 20 mg PO BID [facility] Formula 5-1-7.5 mg capsule 1 cap PO DAILY sucralfate [Carafate] 1 gram tablet 1 g PO Q6H Qty: 120 4RF potassium chloride 20 mEq tablet,ER particles/crystals 40 meq PO QAM fluoride (sodium) 1.1 % paste 1 applic dental DAILY fluconazole 100 mg tablet 100 mg PO DAILY levothyroxine 88 mcg tablet 88 mcg PO QAM lidocaine HCl [Lidocaine Viscous] 2 % solution 15 ml PO Q6H Discharge Orders: Discharge Order (Routine); Ordered 07/12/24 Ordered By: Kathy Flores Admission Data Admit Date/Time: 07/04/24 17:14 Attending Provider: Kathy Flores I. Admit Provider: Nichole Go Primary Care Provider: Waldemar Borden Other Providers: [facility]; Garcia Lemons; [facility]; [place]; [facility]; Nichole Go; Wilfrido Jarrett; Mingo Jo; Maria Victoria Edmonds; Antonio Pruitt; Celso Rodriguez; Bette Wilde; Sary Rubalcava Other Interventions: Discharge Summary Assessment (RN) Last Done: 07/12/24 09:52
--- NOTE | 2024-07-12 12:26 | Electrocardiogram Report ---
Test Reason : Blood Pressure : */* mmHG Vent. Rate : 69 BPM Atrial Rate : 69 BPM P-R Int : 144 ms QRS Dur : 78 ms QT Int : 386 ms P-R-T Axes : 35 -42 51 degrees QTcB Int : 413 ms Normal sinus rhythm Left axis deviation Abnormal ECG When compared with ECG of 15-Apr-2024 17:44, Nonspecific T wave abnormality now evident in Inferior leads Nonspecific T wave abnormality, improved in Anterolateral leads Confirmed by iMke Melchor ([id number]) on 07/12/2024 12:25:44 PM Referred By: REFERRED SELF Confirmed By: Mike Melchor
== END 2024-07-12 10:28 | disposition hospice, home (50) | DRG 542 ==
LOC: ED 13:57 → SUATTDRO 17:14 → 2S 17:14 → 2W 07-10 01:17 → 3N 07-10 10:35